=== PATIENT | female | born 1950 | race Caucasian/White ===

== ENCOUNTER 2016-04-01 06:45 | Inpatient (IN) | payer OTHER, MEDICARE ==
[2016-03-30 12:25] VITALS: BMI 34.0
--- NOTE | 2016-03-30 13:02 | PAT Medication Instructions ---
Service Date Mar 30, 2016. Current Home Medication List Acetaminophen (Tylenol), 1,000 MG PO PRN Amoxicillin & Pot Clavulanate (Augmentin 875-125 mg), 1 TAB PO BID Aspirin (Aspirin Ec), 81 MG PO QAM Atorvastatin (Lipitor), 40 MG PO HS Cholecalciferol (Vitamin D), 5,000 INTER.UNIT PO QAM Glipizide (Glucotrol *), 20 MG PO BID Lisinopril (Zestril), 10 MG PO QAM Metformin Hcl (Glucophage), 1,000 MG PO BID Multivitamin (Multivitamin), 1 TAB PO QAM [place]-3 Fatty Acids (Fish Oil), 1,000 MG PO QAM Omeprazole (Prilosec), 40 MG PO BID Pioglitazone (Actos *), 45 MG PO QAM Valacyclovir (Valtrex Unkown Dose), 1 GM PO PRN PRN for COLD SORES Varenicline (Chantix), 1 TAB PO BID Warfarin Sod (Jantoven), 4 MG PO SUN,,W,,FR,SAT Warfarin Sod (Jantoven), 2 MG PO MONDAY Medication Instructions For Your Scheduled Surgery -Check with surgeon/coumadin clinic for instructions: Warfarin Sod (Jantoven), 4 MG PO SUN,M,,TH,FR,SAT Warfarin Sod (Jantoven), 2 MG PO MONDAY - Hold the following medications starting 03/31/2015: [place]-3 Fatty Acids (Fish Oil), 1,000 MG PO QAM - Hold the following medications starting 03/30/15: Metformin Hcl (Glucophage), 1,000 MG PO BID - Hold the following medications the morning of surgery: Varenicline (Chantix), 1 TAB PO BID Pioglitazone (Actos *), 45 MG PO QAM\ Multivitamin (Multivitamin), 1 TAB PO QAM Lisinopril (Zestril), 10 MG PO QAM Glipizide (Glucotrol *), 20 MG PO BID Cholecalciferol (Vitamin D), 5,000 INTER.UNIT PO QAM\ - Take the following medications the morning of surgery with a sip of water: Omeprazole (Prilosec), 40 MG PO BID Amoxicillin & Pot Clavulanate (Augmentin 875-125 mg), 1 TAB PO BID Valacyclovir (Valtrex Unkown Dose), 1 GM PO PRN PRN for COLD SORES Acetaminophen (Tylenol), 1,000 MG PO PRN Aspirin (Aspirin Ec), 81 MG PO QAM (unless otherwise per surgeon) - Take the following medications as scheduled the night before surgery: Varenicline (Chantix), 1 TAB PO BID Omeprazole (Prilosec), 40 MG PO BID Atorvastatin (Lipitor), 40 MG PO HS Amoxicillin & Pot Clavulanate (Augmentin 875-125 mg), 1 TAB PO BID Valacyclovir (Valtrex Unkown Dose), 1 GM PO PRN PRN for COLD SORES Acetaminophen (Tylenol), 1,000 MG PO PRN If you have any questions please call us at [phone] (Sarah Cutler PA-C ) or [phone] or [phone]
--- NOTE | 2016-03-30 13:55 | DIAGNOSTIC IMAGING REPORT ---
TWO VIEW CHEST CLINICAL HISTORY: Preoperative examination. FINDINGS: PA and lateral chest radiographs are compared to study dated 05/26/2010 and correlated with chest CT dated 05/25/2010. The cardiomediastinal silhouette is unremarkable. There is atherosclerotic calcification of the thoracic aorta. Emphysema and chronic interstitial thickening is similar to previous. There is no airspace consolidation or pleural effusion. There is no pneumothorax. The skeletal structures are osteopenic. Degenerative change and mild scoliosis is noted in the thoracic spine. Surgical clips project over the right apex. IMPRESSION: Emphysema with no acute cardiopulmonary abnormality. Electronically signed by: Arthur Ojeda M.D. 03/30/2016 1:53 PM Dictated Date/Time: 03/30/2016 1:51 PM
[2016-03-30 14:06] LABS: BASO ABS # 0.09 K/uL (0-0.2); COMPLETE YES; HEMATOCRIT 32.9 % (37-47); IG% 0.2 %; LYMPH % 19.3 %; LYMPH ABS # 1.72 K/uL (1.2-3.4); MEAN CELL VOLUME 79.5 fL (80-100); MEAN CORPUSCULAR HEMOGLOBIN 25.8 pg (25-34); MEAN CORPUSCULAR HGB CONC 32.5 g/dl (32-36); MEAN PLATELET VOLUME 8.9 fL (7.4-10.4); MONO % 5.2 %; NEUT % 73.3 %; PLATELET COUNT 320 K/uL (130-400); RED BLOOD COUNT 4.14 M/uL (4.2-5.4); WHITE BLOOD COUNT 8.92 K/uL (4.8-10.8)
[2016-03-30 14:28] LABS: BUN/CREATININE RATIO 14.7 (10-20); CALCIUM 9.1 mg/dl (8.5-10.1); CREATININE 0.65 mg/dl (0.60-1.20); POTASSIUM 3.9 mmol/L (3.5-5.1)
[2016-04-01] VITALS (27 sets, daily range): BP systolic 112–198; BP diastolic 51–81; PULSE 62–105; TEMP 36.6–37; O2SAT 91–100; BMI 34.0; BMI 34.3
[~2016-04-01] VITALS: Ht 152.4 cm; Wt 79.7 kg
--- NOTE | 2016-04-01 06:05 | History and Physical ---
History & Physical Chief Complaint Draining hematoma right groin History of Present Illness The patient is a 64 year old female had undergone a right ax bifem bypass for limb salvage a few months ago. She presents with a draining hematoma of the right groin. It just started last week. Denies redness or pus. Does cam some discomfort. Allergies Coded Allergies: No Known Allergies (Verified , 08/26/15) Home Medications Scheduled Acetaminophen (Tylenol), 1,000 MG PO PRN Amitriptyline Hcl (Elavil *), 20 MG PO HS Aspirin (Aspirin Ec), 81 MG PO DAILY Atorvastatin (Lipitor), 40 MG PO HS Cholecalciferol (Vitamin D), 5,000 INTER.UNIT PO DAILY Clopidogrel (Plavix), 75 MG PO DAILY Glipizide (Glucotrol *), 20 MG PO BID Lisinopril (Zestril), 10 MG PO DAILY Metformin Hcl (Glucophage), 1,000 MG PO BID Multivitamin (Multivitamin), 1 TAB PO DAILY [place]-3 Fatty Acids (Fish Oil), 1,000 MG PO DAILY Omeprazole (Prilosec), 40 MG PO BID Pioglitazone (Actos *), 45 MG PO DAILY Scheduled PRN Ibuprofen Tab (Advil), 400 MG PO PRN PRN for PRN Valacyclovir (Valtrex Unkown Dose), 1 GM PO PRN PRN for COLD SORES Surgical / Medical History Hx Cardiac Surgery: No Hx Abdominal Surgery: Yes (tubal) Hx Cancer Surgery: No Hx Thoracic Surgery: No Hx Orthopedic: No Hx Urinary Tract Surgery: No HX Other Surgery: Yes (iliac artery stent) Social History Smoking Status: Current Every Day Smoker Hx Tobacco Use In Past Year?: Yes Hx Alcohol Use - Type & Amnt: No Hx Substance Use -Type & Amnt: No Review of Systems Additional Comments: unobtainable Physical Exam Constitutional: General Apperance: overweight Level of Distress: moderate distress Psychiatric: Mental Status: active & alert, normal mood, normal affect Orientation: oriented except where noted, to time, to place, to person Memory: recent memory normal, remote memory normal Lungs: Auscultation: breath sounds normal Cardiovascular: Heart Auscultation: RRR Peripheral Pulses: Radial Pulse: normal on the left, normal on the right Femoral Pulse: normal on the right, normal on the left Posterior Tibialis Pulse: decreased on the left , decreased on the right Dorsalis Pedis Pulse: decreased on the right, absent on the left Abdomen: Inspection & Palpation: soft Extremities: Upper Right and left: no cyanosis, no edema, no varicosities, no palpable cord, no clubbing, no ulcers, no mottling Upper Left: no cyanosis, no edema, no palpable cord, no clubbing, no ulcers , no mottling Lower Left: no cyanosis, no edema, no palpable cord, no clubbing, no ulcers , no mottling Assessment and Plan Imp: Draining right groin wound Plan: Patient is admitted for exploration of the right groin wound. I have discussed the risks options and benefits of the procedure with the patient. The patient understands the risks options and benefits and agrees to the procedure.
[~2016-04-01 06:45] MED LIST: ACET-1256 PO; ACT15 PO; AMOX875T PO; ASPI81TA28 PO; ATOR-24 PO; CEFAZOLIN 1000MG/55 ML D5W IV SCH; CEFAZOLIN 2000 MG/60 ML D5W IV SCH; CHN/1 PO; CHOL100010 PO; GLC5 PO; LACTATED RINGER'S 1000ML 1,000 ML IV SCH; LISI-461 PO; METF-384 PO; MULT-506 PO; OMEGCAP2 PO; OMEP40CA PO; SODIUM CHLORIDE 0.9% 1000ML 1,000 ML IV SCH; WARF2TAB8 PO; WARF4TAB8 PO; [UNRECOGNIZED DRUG - OTHER] PO
[2016-04-01] MEDS ORDERED: FENTANYL CITRATE INJ 50 MCG/1 ML 2 ML VIAL ONE ×2 (07:00→10:29)
[2016-04-01] MEDS ORDERED: MIDAZOLAM HCL 1 MG/ML 2ML VIAL ONE (07:00)
--- NOTE | 2016-04-01 07:36 | History & Physical Bridge Note ---
H&P Re-Evaluation Bridge Note: I have examined the patient, reviewed the History & Physical and in the interval since the performance of the History & Physical I have noted the following changes of clinical significance: No changes noted
[2016-04-01 08:01] LABS: INR 1.7 (0.9-1.1); PARTIAL THROMBOPLASTIN RATIO 1.5
[2016-04-01] MEDS ORDERED: ATROPINE SULFATE 0.1 MG/ML 5ML SYR IV PRN (09:30)
[2016-04-01] MEDS ORDERED: HYDROmorphone INJ 2 MG/ML SYR/VIAL IV PRN (09:30)
[2016-04-01] MEDS ORDERED: PHENYLEPHRINE 100MCG/ML 5ML SYR IV PRN (09:30)
[2016-04-01] MEDS ORDERED: ONDANSETRON INJ 2 MG/ML 2 ML VIAL IV PRN ×2 (09:30→10:45)
[2016-04-01] MEDS ORDERED: EpHEDrine SULFATE INJ 50 MG/ML AMP IV PRN (09:30)
[2016-04-01] MEDS ORDERED: CEFAZOLIN IV 2,000 MG/60 ML D5W IV ONE (09:44)
[2016-04-01] MEDS ORDERED: NURSING VERBAL MED ORDER ONE (10:00)
[2016-04-01] MEDS ORDERED: PROPOFOL IV EMULSION 10 MG/ML 20 ML VIAL IV ONE (10:29)
[2016-04-01] MEDS ORDERED: DEXAMETHASONE SOD INJ 4 MG/ML VIAL ONE (10:29)
[2016-04-01] MEDS ORDERED: LIDOCAINE HCL 2% 2 ML VIAL (20MG/ML) ONE (10:29)
[2016-04-01] MEDS ORDERED: PHENYLEPHRINE 100MCG/ML 5ML SYR ONE (10:29)
[2016-04-01] MEDS ORDERED: ONDANSETRON INJ 2 MG/ML 2 ML VIAL ONE (10:29)
[2016-04-01] MEDS ORDERED: VANCOMYCIN INJ 0 MG in SODIUM CHLORIDE 0.9% 250ML 250 ML IV STA (10:37)
--- NOTE | 2016-04-01 10:37 | [facility] Post Operative Brief Note ---
Immediate Operative Summary Operative Date Apr 01, 2016. Pre-Operative Diagnosis Right groin abscess Post-Operative Diagnosis Right groin abscess Procedure(s) Performed Right Groin Exploration and Debridement Repair of arterial anastomosis Surgeon Dr. Chip Morgan Packer Operator Automatic Surgeon(s) Esther Higgins PA-C Estimated Blood Loss 80 ml Findings anastomosis incorporated except for very small area at heal, another area along the graft further up but may be due to the bleeding from the anastomosis Specimens Microbiology 1. Right Groin Graft Anesthesia Gen Complication(s) None Disposition Recovery Room / PACU
[2016-04-01] MEDS ORDERED: ORM MISCELLANEOUS MED XX ONE (10:42)
[2016-04-01] MEDS ORDERED: BACITRACIN 50,000 UNITS IR ONE (10:43)
[2016-04-01] MEDS ORDERED: MoRPHine SULFATE 4 MG/ML 1 ML CARP\\VIAL IV PRN (10:45)
--- NOTE | 2016-04-01 11:25 | Anesthesiology Progress Note ---
Anesthesia Post Op Note Date & Time Apr 01, 2016 at 11:24 Vital Signs Pain Intensity: 5 Vital Signs Past 12 Hours Date Time Temp Pulse Resp B/P Pulse Ox O2 Delivery O2 Flow Rate FiO2 04/01/16 11:20 36.8 78 16 113/61 100 Nasal Cannula 2 04/01/16 11:10 72 16 94/48 99 Nasal Cannula 2 04/01/16 11:00 59 16 104/70 100 Nasal Cannula 2 04/01/16 10:50 66 16 143/82 100 Mask 10 04/01/16 10:41 36.8 89 16 125/69 100 Mask 10 04/01/16 07:10 36.9 84 18 198/79 98 Room Air Notes Mental Status: alert / awake / arousable, participated in evaluation Pt Amnestic to Procedure: Yes Nausea / Vomiting: adequately controlled Pain: adequately controlled Airway Patency, RR, SpO2: stable & adequate BP & HR: stable & adequate Hydration State: stable & adequate Anesthetic Complications: no major complications apparent
--- NOTE | 2016-04-01 11:33 | OPERATIVE REPORT ---
DATE OF OPERATION: 04/01/2016 PREOPERATIVE DIAGNOSIS: Bleeding right groin. POSTOPERATIVE DIAGNOSIS: Same with small disruption of arterial anastomosis. PROCEDURE: 1. Exploration of right groin. 2. Repair of arterial anastomosis. SURGEON: Dr. Morgan. AGENT TICKETING GATE: Esther Higgins PA-C. ANESTHETIC: General. PROCEDURE INDICATIONS: The patient is a 65-year-old female who had an emergency axillo bifemoral bypass done last year. She was doing well. She noticed a sharp pain and a pull in her right groin last week. She says that she has a small punctate lesion at the top of her incision with bleeding. This was opened in the office, found to have a hematoma below and it was recommended that we explore in the operating room. The patient understood the risks, options and benefits and agreed to have this procedure. PROCEDURE: The patient was taken to the operating room and placed in supine position. After right groin was prepped and draped in a sterile manner the old incision was then opened. We went through the subcutaneous tissue and found the graft to be sitting there. The proximal above it was well incorporated. The area of the hematoma was not. There was some bleeding noted coming from the depth of the wound. The dissection was carried down along the graft until the arterial anastomosis was seen. The arterial anastomosis was well incorporated except for a small portion on the cephalad medial side. There was a small area of bleeding. This was actually repaired with 2 Prolene sutures. The graft was patent and flowing well. Adequate hemostasis was seen. I tugged on the graft slightly and the rest of the arterial anastomosis felt to be fairly secure. No further bleeding was noted. Wound was then irrigated with bacitracin solution and closed with a running 2-0 Vicryl suture for the subcutaneous layer and aisha for the skin. Sterile dressings were applied. The patient left the operating room in satisfactory condition and tolerated the procedure well. Esther Higgins assisted due to lack of resident availability. I attest to the content of the Intraoperative Record and any orders documented therein. Any exceptions are noted below. MTDD
[2016-04-01 11:34] LABS: BASO ABS # 0.07 K/uL (0-0.2); COMPLETE YES; EOS % 2.2 %; HEMATOCRIT 27.7 % (37-47); IG% 0.3 %; LYMPH % 23.5 %; LYMPH ABS # 1.58 K/uL (1.2-3.4); MEAN CELL VOLUME 80.1 fL (80-100); MEAN CORPUSCULAR HEMOGLOBIN 26.3 pg (25-34); MEAN CORPUSCULAR HGB CONC 32.9 g/dl (32-36); MEAN PLATELET VOLUME 8.6 fL (7.4-10.4); MONO % 4.3 %; NEUT % 68.7 %; PLATELET COUNT 251 K/uL (130-400); RED BLOOD COUNT 3.46 M/uL (4.2-5.4); WHITE BLOOD COUNT 6.72 K/uL (4.8-10.8)
--- NOTE | 2016-04-01 13:27 | Progress Note ---
Progress Note I assisted Dr Morgan with Gifty Plummer's Right Groin Exploration and Debridement, Repair of arterial anastomosis on 04/01/16, d/t lack of resident availability.
[2016-04-01] MEDS ORDERED: MoRPHine SULFATE 2 MG/ML CARP IV PRN (14:00)
[2016-04-01] MEDS ORDERED: VANCOMYCIN CONSULT ACTIVE PRN (14:30)
--- NOTE | 2016-04-01 14:44 | Pharmacy Progress Note ---
Pharmacy Antibiotic Consult Date of Service: Apr 01, 2016. Pharmacy Dosing Scope Pharmacy is consulted to initiate vancomycin IV dosing therapy, order appropriate labs and adjust drug dose/frequency. Subjective The patient is a 65 year old female admitted on Apr 01, 2016 at 10:47. Objective Height (Feet): 5 Height (Inches): 0 Weight (Kilograms): 79.300 Lab Results (24hrs): Laboratory Tests Test 04/01/16 11:20 White Blood Count 6.72 K/uL Red Blood Count 3.46 M/uL Hemoglobin 9.1 g/dL Hematocrit 27.7 % Mean Corpuscular Volume 80.1 fL Mean Corpuscular Hemoglobin 26.3 pg Mean Corpuscular Hemoglobin Concent 32.9 g/dl Platelet Count 251 K/uL Mean Platelet Volume 8.6 fL Neutrophils (%) (Auto) 68.7 % Lymphocytes (%) (Auto) 23.5 % Monocytes (%) (Auto) 4.3 % Eosinophils (%) (Auto) 2.2 % Basophils (%) (Auto) 1.0 % Neutrophils # (Auto) 4.61 K/uL Lymphocytes # (Auto) 1.58 K/uL Monocytes # (Auto) 0.29 K/uL Eosinophils # (Auto) 0.15 K/uL Basophils # (Auto) 0.07 K/uL Micro Results: Item Value Date Time Gram Stain - Final Resulted 04/01/16 1002 Drainage-Deep Groin MRSA DNA Surveillance Screen - Final Complete 04/01/16 1200 Nasal Specimen Negative for MRSA by DNA Probe Assessment & Plan ASSESSMENT: * Patient is a 65 year-old female admitted with an infected arterial graft. * Patient does have an elevated BMI of 34.1kg/m2. * Pharmacy was consulted to dose for 24hr post-op vancomycin dosing on the patient. * However, spoke with Esther Motta and patient will likely continue on longer duration of therapy of vancomycin. Thus will give a loading dose and start on maintenance dosing with vancomycin. Will follow-up on this on 04/02. * Calculated half-life to be ~10hrs. * Goal trough of 15-20mcg/ml. * Drainage culture was taken, and MRSA nasal swab was negative. PLAN: Vancomycin: * Gave 2g IV x 1 dose of vancomycin (25mg/kg) for a load. * Will make the maintenance dosing to be 1100mg IV q12h (~14mg/kg). * Will not order a trough yet until we see if the provider will extend the duration of therapy. Pharmacy will continue to follow and will adjust dose/frequency as necessary. Thank you
[2016-04-01] MEDS ORDERED: VANCOMYCIN INJ 2,000 MG in SODIUM CHLORIDE 0.9% 500ML 500 ML IV ONE (15:00)
[2016-04-01] MEDS: PANTOprazole INJ 40 MG in SYRINGE 0 ML IV SCH (15:05)
[2016-04-01] MEDS: D5W AND 1/2NSS 1,000 ML IV SCH (15:05)
--- NOTE | 2016-04-01 15:50 | Critical Care Consultation ---
Critical Care Consultation Date of Consultation: Apr 01, 2016. Attending Physician: Chip Morgan M.D. Reason for Consultation: s/p repair of anastomosis History of Present Illness This is a 65 yo f that is presenting to us s/p repair of anastomosis of a right axillary bifemoral bypass. The patient originally had the bypass completed in august of 2015 for PAD. She had been symptom free since the surgery except for approximately a week. She notes that about a week ago she noticed increased pain in the right groin. On monday she started to notice bleeding in the area and called Dr Morgan, who originally completed the bypass. She was assessed in the office with a USG which did not reveal a pseudoaneurysm and a I& D however they were not able to assess appropriately without anesthesia and there was concern for the anastomosis. Debridement and reanastomosis was completed today, 04/01/15. She is currently resting in bed and feeling well. She only complains of pain in the right groin and is currently a 6/10. Past Medical/Surgical History Amputation of right little toe s/p axillary bifemoral bypass with reanastomosis Tubal ligation DMII HTN Hyperlipidemia Emphysema Family History Hypertension FATHER Social History Smoking Status: Former Smoker (quit august 2015) Smokeless Tobacco Use: No Alcohol Use: none Drug Use: none Marital Status: Housing Status: lives with family Occupation Status: retired Allergies Coded Allergies: NO KNOWN DRUG ALLERGIES (Verified Allergy, Mild, ., 04/01/16) Nickel (Verified Allergy, Mild, RASH, 04/01/16) Home Medications Scheduled Acetaminophen (Tylenol), 1,000 MG PO PRN Amoxicillin & Pot Clavulanate (Augmentin 875-125 mg), 1 TAB PO BID Aspirin (Aspirin Ec), 81 MG PO QAM Atorvastatin (Lipitor), 40 MG PO HS Cholecalciferol (Vitamin D), 5,000 INTER.UNIT PO QAM Glipizide (Glucotrol *), 20 MG PO BID Lisinopril (Zestril), 10 MG PO QAM Metformin Hcl (Glucophage), 1,000 MG PO BID Multivitamin (Multivitamin), 1 TAB PO QAM [place]-3 Fatty Acids (Fish Oil), 1,000 MG PO QAM Omeprazole (Prilosec), 40 MG PO BID Pioglitazone (Actos *), 45 MG PO QAM Varenicline (Chantix), 1 TAB PO BID Warfarin Sod (Martoven), 4 MG PO SUN,M,W,TH,FR,SAT Warfarin Sod (Martoven), 2 MG PO MONDAY Scheduled PRN Valacyclovir (Valtrex Unkown Dose), 1 GM PO PRN PRN for COLD SORES Current Inpatient Medications Current Inpatient Medications Medications (Trade) Dose Ordered Sig/Shira Route Start Time Stop Time Status Last Admin Dose Admin Sodium Chloride 1,000 ml @ 100 mls/hr Q10H IV 04/01/16 06:00 04/01/16 15:59 Cefazolin Sodium (Ancef 2000mg/60 ml D5W) 60 ml @ 100 mls/hr PREOP IV 04/01/16 06:00 04/01/16 18:00 Oxycodone/ Acetaminophen (Percocet 5-325mg Tab) `1-2 TABS FOR MODER... Q4H PRN PO 04/01/16 10:45 04/15/16 10:44 Morphine Sulfate (MoRPHine SULFATE INJ) 4 mg Q2H PRN IV 04/01/16 10:45 04/15/16 10:44 Ondansetron HCl 4 mg 4 mg Q6H PRN IV 04/01/16 10:45 05/01/16 10:44 Pantoprazole Sodium/Syringe (Protonix Inj/ Syringe) 10 ml @ 5 mls/min DAILY@11 IV 04/01/16 16:00 05/01/16 15:59 04/01/16 15:05 5 MLS/MIN Enoxaparin Sodium 30 mg 30 mg Q12H SQ 04/01/16 20:00 05/01/16 19:59 Dextrose/Sodium Chloride (D5W And 1/2nss) 1,000 ml @ 125 mls/hr Q8H IV 04/01/16 13:30 05/01/16 13:29 04/01/16 15:05 125 MLS/HR Aspirin (Ecotrin Tab) 81 mg QAM PO 04/02/16 09:00 05/02/16 08:59 Atorvastatin Calcium (Lipitor Tab) 40 mg HS PO 04/01/16 21:00 05/01/16 20:59 Cholecalciferol (Vitamin D Tab) 5,000 inter.unit QAM PO 04/02/16 09:00 05/02/16 08:59 Glipizide (Glucotrol Tab) 20 mg BIDM PO 04/01/16 16:30 05/01/16 16:29 Lisinopril (Zestril Tab) 10 mg QAM PO 04/02/16 09:00 05/02/16 08:59 Metformin HCl (Glucophage Tab) 1,000 mg BIDM PO 04/02/16 07:15 05/02/16 07:14 Multivitamins (Multivitamin Tab) 1 tab QAM PO 04/02/16 09:00 05/02/16 08:59 Pioglitazone HCl (ACTos TAB) 45 mg QDB PO 04/02/16 07:15 05/02/16 07:14 Warfarin Sodium (Coumadin Tab) 2 mg Tu@1600 PO 04/05/16 16:00 05/05/16 15:59 Warfarin Sodium (Coumadin Tab) 4 mg SuMoWeThFrSa@1600 PO 04/01/16 16:00 05/01/16 15:59 Fish Oil ([place]-3 (Purified Fish Oil) Cap) 1 gm QAM PO 04/02/16 09:00 05/02/16 08:59 Valacyclovir HCl (Valtrex Tab) 1,000 mg UD PRN PO 04/01/16 13:15 05/01/16 13:14 Morphine Sulfate (MoRPHine SULFATE INJ) 2 mg Q2H PRN IV 04/01/16 14:00 04/15/16 13:59 Varenicline (Chantix) 1 mg BID PO 04/01/16 21:00 05/01/16 20:59 Vancomycin HCl 1 ea 1 ea UD PRN N/A 04/01/16 14:30 05/01/16 14:29 Vancomycin HCl 2000 mg/Sodium Chloride 540 ml @ 200 mls/hr TODAY@1500 ONCE IV 04/01/16 15:00 04/01/16 17:41 04/01/16 14:58 200 MLS/HR Vancomycin HCl/ Sodium Chloride (Vancomycin Inj/ Nss 250ml) 272 ml @ 125 mls/hr Q12H IV 04/02/16 00:00 04/02/16 14:59 Review of Systems Constitutional: No fever Eyes: No worsening of vision ENT: No hearing loss Respiratory: No cough, No dyspnea at rest, No dyspnea on exertion, No shortness of breath, No sputum, No wheezing Cardiovascular: No chest pain Abdomen: No constipation, No diarrhea, No nausea, No pain, No vomiting Musculoskeletal: No joint pain, No muscle pain Neurologic: No memory loss, No numbness/tingling, No weakness Psychiatric: No anxiety, No depression symptoms Endocrine: No fatigue Integumentary: No rash Physical Exam Date Time Temp Pulse Resp B/P Pulse Ox O2 Delivery O2 Flow Rate FiO2 04/01/16 13:30 91 94 04/01/16 13:29 91 129/72 94 04/01/16 13:15 85 92 04/01/16 13:14 84 140/61 94 04/01/16 13:05 36.8 89 20 129/63 94 Nasal Cannula 2.0 04/01/16 13:00 101 94 04/01/16 12:58 105 134/53 93 04/01/16 12:45 99 91 04/01/16 12:44 99 130/60 92 04/01/16 12:30 88 91 04/01/16 12:28 93 112/76 95 04/01/16 12:15 81 96 04/01/16 12:13 84 150/79 96 04/01/16 12:00 62 98 04/01/16 11:59 36.7 79 151/79 100 04/01/16 11:30 63 16 102/50 100 Nasal Cannula 2 04/01/16 11:20 36.8 78 16 113/61 100 Nasal Cannula 2 04/01/16 11:10 72 16 94/48 99 Nasal Cannula 2 04/01/16 11:00 59 16 104/70 100 Nasal Cannula 2 04/01/16 10:50 66 16 143/82 100 Mask 10 04/01/16 10:41 36.8 89 16 125/69 100 Mask 10 04/01/16 07:10 36.9 84 18 198/79 98 Room Air General Appearance: WD/WN, no apparent distress Head: normocephalic, atraumatic Eyes: normal inspection ENT: normal ENT inspection Neck: supple Respiratory/Chest: lungs clear, normal breath sounds, no respiratory distress, no accessory muscle use Cardiovascular: regular rate, rhythm, no murmur, + pertinent finding ( diminished by palpable bilat peripheral pulses, they are equal) Abdomen/GI: normal bowel sounds, non tender, soft Back: normal inspection Extremities/Musculoskelatal: normal inspection, no calf tenderness, + pertinent finding (tenderness only surrounding the incision site, no cellultis) Neurologic/Psych: alert, normal mood/affect, oriented x 3 Skin: normal color, warm/dry, no rash, + pertinent finding (no drainage through the dressing noted) Laboratory Results Last 24 Hours Test 04/01/16 07:22 04/01/16 07:40 04/01/16 10:46 04/01/16 11:20 Bedside Glucose 135 mg/dl 116 mg/dl Prothrombin Time 19.0 SECONDS Prothromb Time International Ratio 1.7 Activated Partial Thromboplast Time 39.3 SECONDS Partial Thromboplastin Ratio 1.5 White Blood Count 6.72 K/uL Red Blood Count 3.46 M/uL Hemoglobin 9.1 g/dL Hematocrit 27.7 % Mean Corpuscular Volume 80.1 fL Mean Corpuscular Hemoglobin 26.3 pg Mean Corpuscular Hemoglobin Concent 32.9 g/dl Platelet Count 251 K/uL Mean Platelet Volume 8.6 fL Neutrophils (%) (Auto) 68.7 % Lymphocytes (%) (Auto) 23.5 % Monocytes (%) (Auto) 4.3 % Eosinophils (%) (Auto) 2.2 % Basophils (%) (Auto) 1.0 % Neutrophils # (Auto) 4.61 K/uL Lymphocytes # (Auto) 1.58 K/uL Monocytes # (Auto) 0.29 K/uL Eosinophils # (Auto) 0.15 K/uL Basophils # (Auto) 0.07 K/uL RDW Standard Deviation 45.0 fL RDW Coefficient of Variation 15.4 % Immature Granulocyte % (Auto) 0.3 % Immature Granulocyte # (Auto) 0.02 K/uL Diagnostic Results TWO VIEW CHEST CLINICAL HISTORY: Preoperative examination. FINDINGS: PA and lateral chest radiographs are compared to study dated 05/26/2010 and correlated with chest CT dated 05/25/2010. The cardiomediastinal silhouette is unremarkable. There is atherosclerotic calcification of the thoracic aorta. Emphysema and chronic interstitial thickening is similar to previous. There is no airspace consolidation or pleural effusion. There is no pneumothorax. The skeletal structures are osteopenic. Degenerative change and mild scoliosis is noted in the thoracic spine. Surgical clips project over the right apex. IMPRESSION: Emphysema with no acute cardiopulmonary abnormality. Assessment & Plan 1. s/p axillary bifemoral bypass reanastomosis 2. s/p I&D of abscess in right groin 3. HTN 4. DM 5. COPD 6. Hypercholesterolemia NVS - alert and oriented x 3 - continue to monitor neuro status - pain control with Oxycodone and morphine CVS - continue to monitor - continue statin - peripheral Doppler for pulses q 4 - cont lisinopril RVS - incentive roberta and flutter valve- h/o smoking and emphysema increased risk for pna GI - advance diet as tolerated - zofran for nausea prn RENAL - recheck BMP in am - D5W 1/ NSS IVF ID - Vanco and consult - wound culture pending HEME - recheck CBC in am to monitor hgb - recheck INR tomorrow ENDO - cont metformin, glipizide and pioglitazone - monitor BSG DVT PROPHYLAXIS - Enoxaparin and SCD FULL CODE Resident Physician Supervision Note: Dr. Farr was resident physician during care of patient. I separately evaluated patient and did history and exam. I discussed the case with the resident and generally agree with the findings and plan. During my evaluation the patient was without complaint, tolerating food, and was anticipating discharge tomorrow. Documented By: Gray Allen DO
[2016-04-01] MEDS: WARFARIN SOD 4 MG TAB PO SCH (16:24)
[2016-04-01] MEDS: OXYCODONE/ACETAMINOPHEN 5-325 TAB PO PRN (17:38)
[2016-04-01] MEDS: ENOXAPARIN 30 MG/0.3 ML SYR SQ SCH (19:45)
[2016-04-01] MEDS: ATORVASTATIN 20 MG TAB PO SCH (20:40)
[2016-04-01] MEDS: VARENICLINE (CHANTIX) 1 MG TAB PO SCH (20:40)
[2016-04-01] MEDS ORDERED: VARENICLINE 0.5 MG TAB PO SCH (21:00)
[2016-04-01] MEDS ORDERED: PANTOprazole SOD 40 MG TAB PO SCH (21:00)
[2016-04-01] MEDS: VANCOMYCIN INJ 1,100 MG in SODIUM CHLORIDE 0.9% 250ML 250 ML IV SCH (23:42)
[2016-04-02] VITALS (13 sets, daily range): BP systolic 126–179; BP diastolic 51–81; PULSE 65–81; TEMP 36.6–36.9; O2SAT 94–98
[2016-04-02] MEDS: D5W AND 1/2NSS 1,000 ML IV SCH (04:11)
[2016-04-02] MEDS: OXYCODONE/ACETAMINOPHEN 5-325 TAB PO PRN ×4 (04:12→19:43)
[2016-04-02 05:55] LABS: BASO % 0.5 %; BASO ABS # 0.05 K/uL (0-0.2); COMPLETE YES; HEMATOCRIT 29.7 % (37-47); IG% 0.4 %; LYMPH % 24.2 %; LYMPH ABS # 2.63 K/uL (1.2-3.4); MEAN CELL VOLUME 80.1 fL (80-100); MEAN CORPUSCULAR HEMOGLOBIN 25.6 pg (25-34); MEAN PLATELET VOLUME 8.7 fL (7.4-10.4); MONO % 7.7 %; NEUT % 66.2 %; PLATELET COUNT 274 K/uL (130-400); RED BLOOD COUNT 3.71 M/uL (4.2-5.4); WHITE BLOOD COUNT 10.89 K/uL (4.8-10.8)
[2016-04-02 06:05] LABS: INR 1.9 (0.9-1.1); PROTHROMBIN TIME (PATIENT) 20.9 SECONDS (9.0-12.0)
[2016-04-02 06:23] LABS: BUN/CREATININE RATIO 17.6 (10-20); CALCIUM 8.1 mg/dl (8.5-10.1); CREATININE 0.71 mg/dl (0.60-1.20); POTASSIUM 3.2 mmol/L (3.5-5.1)
[2016-04-02] MEDS: LISINOPRIL 10 MG TAB PO SCH (08:23)
[2016-04-02] MEDS: PIOGLITAZONE TAB 15 MG TAB PO SCH (08:23)
[2016-04-02] MEDS: CHOLECALCIFEROL 1000 INTER.UNIT TAB PO SCH (08:24)
[2016-04-02] MEDS: METFORMIN HCL 500 MG TAB PO SCH ×2 (08:24→17:08)
[2016-04-02] MEDS: MULTIVITAMIN TAB PO SCH (08:24)
[2016-04-02] MEDS: OMEGA-3 (PURIFIED FISH OIL) 1 GM CAP PO SCH (08:24)
[2016-04-02] MEDS: ASPIRIN 81 MG ECTAB PO SCH (08:25)
[2016-04-02] MEDS: ENOXAPARIN 30 MG/0.3 ML SYR SQ SCH ×2 (08:25→19:43)
[2016-04-02] MEDS: VARENICLINE (CHANTIX) 1 MG TAB PO SCH ×2 (08:25→19:42)
--- NOTE | 2016-04-02 10:42 | Progress Note ---
Progress Note Date of Service: Apr 02, 2016. Subjective Complains of incisional right groin pain Objective Vital Signs Vital Signs Past 12 Hours Date Time Temp Pulse Resp B/P Pulse Ox O2 Delivery O2 Flow Rate FiO2 04/02/16 10:00 80 14 168/69 98 Room Air 04/02/16 08:00 36.7 79 18 168/66 97 Room Air 04/02/16 08:00 97 Room Air 04/02/16 06:00 75 12 154/71 97 Nasal Cannula 2.0 04/02/16 04:30 165/71 04/02/16 04:00 Nasal Cannula 2.0 04/02/16 04:00 36.9 80 14 179/81 97 Nasal Cannula 2.0 04/02/16 02:00 73 20 162/66 97 Nasal Cannula 2.0 04/02/16 00:01 36.9 72 14 144/60 97 Nasal Cannula 2.0 04/01/16 23:59 Nasal Cannula 2.0 Exam Awake and alert. Sitting in chair Good distal doppler flow No bleeding from groin. Intake & Output 8-Hour Column 04/01/16 04/02/16 04/02/16 16:00 00:00 08:00 Intake Total 1500 ml 2308 ml 1020 ml Output Total 80 ml 925 ml 1250 ml Balance 1420 ml 1383 ml -230 ml 24-Hour Column 04/02/16 08:00 Intake Total 4828 ml Output Total 2255 ml Balance 2573 ml Laboratory and Microbiology Results Past 24 Hours Test 04/01/16 10:46 04/01/16 11:20 04/01/16 16:05 04/01/16 22:03 Range/Units Bedside Glucose 116 201 212 70-90 mg/dl White Blood Count 6.72 4.8-10.8 K/uL Red Blood Count 3.46 4.2-5.4 M/uL Hemoglobin 9.1 12.0-16.0 g/dL Hematocrit 27.7 37-47 % Mean Corpuscular Volume 80.1 80-100 fL Mean Corpuscular Hemoglobin 26.3 25-34 pg Mean Corpuscular Hemoglobin Concent 32.9 32-36 g/dl Platelet Count 251 130-400 K/uL Mean Platelet Volume 8.6 7.4-10.4 fL Neutrophils (%) (Auto) 68.7 % Lymphocytes (%) (Auto) 23.5 % Monocytes (%) (Auto) 4.3 % Eosinophils (%) (Auto) 2.2 % Basophils (%) (Auto) 1.0 % Neutrophils # (Auto) 4.61 1.4-6.5 K/uL Lymphocytes # (Auto) 1.58 1.2-3.4 K/uL Monocytes # (Auto) 0.29 0.11-0.59 K/uL Eosinophils # (Auto) 0.15 0-0.5 K/uL Basophils # (Auto) 0.07 0-0.2 K/uL RDW Standard Deviation 45.0 36.4-46.3 fL RDW Coefficient of Variation 15.4 11.5-14.5 % Immature Granulocyte % (Auto) 0.3 % Immature Granulocyte # (Auto) 0.02 0.00-0.02 K/uL Hepatitis C Antibody Screen NEG NEG Test 04/02/16 05:25 Range/Units White Blood Count 10.89 4.8-10.8 K/uL Red Blood Count 3.71 4.2-5.4 M/uL Hemoglobin 9.5 12.0-16.0 g/dL Hematocrit 29.7 37-47 % Mean Corpuscular Volume 80.1 80-100 fL Mean Corpuscular Hemoglobin 25.6 25-34 pg Mean Corpuscular Hemoglobin Concent 32.0 32-36 g/dl Platelet Count 274 130-400 K/uL Mean Platelet Volume 8.7 7.4-10.4 fL Neutrophils (%) (Auto) 66.2 % Lymphocytes (%) (Auto) 24.2 % Monocytes (%) (Auto) 7.7 % Eosinophils (%) (Auto) 1.0 % Basophils (%) (Auto) 0.5 % Neutrophils # (Auto) 7.22 1.4-6.5 K/uL Lymphocytes # (Auto) 2.63 1.2-3.4 K/uL Monocytes # (Auto) 0.84 0.11-0.59 K/uL Eosinophils # (Auto) 0.11 0-0.5 K/uL Basophils # (Auto) 0.05 0-0.2 K/uL RDW Standard Deviation 45.7 36.4-46.3 fL RDW Coefficient of Variation 15.5 11.5-14.5 % Immature Granulocyte % (Auto) 0.4 % Immature Granulocyte # (Auto) 0.04 0.00-0.02 K/uL Prothrombin Time 20.9 9.0-12.0 SECONDS Prothromb Time International Ratio 1.9 0.9-1.1 Sodium Level 145 136-145 mmol/L Potassium Level 3.2 3.5-5.1 mmol/L Chloride Level 110 98-107 mmol/L Carbon Dioxide Level 25 21-32 mmol/L Anion Gap 10.0 3-11 mmol/L Blood Urea Nitrogen 13 7-18 mg/dl Creatinine 0.71 0.60-1.20 mg/dl Est Creatinine Clear Calc Drug Dose 75.7 ml/min Estimated GFR () 103.6 Estimated GFR (Non- 89.4 BUN/Creatinine Ratio 17.6 10-20 Random Glucose 167 70-99 mg/dl Calcium Level 8.1 8.5-10.1 mg/dl Microbiology Results 04/01/16 MRSA DNA Surveillance Screen - Final, Complete Specimen Negative for MRSA by DNA Probe Imp: Disruption of right femoral anastomosis. Plan: Gram stain was negative, Culture is pending. Will continue vanco at this time. Will need to keep close observation for groin bleeding over the next 24 to 48 hours. If cultures negative will give two weeks of oral antibiotics at discharge. If cultures are positive, then treatment will be determined by the organism. If we have to take out the right limb of the graft, she will have a significant risk of amputation of the limb. We may need to treat here with lifelong antibiotics for suppression depending on the organism and 4-6 weeks of IV antibiotics. Other option if the limb has to be removed, would be a graft from the main trunk of the ax bifem to the popliteal.
[2016-04-02] MEDS ORDERED: NURSING DECISION MEDICATION ORDER SCH ×2 (11:00→15:30)
[2016-04-02] MEDS ORDERED: ICU ELECTROLYTE REPLACEMENT PROTOCOL PRN (11:00)
[2016-04-02] MEDS: VANCOMYCIN INJ 1,100 MG in SODIUM CHLORIDE 0.9% 250ML 250 ML IV SCH (11:51)
[2016-04-02] MEDS: PANTOprazole INJ 40 MG in SYRINGE 0 ML IV SCH (11:51)
[2016-04-02] MEDS: POTASSIUM CHLORIDE 20 MEQ TABCR PO SCH ×3 (11:51→19:42)
[2016-04-02] MEDS: WARFARIN SOD 4 MG TAB PO SCH (17:09)
[2016-04-02] MEDS ORDERED: NURSING VERBAL MED ORDER ONE (19:30)
[2016-04-02] MEDS: ATORVASTATIN 20 MG TAB PO SCH (19:44)
[2016-04-02] MEDS: DOCUSATE SODIUM 100 MG CAP PO SCH (20:59)
--- NOTE | 2016-04-02 21:28 | Critical Care Progress Note ---
Critical Care Progress Note Date of Service Apr 02, 2016. ICU Day ICU Day Number: [address] Allen Subjective Mild pain at surgical site Objective General Appearance: WD/WN, no apparent distress Head: normocephalic, atraumatic Eyes: normal inspection ENT: normal ENT inspection Neck: supple Respiratory/Chest: lungs clear, normal breath sounds, no respiratory distress, no accessory muscle use Cardiovascular: regular rate, rhythm, no murmur, + pertinent finding ( diminished by palpable bilat peripheral pulses, they are equal) Abdomen/GI: normal bowel sounds, non tender, soft Back: normal inspection Extremities/Musculoskelatal: normal inspection, no calf tenderness, + pertinent finding (tenderness only surrounding the incision site, no cellultis) Neurologic/Psych: alert, normal mood/affect, oriented x 3 Skin: normal color, warm/dry, no rash, + pertinent finding (no drainage through the dressing noted) Assessment & Plan 1. s/p axillary bifemoral bypass reanastomosis 2. s/p I&D of abscess in right groin 3. HTN 4. DM 5. COPD 6. Hypercholesterolemia Neuro - pain control with Oxycodone and morphine CVS - HTN - Systolics slightly increased, may be secondary due to pain - Continue Home medication regimen - continue statin - peripheral Doppler for pulses q 4 Respiratory - incentive roberta GI - tolerating full diet - on PPI as outpatient, would convert to oral medication. - zofran for nausea prn - stool softener added RENAL - 3 L positive, but adequate urine output, No evidence of volume overload ID - Vanco and consult, Trough tomorrow - Wound culture no growth to date HEME - Anemia: Stable ENDO - cont metformin, glipizide and pioglitazone - blood sugar range 86-212; within goal DVT PROPHYLAXIS - Enoxaparin and SCD PT/OT - Patient out of bed to chair acute critical care needs resolved, nursing interventions q4, stable for downgrade from ICU status. Thank you for allowing us to participate in the care of Ms. Plummer. Data Medications: Current Inpatient Medications Medications (Trade) Dose Ordered Sig/Shira Route Start Time Stop Time Status Last Admin Dose Admin Oxycodone/ Acetaminophen (Percocet 5-325mg Tab) `1-2 TABS FOR MODER... Q4H PRN PO 04/01/16 10:45 04/15/16 10:44 04/02/16 12:35 1 TAB Morphine Sulfate (MoRPHine SULFATE INJ) 4 mg Q2H PRN IV 04/01/16 10:45 04/15/16 10:44 Ondansetron HCl 4 mg 4 mg Q6H PRN IV 04/01/16 10:45 05/01/16 10:44 Pantoprazole Sodium/Syringe (Protonix Inj/ Syringe) 10 ml @ 5 mls/min DAILY@11 IV 04/01/16 16:00 05/01/16 15:59 04/02/16 11:51 5 MLS/MIN Enoxaparin Sodium (Lovenox Inj) 30 mg Q12H SQ 04/01/16 20:00 05/01/16 19:59 04/02/16 08:25 30 MG Aspirin (Ecotrin Tab) 81 mg QAM PO 04/02/16 09:00 05/02/16 08:59 04/02/16 08:25 81 MG Atorvastatin Calcium (Lipitor Tab) 40 mg HS PO 04/01/16 21:00 05/01/16 20:59 04/01/16 20:40 40 MG Cholecalciferol (Vitamin D Tab) 5,000 inter.unit QAM PO 04/02/16 09:00 05/02/16 08:59 04/02/16 08:24 5,000 INTER.UNIT Glipizide (Glucotrol Tab) 20 mg BIDM PO 04/01/16 16:30 05/01/16 16:29 04/02/16 17:11 20 MG Lisinopril (Zestril Tab) 10 mg QAM PO 04/02/16 09:00 05/02/16 08:59 04/02/16 08:23 10 MG Metformin HCl (Glucophage Tab) 1,000 mg BIDM PO 04/02/16 07:15 05/02/16 07:14 04/02/16 17:08 1,000 MG Multivitamins (Multivitamin Tab) 1 tab QAM PO 04/02/16 09:00 05/02/16 08:59 04/02/16 08:24 1 TAB Pioglitazone HCl (ACTos TAB) 45 mg QDB PO 04/02/16 07:15 05/02/16 07:14 04/02/16 08:23 45 MG Warfarin Sodium (Coumadin Tab) 2 mg Tu@1600 PO 04/05/16 16:00 05/05/16 15:59 Warfarin Sodium (Coumadin Tab) 4 mg SuMoWeThFrSa@1600 PO 04/01/16 16:00 05/01/16 15:59 04/02/16 17:09 4 MG Fish Oil (Vera-3 (Purified Fish Oil) Cap) 1 gm QAM PO 04/02/16 09:00 05/02/16 08:59 04/02/16 08:24 1 GM Valacyclovir HCl (Valtrex Tab) 1,000 mg UD PRN PO 04/01/16 13:15 05/01/16 13:14 Morphine Sulfate (MoRPHine SULFATE INJ) 2 mg Q2H PRN IV 04/01/16 14:00 04/15/16 13:59 Varenicline (Chantix) 1 mg BID PO 04/01/16 21:00 05/01/16 20:59 04/02/16 08:25 1 MG Vancomycin HCl (Consult) 1 ea UD PRN N/A 04/01/16 14:30 05/01/16 14:29 Miscellaneous Information ( Icu Electrolyte Replacement Protocol) 1 ea per protocol PRN N/A 04/02/16 11:00 04/09/16 10:59 Potassium Chloride (Klor-Con Tab) 20 meq Q4H PO 04/02/16 12:00 04/02/16 20:01 04/02/16 17:10 20 MEQ I & O: 24-Hour Column 04/02/16 08:00 Intake Total 4828 ml Output Total 2255 ml Balance 2573 ml Vital Signs: Date Time Temp Pulse Resp B/P Pulse Ox O2 Delivery O2 Flow Rate FiO2 04/02/16 16:00 95 Room Air 04/02/16 16:00 36.7 68 16 160/51 95 Room Air 04/02/16 14:00 76 18 126/52 97 Room Air 04/02/16 12:00 36.6 81 18 166/77 97 Room Air 04/02/16 12:00 97 Room Air 04/02/16 10:00 80 14 168/69 98 Room Air 04/02/16 08:00 36.7 79 18 168/66 97 Room Air 04/02/16 08:00 97 Room Air 04/02/16 06:00 75 12 154/71 97 Nasal Cannula 2.0 04/02/16 04:30 165/71 04/02/16 04:00 Nasal Cannula 2.0 04/02/16 04:00 36.9 80 14 179/81 97 Nasal Cannula 2.0 04/02/16 02:00 73 20 162/66 97 Nasal Cannula 2.0 04/02/16 00:01 36.9 72 14 144/60 97 Nasal Cannula 2.0 04/01/16 23:59 Nasal Cannula 2.0 04/01/16 22:00 71 14 135/64 96 Nasal Cannula 2.0 04/01/16 20:00 37.0 79 12 141/69 94 Room Air 04/01/16 20:00 Room Air 04/01/16 18:31 89 18 119/63 96 Room Air 04/01/16 17:42 89 146/51 96 Room Air Laboratory Results: Last 24 Hours Test 04/01/16 22:03 04/02/16 05:25 04/02/16 11:19 04/02/16 16:15 Bedside Glucose 212 mg/dl 106 mg/dl 132 mg/dl White Blood Count 10.89 K/uL Red Blood Count 3.71 M/uL Hemoglobin 9.5 g/dL Hematocrit 29.7 % Mean Corpuscular Volume 80.1 fL Mean Corpuscular Hemoglobin 25.6 pg Mean Corpuscular Hemoglobin Concent 32.0 g/dl Platelet Count 274 K/uL Mean Platelet Volume 8.7 fL Neutrophils (%) (Auto) 66.2 % Lymphocytes (%) (Auto) 24.2 % Monocytes (%) (Auto) 7.7 % Eosinophils (%) (Auto) 1.0 % Basophils (%) (Auto) 0.5 % Neutrophils # (Auto) 7.22 K/uL Lymphocytes # (Auto) 2.63 K/uL Monocytes # (Auto) 0.84 K/uL Eosinophils # (Auto) 0.11 K/uL Basophils # (Auto) 0.05 K/uL RDW Standard Deviation 45.7 fL RDW Coefficient of Variation 15.5 % Immature Granulocyte % (Auto) 0.4 % Immature Granulocyte # (Auto) 0.04 K/uL Prothrombin Time 20.9 SECONDS Prothromb Time International Ratio 1.9 Sodium Level 145 mmol/L Potassium Level 3.2 mmol/L Chloride Level 110 mmol/L Carbon Dioxide Level 25 mmol/L Anion Gap 10.0 mmol/L Blood Urea Nitrogen 13 mg/dl Creatinine 0.71 mg/dl Est Creatinine Clear Calc Drug Dose 75.7 ml/min Estimated GFR () 103.6 Estimated GFR (Non- 89.4 BUN/Creatinine Ratio 17.6 Random Glucose 167 mg/dl Calcium Level 8.1 mg/dl
[2016-04-03] VITALS (8 sets, daily range): BP systolic 121–163; BP diastolic 49–99; PULSE 66–88; TEMP 37–37.2; O2SAT 94–99
[2016-04-03] MEDS: OXYCODONE/ACETAMINOPHEN 5-325 TAB PO PRN ×3 (02:10→14:37)
[2016-04-03 06:00] LABS: PROTHROMBIN TIME (PATIENT) 22.1 SECONDS (9.0-12.0)
[2016-04-03 06:35] LABS: BUN/CREATININE RATIO 18.3 (10-20); CALCIUM 8.5 mg/dl (8.5-10.1); CREATININE 0.71 mg/dl (0.60-1.20); MAGNESIUM 1.6 mg/dl (1.8-2.4); PHOSPHORUS 3.1 mg/dl (2.5-4.9); POTASSIUM 4.5 mmol/L (3.5-5.1)
[2016-04-03] MEDS ORDERED: NURSING DECISION MEDICATION ORDER SCH ×2 (08:00→11:15)
[2016-04-03] MEDS: DOCUSATE SODIUM 100 MG CAP PO SCH ×2 (08:18→20:33)
[2016-04-03] MEDS: VARENICLINE (CHANTIX) 1 MG TAB PO SCH ×2 (08:19→20:34)
[2016-04-03] MEDS: ASPIRIN 81 MG ECTAB PO SCH (08:19)
[2016-04-03] MEDS: LISINOPRIL 10 MG TAB PO SCH (08:19)
[2016-04-03] MEDS: MULTIVITAMIN TAB PO SCH (08:19)
[2016-04-03] MEDS: METFORMIN HCL 500 MG TAB PO SCH ×2 (08:19→16:55)
[2016-04-03] MEDS: OMEGA-3 (PURIFIED FISH OIL) 1 GM CAP PO SCH (08:20)
[2016-04-03] MEDS: CHOLECALCIFEROL 1000 INTER.UNIT TAB PO SCH (08:20)
[2016-04-03] MEDS: PIOGLITAZONE TAB 15 MG TAB PO SCH (08:20)
[2016-04-03] MEDS: ENOXAPARIN 30 MG/0.3 ML SYR SQ SCH (08:21)
[2016-04-03] MEDS: MAGNESIUM OXIDE 400 MG TAB PO SCH ×3 (09:04→16:55)
--- NOTE | 2016-04-03 09:53 | Progress Note ---
Progress Note Date of Service: Apr 03, 2016. Subjective No complaints. Objective Vital Signs Vital Signs Past 12 Hours Date Time Temp Pulse Resp B/P Pulse Ox O2 Delivery O2 Flow Rate FiO2 04/03/16 08:00 97 Room Air 04/03/16 08:00 37.2 86 14 163/70 97 Room Air 04/03/16 06:00 73 12 157/62 96 Room Air 04/03/16 04:00 Nasal Cannula 2.0 04/03/16 04:00 37.0 66 15 127/73 94 Nasal Cannula 2.0 04/03/16 02:00 69 20 155/49 95 Nasal Cannula 2.0 04/03/16 00:01 37.2 67 14 136/68 97 Nasal Cannula 2.0 04/02/16 23:59 Nasal Cannula 2.0 04/02/16 22:00 66 18 138/63 97 Nasal Cannula 2.0 Exam Awake and alert VSS Groin incision dry and clean No bleeding No hematoma Intake & Output 8-Hour Column 04/02/16 04/03/16 04/03/16 16:00 00:00 08:00 Intake Total 2209 ml 360 ml 240 ml Output Total 1650 ml 500 ml 850 ml Balance 559 ml -140 ml -610 ml 24-Hour Column 04/03/16 08:00 Intake Total 2809 ml Output Total 3000 ml Balance -191 ml Laboratory and Microbiology Results Past 24 Hours Test 04/02/16 11:19 04/02/16 16:15 04/02/16 20:34 04/03/16 05:25 Range/Units Bedside Glucose 106 132 86 70-90 mg/dl Prothrombin Time 22.1 9.0-12.0 SECONDS Prothromb Time International Ratio 2.0 0.9-1.1 Sodium Level 145 136-145 mmol/L Potassium Level 4.5 3.5-5.1 mmol/L Chloride Level 109 98-107 mmol/L Carbon Dioxide Level 28 21-32 mmol/L Anion Gap 8.0 3-11 mmol/L Blood Urea Nitrogen 13 7-18 mg/dl Creatinine 0.71 0.60-1.20 mg/dl Est Creatinine Clear Calc Drug Dose 75.7 ml/min Estimated GFR () 103.6 Estimated GFR (Non- 89.4 BUN/Creatinine Ratio 18.3 10-20 Random Glucose 87 70-99 mg/dl Calcium Level 8.5 8.5-10.1 mg/dl Phosphorus Level 3.1 2.5-4.9 mg/dl Magnesium Level 1.6 1.8-2.4 mg/dl Imp: Post repair of anastomotic disruption Plan: Preliminary culture neg so far. Will transfer to telemetry. Continue antibiotics at this time
[2016-04-03] MEDS: PANTOprazole INJ 40 MG in SYRINGE 0 ML IV SCH (11:00)
[2016-04-03] MEDS ORDERED: VANCOMYCIN TROUGH ONE (11:30)
[2016-04-03] MEDS: VANCOMYCIN INJ 1,100 MG in SODIUM CHLORIDE 0.9% 250ML 250 ML IV SCH (13:39)
[2016-04-03] MEDS: WARFARIN SOD 4 MG TAB PO SCH (16:55)
[2016-04-03] MEDS: ATORVASTATIN 20 MG TAB PO SCH (20:33)
[2016-04-04] VITALS (8 sets, daily range): BP systolic 107–176; BP diastolic 55–96; PULSE 56–84; TEMP 36.6–37.2; O2SAT 91–100
[2016-04-04] MEDS: VANCOMYCIN INJ 1,100 MG in SODIUM CHLORIDE 0.9% 250ML 250 ML IV SCH ×3 (00:26→23:31)
[2016-04-04 05:53] LABS: HEMATOCRIT 33.3 % (37-47); MEAN CELL VOLUME 79.7 fL (80-100); MEAN CORPUSCULAR HEMOGLOBIN 25.4 pg (25-34); MEAN CORPUSCULAR HGB CONC 31.8 g/dl (32-36); MEAN PLATELET VOLUME 8.6 fL (7.4-10.4); PLATELET COUNT 300 K/uL (130-400); RED BLOOD COUNT 4.18 M/uL (4.2-5.4); WHITE BLOOD COUNT 9.04 K/uL (4.8-10.8)
[2016-04-04 06:01] LABS: INR 2.2 (0.9-1.1); PROTHROMBIN TIME (PATIENT) 24.9 SECONDS (9.0-12.0)
[2016-04-04 06:21] LABS: BUN/CREATININE RATIO 14.8 (10-20); CALCIUM 9.5 mg/dl (8.5-10.1); CREATININE 0.77 mg/dl (0.60-1.20); MAGNESIUM 1.8 mg/dl (1.8-2.4); POTASSIUM 4.8 mmol/L (3.5-5.1)
--- NOTE | 2016-04-04 08:25 | Anesthesiology Progress Note ---
Anesthesia Post Op Note Date & Time Apr 04, 2016 at 08:24 Vital Signs Pain Intensity: 0.0 Vital Signs Past 12 Hours Date Time Temp Pulse Resp B/P Pulse Ox O2 Delivery O2 Flow Rate FiO2 04/04/16 04:00 Room Air 04/04/16 03:58 37.1 70 15 176/76 100 Room Air 04/04/16 00:10 37.2 76 16 107/71 91 Room Air 04/04/16 00:00 Room Air Notes Mental Status: alert / awake / arousable, participated in evaluation Pt Amnestic to Procedure: Yes Nausea / Vomiting: adequately controlled Pain: adequately controlled Airway Patency, RR, SpO2: stable & adequate BP & HR: stable & adequate Hydration State: stable & adequate Anesthetic Complications: no major complications apparent
[2016-04-04] MEDS: PANTOprazole SOD 40 MG TAB PO SCH (09:15)
[2016-04-04] MEDS: MULTIVITAMIN TAB PO SCH (09:15)
[2016-04-04] MEDS: ASPIRIN 81 MG ECTAB PO SCH (09:15)
[2016-04-04] MEDS: VARENICLINE (CHANTIX) 1 MG TAB PO SCH ×2 (09:15→21:05)
[2016-04-04] MEDS: OMEGA-3 (PURIFIED FISH OIL) 1 GM CAP PO SCH (09:15)
[2016-04-04] MEDS: METFORMIN HCL 500 MG TAB PO SCH ×3 (09:16→16:45)
[2016-04-04] MEDS: DOCUSATE SODIUM 100 MG CAP PO SCH ×2 (09:16→21:05)
[2016-04-04] MEDS: LISINOPRIL 10 MG TAB PO SCH (09:16)
[2016-04-04] MEDS: PIOGLITAZONE TAB 15 MG TAB PO SCH (09:17)
--- NOTE | 2016-04-04 09:59 | Progress Note ---
Progress Note Date of Service: Apr 04, 2016. Subjective 65yo f POD #3 after R groin repair of anastomosis, seen in f/u today. Pt states feeling generally well. Admits pain in R groin incision, but states getting around well. Denies any new complaints. wound cx neg. Objective Vital Signs Vital Signs Past 12 Hours Date Time Temp Pulse Resp B/P Pulse Ox O2 Delivery O2 Flow Rate FiO2 04/04/16 04:00 Room Air 04/04/16 03:58 37.1 70 15 176/76 100 Room Air 04/04/16 00:10 37.2 76 16 107/71 91 Room Air 04/04/16 00:00 Room Air Exam CONST: A&O x4, NAD, mildly chronically ill appearing female CHEST: RRR lungs decreased, but ctab ABD: soft, nontender, + bs x 4 quad EXT: + dopplerable distal pulses. R groin incision C/D/I with aisha. + local tenderness and edema. No erythema. Mild edema to R thigh. Mild chronic edema LLE. Intake & Output 8-Hour Column 04/03/16 04/04/16 04/04/16 16:00 00:00 08:00 Intake Total 1500 ml 240 ml 780 ml Output Total 1400 ml 300 ml Balance 100 ml 240 ml 480 ml 24-Hour Column 04/04/16 08:00 Intake Total 2520 ml Output Total 1700 ml Balance 820 ml Laboratory and Microbiology Results Past 24 Hours Test 04/03/16 11:00 04/04/16 05:35 Range/Units Vancomycin Level Trough 6.4 SEE COMMENT mcg/ml White Blood Count 9.04 4.8-10.8 K/uL Red Blood Count 4.18 4.2-5.4 M/uL Hemoglobin 10.6 12.0-16.0 g/dL Hematocrit 33.3 37-47 % Mean Corpuscular Volume 79.7 80-100 fL Mean Corpuscular Hemoglobin 25.4 25-34 pg Mean Corpuscular Hemoglobin Concent 31.8 32-36 g/dl RDW Standard Deviation 45.1 36.4-46.3 fL RDW Coefficient of Variation 15.5 11.5-14.5 % Platelet Count 300 130-400 K/uL Mean Platelet Volume 8.6 7.4-10.4 fL Prothrombin Time 24.9 9.0-12.0 SECONDS Prothromb Time International Ratio 2.2 0.9-1.1 Sodium Level 142 136-145 mmol/L Potassium Level 4.8 3.5-5.1 mmol/L Chloride Level 104 98-107 mmol/L Carbon Dioxide Level 27 21-32 mmol/L Anion Gap 11.0 3-11 mmol/L Blood Urea Nitrogen 11 7-18 mg/dl Creatinine 0.77 0.60-1.20 mg/dl Est Creatinine Clear Calc Drug Dose 69.8 ml/min Estimated GFR () 93.9 Estimated GFR (Non- 81.0 BUN/Creatinine Ratio 14.8 10-20 Random Glucose 133 70-99 mg/dl Calcium Level 9.5 8.5-10.1 mg/dl Phosphorus Level 3.0 2.5-4.9 mg/dl Magnesium Level 1.8 1.8-2.4 mg/dl ASSESSMENT and PLAN: s/p R groin repair of anastomosis R groin possible infection Pt doing well post op. No signs of worsening infection. cx neg. Consult ID for recs regarding abx.
--- NOTE | 2016-04-04 13:44 | Medical Consult ---
Consultation Date of Consultation: Apr 04, 2016. Attending Physician: Chip Morgan M.D. Reason for Consultation: abx recs, possible graft infection History of Present Illness Patient is a 64 yo female with history of right arterial bifem bypass for limb salvage in the summer of last year (approximately 7 months ago according to patient). She states that postoperatively, she did very well. She did not have continued pain and healed well. Approximately a few weeks ago, she began to experience increased pain in the right groin. She then noted a few days prior to admission that she experienced a sharp pain in her right groin. Her states that she very abruptly grabbed her right side and told him that she had a sudden pain. Soon after, she noted bleeding from the area and contacted Dr. Morgan for evaluation. She was admitted for exploration of her right graft. She did not have any erythema of the area or pus draining. 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 Since admission, the patient is now s/p exploration of the graft. Operative record was reviewed. I also spoke to Dr. Morgan regarding this patient this morning. There was a small portion of the patient's graft which appeared to dehisce. The rest of the graft was well incorporated and intact. There was no gross purulence. Cultures were taken during surgery and are showing no growth. 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 Nasal swab was negative for MRSA. Patient states that she has no previous history of infections. Chest X-ray on admission showed emphysema with no acute disease. Her WBC count increased to 10.89, but otherwise has been within normal. Her creatinine was 0.77 today. Past Medical/Surgical History Medical Problems: (1) PAD (peripheral artery disease) (2) Vascular graft infection Surgical Hx: Right femoral bypass Family History Hypertension FATHER Noncontributory Social History Smoking Status: Former Smoker (quit august 2015) Smokeless Tobacco Use: No Alcohol Use: none Drug Use: none Marital Status: Housing Status: lives with family Occupation Status: retired Allergies Coded Allergies: NO KNOWN DRUG ALLERGIES (Verified Allergy, Mild, ., 04/01/16) Nickel (Verified Allergy, Mild, RASH, 04/01/16) Home Medications Reported Home Medications Medications Dose Route/Sig Max Daily Dose Days Date Category Dose Instructions Augmentin 875-125 mg (Amoxicillin & Pot Clavulanate) 1 Tab Tab 1 Tab PO BID 03/30/16 Reported Jantoven (Warfarin Sodium) 2 Mg Tab 2 Mg PO Monday03/30/16 Reported Chantix (Varenicline) 1 Mg Tab 1 Tab PO BID 30 01/07/16 Reported Prilosec (Omeprazole) 40 Mg Capcr 40 Mg PO BID 10/28/15 Reported Jantoven (Warfarin Sodium) 4 Mg Tab 4 Mg PO SUN,M,W,TH,FR,SAT 09/28/15 Reported Aspirin Ec (Aspirin) 81 Mg Tab 81 Mg PO QAM 08/26/15 Reported Tylenol (Acetaminophen) 500 Mg Tab 1,000 Mg PO PRN 09/24/14 Reported Fish Oil ([place]-3 Fatty Acids) 1 Cap Cap 1,000 Mg PO QAM 11/05/12 Reported Glucophage (Metformin Hcl) 1,000 Mg Tab 1,000 Mg PO BID 11/05/12 Reported Vitamin D (Cholecalciferol) 1,000 Inter.unit Tab 5,000 Inter.unit PO QAM 12/12/08 Reported Vitamin D-3 Valtrex Unkown Dose (Valacyclovir HCl) Tab 1 Gm PO PRN PRN 12/12/08 Reported Multivitamin (Multivitamins) Tab 1 Tab PO QAM 12/12/08 Reported Centrum Silver Actos * (Pioglitazone HCl) 45 Mg Tab 45 Mg PO QAM 12/12/08 Reported Zestril (Lisinopril) 10 Mg Tab 10 Mg PO QAM 12/12/08 Reported Glucotrol * (Glipizide) 10 Mg Tab 20 Mg PO BID 12/12/08 Reported Lipitor (Atorvastatin Calcium) 40 Mg Tab 40 Mg PO HS 12/12/08 Reported Current Inpatient Medications Current Inpatient Medications Medications (Trade) Dose Ordered Sig/Shira Route Start Time Stop Time Status Last Admin Dose Admin Oxycodone/ Acetaminophen (Percocet 5-325mg Tab) `1-2 TABS FOR MODER... Q4H PRN PO 04/01/16 10:45 04/15/16 10:44 04/03/16 14:37 1 TAB Morphine Sulfate (MoRPHine SULFATE INJ) 4 mg Q2H PRN IV 04/01/16 10:45 04/15/16 10:44 Ondansetron HCl (Zofran Inj) 4 mg Q6H PRN IV 04/01/16 10:45 05/01/16 10:44 Aspirin (Ecotrin Tab) 81 mg QAM PO 04/02/16 09:00 05/02/16 08:59 04/04/16 09:15 81 MG Atorvastatin Calcium (Lipitor Tab) 40 mg HS PO 04/01/16 21:00 05/01/16 20:59 04/03/16 20:33 40 MG Cholecalciferol (Vitamin D Tab) 5,000 inter.unit QAM PO 04/02/16 09:00 05/02/16 08:59 04/03/16 08:20 5,000 INTER.UNIT Glipizide (Glucotrol Tab) 20 mg BIDM PO 04/01/16 16:30 05/01/16 16:29 04/04/16 09:17 20 MG Lisinopril (Zestril Tab) 10 mg QAM PO 04/02/16 09:00 05/02/16 08:59 04/04/16 09:16 10 MG Metformin HCl (Glucophage Tab) 1,000 mg BIDM PO 04/02/16 07:15 05/02/16 07:14 04/04/16 09:16 1,000 MG Multivitamins (Multivitamin Tab) 1 tab QAM PO 04/02/16 09:00 05/02/16 08:59 04/04/16 09:15 1 TAB Pioglitazone HCl (ACTos TAB) 45 mg QDB PO 04/02/16 07:15 05/02/16 07:14 04/04/16 09:17 45 MG Warfarin Sodium (Coumadin Tab) 2 mg Tu@1600 PO 04/05/16 16:00 05/05/16 15:59 Warfarin Sodium (Coumadin Tab) 4 mg SuMoWeThFrSa@1600 PO 04/01/16 16:00 05/01/16 15:59 04/03/16 16:55 4 MG Fish Oil ([place]-3 (Purified Fish Oil) Cap) 1 gm QAM PO 04/02/16 09:00 05/02/16 08:59 04/04/16 09:15 1 GM Valacyclovir HCl (Valtrex Tab) 1,000 mg UD PRN PO 04/01/16 13:15 05/01/16 13:14 Morphine Sulfate (MoRPHine SULFATE INJ) 2 mg Q2H PRN IV 04/01/16 14:00 04/15/16 13:59 Varenicline (Chantix) 1 mg BID PO 04/01/16 21:00 05/01/16 20:59 04/04/16 09:15 1 MG Vancomycin HCl (Consult) 1 ea UD PRN N/A 04/01/16 14:30 05/01/16 14:29 Miscellaneous Information ( Icu Electrolyte Replacement Protocol) 1 ea per protocol PRN N/A 04/02/16 11:00 04/09/16 10:59 Docusate Sodium (coLACE CAP) 100 mg BID PO 04/02/16 21:00 05/02/16 20:59 04/04/16 09:16 100 MG Pantoprazole Sodium (Protonix Tab) 40 mg QAM PO 04/04/16 09:00 05/04/16 08:59 04/04/16 09:15 40 MG Review of Systems Constitutional: No chills, No fever, No sweats, No weakness Eyes: No worsening of vision ENT: No hearing loss Respiratory: No cough, No shortness of breath Cardiovascular: No chest pain Abdomen: No diarrhea, No nausea, No pain, No vomiting Musculoskeletal: + problem reported (pain and swelling of the right groin), No joint pain Integumentary: + bleeding (right groin [employer]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), No itch, No new/changing skin lesions, No rash Physical Exam Date Time Temp Pulse Resp B/P Pulse Ox O2 Delivery O2 Flow Rate FiO2 04/04/16 12:00 96 Room Air 04/04/16 12:00 37.0 74 20 152/55 96 Room Air 04/04/16 08:00 37.0 84 16 166/96 99 Room Air 04/04/16 08:00 99 Room Air 04/04/16 04:00 Room Air 04/04/16 03:58 37.1 70 15 176/76 100 Room Air 04/04/16 00:10 37.2 76 16 107/71 91 Room Air 04/04/16 00:00 Room Air 04/03/16 20:02 37.1 80 16 121/69 99 Room Air 04/03/16 20:00 Room Air 04/03/16 16:00 98 Room Air 04/03/16 16:00 37.0 88 14 134/99 98 Room Air General Appearance: no apparent distress, + obese Head: normocephalic, atraumatic Eyes: normal inspection, sclerae normal ENT: hearing grossly normal Neck: supple, trachea midline Respiratory/Chest: chest non-tender, lungs clear, normal breath sounds, no respiratory distress, no accessory muscle use Cardiovascular: regular rate, rhythm Abdomen/GI: normal bowel sounds, non tender, soft Back: normal inspection Extremities/Musculoskelatal: normal range of motion, + pertinent finding ( right groin with aisha in place) Neurologic/Psych: alert, normal mood/affect Skin: warm/dry, no rash, + pertinent finding (No erythema surrounding aisha) Laboratory Results TWO VIEW CHEST CLINICAL HISTORY: Preoperative examination. FINDINGS: PA and lateral chest radiographs are compared to study dated 05/26/2010 and correlated with chest CT dated 05/25/2010. The cardiomediastinal silhouette is unremarkable. There is atherosclerotic calcification of the thoracic aorta. Emphysema and chronic interstitial thickening is similar to previous. There is no airspace consolidation or pleural effusion. There is no pneumothorax. The skeletal structures are osteopenic. Degenerative change and mild scoliosis is noted in the thoracic spine. Surgical clips project over the right apex. IMPRESSION: Emphysema with no acute cardiopulmonary abnormality. RUN DATE: 04/03/16 [facility] LAB PAGE 1 RUN TIME: 5832 Specimen Inquiry PATIENT: NIKI W[place] LOC: [facility] Church # : [id number] AGE/SX: 65/F ROOM: E104 REG : 04/01/[address]: Chip Morgan M.D. : 1950 BED: 1 DIS : STATUS: ADM IN TLOC: SPEC #: [id number] BRAYDEN: 04/01/16 STATUS: RES REQ #: [id number] RECD: 04/01/16-[address]: Chip Morgan M.D. SOURCE: DRAIN-DEEP ENTR: 04/01/16-[address]: Tam Rosario M.D. SPDESC: GROIN ORDERED: AER/SAMI CULTSMR COMMENTS: RIGHT GROIN GRAFT Procedure Result Verified Site GRAM STAIN Final 04/01/16-1254 RESULT FEW WBCs SEEN NO ORGANISMS SEEN OR AER/SAMI CULT Preliminary 04/03/16-6022 NO GROWTH TO DATE. Item Value Date Time MRSA DNA Surveillance Screen - Final Complete 04/01/16 1200 Nasal Specimen Negative for MRSA by DNA Probe Gram Stain - Final Resulted 04/01/16 1002 Drainage-Deep Groin Last 24 Hours Test 04/04/16 05:35 White Blood Count 9.04 K/uL Red Blood Count 4.18 M/uL Hemoglobin 10.6 g/dL Hematocrit 33.3 % Mean Corpuscular Volume 79.7 fL Mean Corpuscular Hemoglobin 25.4 pg Mean Corpuscular Hemoglobin Concent 31.8 g/dl RDW Standard Deviation 45.1 fL RDW Coefficient of Variation 15.5 % Platelet Count 300 K/uL Mean Platelet Volume 8.6 fL Prothrombin Time 24.9 SECONDS Prothromb Time International Ratio 2.2 Sodium Level 142 mmol/L Potassium Level 4.8 mmol/L Chloride Level 104 mmol/L Carbon Dioxide Level 27 mmol/L Anion Gap 11.0 mmol/L Blood Urea Nitrogen 11 mg/dl Creatinine 0.77 mg/dl Est Creatinine Clear Calc Drug Dose 69.8 ml/min Estimated GFR () 93.9 Estimated GFR (Non- 81.0 BUN/Creatinine Ratio 14.8 Random Glucose 133 mg/dl Calcium Level 9.5 mg/dl Phosphorus Level 3.0 mg/dl Magnesium Level 1.8 mg/dl Assessment & Plan Patient with right femoral bypass dehiscence and possible graft infection. Surgical culture is showing no growth currently, but the patient was on PO Augmentin prior to admission as well. She is currently on IV Vancomycin. Recommend continuation of IV abx while in house. Likely if culture continues to show no growth, could transition back to PO Augmentin. This patient may require indefinite abx suppression since her initial surgery was approximately 7 months ago and she has a prosthetic graft. We will continue to follow. Case reviewed and agree with above assessment. continue abx for now and follow culture results.
[2016-04-04] MEDS: CHOLECALCIFEROL 1000 INTER.UNIT TAB PO SCH (14:13)
[2016-04-04] MEDS: WARFARIN SOD 4 MG TAB PO SCH (16:27)
[2016-04-04] MEDS: ATORVASTATIN 20 MG TAB PO SCH (21:05)
[2016-04-04] MEDS: OXYCODONE/ACETAMINOPHEN 5-325 TAB PO PRN (21:12)
[2016-04-04] MEDS ORDERED: VANCOMYCIN TROUGH ONE (23:30)
[2016-04-05] VITALS (8 sets, daily range): BP systolic 98–158; BP diastolic 64–80; PULSE 67–85; TEMP 36.6–37; O2SAT 93–98
[2016-04-05] MEDS: LISINOPRIL 10 MG TAB PO SCH (08:00)
[2016-04-05] MEDS: PANTOprazole SOD 40 MG TAB PO SCH (08:00)
[2016-04-05] MEDS: METFORMIN HCL 500 MG TAB PO SCH ×2 (08:00→16:08)
[2016-04-05] MEDS: DOCUSATE SODIUM 100 MG CAP PO SCH ×2 (08:00→21:41)
[2016-04-05] MEDS: ASPIRIN 81 MG ECTAB PO SCH (08:00)
[2016-04-05] MEDS: PIOGLITAZONE TAB 15 MG TAB PO SCH (08:01)
[2016-04-05] MEDS: MULTIVITAMIN TAB PO SCH (08:01)
[2016-04-05] MEDS: CHOLECALCIFEROL 1000 INTER.UNIT TAB PO SCH (08:01)
[2016-04-05] MEDS: VARENICLINE (CHANTIX) 1 MG TAB PO SCH ×2 (08:01→21:40)
[2016-04-05] MEDS: OMEGA-3 (PURIFIED FISH OIL) 1 GM CAP PO SCH (08:02)
[2016-04-05 08:07] LABS: INR 2.6 (0.9-1.1); PROTHROMBIN TIME (PATIENT) 29.2 SECONDS (9.0-12.0)
[2016-04-05 08:27] LABS: BUN/CREATININE RATIO 19.7 (10-20); CALCIUM 8.9 mg/dl (8.5-10.1); CREATININE 0.68 mg/dl (0.60-1.20); MAGNESIUM 1.7 mg/dl (1.8-2.4); PHOSPHORUS 3.2 mg/dl (2.5-4.9); POTASSIUM 4.1 mmol/L (3.5-5.1)
--- NOTE | 2016-04-05 10:01 | Infectious Disease Progress Nt ---
Progress Note Date of Service Apr 05, 2016. Subjective Pt evaluation today including: conversation w/ patient, physical exam, chart review, lab review, review of studies, conversation w/ end user consultant (Dr. Morgan), review of inpatient medication list Patient is feeling well this morning. Hoping to go home soon. She continues to have tenderness of the right groin with movement. WBC count this morning was 9.04. Creatinine was 0.68. Cultures continue to show no growth. She is tolerating IV Vancomycin well. All Other Systems: Reviewed and Negative Medications Current Inpatient Medications Medications (Trade) Dose Ordered Sig/Shira Route Start Time Stop Time Status Last Admin Dose Admin Oxycodone/ Acetaminophen (Percocet 5-325mg Tab) `1-2 TABS FOR MODER... Q4H PRN PO 04/01/16 10:45 04/15/16 10:44 04/04/16 21:12 1 TAB Morphine Sulfate (MoRPHine SULFATE INJ) 4 mg Q2H PRN IV 04/01/16 10:45 04/15/16 10:44 Ondansetron HCl (Zofran Inj) 4 mg Q6H PRN IV 04/01/16 10:45 05/01/16 10:44 Aspirin (Ecotrin Tab) 81 mg QAM PO 04/02/16 09:00 05/02/16 08:59 04/05/16 08:00 81 MG Atorvastatin Calcium (Lipitor Tab) 40 mg HS PO 04/01/16 21:00 05/01/16 20:59 04/04/16 21:05 40 MG Cholecalciferol (Vitamin D Tab) 5,000 inter.unit QAM PO 04/02/16 09:00 05/02/16 08:59 04/05/16 08:01 5,000 INTER.UNIT Glipizide (Glucotrol Tab) 20 mg BIDM PO 04/01/16 16:30 05/01/16 16:29 04/05/16 08:02 20 MG Lisinopril (Zestril Tab) 10 mg QAM PO 04/02/16 09:00 05/02/16 08:59 04/05/16 08:00 10 MG Metformin HCl (Glucophage Tab) 1,000 mg BIDM PO 04/02/16 07:15 05/02/16 07:14 04/05/16 08:00 1,000 MG Multivitamins (Multivitamin Tab) 1 tab QAM PO 04/02/16 09:00 05/02/16 08:59 04/05/16 08:01 1 TAB Pioglitazone HCl (ACTos TAB) 45 mg QDB PO 04/02/16 07:15 05/02/16 07:14 04/05/16 08:01 45 MG Warfarin Sodium (Coumadin Tab) 2 mg Tu@1600 PO 04/05/16 16:00 05/05/16 15:59 Warfarin Sodium (Coumadin Tab) 4 mg SuMoWeThFrSa@1600 PO 04/01/16 16:00 05/01/16 15:59 04/04/16 16:27 4 MG Fish Oil ([place]-3 (Purified Fish Oil) Cap) 1 gm QAM PO 04/02/16 09:00 05/02/16 08:59 04/05/16 08:02 1 GM Valacyclovir HCl (Valtrex Tab) 1,000 mg UD PRN PO 04/01/16 13:15 05/01/16 13:14 Morphine Sulfate (MoRPHine SULFATE INJ) 2 mg Q2H PRN IV 04/01/16 14:00 04/15/16 13:59 Varenicline (Chantix) 1 mg BID PO 04/01/16 21:00 05/01/16 20:59 04/05/16 08:01 1 MG Vancomycin HCl (Consult) 1 ea UD PRN N/A 04/01/16 14:30 05/01/16 14:29 Miscellaneous Information ( Icu Electrolyte Replacement Protocol) 1 ea per protocol PRN N/A 04/02/16 11:00 04/09/16 10:59 Docusate Sodium (coLACE CAP) 100 mg BID PO 04/02/16 21:00 05/02/16 20:59 04/05/16 08:00 100 MG Pantoprazole Sodium 40 mg 40 mg QAM PO 04/04/16 09:00 05/04/16 08:59 04/05/16 08:00 40 MG Vancomycin HCl/ Sodium Chloride (Vancomycin Inj/ Nss 250ml) 274 ml @ 125 mls/hr Q12@1000,2200 IV 04/05/16 10:00 05/03/16 09:59 Objective Vital Signs Date Time Temp Pulse Resp B/P Pulse Ox O2 Delivery O2 Flow Rate FiO2 04/05/16 08:00 94 Room Air 2.0 04/05/16 07:44 36.9 67 20 127/80 94 Room Air 04/05/16 04:00 Room Air 04/05/16 04:00 36.8 81 17 125/75 93 Nasal Cannula 04/04/16 23:59 Room Air 04/04/16 23:27 36.6 56 19 134/77 95 Room Air 04/04/16 20:50 36.6 72 18 134/80 97 Room Air 04/04/16 20:00 Room Air 04/04/16 16:10 36.9 72 16 138/68 99 Room Air 04/04/16 16:00 99 Room Air 04/04/16 12:00 96 Room Air 04/04/16 12:00 37.0 74 20 152/55 96 Room Air Physical Exam General Appearance: WD/WN, no apparent distress Eyes: normal inspection, sclerae normal ENT: hearing grossly normal Neck: supple, trachea midline Respiratory/Chest: no respiratory distress, no accessory muscle use Cardiovascular: regular rate, rhythm Extremities: normal range of motion Neurologic/Psychiatric: alert, normal mood/affect Skin: normal color, warm/dry, no rash Laboratory Results Item Value Date Time MRSA DNA Surveillance Screen - Final Complete 04/01/16 1200 Nasal Specimen Negative for MRSA by DNA Probe Gram Stain - Final Resulted 04/01/16 1002 Drainage-Deep Groin Last 24 Hours Test 04/04/16 20:17 04/04/16 23:15 04/05/16 06:41 04/05/16 07:15 Bedside Glucose 125 mg/dl 107 mg/dl Vancomycin Level Trough 14.3 mcg/ml Prothrombin Time 29.2 SECONDS Prothromb Time International Ratio 2.6 Sodium Level 143 mmol/L Potassium Level 4.1 mmol/L Chloride Level 108 mmol/L Carbon Dioxide Level 27 mmol/L Anion Gap 8.0 mmol/L Blood Urea Nitrogen 13 mg/dl Creatinine 0.68 mg/dl Est Creatinine Clear Calc Drug Dose 77.6 ml/min Estimated GFR () 106.4 Estimated GFR (Non- 91.8 BUN/Creatinine Ratio 19.7 Random Glucose 107 mg/dl Calcium Level 8.9 mg/dl Phosphorus Level 3.2 mg/dl Magnesium Level 1.7 mg/dl Assessment and Plan Patient with right femoral bypass dehiscence and possible graft infection. Surgical culture is showing no growth currently, but the patient was on PO Augmentin prior to admission as well. She is currently on IV Vancomycin. I spoke to Dr. Morgan briefly this morning and discussed continuing antibiotic therapy to complete 1 week for this patient and then transition to PO Augmentin. May be able to transition to IV Daptomycin via peripheral line pending insurance coverage. I did also discuss possibly trying to get this patient IV Dalbavancin, which would cover her for 2 weeks with IV therapy in 1 dose at the [facility]. Will speak with Case Management about these options. If these do not work, the patient would prefer to stay inpatient to complete her IV therapy. I discussed this with Esther Higgins as well. Case reviewed and agree with above assessment, follow insurance coverage and additional abx recs idalmis
[2016-04-05] MEDS: VANCOMYCIN INJ 1,200 MG in SODIUM CHLORIDE 0.9% 250ML 250 ML IV SCH ×2 (10:54→21:41)
--- NOTE | 2016-04-05 11:11 | Progress Note ---
Progress Note Date of Service: Apr 05, 2016. Subjective 65 yo f with hx of severe vascular disease requiring R axillary-Bifemoral bypass , POD # 5 after R groin repair anastomosis and exploration, seen in f/u today. Pt states feeling generally well, mild R groin pain. Asking to take a shower if possible. Denies any other new complaints. Objective Vital Signs Vital Signs Past 12 Hours Date Time Temp Pulse Resp B/P Pulse Ox O2 Delivery O2 Flow Rate FiO2 04/05/16 08:00 94 Room Air 2.0 04/05/16 07:44 36.9 67 20 127/80 94 Room Air 04/05/16 04:00 Room Air 04/05/16 04:00 36.8 81 17 125/75 93 Nasal Cannula 04/04/16 23:59 Room Air 04/04/16 23:27 36.6 56 19 134/77 95 Room Air Exam CONST: A&O x4, NAD, obese, mildly chronically ill appearing female CHEST: RRR lungs decreased, but ctab ABD: soft, nontender, + bs x 4 quad EXT: R groin incision C/D/I with aisha. + local tenderness and edema. No active drainage. No erythema noted. Intake & Output 8-Hour Column 04/04/16 04/05/16 04/05/16 16:00 00:00 08:00 Intake Total 1010 ml 360 ml 473 ml Output Total 600 ml 200 ml 900 ml Balance 410 ml 160 ml -427 ml 24-Hour Column 04/05/16 08:00 Intake Total 1843 ml Output Total 1700 ml Balance 143 ml Laboratory and Microbiology Results Past 24 Hours Test 04/04/16 20:17 04/04/16 23:15 04/05/16 06:41 04/05/16 07:15 Range/Units Bedside Glucose 125 107 70-90 mg/dl Vancomycin Level Trough 14.3 SEE COMMENT mcg/ml Prothrombin Time 29.2 9.0-12.0 SECONDS Prothromb Time International Ratio 2.6 0.9-1.1 Sodium Level 143 136-145 mmol/L Potassium Level 4.1 3.5-5.1 mmol/L Chloride Level 108 98-107 mmol/L Carbon Dioxide Level 27 21-32 mmol/L Anion Gap 8.0 3-11 mmol/L Blood Urea Nitrogen 13 7-18 mg/dl Creatinine 0.68 0.60-1.20 mg/dl Est Creatinine Clear Calc Drug Dose 77.6 ml/min Estimated GFR () 106.4 Estimated GFR (Non- 91.8 BUN/Creatinine Ratio 19.7 10-20 Random Glucose 107 70-99 mg/dl Calcium Level 8.9 8.5-10.1 mg/dl Phosphorus Level 3.2 2.5-4.9 mg/dl Magnesium Level 1.7 1.8-2.4 mg/dl ASSESSMENT and PLAN: s/p R groin repair anastomosis and exploration Disrupted R groin anastomosis Possible graft infection Pt cx remain neg. OK for shower and to dry surgical wound area well. Appreciate recs from ID. Pt to remain in hospital til MONDAY for a full 7 days of vancomycin tx. Can possibly be discharged earlier if approval for single dose dalbavancin approved. Discussed with ID. Discussed with case management.
--- NOTE | 2016-04-05 11:34 | Pharmacy Progress Note ---
Pharmacy Antibiotic Prog Note Date of Service: Apr 05, 2016. Subjective: The patient is currently receiving Vancomycin 1100 mg IV every 12 hours. The patient is currently on day # 5 of Vancomycin IV therapy. Objective: Height (Feet): 5 Height (Inches): 0 Weight (Kilograms): 80.700 Levels: Item Value Date Time Vancomycin Level Trough 14.3 mcg/ml 04/04/16 2315 Lab Results (24hrs): Laboratory Tests Test 04/05/16 07:15 BUN/Creatinine Ratio 19.7 Blood Urea Nitrogen 13 mg/dl Creatinine 0.68 mg/dl Micro Results: Item Value Date Time MRSA DNA Surveillance Screen - Final Complete 04/01/16 1200 Nasal Specimen Negative for MRSA by DNA Probe Gram Stain - Final Resulted 04/01/16 1002 Drainage-Deep Groin NO GROWTH TO DATE Assessment & Plan: ASSESSMENT: * Patient is a 65yo female with R femoral bypass dehiscence and possible graft infection. * Surgical site culture is showing no growth thus far * Of note, patient was on PO Augmentin prior to admission * Per ID consult, continue IV abx during admission (ideally to complete 7 days of IV therapy) and then consider transition to PO Augmentin for discharge. PLAN: * VANCOMYCIN * Trough level obtained last night: 14.3 mcg/mL * This drug level is: near therapeutic, however, would like to see a slightly higher level for this indication * Change to Vancomycin 1200 mg IV every 12 hours. -- also expect there to be some vanc accumulation over time in a patient with BMI 34.7kg/m2 * Goal trough level estimate: between 15 - 20 mcg/mL for infected arterial graft * No additional levels have been ordered at this time, as patient is nearing end of therapy. If vanc continues more than a few more days, will re-assess the need for further monitoring. Pharmacy will continue to follow and will adjust dose/frequency as necessary. Thank you
[2016-04-05] MEDS: OXYCODONE/ACETAMINOPHEN 5-325 TAB PO PRN ×2 (13:27→20:08)
[2016-04-05] MEDS ORDERED: WARFARIN SOD 2 MG TAB PO SCH (16:00)
[2016-04-05] MEDS: ATORVASTATIN 20 MG TAB PO SCH (21:40)
[2016-04-05] MEDS ORDERED: NURSING VERBAL MED ORDER ONE (22:00)
[2016-04-05] MEDS ORDERED: ALUMINUM/MAGNESIUM SUSP 30 ML UDC PO PRN (22:15)
[2016-04-06] MEDS: OXYCODONE/ACETAMINOPHEN 5-325 TAB PO PRN ×4 (00:24→21:18)
[2016-04-06 03:35] VITALS: BP 108/71; PULSE 85; TEMP 37.2; O2SAT 94
[2016-04-06 05:33] LABS: INR 2.3 (0.9-1.1); PROTHROMBIN TIME (PATIENT) 25.4 SECONDS (9.0-12.0)
[2016-04-06 05:53] LABS: BUN/CREATININE RATIO 23.9 (10-20); CALCIUM 8.7 mg/dl (8.5-10.1); CREATININE 0.67 mg/dl (0.60-1.20); MAGNESIUM 1.8 mg/dl (1.8-2.4); PHOSPHORUS 3.2 mg/dl (2.5-4.9)
[2016-04-06 07:29] VITALS: BP 119/78; PULSE 62; TEMP 36.7; O2SAT 100
[2016-04-06 08:00] VITALS: O2SAT 94
[2016-04-06] MEDS: DOCUSATE SODIUM 100 MG CAP PO SCH ×2 (08:35→21:14)
[2016-04-06] MEDS: VARENICLINE (CHANTIX) 1 MG TAB PO SCH ×2 (08:35→21:14)
[2016-04-06] MEDS: METFORMIN HCL 500 MG TAB PO SCH ×2 (08:35→18:23)
[2016-04-06] MEDS: ASPIRIN 81 MG ECTAB PO SCH (08:35)
[2016-04-06] MEDS: MULTIVITAMIN TAB PO SCH (08:36)
[2016-04-06] MEDS: LISINOPRIL 10 MG TAB PO SCH (08:36)
[2016-04-06] MEDS: PIOGLITAZONE TAB 15 MG TAB PO SCH (08:36)
[2016-04-06] MEDS: OMEGA-3 (PURIFIED FISH OIL) 1 GM CAP PO SCH (08:37)
[2016-04-06] MEDS: CHOLECALCIFEROL 1000 INTER.UNIT TAB PO SCH (08:37)
[2016-04-06] MEDS: PANTOprazole SOD 40 MG TAB PO SCH (08:37)
[2016-04-06] MEDS: VANCOMYCIN INJ 1,200 MG in SODIUM CHLORIDE 0.9% 250ML 250 ML IV SCH ×2 (10:33→23:32)
[2016-04-06 11:44] VITALS: BP 127/77; PULSE 68; TEMP 36.8; O2SAT 98
[2016-04-06 12:00] VITALS: O2SAT 94
--- NOTE | 2016-04-06 13:33 | Progress Note ---
Progress Note Date of Service: Apr 06, 2016. Subjective 65 yo f POD # 6 after R groin repair of anastomosis and exploration d/t probable infection, seen in f/u today. Pt states she had some nausea last evening, but none today and is eating fine. Denies any other new complaints. States is exercising by ambulating in hallway. Having some R groin incisional discomfort, controlled with medications. no other new complaints. Objective Vital Signs Vital Signs Past 12 Hours Date Time Temp Pulse Resp B/P Pulse Ox O2 Delivery O2 Flow Rate FiO2 04/06/16 12:00 94 Room Air 2.0 04/06/16 11:44 36.8 68 18 127/77 98 04/06/16 08:00 94 Room Air 2.0 04/06/16 07:29 36.7 62 16 119/78 100 Room Air 04/06/16 04:00 Room Air 04/06/16 03:35 37.2 85 18 108/71 94 Room Air Exam CONST: A&O x4, NAD, obese, generally healthy appearing female CHEST: RRR lungs clear ABD: soft, nontender, + bs x 4 quad EXT: R groin incision C/D/I with aisha. Mild serous drainage on dressing. No erythema or warmth. Intake & Output 8-Hour Column 04/05/16 04/06/16 04/06/16 16:00 00:00 08:00 Intake Total 1372 ml 112 ml 200 ml Output Total 400 ml 800 ml 800 ml Balance 972 ml -688 ml -600 ml 24-Hour Column 04/06/16 08:00 Intake Total 1684 ml Output Total 2000 ml Balance -316 ml Laboratory and Microbiology Results Past 24 Hours Test 04/05/16 16:29 04/05/16 16:46 04/05/16 16:56 04/05/16 20:19 Range/Units Bedside Glucose 61 66 93 116 70-90 mg/dl Test 04/06/16 05:11 Range/Units Prothrombin Time 25.4 9.0-12.0 SECONDS Prothromb Time International Ratio 2.3 0.9-1.1 Sodium Level 142 136-145 mmol/L Potassium Level 4.0 3.5-5.1 mmol/L Chloride Level 106 98-107 mmol/L Carbon Dioxide Level 26 21-32 mmol/L Anion Gap 10.0 3-11 mmol/L Blood Urea Nitrogen 16 7-18 mg/dl Creatinine 0.67 0.60-1.20 mg/dl Est Creatinine Clear Calc Drug Dose 78.7 ml/min Estimated GFR () 106.9 Estimated GFR (Non- 92.2 BUN/Creatinine Ratio 23.9 10-20 Random Glucose 116 70-99 mg/dl Calcium Level 8.7 8.5-10.1 mg/dl Phosphorus Level 3.2 2.5-4.9 mg/dl Magnesium Level 1.8 1.8-2.4 mg/dl ASSESSMENT and PLAN: s/p R groin exploration and repair of anastomosis R groin wound infection Pt doing well post op. Continue IV abx. transfer to med/surg.
--- NOTE | 2016-04-06 13:55 | Infectious Disease Progress Nt ---
Progress Note Date of Service Apr 06, 2016. Subjective Pt evaluation today including: conversation w/ patient, conversation w/ family (), physical exam, chart review, lab review, review of studies, review of inpatient medication list Noted that the patient's glucose did drop some overnight into the 60s. Her creatinine this morning was stable at 0.67. She states that she did have some mild nausea over night, but otherwise she has been feeling well. I spoke to Esther this morning and Case management yesterday afternoon as well regarding this patient. She wishes to complete her IV abx in house. All Other Systems: Reviewed and Negative Medications Current Inpatient Medications Medications (Trade) Dose Ordered Sig/Shira Route Start Time Stop Time Status Last Admin Dose Admin Oxycodone/ Acetaminophen (Percocet 5-325mg Tab) `1-2 TABS FOR MODER... Q4H PRN PO 04/01/16 10:45 04/15/16 10:44 04/06/16 10:40 1 TAB Morphine Sulfate (MoRPHine SULFATE INJ) 4 mg Q2H PRN IV 04/01/16 10:45 04/15/16 10:44 Ondansetron HCl (Zofran Inj) 4 mg Q6H PRN IV 04/01/16 10:45 05/01/16 10:44 Aspirin (Ecotrin Tab) 81 mg QAM PO 04/02/16 09:00 05/02/16 08:59 04/06/16 08:35 81 MG Atorvastatin Calcium (Lipitor Tab) 40 mg HS PO 04/01/16 21:00 05/01/16 20:59 04/05/16 21:40 40 MG Cholecalciferol (Vitamin D Tab) 5,000 inter.unit QAM PO 04/02/16 09:00 05/02/16 08:59 04/06/16 08:37 5,000 INTER.UNIT Glipizide (Glucotrol Tab) 20 mg BIDM PO 04/01/16 16:30 05/01/16 16:29 04/06/16 08:36 20 MG Lisinopril (Zestril Tab) 10 mg QAM PO 04/02/16 09:00 05/02/16 08:59 04/06/16 08:36 10 MG Metformin HCl (Glucophage Tab) 1,000 mg BIDM PO 04/02/16 07:15 05/02/16 07:14 04/06/16 08:35 1,000 MG Multivitamins (Multivitamin Tab) 1 tab QAM PO 04/02/16 09:00 05/02/16 08:59 04/06/16 08:36 1 TAB Pioglitazone HCl (ACTos TAB) 45 mg QDB PO 04/02/16 07:15 05/02/16 07:14 04/06/16 08:36 45 MG Warfarin Sodium (Coumadin Tab) 2 mg Tu@1600 PO 04/05/16 16:00 05/05/16 15:59 04/05/16 16:07 2 MG Warfarin Sodium (Coumadin Tab) 4 mg SuMoWeThFrSa@1600 PO 04/01/16 16:00 05/01/16 15:59 04/04/16 16:27 4 MG Fish Oil (Langston-3 (Purified Fish Oil) Cap) 1 gm QAM PO 04/02/16 09:00 05/02/16 08:59 04/06/16 08:37 1 GM Valacyclovir HCl (Valtrex Tab) 1,000 mg UD PRN PO 04/01/16 13:15 05/01/16 13:14 Morphine Sulfate (MoRPHine SULFATE INJ) 2 mg Q2H PRN IV 04/01/16 14:00 04/15/16 13:59 Varenicline (Chantix) 1 mg BID PO 04/01/16 21:00 05/01/16 20:59 04/06/16 08:35 1 MG Vancomycin HCl (Consult) 1 ea UD PRN N/A 04/01/16 14:30 05/01/16 14:29 Docusate Sodium (coLACE CAP) 100 mg BID PO 04/02/16 21:00 05/02/16 20:59 04/06/16 08:35 100 MG Pantoprazole Sodium 40 mg 40 mg QAM PO 04/04/16 09:00 05/04/16 08:59 04/06/16 08:37 40 MG Vancomycin HCl/ Sodium Chloride (Vancomycin Inj/ Nss 250ml) 274 ml @ 125 mls/hr Q12@1000,2200 IV 04/05/16 10:00 05/03/16 09:59 04/06/16 10:33 125 MLS/HR Al Hydroxide/Mg Hydroxide (Maalox Susp) 30 ml Q4H PRN PO 04/05/16 22:15 05/05/16 22:14 04/05/16 22:09 30 ML Objective Vital Signs Date Time Temp Pulse Resp B/P Pulse Ox O2 Delivery O2 Flow Rate FiO2 04/06/16 12:00 94 Room Air 2.0 04/06/16 11:44 36.8 68 18 127/77 98 04/06/16 08:00 94 Room Air 2.0 04/06/16 07:29 36.7 62 16 119/78 100 Room Air 04/06/16 04:00 Room Air 04/06/16 03:35 37.2 85 18 108/71 94 Room Air 04/06/16 00:01 Room Air 04/05/16 23:40 37.0 79 18 98/64 94 Room Air 04/05/16 20:00 36.6 77 22 124/70 98 Room Air 04/05/16 20:00 Room Air 04/05/16 16:00 Room Air 2.0 04/05/16 15:47 36.9 75 22 117/74 98 Room Air Physical Exam General Appearance: no apparent distress, + obese Eyes: normal inspection, sclerae normal ENT: hearing grossly normal Neck: supple, trachea midline Respiratory/Chest: chest non-tender, lungs clear, no respiratory distress, no accessory muscle use Cardiovascular: regular rate, rhythm, + systolic murmur Abdomen: normal bowel sounds, non tender, soft Extremities: + pertinent finding (right groin tenderness to palpation. Mild surrounding edema. Suzi in place) Neurologic/Psychiatric: alert, normal mood/affect Skin: normal color, warm/dry, no rash Laboratory Results Last 24 Hours Test 04/05/16 16:29 04/05/16 16:46 04/05/16 16:56 04/05/16 20:19 Bedside Glucose 61 mg/dl 66 mg/dl 93 mg/dl 116 mg/dl Test 04/06/16 05:11 Prothrombin Time 25.4 SECONDS Prothromb Time International Ratio 2.3 Sodium Level 142 mmol/L Potassium Level 4.0 mmol/L Chloride Level 106 mmol/L Carbon Dioxide Level 26 mmol/L Anion Gap 10.0 mmol/L Blood Urea Nitrogen 16 mg/dl Creatinine 0.67 mg/dl Est Creatinine Clear Calc Drug Dose 78.7 ml/min Estimated GFR () 106.9 Estimated GFR (Non- 92.2 BUN/Creatinine Ratio 23.9 Random Glucose 116 mg/dl Calcium Level 8.7 mg/dl Phosphorus Level 3.2 mg/dl Magnesium Level 1.8 mg/dl Assessment and Plan Patient with right femoral bypass dehiscence and possible graft infection. Surgical culture is showing no growth, but the patient was on PO Augmentin prior to admission as well. She is currently on IV Vancomycin. Will likely continue IV Vancomycin to complete 1 week of therapy following surgery and then transition to PO Augmentin. She more than likely will be on full dose Augmentin for a couple months if she tolerates this well and then will cut down to suppressive therapy. We will follow . Case reviewed and agree with above assessment
[2016-04-06 15:52] VITALS: BP 127/77; PULSE 68; TEMP 36.8; O2SAT 94
[2016-04-06] MEDS: WARFARIN SOD 4 MG TAB PO SCH (16:19)
[2016-04-06] MEDS: ATORVASTATIN 20 MG TAB PO SCH (21:14)
[2016-04-07 00:10] VITALS: BP 106/58; PULSE 73; TEMP 36.7; O2SAT 93
[2016-04-07] MEDS: OXYCODONE/ACETAMINOPHEN 5-325 TAB PO PRN ×3 (04:42→19:26)
[2016-04-07 06:10] LABS: HEMATOCRIT 29.7 % (37-47); MEAN CELL VOLUME 79.6 fL (80-100); MEAN CORPUSCULAR HEMOGLOBIN 25.5 pg (25-34); PLATELET COUNT 338 K/uL (130-400); RED BLOOD COUNT 3.73 M/uL (4.2-5.4)
[2016-04-07 06:46] LABS: CALCIUM 8.6 mg/dl (8.5-10.1); CREATININE 0.64 mg/dl (0.60-1.20); MAGNESIUM 1.7 mg/dl (1.8-2.4); PHOSPHORUS 3.5 mg/dl (2.5-4.9)
[2016-04-07 07:52] VITALS: BP 111/68; PULSE 67; TEMP 36.3; O2SAT 98
[2016-04-07] MEDS: ASPIRIN 81 MG ECTAB PO SCH (08:06)
[2016-04-07] MEDS: VARENICLINE (CHANTIX) 1 MG TAB PO SCH ×2 (08:06→21:18)
[2016-04-07] MEDS: CHOLECALCIFEROL 1000 INTER.UNIT TAB PO SCH (08:06)
[2016-04-07] MEDS: PIOGLITAZONE TAB 15 MG TAB PO SCH (08:07)
[2016-04-07] MEDS: PANTOprazole SOD 40 MG TAB PO SCH (08:08)
[2016-04-07] MEDS: OMEGA-3 (PURIFIED FISH OIL) 1 GM CAP PO SCH (08:08)
[2016-04-07] MEDS: LISINOPRIL 10 MG TAB PO SCH (08:08)
[2016-04-07] MEDS: MULTIVITAMIN TAB PO SCH (08:08)
[2016-04-07] MEDS: METFORMIN HCL 500 MG TAB PO SCH ×2 (08:09→16:27)
[2016-04-07] MEDS: DOCUSATE SODIUM 100 MG CAP PO SCH ×2 (08:09→21:18)
[2016-04-07] MEDS: VANCOMYCIN INJ 1,200 MG in SODIUM CHLORIDE 0.9% 250ML 250 ML IV SCH ×2 (10:12→21:18)
--- NOTE | 2016-04-07 14:42 | Progress Note ---
Progress Note Date of Service: Apr 07, 2016. Subjective Had some discomfort right groin today Objective Vital Signs Vital Signs Past 12 Hours Date Time Temp Pulse Resp B/P Pulse Ox O2 Delivery O2 Flow Rate FiO2 04/07/16 08:00 Room Air 04/07/16 07:52 36.3 67 18 111/68 98 Room Air Exam VSS Afebrile Groin incision intact. Intake & Output 8-Hour Column 04/06/16 04/07/16 04/07/16 16:00 00:00 08:00 Intake Total 525 ml Output Total 450 ml 850 ml Balance 75 ml -850 ml 24-Hour Column 04/07/16 08:00 Intake Total 525 ml Output Total 1300 ml Balance -775 ml Laboratory and Microbiology Results Past 24 Hours Test 04/06/16 16:58 04/07/16 05:20 04/07/16 08:23 04/07/16 12:07 Range/Units Bedside Glucose 70 87 197 70-90 mg/dl White Blood Count 8.70 4.8-10.8 K/uL Red Blood Count 3.73 4.2-5.4 M/uL Hemoglobin 9.5 12.0-16.0 g/dL Hematocrit 29.7 37-47 % Mean Corpuscular Volume 79.6 80-100 fL Mean Corpuscular Hemoglobin 25.5 25-34 pg Mean Corpuscular Hemoglobin Concent 32.0 32-36 g/dl RDW Standard Deviation 45.3 36.4-46.3 fL RDW Coefficient of Variation 15.4 11.5-14.5 % Platelet Count 338 130-400 K/uL Mean Platelet Volume 9.0 7.4-10.4 fL Sodium Level 141 136-145 mmol/L Potassium Level 4.0 3.5-5.1 mmol/L Chloride Level 107 98-107 mmol/L Carbon Dioxide Level 25 21-32 mmol/L Anion Gap 9.0 3-11 mmol/L Blood Urea Nitrogen 16 7-18 mg/dl Creatinine 0.64 0.60-1.20 mg/dl Est Creatinine Clear Calc Drug Dose 81.9 ml/min Estimated GFR () 108.5 Estimated GFR (Non- 93.6 BUN/Creatinine Ratio 25.0 10-20 Random Glucose 80 70-99 mg/dl Calcium Level 8.6 8.5-10.1 mg/dl Phosphorus Level 3.5 2.5-4.9 mg/dl Magnesium Level 1.7 1.8-2.4 mg/dl Imp: Post repair right femoral anastomotic dehiscence Plan: Home tomorrow on oral antibiotics
[2016-04-07 15:17] VITALS: BP 108/71; PULSE 73; TEMP 36.7; O2SAT 96
[2016-04-07 15:26] VITALS: Ht 152.4 cm; Wt 79.7 kg
[2016-04-07] MEDS: WARFARIN SOD 4 MG TAB PO SCH (16:25)
[2016-04-07] MEDS: ATORVASTATIN 20 MG TAB PO SCH (21:18)
[2016-04-07 23:06] VITALS: BP 96/66; PULSE 71; TEMP 36.9; O2SAT 92
[2016-04-08] MEDS: OXYCODONE/ACETAMINOPHEN 5-325 TAB PO PRN ×2 (00:25→06:14)
[2016-04-08 06:44] LABS: BUN/CREATININE RATIO 24.7 (10-20); CALCIUM 8.6 mg/dl (8.5-10.1); CREATININE 0.69 mg/dl (0.60-1.20); MAGNESIUM 1.7 mg/dl (1.8-2.4); PHOSPHORUS 3.6 mg/dl (2.5-4.9); POTASSIUM 3.8 mmol/L (3.5-5.1)
[2016-04-08 07:03] VITALS: BP 106/67; PULSE 70; TEMP 36.7; O2SAT 94
[2016-04-08] MEDS ORDERED: CLC100 PO (08:36)
[2016-04-08] MEDS ORDERED: AMOX875T PO (08:36)
[2016-04-08] MEDS ORDERED: OXYC-57 PO (08:36)
--- NOTE | 2016-04-08 08:49 | Discharge Instructions ---
Discharge Instructions Admission Reason for Admission: Right Groin Abscess/ vascular graft infection Discharge Discharge Diagnosis / Problem: s/p Right Groin exploration/ repair anastomosis , vascular graft infection Discharge Goals Goal(s): Therapeutic intervention Activity Recommendations Activity Limitations: per Instructions/Follow-up section Lifting Limitations: no more than 10 pounds, until after follow-up appointment Exercise/Sports Limitations: gradually increase as tolerated May Resume Sexual Activity: when tolerated Driving or Machine Use: no driving until follow up appt May shower and dry incision well. NO BATHING/SOAKING . Instructions / Follow-Up Instructions / Follow-Up with Dr Morgan or Esther Higgins PA-C on Apr 18. Call office for time. [phone] Current Hospital Diet Patient's current hospital diet: AHA Diet (Heart Healthy), Diabetes Type 2 Diet Discharge Diet Recommended Diet: AHA Diet (Heart Healthy), Diabetes Type 2 Diet Procedures Procedures Performed: Right Groin Exploration and Debridement Repair of arterial anastomosis Pending Studies Studies pending at discharge: no Medical Emergencies . Who to Call and When: Medical Emergencies: If at any time you feel your situation is an emergency, please call 911 immediately. . Non-Emergent Contact Non-Emergency issues call your: Primary Care Provider . "Provider Documentation" section prepared by Esther Higgins. VTE Core Measure Inpt VTE Proph given/why not?: Enoxaparin (Lovenox) [place] Drug Monitoring Program Search Results: patient reviewed within database, no issues identified
[2016-04-08] MEDS: OMEGA-3 (PURIFIED FISH OIL) 1 GM CAP PO SCH (08:57)
[2016-04-08] MEDS: VARENICLINE (CHANTIX) 1 MG TAB PO SCH (08:57)
[2016-04-08] MEDS: PIOGLITAZONE TAB 15 MG TAB PO SCH (08:58)
[2016-04-08] MEDS: CHOLECALCIFEROL 1000 INTER.UNIT TAB PO SCH (08:58)
[2016-04-08] MEDS: ASPIRIN 81 MG ECTAB PO SCH (08:59)
[2016-04-08] MEDS: LISINOPRIL 10 MG TAB PO SCH (08:59)
[2016-04-08] MEDS: PANTOprazole SOD 40 MG TAB PO SCH (08:59)
[2016-04-08] MEDS: MULTIVITAMIN TAB PO SCH (08:59)
[2016-04-08] MEDS: DOCUSATE SODIUM 100 MG CAP PO SCH (08:59)
[2016-04-08] MEDS: METFORMIN HCL 500 MG TAB PO SCH (09:00)
[2016-04-08] MEDS ORDERED: AMOXICILLIN/CLAVULANATE TAB 875 MG TAB PO ONE (09:00)
[2016-04-08 09:07] VITALS: BP 106/67; PULSE 70; TEMP 36.7; O2SAT 94
--- NOTE | 2016-04-08 14:28 | Progress Note ---
Progress Note Date of Service: Apr 08, 2016. Subjective 65 yo f POD #7 after R groin exploration and repair of anastomosis, seen in f/u today. Pt states feeling well. Denies any new complaints. Objective Vital Signs Vital Signs Past 12 Hours Date Time Temp Pulse Resp B/P Pulse Ox O2 Delivery O2 Flow Rate FiO2 04/08/16 09:07 36.7 70 16 94 Room Air 04/08/16 07:03 36.7 70 16 106/67 94 Room Air Exam CONST: A&O x4, NAD, obese, generally healthy appearing female CHEST: RRR lungs decreased, but ctab ABD: soft, nontender, + bs x 4 quad EXT; R groin incision intact with aisha. Mild serous drainage on dressing. No erythema or ecchymosis. + local tenderness. Intake & Output 8-Hour Column 04/07/16 04/08/16 04/08/16 16:00 00:00 08:00 Intake Total 929 ml 360 ml Output Total 1300 ml 900 ml 700 ml Balance -371 ml -900 ml -340 ml 24-Hour Column 04/08/16 08:00 Intake Total 1289 ml Output Total 2900 ml Balance -1611 ml Laboratory and Microbiology Results Past 24 Hours Test 04/07/16 16:35 04/07/16 21:07 04/08/16 05:30 04/08/16 08:21 Range/Units Bedside Glucose 112 128 136 70-90 mg/dl Sodium Level 141 136-145 mmol/L Potassium Level 3.8 3.5-5.1 mmol/L Chloride Level 105 98-107 mmol/L Carbon Dioxide Level 26 21-32 mmol/L Anion Gap 10.0 3-11 mmol/L Blood Urea Nitrogen 17 7-18 mg/dl Creatinine 0.69 0.60-1.20 mg/dl Est Creatinine Clear Calc Drug Dose 75.9 ml/min Estimated GFR () 105.9 Estimated GFR (Non- 91.4 BUN/Creatinine Ratio 24.7 10-20 Random Glucose 81 70-99 mg/dl Calcium Level 8.6 8.5-10.1 mg/dl Phosphorus Level 3.6 2.5-4.9 mg/dl Magnesium Level 1.7 1.8-2.4 mg/dl ASSESSMENT and PLAN: s/p R groin exploration and repair anastomosis R groin infection/vascular graft infection Pt doing well post op. D/C home today with oral abx.
--- NOTE | 2016-04-11 11:50 | DISCHARGE SUMMARY ---
ADMISSION DIAGNOSIS: Draining the right groin wound. DISCHARGE DIAGNOSES: 1. Status post right groin exploration and debridement and repair of arterial anastomosis. 2. Right groin and vascular graft infection. CONSULTATIONS IN THE HOSPITAL: Included infectious disease and critical care. PROCEDURES IN THE HOSPITAL: Included right groin exploration and debridement and repair of arterial anastomosis which was performed on 04/01/2016 with an EBL of 80 mL and no other complications. DISCHARGE CONDITION: Stable. HISTORY OF PRESENT ILLNESS: Mrs. Plummer is a 65-year-old female who had undergone a right axillary bifemoral bypass for limb salvage back in August 2015. The patient presented to the office complaining of drainage from her right groin wound and pain to the area. Stated the pain had developed approximately 1-2 weeks prior and the drainage began only a few days prior. She was concerned and came to the office for evaluation due to the drainage from the wound, that was felt to be possibly a small suture abscess which I attempted to drain in the office. However, upon attempting to drain in the office, there was a significant amount of old blood present and due to concern for a deeper infection and or bleeding site it was felt to be safer to further evaluate it in the OR with exploration of the area. The procedure, risks, benefits and alternatives were discussed with the patient, she expressed understanding and agreement to proceed. In the meantime, she had been started on oral Augmentin. HOSPITAL COURSE: The patient was admitted 04/01/2016 after undergoing her right groin exploration, debridement and repair of the arterial anastomosis. She did well postoperatively. There was concern for possible infection due to most of the graft having been well incorporated except for the proximal end of the anastomosis. Blood cultures remained essentially negative. There was considerable concern for a covert infection which could possibly spread if left untreated. The patient was on vancomycin during her hospital stay and changed to Augmentin at discharge for suppressive therapy. The patient was felt to be stable enough for discharge after a weeks worth of vancomycin and was discharged on oral Augmentin for suppressive therapy indefinitely. The patient will be reevaluated by infectious disease as well as Dr. Morgan a few weeks after discharge. She was advised to call with any questions. PHYSICAL EXAMINATION: VITAL SIGNS: On day of discharge, her vital signs were as follows: Temperature of 36.7, pulse of 70, respiratory rate of 16, blood pressure 106/67, pulse oximetry of 94% on room air. GENERAL: The patient is an obese, mildly chronically ill-appearing, middle-aged female in no acute distress. She ambulates slowly but without assistance and is active, alert and oriented x4. HEAD: Normocephalic and atraumatic. EYES: EOMI. ENT: Demonstrates no hearing loss, rhinorrhea or pharyngeal erythema. NECK: Supple, nontender with midline trachea without masses or crepitus. LUNGS: Demonstrates no dyspnea. They are decreased throughout but clear bilaterally. CARDIOVASCULAR: Demonstrates nondisplaced apical impulse with a regular rate and rhythm without murmurs, lifts, heaves, thrills or gallops. Peripheral pulses were full and equal in all extremities unless otherwise noted specifically they were normal in her carotid, brachial, radial. Her left femoral is +3; however, it is difficult to palpate due to the swelling and discomfort but is present. Her lower extremity distal pulses are present with Doppler. She has brisk capillary refill and no sign of distal ischemia. NEUROLOGIC: The patient has grossly intact cranial nerves and grossly intact sensation. DIET UPON DISCHARGE: Should be a low-cholesterol AHA diet. MEDICATIONS UPON DISCHARGE: Reconciled on the chart and are as per her discharge instructions. FOLLOWUP: Should be with Dr. Morgan or Esther Higgins in the office for reevaluation and removal of aisha in approximately 2 weeks after surgery. Additionally, she is to follow up with Frances Phelps PA-C with infectious disease within a few weeks as well. The patient was advised to call with any other questions.
[2016-04-26] MEDS ORDERED: SULF800T23 PO (14:20)
[2016-05-03] MEDS ORDERED: CEFD1CAP14 PO (13:53)
[2016-05-20] MEDS ORDERED: AMOX500T PO (10:39)
[2016-07-21] MEDS ORDERED: WARF4TAB8 PO (09:32)
[2016-07-21] MEDS ORDERED: AMOX500T PO (09:32)
[2016-11-11] MEDS ORDERED: METO1TAB31 PO (15:36)
== END 2016-04-08 10:31 | disposition home or self-care (01) | DRG 253 ==
LOC: ENRESERVTM → CANRESERV → ENRESERVDT → C.ACU 06:45 → C.MSICU 10:47 → C.2T 04-04 16:39 → C.MSN 04-06 16:13
PROVIDERS: ADMIT Surgery Vascular Surgery; ATTEND Surgery Vascular Surgery
PROC: 04QK0ZZ Repair Right Femoral Artery, Open Approach (ICD-10-PCS; principal; 2016-04-01 08:30)
DX: T82.898A Other specified complication of vascular prosthetic devices, implants and grafts, initial encounter (principal); L02.214 Cutaneous abscess of groin; T82.7XXA Infection and inflammatory reaction due to other cardiac and vascular devices, implants and grafts, initial encounter; I10 Essential (primary) hypertension; E78.5 Hyperlipidemia, unspecified; E11.9 Type 2 diabetes mellitus without complications; J44.9 Chronic obstructive pulmonary disease, unspecified; E78.00 Pure hypercholesterolemia, unspecified; E66.9 Obesity, unspecified; R01.1 Cardiac murmur, unspecified; Z79.01 Long term (current) use of anticoagulants; Z79.02 Long term (current) use of antithrombotics/antiplatelets; Z79.82 Long term (current) use of aspirin; Z79.84 Long term (current) use of oral hypoglycemic drugs; Z79.899 Other long term (current) drug therapy; F17.200 Nicotine dependence, unspecified, uncomplicated; Z82.49 Family history of ischemic heart disease and other diseases of the circulatory system

== ENCOUNTER → 2016-04-12 | Outpatient (CLI) | payer OTHER, MEDICARE ==
[~2016-04-12] MED LIST changes: +ACT/45 PO; +ACT30 PO; +AMOX500T PO; -CEFAZOLIN 1000MG/55 ML D5W IV SCH; -CEFAZOLIN 2000 MG/60 ML D5W IV SCH; +CEFD1CAP14 PO; +CHOL1TAB2 PO; +CHOL1TAB42 PO; +CLC100 PO; +GLIP10TA3 PO; -LACTATED RINGER'S 1000ML 1,000 ML IV SCH; +LEVO1TAB34 PO; +METO1TAB31 PO; +OMEP40CA41 PO; +OPTIRAY 320 IV PRN; +OXYC-57 PO; +PRLSR20 PO; -SODIUM CHLORIDE 0.9% 1000ML 1,000 ML IV SCH; +SULF800T23 PO; +TPRSR/25 PO; +VALA500T60 PO
--- NOTE | 2016-04-12 15:32 | DIAGNOSTIC IMAGING REPORT ---
CT CHEST COMBO ANGIOGRAPHY CT DOSE: 1820.11 mGy.cm CLINICAL HISTORY: Leg pain. History of axillary bifemoral bypass graft. Atherosclerosis. TECHNIQUE: Unenhanced images are obtained to the thorax. Patient was then scanned in a dynamic helical fashion during intravenous administration of 94 cc Optiray 320 COMPARISON STUDY: 05/25/2010 FINDINGS: The thyroid is unremarkable in appearance. There is no evidence of thoracic aortic aneurysm or dissection. No pulmonary artery filling defects are visualized. There are no pathologically enlarged thoracic mediastinal or axillary lymph nodes. No pleural effusions are visualized. There is respiratory motion artifact. There is emphysema. There are right middle lobe atelectatic changes. The patient's right axillary bypass graft is patent. There is cholelithiasis. IMPRESSION: 1. The patient's right axillary bypass graft is patent to at least the upper abdominal level 2. Cholelithiasis 3. No evidence of thoracic aortic aneurysm or dissection 4. No evidence of pathologic adenopathy Electronically signed by: Duarte Fontana M.D. 04/12/2016 3:30 PM Dictated Date/Time: 04/12/2016 3:15 PM
--- NOTE | 2016-04-12 15:47 | DIAGNOSTIC IMAGING REPORT ---
CT abdomen and pelvis angiography ANGIO ABD/PELVIS COMBO CLINICAL HISTORY: Postprocedural claudication. Graft patency TECHNIQUE: Transaxial acquisition pre and post intravenous contrast enhancement. COMPARISON STUDY: None prior FINDINGS: There appears to placement of an aortobifemoral graft. There is normal opacification of the graft at its right anterior abdominal location. Graft appears to be patent bilaterally to its insertion at the femoral arterial structures. There is a least moderate intraluminal thrombus change at the origin of the superficial femoral arteries at its juncture with the graft on the right and to a somewhat lesser extent left. They remain patent. The superficial and profunda arteries remain patent but relatively small in overall diameter. Abdominal aorta demonstrates near complete occlusion at and are slightly proximal to the bifurcation. There is occlusion of the proximal left iliac artery. There is partial collateral reconstitution at its distal aspect. The right iliac artery demonstrates a partially opacified stent at its proximal aspect. It Demonstrates occlusion at its distal aspect of the level of the mid iliac artery. IMPRESSION: 1. 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 2. Occlusion proximal left iliac artery with partial collateral reconstitution at its mid aspect. 3. Right iliac arterial stent appearing occluded in its distal aspect. 4. Aorta bifemoral graft demonstrating intraluminal thrombus focally at its juncture of the right as well as left with the femoral arteries. 5. This graft is patent throughout the bulk of its length and shows focal narrowing only at the juncture with the femoral arteries. 6. Small caliber of the superficial and profunda femoral arteries bilaterally presumably secondary to a low flow state. Electronically signed by: Leonle Arnold M.D. 04/12/2016 3:46 PM Dictated Date/Time: 04/12/2016 3:30 PM
== END | disposition home or self-care (01) ==
LOC: C.CTS 14:04
PROVIDERS: ATTEND Surgery Vascular Surgery
DX: I70.223 Atherosclerosis of native arteries of extremities with rest pain, bilateral legs (principal); K80.20 Calculus of gallbladder without cholecystitis without obstruction; I74.09 Other arterial embolism and thrombosis of abdominal aorta; I74.5 Embolism and thrombosis of iliac artery; Z95.828 Presence of other vascular implants and grafts

== ENCOUNTER → 2016-04-12 | Outpatient (CLI) | payer OTHER, MEDICARE ==
[~2016-04-12] MED LIST changes: -OPTIRAY 320 IV PRN
[2016-04-12 17:11] LABS: HEMATOCRIT 34.1 % (37-47); MEAN CELL VOLUME 79.5 fL (80-100); MEAN CORPUSCULAR HEMOGLOBIN 26.1 pg (25-34); MEAN CORPUSCULAR HGB CONC 32.8 g/dl (32-36); MEAN PLATELET VOLUME 8.6 fL (7.4-10.4); PLATELET COUNT 385 K/uL (130-400); RED BLOOD COUNT 4.29 M/uL (4.2-5.4); WHITE BLOOD COUNT 7.63 K/uL (4.8-10.8)
== END | disposition home or self-care (01) ==
LOC: C.LAB 16:36
PROVIDERS: ATTEND Surgery Vascular Surgery
DX: I70.223 Atherosclerosis of native arteries of extremities with rest pain, bilateral legs (principal)

== ENCOUNTER 2016-04-13 06:37 | Inpatient (IN) | payer OTHER, MEDICARE ==
[~2016-04-13] VITALS: Ht 152.4 cm; Wt 78.6 kg
[~2016-04-13 06:37] MED LIST changes: -ACT/45 PO; -ACT30 PO; -AMOX500T PO; -CEFD1CAP14 PO; -CHOL1TAB2 PO; -CHOL1TAB42 PO; -GLIP10TA3 PO; -LEVO1TAB34 PO; -METO1TAB31 PO; -OMEP40CA41 PO; -PRLSR20 PO; -SULF800T23 PO; -TPRSR/25 PO; -VALA500T60 PO
[2016-04-13] MEDS ORDERED: ACT30 PO (06:56)
[2016-04-13] MEDS ORDERED: PRLSR20 PO (06:56)
[2016-04-13] MEDS ORDERED: VALA500T60 PO (06:56)
[2016-04-13] MEDS ORDERED: GLIP10TA3 PO (06:56)
[2016-04-13] MEDS ORDERED: CHOL1TAB2 PO (06:56)
[2016-04-13] MEDS ORDERED: SODIUM CHLORIDE 0.9% 1000ML 1,000 ML IV STA (07:14)
--- NOTE | 2016-04-13 07:18 | EMERGENCY ROOM VISIT NOTE ---
History Report prepared by Kindra: Red Pickering Under the Supervision of: Dr. Luna Erazo M.D. First contact with patient: 07:05 Chief Complaint: WOUND DEHISCENCE Stated Complaint: BLEEDING FROM CERVICAL SITE ON CUMADIN Nursing Triage Summary: pt had bypass by Dr. Morgan 04/01. pt has aisha to R lower abdomen. pt was making coffee in kitchen and felt blood running down her leg. pt initially reports she was bleeding vaginally. noted blood on patients socks in triage. pt taken directly to room B03. upon assessment blood on underwear at surgical site in R abdomen. aisha intact. no active bleeding noted. pt tender to touch R abdomen. pt on coumadin. yesterday INR was 2.4. pt took Coumadin last evening. History of Present Illness The patient is a 65 year old female who presents to the Emergency Room with complaints of bleeding from her right leg today. The patient had a bypass repair surgery [address] Morgan. She notes that the area has aisha and has been bleeding slightly since the procedure. She presented to Dr. Morgan yesterday who wanted her to get a CT scan and blood work yesterday. The patient is supposed to present to Dr. Morgan tomorrow but she presented to the ED today because she was concerned about increased bleeding. The patient notes that this morning she was making coffee when she felt a sensation run down her leg and then noticed a lot of bleeding from the area. Source of History: patient Onset: today Position: leg (right) Note: Other associated symptoms: bleeding from incision Review of Systems See HPI for pertinent positives & negatives. A total of 10 systems reviewed and were otherwise negative. Past Medical & Surgical Medical Problems: (1) Infected prosthetic vascular graft (2) PAD (peripheral artery disease) (3) surgical site bleeding (4) Vascular graft infection Family History Hypertension FATHER Social History Smoking Status: Never Smoker Drug Use: none Marital Status: Housing Status: lives with family Occupation Status: retired Current/Historical Medications Scheduled Acetaminophen (Tylenol), 1,000 MG PO PRN Amoxicillin & Pot Clavulanate (Augmentin 875-125 mg), 1 TAB PO BID Aspirin (Aspirin Ec), 81 MG PO QAM Atorvastatin (Lipitor), 40 MG PO HS Cholecalciferol (Vitamin D-3), 5,000 UNITS PO DAILY Docusate Sodium (Docusate Sodium), 100 MG PO BID Glipizide (Glucotrol), 20 MG PO BID Lisinopril (Zestril), 10 MG PO QAM Metformin Hcl (Glucophage), 1,000 MG PO BID Multivitamin (Multivitamin), 1 TAB PO QAM [place]-3 Fatty Acids (Fish Oil), 1,000 MG PO QAM Omeprazole (Prilosec), 40 MG PO BID Pioglitazone (Actos), 4 MG PO QAM Varenicline (Chantix), 1 TAB PO BID Warfarin Sod (Jantoven), 4 MG PO MON,,,,,MON Warfarin Sod (Jantoven), 2 MG PO MONDAY Scheduled PRN Oxycodone/Acetaminophen 5MG/325MG (Percocet 5MG/325MG), 1-2 TAB PO Q4H PRN for Moderate Pain Valacyclovir (Valtrex), 1,000 MG PO PRN PRN for COLD SORES Allergies Coded Allergies: NO KNOWN DRUG ALLERGIES (Verified Allergy, Mild, ., 04/01/16) Nickel (Verified Allergy, Mild, RASH, 04/01/16) Physical Exam Vital Signs Date Time Temp Pulse Resp B/P Pulse Ox O2 Delivery O2 Flow Rate FiO2 04/13/16 08:29 98 Room Air 04/13/16 06:53 101 04/13/16 06:44 36.8 105 24 159/82 98 Room Air Physical Exam Vital signs reviewed. General: Well-appearing, obese, in no significant distress. HEENT: No scleral icterus, PERRLA, neck supple. Atraumatic. Cardiovascular: Regular rate and rhythm, no extra sounds. Pulmonary: Clear to auscultation bilaterally, normal work of breathing. Abdomen: Soft, nondistended, positive bowel sounds. 4 cm incision on right inguinal region with aisha, intact no active bleeding. Fairly tender to area surrounding surgical site. Musculoskeletal: Atraumatic, no peripheral edema. Neurologic: Patient awake alert and oriented x 3, full strength in all 4 extremities. Cranial nerves 2 through 12 grossly intact. Skin: Warm, dry, no rash Medical Decision & Procedures Laboratory Results 04/13/16 06:49 Test 04/13/16 06:49 RDW Standard Deviation 43.4 fL (36.4-46.3) RDW Coefficient of Variation 15.1 % (11.5-14.5) White Blood Count 9.86 K/uL (4.8-10.8) Red Blood Count 4.47 M/uL (4.2-5.4) Hemoglobin 11.3 g/dL (12.0-16.0) Hematocrit 35.1 % (37-47) Mean Corpuscular Volume 78.5 fL (80-100) Mean Corpuscular Hemoglobin 25.3 pg (25-34) Mean Corpuscular Hemoglobin Concent 32.2 g/dl (32-36) Platelet Count 425 K/uL (130-400) Mean Platelet Volume 8.6 fL (7.4-10.4) Neutrophils (%) (Auto) 64.8 % Lymphocytes (%) (Auto) 22.9 % Monocytes (%) (Auto) 7.8 % Eosinophils (%) (Auto) 3.2 % Basophils (%) (Auto) 1.0 % Neutrophils # (Auto) 6.38 K/uL (1.4-6.5) Lymphocytes # (Auto) 2.26 K/uL (1.2-3.4) Monocytes # (Auto) 0.77 K/uL (0.11-0.59) Eosinophils # (Auto) 0.32 K/uL (0-0.5) Basophils # (Auto) 0.10 K/uL (0-0.2) Immature Granulocyte % (Auto) 0.3 % Immature Granulocyte # (Auto) 0.03 K/uL (0.00-0.02) Activated Partial Thromboplast Time 45.0 SECONDS (21.0-31.0) Partial Thromboplastin Ratio 1.7 Anion Gap 10.0 mmol/L (3-11) BUN/Creatinine Ratio 15.5 (10-20) Calcium Level 9.3 mg/dl (8.5-10.1) Total Bilirubin 0.3 mg/dl (0.2-1) Direct Bilirubin < 0.1 mg/dl (0-0.2) Aspartate Amino Transf (AST/SGOT) 17 U/L (15-37) Alanine Aminotransferase (ALT/SGPT) 28 U/L (12-78) Alkaline Phosphatase 85 U/L (45-117) Total Protein 7.9 gm/dl (6.4-8.2) Albumin 3.6 gm/dl (3.4-5.0) Laboratory results per my review. Medications Administered Medications (Trade) Dose Ordered Sig/Shira Route Start Time Stop Time Status Last Admin Dose Admin Sodium Chloride (Nss 1000ml) 1,000 ml @ 125 mls/hr Q8H STAT IV 04/13/16 07:14 04/13/16 10:38 DC 04/13/16 07:22 125 MLS/HR Acetaminophen (Tylenol Tab) 650 mg Q4H PRN PO 04/13/16 08:15 05/13/16 08:14 04/14/16 05:06 650 MG ED Course 0714: Ordered NSS 1000 ml @ 125 mls/hr IV. 0722: Past medical records reviewed. The patient was evaluated in room B3. A complete history and physical examination was performed. 0751: At this time, I discussed the patient's case with Esther Higgins PA-C - Endovascular Surgery [facility] and she agreed to accept the patient for further evaluation with Dr. Morgan - Vascular Surgery [facility]. Medical Decision Differential diagnoses include occluded graft, leaking anastomosis, wound infection, hematoma, seroma, supratherapeutic INR. This pt was evaluated and appeared to be in no distress. The right groin shows no sign of active bleeding while the pt is lying down, however her dressing and underwear are covered in bright red blood. IV access was obtained and lab work was drawn. CT scan was reviewed that was performed yesterday. H/H is stable. Pt is anticoagulated with INR of 2.1. Case was d/w Esther Higgins PA-C and Dr Morgan of vascular surgery. They evaluated the pt in the ED and plan for admission and further management. Pt is aware of the plan and agrees. Consults Time Called: [id number] Consulting Physician: Esther Higgins PA-C - Endovascular Surgery [facility] Returned Call: [phone] At this time, I discussed the patient's case with Esther Higgins PA-C and she agreed to accept the patient for further evaluation with Dr. Morgan - Vascular Surgery [facility]. Impression Primary Impression: Post-op bleeding Scribe Attestation The scribe's documentation has been prepared under my direction and personally reviewed by me in its entirety. I confirm that the note above accurately reflects all work, treatment, procedures, and medical decision making performed by me. Departure Information Dispostion Being Evaluated By Surgeon (Esther Higgins PA-C and Dr. Morgan - Endovascular Surgery) Referrals Tam Rosario M.D. (PCP) Problem Qualifiers Primary Impression: Post-op bleeding Surgical complication system/body Area: circulatory system Procedure type: other circulatory Qualified Codes: I97.618 - Postprocedural hemorrhage of a circulatory system organ or structure following other circulatory system procedure
[2016-04-13 07:24] LABS: COMPLETE YES; EOS % 3.2 %; HEMATOCRIT 35.1 % (37-47); IG% 0.3 %; LYMPH % 22.9 %; LYMPH ABS # 2.26 K/uL (1.2-3.4); MEAN CELL VOLUME 78.5 fL (80-100); MEAN CORPUSCULAR HEMOGLOBIN 25.3 pg (25-34); MEAN CORPUSCULAR HGB CONC 32.2 g/dl (32-36); MEAN PLATELET VOLUME 8.6 fL (7.4-10.4); MONO % 7.8 %; NEUT % 64.8 %; PLATELET COUNT 425 K/uL (130-400); RED BLOOD COUNT 4.47 M/uL (4.2-5.4); WHITE BLOOD COUNT 9.86 K/uL (4.8-10.8)
[2016-04-13 07:29] LABS: INR 2.2 (0.9-1.1); PARTIAL THROMBOPLASTIN RATIO 1.7; PROTHROMBIN TIME (PATIENT) 24.2 SECONDS (9.0-12.0)
[2016-04-13 07:32] LABS: ALT/SGPT 28 U/L (12-78); AST/SGOT 17 U/L (15-37); BLOOD UREA NITROGEN 12 mg/dl (7-18); BUN/CREATININE RATIO 15.5 (10-20); CALCIUM 9.3 mg/dl (8.5-10.1); CARBON DIOXIDE 26 mmol/L (21-32); CHLORIDE 103 mmol/L (98-107); CREATININE 0.76 mg/dl (0.60-1.20); GLUCOSE 175 mg/dl (70-99); POTASSIUM 3.6 mmol/L (3.5-5.1); SODIUM 139 mmol/L (136-145)
[2016-04-13 07:35] LABS: ALKALINE PHOSPHATASE 85 U/L (45-117)
[2016-04-13] MEDS ORDERED: OXYCODONE/ACETAMINOPHEN 5-325 TAB PO PRN (08:15)
[2016-04-13] MEDS ORDERED: ACETAMINOPHEN 325 MG TAB PO PRN (08:15)
[2016-04-13] MEDS ORDERED: ALUMINUM/MAGNESIUM/SIMETH (MAALOX MAX) 30 ML UDC PO PRN (08:15)
[2016-04-13] MEDS ORDERED: ONDANSETRON INJ 2 MG/ML 2 ML VIAL IV PRN (08:15)
[2016-04-13 08:29] VITALS: O2SAT 98; Ht 152.4 cm; Wt 78.6 kg
--- NOTE | 2016-04-13 08:48 | History and Physical ---
History & Physical Chief Complaint Bleeding from R groin incision History of Present Illness The patient is a 65 year old female with multiple medical problems, including DMII, CAD, HTN, Severe PAD, s/p R ax-bifemoral bypass in 08/2015, seen today after ER arrival d/t bleeding from R groin incision. Pt underwent R groin exploration and repair of R limb anastomosis 2 weeks ago and was discharged on abx for presumed vascular graft infection. Pt states she has had mild bloody drainage since procedure, but this morning she had a large amount of BRB from R groin incision which soaked her dressing and down her leg, so came to ED. Admits mild pain in R groin, and tenderness over R side over the graft tunnel. No limb rest pain. Denies HONG, fever, chills, chest pain, SOB, abd pain, N/V, other complaints. CTA performed yesterday demonstrates patent graft without active bleeding; also with possible fluid around R limb of graft. Allergies Coded Allergies: No Known Allergies (Verified , 08/26/15) Home Medications Scheduled Acetaminophen (Tylenol), 1,000 MG PO PRN Amitriptyline Hcl (Elavil *), 20 MG PO HS Aspirin (Aspirin Ec), 81 MG PO DAILY Atorvastatin (Lipitor), 40 MG PO HS Cholecalciferol (Vitamin D), 5,000 INTER.UNIT PO DAILY Clopidogrel (Plavix), 75 MG PO DAILY Glipizide (Glucotrol *), 20 MG PO BID Lisinopril (Zestril), 10 MG PO DAILY Metformin Hcl (Glucophage), 1,000 MG PO BID Multivitamin (Multivitamin), 1 TAB PO DAILY [place]-3 Fatty Acids (Fish Oil), 1,000 MG PO DAILY Omeprazole (Prilosec), 40 MG PO BID Pioglitazone (Actos *), 45 MG PO DAILY Scheduled PRN Ibuprofen Tab (Advil), 400 MG PO PRN PRN for PRN Valacyclovir (Valtrex Unkown Dose), 1 GM PO PRN PRN for COLD SORES Surgical / Medical History Hx Cardiac Surgery: No Hx Abdominal Surgery: Yes (tubal) Hx Cancer Surgery: No Hx Thoracic Surgery: No Hx Orthopedic: No Hx Urinary Tract Surgery: No HX Other Surgery: Yes (iliac artery stent) Social History Smoking Status: former smoker Hx Tobacco Use In Past Year?: Yes Hx Alcohol Use - Type & Amnt: No Hx Substance Use -Type & Amnt: No Review of Systems + tenderness over graft and bleeding from R groin incision 11 other systems reviewed and negative Physical Exam Constitutional: General Apperance: overweight Level of Distress: mild distress d/t anxiety over situation Psychiatric: Mental Status: active & alert, normal mood, normal affect Orientation: oriented except where noted, to time, to place, to person Memory: recent memory normal, remote memory normal Lungs: Auscultation: breath sounds normal Cardiovascular: Heart Auscultation: RRR Peripheral Pulses: Radial Pulse: normal on the left, normal on the right Femoral Pulse: normal on the right, normal on the left Posterior Tibialis Pulse: decreased on the left , decreased on the right Dorsalis Pedis Pulse: decreased on the right, absent on the left Abdomen: Inspection & Palpation: soft. R groin incision with minimal bright red blood on skin surrounding incision, no active bleeding or expressable blood. + local tenderness, no erythema Extremities: Upper Right and left: no cyanosis, no edema, no varicosities, no palpable cord, no clubbing, no ulcers, no mottling Upper Left: no cyanosis, no edema, no palpable cord, no clubbing, no ulcers , no mottling Lower Left: no cyanosis, no edema, no palpable cord, no clubbing, no ulcers , no mottling Assessment and Plan Imp: Vascular graft infection Bleeding from R groin incision Plan: Patient is admitted for further evaluation and treatment. No active bleeding presently. Admit PCU, blood cx, initiation of vancomycin. consult ID and hospitalist. If unable to stabilize graft or further bleeding occurs, may require removal of graft. Possibility of surgical graft removal d/t infection was discussed with pt and .
[2016-04-13] MEDS ORDERED: VARENICLINE 0.5 MG TAB PO SCH (09:00)
[2016-04-13] MEDS: DOCUSATE SODIUM 100 MG CAP PO SCH ×2 (09:00→21:06)
[2016-04-13 09:55] VITALS: BP 120/45; PULSE 61; O2SAT 97
[2016-04-13 09:58] VITALS: BP 102/58; PULSE 64; TEMP 36.8; O2SAT 96
[2016-04-13] MEDS ORDERED: VANCOMYCIN CONSULT ACTIVE PRN (10:00)
[2016-04-13] MEDS ORDERED: VANCOMYCIN INJ 1,750 MG in SODIUM CHLORIDE 0.9% 500ML 500 ML IV SCH (10:30)
[2016-04-13] MEDS: MULTIVITAMIN TAB PO SCH (11:44)
[2016-04-13] MEDS: OMEGA-3 (PURIFIED FISH OIL) 1 GM CAP PO SCH (11:44)
[2016-04-13] MEDS: PANTOprazole SOD 40 MG TAB PO SCH ×2 (11:44→21:06)
[2016-04-13] MEDS: LISINOPRIL 10 MG TAB PO SCH (11:44)
[2016-04-13] MEDS: ASPIRIN 81 MG ECTAB PO SCH (11:44)
[2016-04-13] MEDS: PIOGLITAZONE TAB 15 MG TAB PO SCH (11:45)
[2016-04-13 12:00] VITALS: BP 94/50; PULSE 73; TEMP 36.8; O2SAT 95
--- NOTE | 2016-04-13 12:48 | Medical Consult ---
Consultation Date of Consultation: Apr 13, 2016. Attending Physician: Chip Morgan M.D. Reason for Consultation: Medical Management History of Present Illness The patient is a 65 year old female wPMHx of DMII, HTN, Severe PAD, s/p R ax- bifemoral bypass in 08/2015, who presented to ED with bleeding from right groin. Patient on 04/01/16 patient had a femoral graft repair due to Right Groin Abscess/ vascular graft infection by Dr. Morgan. Patient states she was discharged in stable condition then went to Dr. Morgan as an outpatient yesterday complaining of right groin pain and right upper quadrant abdominal pain. She was sent for an outpatient CT scan. She then awoke this am where she states "blood was pouring from her leg." She cam to the ED where she was admitted to the ICU. Hospitalist service is consulted for medical management. Past Medical/Surgical History Medical Problems: (1) Post-op bleeding Status: Acute Family History Hypertension FATHER Social History Smoking Status: Never Smoker Drug Use: none Marital Status: Housing Status: lives with family Occupation Status: retired Allergies Coded Allergies: NO KNOWN DRUG ALLERGIES (Verified Allergy, Mild, ., 04/01/16) Nickel (Verified Allergy, Mild, RASH, 04/01/16) Home Medications Reported Home Medications Medications Dose Route/Sig Max Daily Dose Days Date Category Dose Instructions Glucotrol (Glipizide) 10 Mg Tab 20 Mg PO BID 04/13/16 Reported Prilosec (Omeprazole) 20 Mg Capcr 40 Mg PO BID 04/13/16 Reported Valtrex (Valacyclovir HCl) 500 Mg Tab 1,000 Mg PO PRN PRN 04/13/16 Reported Actos (Pioglitazone) 30 Mg Tab 4 Mg PO QAM 90 04/13/16 Reported Vitamin D-3 (Cholecalciferol) 1,000 Unit Tab 5,000 Units PO DAILY 04/13/16 Reported Docusate Sodium 100 Mg Cap 100 Mg PO BID 04/08/16 Rx Percocet 5MG/325MG (Oxycodone/Acetaminophen) Tab 1-2 Tab PO Q4H PRN 04/08/16 Rx PAIN Augmentin 875-125 mg (Amoxicillin & Pot Clavulanate) 1 Tab Tab 1 Tab PO BID 30 04/08/16 Rx Jantoven (Warfarin Sodium) 2 Mg Tab 2 Mg PO MICHAEL 1/18/17 Reported Chantix (Varenicline) 1 Mg Tab 1 Tab PO BID 30 01/07/16 Reported Jantoven (Warfarin Sodium) 4 Mg Tab 4 Mg PO SUN,M,W,TH,FR,SAT 09/28/15 Reported Aspirin Ec (Aspirin) 81 Mg Tab 81 Mg PO QAM 08/26/15 Reported Tylenol (Acetaminophen) 500 Mg Tab 1,000 Mg PO PRN 09/24/14 Reported Fish Oil ([place]-3 Fatty Acids) 1 Cap Cap 1,000 Mg PO QAM 11/05/12 Reported Glucophage (Metformin Hcl) 1,000 Mg Tab 1,000 Mg PO BID 11/05/12 Reported Multivitamin (Multivitamins) Tab 1 Tab PO QAM 12/12/08 Reported Centrum Silver Zestril (Lisinopril) 10 Mg Tab 10 Mg PO QAM 12/12/08 Reported Lipitor (Atorvastatin Calcium) 40 Mg Tab 40 Mg PO HS 12/12/08 Reported Current Inpatient Medications Current Inpatient Medications Medications (Trade) Dose Ordered Sig/Shira Route Start Time Stop Time Status Last Admin Dose Admin Acetaminophen (Tylenol Tab) 650 mg Q4H PRN PO 04/13/16 08:15 05/13/16 08:14 Al Hydrox/Mg Hydrox/Simethicone (Maalox Max Susp) 15 ml Q4H PRN PO 04/13/16 08:15 05/13/16 08:14 Ondansetron HCl (Zofran Inj) 4 mg Q6H PRN IV 04/13/16 08:15 05/13/16 08:14 Aspirin (Ecotrin Tab) 81 mg QAM PO 04/13/16 09:00 05/13/16 08:59 Atorvastatin Calcium (Lipitor Tab) 40 mg HS PO 04/13/16 21:00 05/13/16 20:59 Docusate Sodium (coLACE CAP) 100 mg BID PO 04/13/16 09:00 05/13/16 08:59 Glipizide (Glucotrol Tab) 20 mg BID@0644,1630 PO 04/13/16 16:30 05/13/16 16:29 Lisinopril (Zestril Tab) 10 mg QAM PO 04/13/16 09:00 05/13/16 08:59 Metformin HCl (Glucophage Tab) 1,000 mg BIDM PO 04/13/16 16:30 05/13/16 16:29 Future Hold Multivitamins (Multivitamin Tab) 1 tab QAM PO 04/13/16 09:00 05/13/16 08:59 Oxycodone/ Acetaminophen (Percocet 5-325mg Tab) Q4 hr PRN moderate pain Q4H PRN PO 04/13/16 08:15 04/27/16 08:14 Valacyclovir HCl (Valtrex Tab) 1,000 mg PRN PRN PO 04/13/16 08:15 04/23/16 08:14 Varenicline (Chantix Tab) 1 mg BID PO 04/13/16 09:00 05/13/16 08:59 Warfarin Sodium (Coumadin Tab) 4 mg DAILY@1600 PO 04/13/16 16:00 05/13/16 15:59 Fish Oil ([place]-3 (Purified Fish Oil) Cap) 1 gm QAM PO 04/13/16 10:30 05/13/16 10:29 Pantoprazole Sodium (Protonix Tab) 40 mg BID PO 04/13/16 09:00 05/13/16 08:59 Pioglitazone HCl 45 mg 45 mg QAM PO 04/13/16 11:00 05/13/16 10:59 Vancomycin HCl/ Sodium Chloride (Vancomycin Inj/ Nss 250ml) 260 ml @ 125 mls/hr Q12 IV 04/13/16 09:00 04/23/16 08:59 UNV Vancomycin HCl 1 ea 1 ea UD PRN N/A 04/13/16 10:00 05/13/16 09:59 Vancomycin HCl/ Sodium Chloride (Vancomycin Inj/ Nss 500ml) 535 ml @ 200 mls/hr 1030 IV 04/13/16 10:30 04/13/16 13:11 04/13/16 11:45 200 MLS/HR Review of Systems Constitutional: No chills Eyes: No worsening of vision ENT: No hearing loss Respiratory: No cough, No shortness of breath, No sputum Abdomen: + pain, No constipation, No diarrhea Musculoskeletal: No joint pain Genitourinary - Female: No dysuria Neurologic: No memory loss, No paralysis Psychiatric: No depression symptoms Hematologic / Lymphatic: + abnormal bleeding/bruising, + clotting problems, No swollen lymph nodes Integumentary: No itch, No rash Physical Exam Date Time Temp Pulse Resp B/P Pulse Ox O2 Delivery O2 Flow Rate FiO2 04/13/16 09:58 36.8 64 15 102/58 96 Room Air 04/13/16 09:55 61 15 120/45 97 Room Air 04/13/16 09:34 67 18 110/72 96 Room Air 04/13/16 09:08 72 04/13/16 08:40 67 15 159/82 97 Room Air 04/13/16 08:29 98 Room Air 04/13/16 06:53 101 04/13/16 06:44 36.8 105 24 159/82 98 Room Air General Appearance: WD/WN, no apparent distress Head: normocephalic Eyes: normal inspection ENT: normal ENT inspection Neck: supple, no adenopathy Respiratory/Chest: chest non-tender, lungs clear Cardiovascular: regular rate, rhythm, no edema Abdomen/GI: normal bowel sounds, non tender, soft Genitourinary - Female: external genitalia normal Back: normal inspection Extremities/Musculoskelatal: normal inspection Neurologic/Psych: smearer II-XII nml as tested, no motor/sensory deficits, alert Skin: normal color, warm/dry Lymphatic: no adenopathy Laboratory Results Last 24 Hours Test 04/13/16 06:49 04/13/16 11:21 White Blood Count 9.86 K/uL Red Blood Count 4.47 M/uL Hemoglobin 11.3 g/dL Hematocrit 35.1 % Mean Corpuscular Volume 78.5 fL Mean Corpuscular Hemoglobin 25.3 pg Mean Corpuscular Hemoglobin Concent 32.2 g/dl Platelet Count 425 K/uL Mean Platelet Volume 8.6 fL Neutrophils (%) (Auto) 64.8 % Lymphocytes (%) (Auto) 22.9 % Monocytes (%) (Auto) 7.8 % Eosinophils (%) (Auto) 3.2 % Basophils (%) (Auto) 1.0 % Neutrophils # (Auto) 6.38 K/uL Lymphocytes # (Auto) 2.26 K/uL Monocytes # (Auto) 0.77 K/uL Eosinophils # (Auto) 0.32 K/uL Basophils # (Auto) 0.10 K/uL RDW Standard Deviation 43.4 fL RDW Coefficient of Variation 15.1 % Immature Granulocyte % (Auto) 0.3 % Immature Granulocyte # (Auto) 0.03 K/uL Prothrombin Time 24.2 SECONDS Prothromb Time International Ratio 2.2 Activated Partial Thromboplast Time 45.0 SECONDS Partial Thromboplastin Ratio 1.7 Sodium Level 139 mmol/L Potassium Level 3.6 mmol/L Chloride Level 103 mmol/L Carbon Dioxide Level 26 mmol/L Anion Gap 10.0 mmol/L Blood Urea Nitrogen 12 mg/dl Creatinine 0.76 mg/dl Est Creatinine Clear Calc Drug Dose 67.7 ml/min Estimated GFR () 95.4 Estimated GFR (Non- 82.3 BUN/Creatinine Ratio 15.5 Random Glucose 175 mg/dl Calcium Level 9.3 mg/dl Total Bilirubin 0.3 mg/dl Direct Bilirubin < 0.1 mg/dl Aspartate Amino Transf (AST/SGOT) 17 U/L Alanine Aminotransferase (ALT/SGPT) 28 U/L Alkaline Phosphatase 85 U/L Total Protein 7.9 gm/dl Albumin 3.6 gm/dl Bedside Glucose 124 mg/dl Assessment & Plan Patient is a 65 y.o. F who was recently discharged from [facility] with Right Groin Abscess/ vascular graft infection and returned to ED with bleeding from the right groin. Right Groin Bleeding - currently has stopped - HGB stable at baseline from 10-12 - trend HGB daily - surgical management per vascular surgery ?Femoral Graft infection - cont vancomycin - infectious disease following DMII - cont glipizide, metformin, actos - blood sugars stable - accuchecks HTN - stable - cont lisinopril PVD - cont ASA, Atorvastatin, cont coumadin PPx - coumadin Full Code
--- NOTE | 2016-04-13 13:37 | Pharmacy Progress Note ---
Pharmacy Antibiotic Consult Date of Service: Apr 13, 2016. Pharmacy Dosing Scope Pharmacy is consulted to initiate vancomycin IV dosing therapy, order appropriate labs and adjust drug dose/frequency. Subjective The patient is a 65 year old female admitted on Apr 13, 2016 at 08:34 due to bleeding from R groin incision. Objective Height (Feet): 5 Height (Inches): 0.00 Weight (Kilograms): 77.100 Lab Results (24hrs): Laboratory Tests Test 04/13/16 06:49 BUN/Creatinine Ratio 15.5 Blood Urea Nitrogen 12 mg/dl Creatinine 0.76 mg/dl White Blood Count 9.86 K/uL Red Blood Count 4.47 M/uL Hemoglobin 11.3 g/dL Hematocrit 35.1 % Mean Corpuscular Volume 78.5 fL Mean Corpuscular Hemoglobin 25.3 pg Mean Corpuscular Hemoglobin Concent 32.2 g/dl Platelet Count 425 K/uL Mean Platelet Volume 8.6 fL Neutrophils (%) (Auto) 64.8 % Lymphocytes (%) (Auto) 22.9 % Monocytes (%) (Auto) 7.8 % Eosinophils (%) (Auto) 3.2 % Basophils (%) (Auto) 1.0 % Neutrophils # (Auto) 6.38 K/uL Lymphocytes # (Auto) 2.26 K/uL Monocytes # (Auto) 0.77 K/uL Eosinophils # (Auto) 0.32 K/uL Basophils # (Auto) 0.10 K/uL Micro Results: Item Value Date Time MRSA DNA Surveillance Screen Gerardo Batch 04/13/16 1014 Nasal Pending Blood Culture Received 04/13/16 1102 Blood Pending Blood Culture Received 04/13/16 1114 Blood Pending Assessment & Plan Assessment: * 65 y/o female who was recently admitted (March 2016) for femoral graft repair due to Right Groin Abscess/ vascular graft infection by Dr. Morgan. * Received course of IV vancomycin and was transitioned to PO Augmentin at discharge (ID following during last admission) * Today, the patient is here with bleeding at graft site and has questionable skin/skin struction infection * Started on vancomycin, ID consulted Plan: Begin IV vancomycin * Loading dose: 1750 mg IV X 1 dose * Maintenance dose: 1250 mg IV q12h * dosing regimen based on recent admission/kinetics * Goal trough ~15-20mcg/mL (increase risk of healthcare associated infection 2/ 2 recent admission) * Trough level 04/15/16 prior to 09:00 dose Pharmacy will continue to follow and will adjust dose/frequency as necessary. Thank you
--- NOTE | 2016-04-13 14:28 | Medical Consult ---
Consultation Date of Consultation: Apr 13, 2016. Attending Physician: Chip Morgan M.D. 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 There was noted at the time to be a small portion of the graft which was dehisced and the rest of the graft was well incorporated. During previous surgery, no gross purulence was encountered, and surgical cultures were negative. 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 Her nasal swab was negative for MRSA on previous admission. She was discharged last 04/08/16 with PO Augmentin after receiving IV Vancomycin for 7 days in house. Following discharge from the hospital, the patient states that she began to have increased nausea which did start prior to discharge. She then vomited twice Monday night. She continues to have nausea but has had no further vomiting since discharge previously. She has had some bloating and mild abdominal discomfort but no diarrhea. She also did notice a mild pain in her right side under her ribs where there is a small lump as well. She noted some slight bleeding from her right groin area on Monday. She then began to have severe bright red bleeding from her wound, so her brought her to the ED for evaluation. She did have a CTA as an outpatient prior to admission, which showed mostly patent graft with some mild narrowing at one point but no mention of abscess or stranding around the graft. Blood cultures are pending. Patient was placed on empiric IV Vancomycin again. She denies fever, sweats, chills, SOB , cough, or urinary symptoms. She has noted tenderness surrounding the surgical aisha in her right groin. WBC count on admission was 9.86. Hgb was 11.3. Creatinine was 0.76. Past Medical/Surgical History Medical Problems: (1) Post-op bleeding Status: Acute Medical Problems: (1) Infected prosthetic vascular graft (2) PAD (peripheral artery disease) (3) surgical site bleeding (4) Vascular graft infection Surgical hx: 1. Vascular bypass Family History Hypertension FATHER Noncontributory Social History Smoking Status: Never Smoker Drug Use: none Marital Status: Housing Status: lives with family Occupation Status: retired Allergies Coded Allergies: NO KNOWN DRUG ALLERGIES (Verified Allergy, Mild, ., 04/01/16) Nickel (Verified Allergy, Mild, RASH, 04/01/16) Home Medications Reported Home Medications Medications Dose Route/Sig Max Daily Dose Days Date Category Dose Instructions Glucotrol (Glipizide) 10 Mg Tab 20 Mg PO BID 04/13/16 Reported Prilosec (Omeprazole) 20 Mg Capcr 40 Mg PO BID 04/13/16 Reported Valtrex (Valacyclovir HCl) 500 Mg Tab 1,000 Mg PO PRN PRN 04/13/16 Reported Actos (Pioglitazone) 30 Mg Tab 4 Mg PO QAM 90 04/13/16 Reported Vitamin D-3 (Cholecalciferol) 1,000 Unit Tab 5,000 Units PO DAILY 04/13/16 Reported Docusate Sodium 100 Mg Cap 100 Mg PO BID 04/08/16 Rx Percocet 5MG/325MG (Oxycodone/Acetaminophen) Tab 1-2 Tab PO Q4H PRN 04/08/16 Rx PAIN Augmentin 875-125 mg (Amoxicillin & Pot Clavulanate) 1 Tab Tab 1 Tab PO BID 30 04/08/16 Rx Jantoven (Warfarin Sodium) 2 Mg Tab 2 Mg PO Monday03/30/16 Reported Chantix (Varenicline) 1 Mg Tab 1 Tab PO BID 30 01/07/16 Reported Jantoven (Warfarin Sodium) 4 Mg Tab 4 Mg PO SUN,M,W,TH,FR,SAT 09/28/15 Reported Aspirin Ec (Aspirin) 81 Mg Tab 81 Mg PO QAM 08/26/15 Reported Tylenol (Acetaminophen) 500 Mg Tab 1,000 Mg PO PRN 09/24/14 Reported Fish Oil ([place]-3 Fatty Acids) 1 Cap Cap 1,000 Mg PO QAM 11/05/12 Reported Glucophage (Metformin Hcl) 1,000 Mg Tab 1,000 Mg PO BID 11/05/12 Reported Multivitamin (Multivitamins) Tab 1 Tab PO QAM 12/12/08 Reported Centrum Silver Zestril (Lisinopril) 10 Mg Tab 10 Mg PO QAM 12/12/08 Reported Lipitor (Atorvastatin Calcium) 40 Mg Tab 40 Mg PO HS 12/12/08 Reported Current Inpatient Medications Current Inpatient Medications Medications (Trade) Dose Ordered Sig/Shira Route Start Time Stop Time Status Last Admin Dose Admin Acetaminophen (Tylenol Tab) 650 mg Q4H PRN PO 04/13/16 08:15 05/13/16 08:14 Al Hydrox/Mg Hydrox/Simethicone (Maalox Max Susp) 15 ml Q4H PRN PO 04/13/16 08:15 05/13/16 08:14 Ondansetron HCl (Zofran Inj) 4 mg Q6H PRN IV 04/13/16 08:15 05/13/16 08:14 Aspirin (Ecotrin Tab) 81 mg QAM PO 04/13/16 09:00 05/13/16 08:59 Atorvastatin Calcium (Lipitor Tab) 40 mg HS PO 04/13/16 21:00 05/13/16 20:59 Docusate Sodium (coLACE CAP) 100 mg BID PO 04/13/16 09:00 05/13/16 08:59 Glipizide (Glucotrol Tab) 20 mg BID@0645,1630 PO 04/13/16 16:30 05/13/16 16:29 Lisinopril (Zestril Tab) 10 mg QAM PO 04/13/16 09:00 05/13/16 08:59 Metformin HCl (Glucophage Tab) 1,000 mg BIDM PO 04/13/16 16:30 05/13/16 16:29 Future Hold Multivitamins (Multivitamin Tab) 1 tab QAM PO 04/13/16 09:00 05/13/16 08:59 Oxycodone/ Acetaminophen (Percocet 5-325mg Tab) Q4 hr PRN moderate pain Q4H PRN PO 04/13/16 08:15 04/27/16 08:14 Valacyclovir HCl (Valtrex Tab) 1,000 mg PRN PRN PO 04/13/16 08:15 04/23/16 08:14 Warfarin Sodium (Coumadin Tab) 4 mg DAILY@1600 PO 04/13/16 16:00 05/13/16 15:59 Fish Oil ([place]-3 (Purified Fish Oil) Cap) 1 gm QAM PO 04/13/16 10:30 05/13/16 10:29 Pantoprazole Sodium (Protonix Tab) 40 mg BID PO 04/13/16 09:00 05/13/16 08:59 Pioglitazone HCl 45 mg 45 mg QAM PO 04/13/16 11:00 05/13/16 10:59 Vancomycin HCl/ Sodium Chloride (Vancomycin Inj/ Nss 250ml) 275 ml @ 125 mls/hr Q12H IV 04/13/16 21:00 04/23/16 08:59 Vancomycin HCl (Consult) 1 ea UD PRN N/A 04/13/16 10:00 05/13/16 09:59 Varenicline (Chantix) 1 mg BID PO 04/13/16 21:00 05/13/16 20:59 Review of Systems Constitutional: No chills, No fever, No sweats, No weakness Eyes: No worsening of vision ENT: No hearing loss Respiratory: No cough, No shortness of breath Cardiovascular: + problem reported (pain under the right breast where there is a small lump), No chest pain Abdomen: + nausea (continued), + pain (on and off mild), + vomiting (Monday following D/C, now resolved), No diarrhea Musculoskeletal: + problem reported (pain in the right groin, bleeding) Genitourinary - Female: No dysuria, No urinary frequency, No urinary urgency Integumentary: + bleeding (right groin, severe 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- now resolved), No itch, No rash Physical Exam Date Time Temp Pulse Resp B/P Pulse Ox O2 Delivery O2 Flow Rate FiO2 04/13/16 12:00 36.8 73 20 94/50 95 Room Air 04/13/16 12:00 Room Air 04/13/16 09:58 36.8 64 15 102/58 96 Room Air 04/13/16 09:55 61 15 120/45 97 Room Air 04/13/16 09:34 67 18 110/72 96 Room Air 04/13/16 09:08 72 04/13/16 08:40 67 15 159/82 97 Room Air 04/13/16 08:29 98 Room Air 04/13/16 06:53 101 04/13/16 06:44 36.8 105 24 159/82 98 Room Air General Appearance: no apparent distress, + obese Head: normocephalic, atraumatic Eyes: normal inspection, sclerae normal ENT: hearing grossly normal Neck: supple, trachea midline Respiratory/Chest: chest non-tender, lungs clear, normal breath sounds, no respiratory distress, no accessory muscle use Cardiovascular: regular rate, rhythm, + pertinent finding (mild tenderness of the right lower ribs where there is a small lump) Abdomen/GI: normal bowel sounds, non tender, soft, no organomegaly, + distended (slightly) Back: normal inspection, no CVA tenderness Extremities/Musculoskelatal: normal inspection, no pedal edema, + pertinent finding (right groin with aisha in place. Very tender to palpation of surrounding area) Neurologic/Psych: alert, normal mood/affect Skin: warm/dry, no rash, + pertinent finding ([place]odge in skin of right groin. No real surrounding erythema. 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 Graft patency TECHNIQUE: Transaxial acquisition pre and post intravenous contrast enhancement. COMPARISON STUDY: None prior FINDINGS: There appears to placement of an aortobifemoral graft. There is normal opacification of the graft at its right anterior abdominal location. Graft appears to be patent bilaterally to its insertion at the femoral arterial structures. There is a least moderate intraluminal thrombus change at the origin of the superficial femoral arteries at its juncture with the graft on the right and to a somewhat lesser extent left. They remain patent. The superficial and profunda arteries remain patent but relatively small in overall diameter. Abdominal aorta demonstrates near complete occlusion at and are slightly proximal to the bifurcation. There is occlusion of the proximal left iliac artery. There is partial collateral reconstitution at its distal aspect. The right iliac artery demonstrates a partially opacified stent at its proximal aspect. It Demonstrates occlusion at its distal aspect of the level of the mid iliac artery. IMPRESSION: 1. 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 2. Occlusion proximal left iliac artery with partial collateral reconstitution at its mid aspect. 3. Right iliac arterial stent appearing occluded in its distal aspect. 4. Aorta bifemoral graft demonstrating intraluminal thrombus focally at its juncture of the right as well as left with the femoral arteries. 5. This graft is patent throughout the bulk of its length and shows focal narrowing only at the juncture with the femoral arteries. 6. Small caliber of the superficial and profunda femoral arteries bilaterally presumably secondary to a low flow state. Item Value Date Time Blood Culture Received 04/13/16 1114 Blood Pending Blood Culture Received 04/13/16 1102 Blood Pending MRSA DNA Surveillance Screen Gerardo Batch 04/13/16 1014 Nasal Pending Last 24 Hours Test 04/13/16 06:49 04/13/16 11:21 White Blood Count 9.86 K/uL Red Blood Count 4.47 M/uL Hemoglobin 11.3 g/dL Hematocrit 35.1 % Mean Corpuscular Volume 78.5 fL Mean Corpuscular Hemoglobin 25.3 pg Mean Corpuscular Hemoglobin Concent 32.2 g/dl Platelet Count 425 K/uL Mean Platelet Volume 8.6 fL Neutrophils (%) (Auto) 64.8 % Lymphocytes (%) (Auto) 22.9 % Monocytes (%) (Auto) 7.8 % Eosinophils (%) (Auto) 3.2 % Basophils (%) (Auto) 1.0 % Neutrophils # (Auto) 6.38 K/uL Lymphocytes # (Auto) 2.26 K/uL Monocytes # (Auto) 0.77 K/uL Eosinophils # (Auto) 0.32 K/uL Basophils # (Auto) 0.10 K/uL RDW Standard Deviation 43.4 fL RDW Coefficient of Variation 15.1 % Immature Granulocyte % (Auto) 0.3 % Immature Granulocyte # (Auto) 0.03 K/uL Prothrombin Time 24.2 SECONDS Prothromb Time International Ratio 2.2 Activated Partial Thromboplast Time 45.0 SECONDS Partial Thromboplastin Ratio 1.7 Sodium Level 139 mmol/L Potassium Level 3.6 mmol/L Chloride Level 103 mmol/L Carbon Dioxide Level 26 mmol/L Anion Gap 10.0 mmol/L Blood Urea Nitrogen 12 mg/dl Creatinine 0.76 mg/dl Est Creatinine Clear Calc Drug Dose 67.7 ml/min Estimated GFR () 95.4 Estimated GFR (Non- 82.3 BUN/Creatinine Ratio 15.5 Random Glucose 175 mg/dl Calcium Level 9.3 mg/dl Total Bilirubin 0.3 mg/dl Direct Bilirubin < 0.1 mg/dl Aspartate Amino Transf (AST/SGOT) 17 U/L Alanine Aminotransferase (ALT/SGPT) 28 U/L Alkaline Phosphatase 85 U/L Total Protein 7.9 gm/dl Albumin 3.6 gm/dl Bedside Glucose 124 mg/dl Assessment & Plan Patient with history of right groin vascular bypass with recent admission for concerns of infected graft. Patient was discharged on PO Augmentin and began to have severe bleeding from the graft at home. CTA of the abdomen/pelvis showed slight narrowing of the bypass graft, but it is mostly patent. No abscess or stranding noted in the surrounding area. She is currently on IV Vancomycin. Blood cultures and MRSA nasal swab are pending. Will continue antibiotic therapy pending vascular intervention. Overall feel that this patient's course seems unlike typical infection, but pending further workup will continue antibiotic therapy. We will follow. PROVIDER ADDENDUM: Patient examined and reviewed with Ms. Phelps. Agree with above assessment.
[2016-04-13 15:59] VITALS: BP 121/66; PULSE 68; TEMP 36.8; O2SAT 96
[2016-04-13] MEDS ORDERED: WARFARIN SOD 4 MG TAB PO SCH (16:00)
[2016-04-13] MEDS ORDERED: METFORMIN HCL 500 MG TAB PO SCH (16:30)
[2016-04-13 20:00] VITALS: BP 113/71; PULSE 73; TEMP 36.8; O2SAT 96
[2016-04-13] MEDS: ATORVASTATIN 40 MG TAB PO SCH (21:05)
[2016-04-13] MEDS: VANCOMYCIN INJ 1,250 MG in SODIUM CHLORIDE 0.9% 250ML 250 ML IV SCH (21:05)
[2016-04-13] MEDS: VARENICLINE (CHANTIX) 1 MG TAB PO SCH (21:06)
[2016-04-14] VITALS (9 sets, daily range): BP systolic 99–145; BP diastolic 63–84; PULSE 60–85; TEMP 36.6–36.9; O2SAT 95–98
[2016-04-14 07:14] LABS: INR 2.1 (0.9-1.1); PROTHROMBIN TIME (PATIENT) 23.4 SECONDS (9.0-12.0)
[2016-04-14] MEDS: OMEGA-3 (PURIFIED FISH OIL) 1 GM CAP PO SCH (07:32)
[2016-04-14] MEDS: LISINOPRIL 10 MG TAB PO SCH (07:32)
[2016-04-14] MEDS: MULTIVITAMIN TAB PO SCH (07:32)
[2016-04-14] MEDS: ASPIRIN 81 MG ECTAB PO SCH (07:33)
[2016-04-14] MEDS: PIOGLITAZONE TAB 15 MG TAB PO SCH (07:33)
[2016-04-14] MEDS: DOCUSATE SODIUM 100 MG CAP PO SCH ×2 (07:33→21:49)
[2016-04-14] MEDS: VARENICLINE (CHANTIX) 1 MG TAB PO SCH ×2 (07:34→21:49)
[2016-04-14] MEDS: PANTOprazole SOD 40 MG TAB PO SCH ×2 (07:34→21:50)
[2016-04-14 07:44] LABS: CREATININE 0.66 mg/dl (0.60-1.20)
[2016-04-14] MEDS: VANCOMYCIN INJ 1,250 MG in SODIUM CHLORIDE 0.9% 250ML 250 ML IV SCH ×2 (08:58→21:55)
--- NOTE | 2016-04-14 12:58 | Hospitalist Progress Note ---
Hospitalist Progress Note Date of Service Apr 14, 2016. Subjective Pt evaluation today including: conversation w/ patient, physical exam, chart review, lab review, review of studies, review of inpatient medication list Patient had no acute issues overnight C/o of chronic nausea however able to tolerate food ok DEnies any fevers, chest pain Constitutional: No fever Eyes: No worsening of vision ENT: No hearing loss Respiratory: No cough, No shortness of breath Cardiovascular: No chest pain, No edema Abdomen: No nausea, No pain Musculoskeletal: No joint pain Neurologic: No memory loss Psychiatric: No depression symptoms Endo: No fatigue Skin: No rash Medications Current Inpatient Medications Medications (Trade) Dose Ordered Sig/Shira Route Start Time Stop Time Status Last Admin Dose Admin Acetaminophen (Tylenol Tab) 650 mg Q4H PRN PO 04/13/16 08:15 05/13/16 08:14 04/14/16 05:06 650 MG Al Hydrox/Mg Hydrox/Simethicone (Maalox Max Susp) 15 ml Q4H PRN PO 04/13/16 08:15 05/13/16 08:14 Ondansetron HCl (Zofran Inj) 4 mg Q6H PRN IV 04/13/16 08:15 05/13/16 08:14 Aspirin (Ecotrin Tab) 81 mg QAM PO 04/13/16 09:00 05/13/16 08:59 04/14/16 07:33 81 MG Atorvastatin Calcium (Lipitor Tab) 40 mg HS PO 04/13/16 21:00 05/13/16 20:59 04/13/16 21:05 40 MG Docusate Sodium (coLACE CAP) 100 mg BID PO 04/13/16 09:00 05/13/16 08:59 04/14/16 07:33 100 MG Glipizide (Glucotrol Tab) 20 mg BID@0645,1630 PO 04/13/16 16:30 05/13/16 16:29 04/14/16 07:01 20 MG Lisinopril (Zestril Tab) 10 mg QAM PO 04/13/16 09:00 05/13/16 08:59 04/14/16 07:32 10 MG Metformin HCl (Glucophage Tab) 1,000 mg BIDM PO 04/13/16 16:30 05/13/16 16:29 Future Hold Multivitamins (Multivitamin Tab) 1 tab QAM PO 04/13/16 09:00 05/13/16 08:59 04/14/16 07:32 1 TAB Oxycodone/ Acetaminophen (Percocet 5-325mg Tab) Q4 hr PRN moderate pain Q4H PRN PO 04/13/16 08:15 04/27/16 08:14 Valacyclovir HCl (Valtrex Tab) 1,000 mg PRN PRN PO 04/13/16 08:15 04/23/16 08:14 Warfarin Sodium (Coumadin Tab) 4 mg DAILY@1600 PO 04/13/16 16:00 05/13/16 15:59 Future Hold 04/13/16 16:28 4 MG Fish Oil ([place]-3 (Purified Fish Oil) Cap) 1 gm QAM PO 04/13/16 10:30 05/13/16 10:29 04/14/16 07:32 1 GM Pantoprazole Sodium (Protonix Tab) 40 mg BID PO 04/13/16 09:00 05/13/16 08:59 04/14/16 07:34 40 MG Pioglitazone HCl 45 mg 45 mg QAM PO 04/13/16 11:00 05/13/16 10:59 04/14/16 07:33 45 MG Vancomycin HCl/ Sodium Chloride (Vancomycin Inj/ Nss 250ml) 275 ml @ 125 mls/hr Q12H IV 04/13/16 21:00 04/23/16 08:59 04/14/16 08:58 125 MLS/HR Vancomycin HCl (Consult) 1 ea UD PRN N/A 04/13/16 10:00 05/13/16 09:59 Varenicline (Chantix) 1 mg BID PO 04/13/16 21:00 05/13/16 20:59 04/14/16 07:34 1 MG Objective Vital Signs Date Time Temp Pulse Resp B/P Pulse Ox O2 Delivery O2 Flow Rate FiO2 04/14/16 12:00 Room Air 04/14/16 11:22 36.7 81 18 145/84 97 Room Air 04/14/16 08:00 Room Air 04/14/16 07:42 36.6 85 18 140/80 98 Room Air 04/14/16 05:00 Room Air 04/14/16 03:51 36.8 67 20 99/63 95 Room Air 04/14/16 00:00 Room Air 04/13/16 20:00 36.8 73 20 113/71 96 Room Air 04/13/16 20:00 96 Room Air 04/13/16 16:00 Room Air 04/13/16 15:59 36.8 68 21 121/66 96 Room Air Physical Exam General Appearance: WD/WN, no apparent distress Eyes: normal inspection ENT: normal ENT inspection Neck: supple, no adenopathy Respiratory/Chest: chest non-tender, lungs clear Cardiovascular: regular rate, rhythm, no edema Abdomen: normal bowel sounds, non tender Extremities: normal range of motion, non-tender Neurologic/Psychiatric: cryptologic linguist II-XII nml as tested, no motor/sensory deficits, alert, oriented x 3 Skin: normal color, warm/dry, no rash Lymphatic: no adenopathy Laboratory Results Last 24 Hours Test 04/13/16 16:26 04/14/16 06:26 04/14/16 06:47 04/14/16 11:03 Bedside Glucose 100 mg/dl 119 mg/dl 172 mg/dl Prothrombin Time 23.4 SECONDS Prothromb Time International Ratio 2.1 Creatinine 0.66 mg/dl Est Creatinine Clear Calc Drug Dose 78.0 ml/min Estimated GFR () 107.4 Estimated GFR (Non- 92.7 Assessment and Plan Patient is a 65 y.o. F who was recently discharged from [facility] with Right Groin Abscess/ vascular graft infection and returned to ED with bleeding from the right groin. Right Groin Bleeding -no active signs overnight - trend HGB daily - surgical management per vascular surgery ?Femoral Graft infection - cont vancomycin - infectious disease following DMII - cont glipizide, metformin, actos - blood sugars stable - accuchecks HTN - stable - cont lisinopril PVD - cont ASA, Atorvastatin, cont coumadin PPx - coumadin Full Code
--- NOTE | 2016-04-14 15:39 | DIAGNOSTIC IMAGING REPORT ---
ULTRASOUND BILATERAL LOWER EXTREMITY ARTERIAL; ANKLE BRACHIAL INDICES CLINICAL HISTORY: Graft infection. COMPARISON STUDY: Lower extremity arterial ultrasound dated 09/10/2014. CT angiogram of the pelvis dated 04/12/2016. TECHNIQUE: Real-time, grayscale, and color Doppler sonography of the arteries of the right and left lower extremities was performed from the middle crease to the foot. Ankle brachial indices are calculated. FINDINGS: Ankle-brachial indices: Right brachial pressure measures 102. Pressures in the right posterior tibial artery measure 52 for an ORALIA of 0.51, and pressures in the right dorsalis pedis artery measure 49 for an ORALIA of 0.48. Pressures in the left posterior tibial artery measure 61 for an ORALIA of 0.60, and pressures in the left dorsalis pedis artery measures 60 for an ORALIA of 0.59. Right lower extremity: The right common femoral artery is not well visualized due to aisha from recent surgery. There is blunted arterial upstroke identified in the right common femoral artery with monophasic arterial waveforms. Velocities in the right common femoral artery measure up to 54 cm/s. The profunda femoris artery is patent with velocities measuring up to 72 cm/s. There is monophasic flow seen throughout the right superficial femoral artery with blunted arterial upstrokes. Velocities throughout the superficial femoral artery measure up to 34 cm/s. There are blunted arterial upstrokes present in the popliteal artery with velocities measuring up to 38 cm/s. There are blunted arterial waveforms in the right calf. The anterior tibial and posterior tibial arteries are patent. No flow is shown within the distal peroneal artery which may be occluded. The right dorsalis pedis artery is patent with velocities measuring up to 22 cm/s. There is no fluid collection identified in the right lower extremity. The femorofemoral bypass graft was not well-visualized, and was not seen at the right common femoral artery tie-in due to overlying bandaging. Left lower extremity: There are monophasic arterial waveforms in the left common femoral artery with slightly delayed arterial upstroke. Velocities in the common femoral artery measure up to 63 cm/s. The profunda femoris artery is patent with velocities measuring 55 cm/s. There are monophasic waveforms seen in the left superficial femoral artery with velocities measuring up to 74 cm/s. Significantly blunted waveforms are seen in the mid to distal superficial femoral artery. There are monophasic waveforms in the left popliteal artery with velocities measuring up to 41 cm/s. There is three-vessel runoff to the left foot noting monophasic waveforms with blunted arterial upstroke. The dorsalis pedis artery velocities measure up to 10 cm/s. IMPRESSION: 1. There are abnormal arterial waveforms with blunted arterial upstrokes seen throughout both lower extremities. 2. The right common femoral artery is not well assessed due to overlying bandaging material. The femorofemoral bypass was not interrogated. 3. No fluid collection is identified in the right groin around the common femoral artery. 4. Suspect occlusion of the distal right peroneal artery. 5. No focally elevated velocities are seen within either leg. Dictated: 04/14/2016 2:28 PM Transcribed: 04/14/2016 3:38 PM [email or web address] Electronically signed by: Arthur Ojeda M.D. 04/14/2016 3:44 PM Dictated Date/Time: 04/14/2016 2:28 PM
--- NOTE | 2016-04-14 16:09 | Infectious Disease Progress Nt ---
Progress Note Date of Service Apr 14, 2016. Subjective Pt evaluation today including: conversation w/ patient, conversation w/ family (), physical exam, chart review, lab review, review of studies, review of inpatient medication list Patient's creatinine this morning was stable at 0.66. She continues on IV vancomycin and is tolerating this well. She states she did not have any continued bleeding overnight that she noted. She has not had any sweats, chills , fever, or diarrhea. She continues to have mild nausea. She has not tried anything for the nausea yet. She is anticipated to have a repeat arterial ultrasound this afternoon. Blood cultures are still pending, and MRSA nasal swab was negative. All Other Systems: Reviewed and Negative Medications Current Inpatient Medications Medications (Trade) Dose Ordered Sig/Shira Route Start Time Stop Time Status Last Admin Dose Admin Acetaminophen (Tylenol Tab) 650 mg Q4H PRN PO 04/13/16 08:15 05/13/16 08:14 04/14/16 05:06 650 MG Al Hydrox/Mg Hydrox/Simethicone (Maalox Max Susp) 15 ml Q4H PRN PO 04/13/16 08:15 05/13/16 08:14 Ondansetron HCl (Zofran Inj) 4 mg Q6H PRN IV 04/13/16 08:15 05/13/16 08:14 Aspirin (Ecotrin Tab) 81 mg QAM PO 04/13/16 09:00 05/13/16 08:59 04/14/16 07:33 81 MG Atorvastatin Calcium (Lipitor Tab) 40 mg HS PO 04/13/16 21:00 05/13/16 20:59 04/13/16 21:05 40 MG Docusate Sodium (coLACE CAP) 100 mg BID PO 04/13/16 09:00 05/13/16 08:59 04/14/16 07:33 100 MG Glipizide (Glucotrol Tab) 20 mg BID@0645,1630 PO 04/13/16 16:30 05/13/16 16:29 04/14/16 07:01 20 MG Lisinopril (Zestril Tab) 10 mg QAM PO 04/13/16 09:00 05/13/16 08:59 04/14/16 07:32 10 MG Metformin HCl (Glucophage Tab) 1,000 mg BIDM PO 04/13/16 16:30 05/13/16 16:29 Future Hold Multivitamins (Multivitamin Tab) 1 tab QAM PO 04/13/16 09:00 05/13/16 08:59 04/14/16 07:32 1 TAB Oxycodone/ Acetaminophen (Percocet 5-325mg Tab) Q4 hr PRN moderate pain Q4H PRN PO 04/13/16 08:15 04/27/16 08:14 Valacyclovir HCl (Valtrex Tab) 1,000 mg PRN PRN PO 04/13/16 08:15 04/23/16 08:14 Warfarin Sodium (Coumadin Tab) 4 mg DAILY@1600 PO 04/13/16 16:00 05/13/16 15:59 Future Hold 04/13/16 16:28 4 MG Fish Oil ([place]-3 (Purified Fish Oil) Cap) 1 gm QAM PO 04/13/16 10:30 05/13/16 10:29 04/14/16 07:32 1 GM Pantoprazole Sodium (Protonix Tab) 40 mg BID PO 04/13/16 09:00 05/13/16 08:59 04/14/16 07:34 40 MG Pioglitazone HCl 45 mg 45 mg QAM PO 04/13/16 11:00 05/13/16 10:59 04/14/16 07:33 45 MG Vancomycin HCl/ Sodium Chloride (Vancomycin Inj/ Nss 250ml) 275 ml @ 125 mls/hr Q12H IV 04/13/16 21:00 04/23/16 08:59 04/14/16 08:58 125 MLS/HR Vancomycin HCl (Consult) 1 ea UD PRN N/A 04/13/16 10:00 05/13/16 09:59 Varenicline (Chantix) 1 mg BID PO 04/13/16 21:00 05/13/16 20:59 04/14/16 07:34 1 MG Objective Vital Signs Date Time Temp Pulse Resp B/P Pulse Ox O2 Delivery O2 Flow Rate FiO2 04/14/16 12:00 Room Air 04/14/16 11:22 36.7 81 18 145/84 97 Room Air 04/14/16 08:00 Room Air 04/14/16 07:42 36.6 85 18 140/80 98 Room Air 04/14/16 05:00 Room Air 04/14/16 03:51 36.8 67 20 99/63 95 Room Air 04/14/16 00:00 Room Air 04/13/16 20:00 36.8 73 20 113/71 96 Room Air 04/13/16 20:00 96 Room Air 04/13/16 16:00 Room Air 04/13/16 15:59 36.8 68 21 121/66 96 Room Air Physical Exam General Appearance: no apparent distress, + obese Eyes: normal inspection, sclerae normal ENT: hearing grossly normal Neck: supple, trachea midline Respiratory/Chest: no respiratory distress, no accessory muscle use Cardiovascular: regular rate, rhythm Abdomen: normal bowel sounds, non tender Extremities: + pertinent finding (Right groin with mild swelling and moderate tenderness of the surrounding area. [place] in place. Very mild, bloody drainage noted on the bandage.) Neurologic/Psychiatric: alert, normal mood/affect Skin: normal color, warm/dry, no rash Laboratory Results Item Value Date Time MRSA DNA Surveillance Screen - Final Complete 04/13/16 1436 Nasal Specimen Negative for MRSA by DNA Probe Blood Culture Received 04/13/16 1114 Blood Pending Blood Culture Received 04/13/16 1102 Blood Pending Last 24 Hours Test 04/13/16 16:26 04/14/16 06:26 04/14/16 06:47 04/14/16 11:03 Bedside Glucose 100 mg/dl 119 mg/dl 172 mg/dl Prothrombin Time 23.4 SECONDS Prothromb Time International Ratio 2.1 Creatinine 0.66 mg/dl Est Creatinine Clear Calc Drug Dose 78.0 ml/min Estimated GFR () 107.4 Estimated GFR (Non- 92.7 Assessment and Plan Patient with history of right groin vascular bypass with recent admission for concerns of infected graft. She is currently on IV Vancomycin. Blood cultures are pending. Will continue antibiotic therapy pending vascular intervention. Arterial ultrasound pending. We will continue to follow. PROVIDER ADDENDUM: Patient reviewed with Ms. Phelps. Agree with above assessment.
--- NOTE | 2016-04-14 16:28 | Progress Note ---
Progress Note Date of Service: Apr 14, 2016. Subjective No complaints. No bleeding at this time Problem List Medical Problems: (1) Post-op bleeding Status: Acute Objective Vital Signs Vital Signs Past 12 Hours Date Time Temp Pulse Resp B/P Pulse Ox O2 Delivery O2 Flow Rate FiO2 04/14/16 15:42 36.9 72 20 137/83 97 Room Air 04/14/16 12:00 Room Air 04/14/16 11:22 36.7 81 18 145/84 97 Room Air 04/14/16 08:00 Room Air 04/14/16 07:42 36.6 85 18 140/80 98 Room Air 04/14/16 05:00 Room Air Exam Right groin clean and dry Intake & Output 8-Hour Column 04/13/16 04/14/16 04/14/16 16:00 00:00 08:00 Intake Total 240 ml 316 ml 250 ml Balance 240 ml 316 ml 250 ml 24-Hour Column 04/14/16 08:00 Intake Total 806 ml Balance 806 ml Laboratory and Microbiology Results Past 24 Hours Test 04/14/16 06:26 04/14/16 06:47 04/14/16 11:03 04/14/16 16:17 Range/Units Bedside Glucose 119 172 78 70-90 mg/dl Prothrombin Time 23.4 9.0-12.0 SECONDS Prothromb Time International Ratio 2.1 0.9-1.1 Creatinine 0.66 0.60-1.20 mg/dl Est Creatinine Clear Calc Drug Dose 78.0 ml/min Estimated GFR () 107.4 Estimated GFR (Non- 92.7 Imp; Infected right limb of ax-bifem bypass Plan: I discussed the options with the patient. She can go on lifelong antibiotic therapy but she already has had two significant bleeds from the right groin. The most recent had dark blood followed by bright red blood. This graft was done in august of last year. Cultures from the last surgery were negative however she was on a few days of po antibiotics prior to this. I believe the best approach would be to take out the right limb of the graft and do an axillo popliteal bypass if needed and then lifelong antibiotic therapy. She is aware that she will have a significant risk of amputation by taking out the right limb of the graft. If we don't remove it and she bleeds again while she is home , it may be lethal. I have discussed the risks options and benefits of the procedure with the patient. The patient understands the risks options and benefits and agrees to the procedure. We will plan on doing it tomorrow.
[2016-04-14] MEDS: ATORVASTATIN 40 MG TAB PO SCH (21:49)
[2016-04-15] VITALS (22 sets, daily range): BP systolic 98–157; BP diastolic 40–71; PULSE 58–84; TEMP 36.5–37.3; O2SAT 93–100
[2016-04-15 08:21] LABS: HEMATOCRIT 31.8 % (37-47); MEAN CELL VOLUME 79.1 fL (80-100); MEAN CORPUSCULAR HEMOGLOBIN 25.4 pg (25-34); MEAN CORPUSCULAR HGB CONC 32.1 g/dl (32-36); MEAN PLATELET VOLUME 8.6 fL (7.4-10.4); PLATELET COUNT 353 K/uL (130-400); RED BLOOD COUNT 4.02 M/uL (4.2-5.4); WHITE BLOOD COUNT 8.03 K/uL (4.8-10.8)
[2016-04-15] MEDS: PANTOprazole SOD 40 MG TAB PO SCH (08:28)
[2016-04-15] MEDS: ASPIRIN 81 MG ECTAB PO SCH (08:28)
[2016-04-15] MEDS: PIOGLITAZONE TAB 15 MG TAB PO SCH (08:28)
[2016-04-15] MEDS: MULTIVITAMIN TAB PO SCH (08:29)
[2016-04-15] MEDS: OMEGA-3 (PURIFIED FISH OIL) 1 GM CAP PO SCH (08:29)
[2016-04-15] MEDS: LISINOPRIL 10 MG TAB PO SCH (08:29)
[2016-04-15] MEDS ORDERED: VANCOMYCIN TROUGH SCH (08:30)
[2016-04-15] MEDS: DOCUSATE SODIUM 100 MG CAP PO SCH ×2 (08:30→19:54)
[2016-04-15] MEDS: VARENICLINE (CHANTIX) 1 MG TAB PO SCH ×2 (08:30→19:54)
[2016-04-15 08:35] LABS: INR 1.9 (0.9-1.1)
[2016-04-15 08:47] LABS: CREATININE 0.65 mg/dl (0.60-1.20)
[2016-04-15] MEDS: VANCOMYCIN INJ 1,250 MG in SODIUM CHLORIDE 0.9% 250ML 250 ML IV SCH ×2 (09:02→20:22)
--- NOTE | 2016-04-15 10:27 | Pharmacy Progress Note ---
Pharmacy Antibiotic Prog Note Date of Service: Apr 15, 2016. Subjective: The patient is currently receiving Vancomycin 1250 mg IV every 12 hours. The patient is currently on day # 3 of IV therapy. Objective: Height (Feet): 5 Height (Inches): 0.00 Weight (Kilograms): 77.000 Levels: Item Value Date Time Vancomycin Level Trough 15.2 mcg/ml 04/15/16 0821 Lab Results (24hrs): Laboratory Tests Test 04/15/16 08:00 Creatinine 0.65 mg/dl White Blood Count 8.03 K/uL Micro Results: Item Value Date Time Blood Culture - Preliminary Resulted 04/13/16 1114 Blood NO GROWTH TO DATE. Blood Culture - Preliminary Resulted 04/13/16 1102 Blood NO GROWTH TO DATE. Recent Pertinent Medications: Item Value Date Time Vancomycin HCl 275 ml @ 125 mls/hr 04/13/16 2100 1250 mg/Sodium Q12H/IV 04/15/16 0902 Chloride Assessment & Plan: Assessment: * 65 y/o female who was recently admitted (March 2016) for femoral graft repair due to Right Groin Abscess/ vascular graft infection by Dr. Morgan. * Received course of IV vancomycin and was transitioned to PO Augmentin at discharge (ID following during last admission) * On 04/13, the patient presented with bleeding at graft site and questionable skin/skin struction infection * Continued on vancomycin, ID consulted Plan: * This drug level is: Therapeutic. * Continue 1250 mg IV every 12 hours. * Patient's body weight is borderline what we consider for drug accumulation, but with a trough of 15 mcg/mL- even if she was to accumulate slightly over the next few days, she would still be within a safe range. * Goal trough level estimate: between 15 - 20 mcg/mL. * A follow up trough level has been ordered for: 04/19/16 @0830 prior to the 0900 dose. * If change in patient's renal function- will check follow-up level sooner. Pharmacy will continue to follow and will adjust dose/frequency as necessary. Thank you
--- NOTE | 2016-04-15 13:14 | Progress Note ---
Progress Note Patient for removal of infected limb of her ax bifem graft with possible ax pop bypass if needed for limb salvage. I have discussed the risks options and benefits of the procedure with the patient. The patient understands the risks options and benefits and agrees to the procedure. I have examined the patient, reviewed the History & Physical and in the interval since the performance of the History & Physical I have noted the following changes of clinical significance: No changes noted
[2016-04-15] MEDS ORDERED: ATROPINE SULFATE 0.1 MG/ML 5ML SYR IV PRN ×2 (13:30→15:15)
[2016-04-15] MEDS ORDERED: ONDANSETRON INJ 2 MG/ML 2 ML VIAL IV PRN ×3 (13:30→16:15)
[2016-04-15] MEDS ORDERED: LABETALOL HCL IV 5 MG/ML 20ML IV PRN ×2 (13:30→15:15)
[2016-04-15] MEDS ORDERED: HYDROmorphone INJ 2 MG/ML SYR/VIAL IV PRN ×3 (13:30→17:00)
[2016-04-15] MEDS ORDERED: DEXAMETHASONE SOD INJ 4 MG/ML VIAL ONE (14:06)
[2016-04-15] MEDS ORDERED: NEOSTIGMINE METHYLSULFATE 5 MG/5 ML SYR ONE (14:06)
[2016-04-15] MEDS ORDERED: ROCURONIUM BROMIDE 10 MG/ML 5 ML VIAL ONE (14:06)
[2016-04-15] MEDS ORDERED: LIDOCAINE HCL 2% 2 ML VIAL (20MG/ML) ONE (14:06)
[2016-04-15] MEDS ORDERED: GLYCOPYRROLATE INJ 0.2 MG/ML VIAL ONE (14:06)
[2016-04-15] MEDS ORDERED: FENTANYL CITRATE INJ 50 MCG/1 ML 2 ML VIAL ONE ×3 (14:06→16:12)
[2016-04-15] MEDS ORDERED: PROPOFOL IV EMULSION 10 MG/ML 20 ML VIAL IV ONE (14:06)
[2016-04-15] MEDS ORDERED: ONDANSETRON INJ 2 MG/ML 2 ML VIAL ONE (14:06)
[2016-04-15] MEDS ORDERED: MIDAZOLAM HCL 1 MG/ML 2ML VIAL ONE (14:07)
--- NOTE | 2016-04-15 15:24 | Hospitalist Progress Note ---
Hospitalist Progress Note Date of Service Apr 15, 2016. Subjective Pt evaluation today including: conversation w/ patient, physical exam, chart review, lab review, review of studies, review of inpatient medication list Patient had no acute issue overnight Denies any chest pain, SOB, nausea or vomiting Constitutional: No fever Eyes: No worsening of vision ENT: No hearing loss Respiratory: No cough, No shortness of breath Cardiovascular: No chest pain, No edema Abdomen: No constipation, No pain, No vomiting Musculoskeletal: No joint pain Female : No dysuria Neurologic: No memory loss Psychiatric: No depression symptoms Heme: No abnormal bleeding/bruising Endo: No fatigue Skin: No rash Medications Current Inpatient Medications Medications (Trade) Dose Ordered Sig/Shira Route Start Time Stop Time Status Last Admin Dose Admin Acetaminophen (Tylenol Tab) 650 mg Q4H PRN PO 04/13/16 08:15 05/13/16 08:14 04/14/16 05:06 650 MG Al Hydrox/Mg Hydrox/Simethicone (Maalox Max Susp) 15 ml Q4H PRN PO 04/13/16 08:15 05/13/16 08:14 Ondansetron HCl (Zofran Inj) 4 mg Q6H PRN IV 04/13/16 08:15 05/13/16 08:14 Aspirin (Ecotrin Tab) 81 mg QAM PO 04/13/16 09:00 05/13/16 08:59 04/14/16 07:33 81 MG Atorvastatin Calcium (Lipitor Tab) 40 mg HS PO 04/13/16 21:00 05/13/16 20:59 04/14/16 21:49 40 MG Docusate Sodium (coLACE CAP) 100 mg BID PO 04/13/16 09:00 05/13/16 08:59 04/14/16 21:49 100 MG Glipizide (Glucotrol Tab) 20 mg BID@0645,1630 PO 04/13/16 16:30 05/13/16 16:29 Future hold 04/14/16 17:51 20 MG Lisinopril (Zestril Tab) 10 mg QAM PO 04/13/16 09:00 05/13/16 08:59 04/15/16 08:29 10 MG Metformin HCl (Glucophage Tab) 1,000 mg BIDM PO 04/13/16 16:30 05/13/16 16:29 Future Hold Multivitamins (Multivitamin Tab) 1 tab QAM PO 04/13/16 09:00 05/13/16 08:59 04/15/16 08:29 1 TAB Oxycodone/ Acetaminophen (Percocet 5-325mg Tab) Q4 hr PRN moderate pain Q4H PRN PO 04/13/16 08:15 04/27/16 08:14 Valacyclovir HCl (Valtrex Tab) 1,000 mg PRN PRN PO 04/13/16 08:15 04/23/16 08:14 Warfarin Sodium (Coumadin Tab) 4 mg DAILY@1600 PO 04/13/16 16:00 05/13/16 15:59 Future Hold 04/13/16 16:28 4 MG Fish Oil ([place]-3 (Purified Fish Oil) Cap) 1 gm QAM PO 04/13/16 10:30 05/13/16 10:29 04/15/16 08:29 1 GM Pantoprazole Sodium (Protonix Tab) 40 mg BID PO 04/13/16 09:00 05/13/16 08:59 04/15/16 08:28 40 MG Pioglitazone HCl 45 mg 45 mg QAM PO 04/13/16 11:00 05/13/16 10:59 04/15/16 08:28 45 MG Vancomycin HCl/ Sodium Chloride (Vancomycin Inj/ Nss 250ml) 275 ml @ 125 mls/hr Q12H IV 04/13/16 21:00 04/23/16 08:59 04/15/16 09:02 125 MLS/HR Vancomycin HCl (Consult) 1 ea UD PRN N/A 04/13/16 10:00 05/13/16 09:59 Varenicline (Chantix) 1 mg BID PO 04/13/16 21:00 05/13/16 20:59 04/15/16 08:30 1 MG Ondansetron HCl (Zofran Inj) 4 mg ONE PRN IV 04/15/16 13:30 04/15/16 18:30 Atropine Sulfate (Atropine Sulfate 0.1MG/Ml Inj) 0.5 mg Q1M PRN IV 04/15/16 13:30 04/15/16 18:30 Hydromorphone HCl (Dilaudid Inj) 0.25 mg Q5M PRN IV 04/15/16 13:30 04/15/16 18:30 Labetalol HCl (Normodyne IV) 5 mg Q5M PRN IV 04/15/16 13:30 04/15/16 18:30 Ondansetron HCl (Zofran Inj) 4 mg ONE PRN IV 04/15/16 15:15 04/15/16 20:15 Atropine Sulfate (Atropine Sulfate 0.1MG/Ml Inj) 0.5 mg Q1M PRN IV 04/15/16 15:15 04/15/16 20:15 Hydromorphone HCl (Dilaudid Inj) 0.25 mg Q5M PRN IV 04/15/16 15:15 04/15/16 20:15 Labetalol HCl (Normodyne IV) 5 mg Q5M PRN IV 04/15/16 15:15 04/15/16 20:15 Objective Vital Signs Date Time Temp Pulse Resp B/P Pulse Ox O2 Delivery O2 Flow Rate FiO2 04/15/16 12:00 Room Air 04/15/16 11:42 36.8 84 18 129/70 99 Room Air 04/15/16 08:00 Room Air 04/15/16 07:21 36.5 67 19 114/71 98 Room Air 04/15/16 04:00 97 Room Air 04/15/16 03:41 36.8 65 19 100/66 93 Room Air 04/14/16 23:59 97 Room Air 04/14/16 23:19 36.6 60 20 120/76 97 Room Air 04/14/16 20:00 97 Room Air 04/14/16 19:46 36.9 81 18 134/72 97 Room Air 04/14/16 16:00 97 Room Air 04/14/16 15:42 36.9 72 20 137/83 97 Room Air Physical Exam General Appearance: WD/WN, no apparent distress Eyes: normal inspection ENT: normal ENT inspection Neck: supple Respiratory/Chest: chest non-tender, lungs clear Cardiovascular: regular rate, rhythm, no edema Abdomen: normal bowel sounds, non tender, soft Extremities: normal range of motion, non-tender Neurologic/Psychiatric: 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 and anneal operator II-XII nml as tested, no motor/sensory deficits, alert, oriented x 3 Skin: normal color, warm/dry Lymphatic: no adenopathy Laboratory Results Last 24 Hours Test 04/14/16 16:17 04/14/16 20:00 04/15/16 06:35 04/15/16 08:00 Bedside Glucose 78 mg/dl 127 mg/dl 121 mg/dl White Blood Count 8.03 K/uL Red Blood Count 4.02 M/uL Hemoglobin 10.2 g/dL Hematocrit 31.8 % Mean Corpuscular Volume 79.1 fL Mean Corpuscular Hemoglobin 25.4 pg Mean Corpuscular Hemoglobin Concent 32.1 g/dl RDW Standard Deviation 43.9 fL RDW Coefficient of Variation 15.1 % Platelet Count 353 K/uL Mean Platelet Volume 8.6 fL Prothrombin Time 21.0 SECONDS Prothromb Time International Ratio 1.9 Creatinine 0.65 mg/dl Est Creatinine Clear Calc Drug Dose 79.1 ml/min Estimated GFR () 108.0 Estimated GFR (Non- 93.2 Test 04/15/16 08:21 Vancomycin Level Trough 15.2 mcg/ml Assessment and Plan Patient is a 65 y.o. F who was recently discharged from [facility] with Right Groin Abscess/ vascular graft infection and returned to ED with bleeding from the right groin. Right Groin Bleeding - going to OR today for possible axillo popliteal bypass -no active signs overnight - trend HGB daily ?Femoral Graft infection - cont vancomycin - infectious disease following DMII - cont glipizide, metformin, actos - blood sugars stable - accuchecks HTN - stable - cont lisinopril PVD - cont ASA, Atorvastatin, cont coumadin PPx - coumadin Full Code
[2016-04-15] MEDS ORDERED: NITROGLYCERIN 5 MG/ML 10 ML VIAL ONE (15:56)
[2016-04-15] MEDS ORDERED: BACITRACIN 50,000 UNITS IR ONE (16:06)
--- NOTE | 2016-04-15 16:10 | [facility] Post Operative Brief Note ---
Immediate Operative Summary Operative Date Apr 15, 2016. Pre-Operative Diagnosis Vascular Graft Infection; Bleeding from Right Groin Incision Post-Operative Diagnosis Infected Right Limb of Axillary-Bifemoral Bypass Procedure(s) Performed Removal of Right Limb of Axillary-Bifemoral Bypass Surgeon Dr. Morgan Cross[place] Tender Surgeon(s) Esther Higgins Estimated Blood Loss 250 mL Findings PT and DP to doppler Specimens Culture - Proximal Graft Culture for routine C&S, anaerobic, and gram stain. Culture - Groin Graft Culture for routine C&S, anaerobic, and gram stain. Anesthesia Gen Complication(s) None Disposition Recovery Room / PACU
[2016-04-15] MEDS ORDERED: D5W AND 1/2NSS 1,000 ML IV SCH (16:12)
[2016-04-15] MEDS ORDERED: ACETAMINOPHEN 325 MG TAB PO PRN (16:15)
[2016-04-15] MEDS ORDERED: MoRPHine SULFATE 2 MG/ML CARP IV PRN (16:15)
[2016-04-15] MEDS ORDERED: EpHEDrine SULFATE 50MG/5ML SYR ONE (16:36)
[2016-04-15] MEDS ORDERED: MoRPHine SULFATE 4 MG/ML 1 ML CARP\\VIAL IV PRN ×2 (16:45)
[2016-04-15] MEDS ORDERED: HYDROmorphone INJ 1 MG/ML SYR ONE (16:58)
[2016-04-15 17:25] LABS: BASO % 0.6 %; BASO ABS # 0.05 K/uL (0-0.2); EOS % 3.6 %; HEMATOCRIT 24.2 % (37-47); IG% 0.3 %; LYMPH ABS # 2.08 K/uL (1.2-3.4); MEAN CELL VOLUME 78.3 fL (80-100); MEAN CORPUSCULAR HEMOGLOBIN 25.2 pg (25-34); MEAN CORPUSCULAR HGB CONC 32.2 g/dl (32-36); MEAN PLATELET VOLUME 8.4 fL (7.4-10.4); MONO % 6.4 %; NEUT % 63.1 %; PLATELET COUNT 279 K/uL (130-400); RED BLOOD COUNT 3.09 M/uL (4.2-5.4); WHITE BLOOD COUNT 7.99 K/uL (4.8-10.8)
--- NOTE | 2016-04-15 17:41 | Anesthesiology Progress Note ---
Anesthesia Post Op Note Date & Time Apr 15, 2016 at 17:40 Vital Signs Pain Intensity: 5 Vital Signs Past 12 Hours Date Time Temp Pulse Resp B/P Pulse Ox O2 Delivery O2 Flow Rate FiO2 04/15/16 17:30 36.9 60 16 122/58 100 Nasal Cannula 2 04/15/16 17:20 36.9 57 16 126/62 100 Nasal Cannula 2 04/15/16 17:10 36.9 53 16 115/56 100 Nasal Cannula 2 04/15/16 17:00 36.9 59 16 122/55 98 Nasal Cannula 2 04/15/16 16:50 36.9 52 16 120/52 98 Room Air 04/15/16 16:40 52 16 109/60 100 Mask 10 04/15/16 16:30 49 16 104/53 100 Mask 10 04/15/16 16:22 36.4 49 16 72/41 100 Mask 10 04/15/16 12:00 Room Air 04/15/16 11:42 36.8 84 18 129/70 99 Room Air 04/15/16 08:00 Room Air 04/15/16 07:21 36.5 67 19 114/71 98 Room Air Notes Mental Status: alert / awake / arousable, participated in evaluation Pt Amnestic to Procedure: Yes Nausea / Vomiting: adequately controlled Pain: adequately controlled Airway Patency, RR, SpO2: stable & adequate BP & HR: stable & adequate Hydration State: stable & adequate Anesthetic Complications: no major complications apparent
[2016-04-15 17:59] LABS: COMPLETE YES
[2016-04-15 18:01] LABS: BUN/CREATININE RATIO 23.7 (10-20); CALCIUM 7.7 mg/dl (8.5-10.1); CREATININE 0.51 mg/dl (0.60-1.20); POTASSIUM 3.3 mmol/L (3.5-5.1)
[2016-04-15] MEDS: MoRPHine SULFATE 2 MG/ML CARP IV PRN ×2 (19:46→22:58)
[2016-04-15] MEDS: ATORVASTATIN 40 MG TAB PO SCH (19:55)
[2016-04-16] VITALS (12 sets, daily range): BP systolic 100–169; BP diastolic 45–78; PULSE 61–94; TEMP 36.7–37.3; O2SAT 93–100
--- NOTE | 2016-04-16 00:42 | OPERATIVE REPORT ---
DATE OF OPERATION: 04/15/2016 PREOPERATIVE DIAGNOSIS: Infected right limb of axillobifemoral bypass. SURGEON: Dr. Morgan. ANESTHETIC: General. PROCEDURE: Removal of right limb of axillobifemoral bypass. STORES LABORER: Esther Higgins PA-C. PROCEDURE INDICATIONS: The patient is a 65-year-old female who had an emergency ax-bi-fem done 6 months prior to this. She came in 2 weeks prior to this with bleeding from the right groin. This was explored. She was found to have a small disruption of her anastomosis that was repaired. Cultures grew were negative but she was on antibiotics prior to cultures. She had no further bleeding at that time. She did have another round of bleeding at this admission. At that point, we decided that this graft most likely was infected and will need to be removed. We are hoping to just remove the right limb. She understood the risks, options and benefits and agreed to have this procedure. The patient was taken to the operating room and placed in supine position. After general anesthesia was accomplished, the right lower abdomen and groin were prepped and draped in a sterile manner. [place] was placed on the abdomen. A transverse incision was made over the bifurcation of the ax-bi-fem graft. Right limb was identified. It was extremely well incorporated with no fluid around it and very adherent fibrous tissue. This was freed up. It was then clamped. It was transected and a piece of the graft was sent for culture. The proximal end was oversewn with a CV4 [place] suture. Clamps were then removed and there was still excellent flow to the left leg. The distal end was oversewn with again a CV4, it was freed up at that level. The wound was then closed with a 2-0 Vicryl to isolate the distal portion of the limb. The wound was then completely closed with 3-0 Vicryl for the subcutaneous layer and aisha for the skin. At that point, a sterile dressing was applied over this wound. The aisha were removed from the groin and the groin wound was reopened. There was active bleeding seen from the anastomotic site with disruption at the site was repaired and slightly further down. [place] graft was freed up. It was pulled down from the abdominal wall. The graft was then dissected free from the anterior surface of the femoral artery. All the [place] graft was removed and the femoral artery was oversewn with a 3-0 Prolene suture. At that point, adequate hemostasis was noted. The wound was inspected. Adequate hemostasis was seen at the wound. There was no bleeding seen from the artery. The wound was then packed with Betadine-soaked vag roll and sterile dressings were applied to the wound. There was a good dorsalis and posterior tibial to Doppler. Due to that, there was no need to do any further bypass on the leg. The patient was transported to the recovery room in good condition and tolerated the procedure well. Esther Higgins PA-C, assisted due to lack of resident availability. I attest to the content of the Intraoperative Record and any orders documented therein. Any exceptions are noted below. ZHEN
[2016-04-16] MEDS: MoRPHine SULFATE 2 MG/ML CARP IV PRN (00:58)
[2016-04-16 02:21] LABS: HEMATOCRIT 30.4 % (37-47)
[2016-04-16] MEDS: OXYCODONE/ACETAMINOPHEN 5-325 TAB PO PRN ×6 (02:22→23:36)
[2016-04-16 05:44] LABS: BASO % 0.5 %; BASO ABS # 0.04 K/uL (0-0.2); COMPLETE YES; EOS % 2.3 %; HEMATOCRIT 31.4 % (37-47); IG% 0.2 %; LYMPH % 16.6 %; LYMPH ABS # 1.45 K/uL (1.2-3.4); MEAN CELL VOLUME 81.1 fL (80-100); MEAN CORPUSCULAR HEMOGLOBIN 26.4 pg (25-34); MEAN CORPUSCULAR HGB CONC 32.5 g/dl (32-36); MEAN PLATELET VOLUME 8.8 fL (7.4-10.4); MONO % 7.7 %; NEUT % 72.7 %; PLATELET COUNT 266 K/uL (130-400); RED BLOOD COUNT 3.87 M/uL (4.2-5.4); WHITE BLOOD COUNT 8.71 K/uL (4.8-10.8)
[2016-04-16 05:47] LABS: INR 1.7 (0.9-1.1)
[2016-04-16 06:00] LABS: BUN/CREATININE RATIO 15.6 (10-20); CALCIUM 7.9 mg/dl (8.5-10.1); CREATININE 0.58 mg/dl (0.60-1.20); POTASSIUM 3.6 mmol/L (3.5-5.1)
[2016-04-16] MEDS: ENOXAPARIN 30 MG/0.3 ML SYR SQ SCH ×2 (08:30→19:41)
[2016-04-16] MEDS: PIOGLITAZONE TAB 15 MG TAB PO SCH (08:31)
[2016-04-16] MEDS: MULTIVITAMIN TAB PO SCH (08:31)
[2016-04-16] MEDS: ASPIRIN 81 MG ECTAB PO SCH (08:31)
[2016-04-16] MEDS: VARENICLINE (CHANTIX) 1 MG TAB PO SCH ×2 (08:31→21:24)
[2016-04-16] MEDS: DOCUSATE SODIUM 100 MG CAP PO SCH ×2 (08:31→21:24)
[2016-04-16] MEDS: LISINOPRIL 10 MG TAB PO SCH (08:32)
[2016-04-16] MEDS: OMEGA-3 (PURIFIED FISH OIL) 1 GM CAP PO SCH (08:32)
[2016-04-16] MEDS: VANCOMYCIN INJ 1,250 MG in SODIUM CHLORIDE 0.9% 250ML 250 ML IV SCH ×2 (08:33→21:24)
--- NOTE | 2016-04-16 09:38 | Progress Note ---
Progress Note Date of Service: Apr 16, 2016. Subjective Complains of right groin pain. No right foot pain. No sensory loss of foot. Problem List Medical Problems: (1) Post-op bleeding Status: Acute Objective Vital Signs Vital Signs Past 12 Hours Date Time Temp Pulse Resp B/P Pulse Ox O2 Delivery O2 Flow Rate FiO2 04/16/16 06:00 67 14 106/49 95 Nasal Cannula 2.0 04/16/16 04:00 Nasal Cannula 2.0 04/16/16 04:00 37.0 63 14 100/50 96 Nasal Cannula 2.0 04/16/16 02:00 63 14 122/66 97 Nasal Cannula 2.0 04/16/16 00:45 37.0 64 17 148/45 98 04/16/16 00:01 37.3 62 15 127/63 98 Nasal Cannula 2.0 04/16/16 00:01 37.3 61 15 127/63 98 2.0 04/15/16 23:59 Nasal Cannula 2.0 04/15/16 23:30 63 14 152/50 97 04/15/16 23:15 60 16 151/50 97 04/15/16 23:00 64 15 116/63 98 2.0 04/15/16 22:45 37.3 65 19 141/45 99 04/15/16 22:30 37.3 60 15 133/48 98 2.0 04/15/16 22:00 60 16 105/59 97 04/15/16 21:58 60 15 105/59 97 157/51 Exam VSS Afebrile. BP slightly up at this time. Dressing intact. Reinforced during the night Right foot warm. Able to wiggle toes. Good sensation. Capillary refill present but slightly decreased. Doppler PT and DP, weak however but present. Intake & Output 8-Hour Column 04/15/16 04/15/16 04/16/16 15:59 23:59 07:59 Intake Total 3173 ml 1063 ml Output Total 750 ml 1000 ml Balance 2423 ml 63 ml 24-Hour Column 04/16/16 07:59 Intake Total 4236 ml Output Total 1750 ml Balance 2486 ml Laboratory and Microbiology Results Past 24 Hours Test 04/15/16 17:04 04/16/16 02:14 04/16/16 05:22 Range/Units White Blood Count 7.99 8.71 4.8-10.8 K/uL Red Blood Count 3.09 3.87 4.2-5.4 M/uL Hemoglobin 7.8 10.1 10.2 12.0-16.0 g/dL Hematocrit 24.2 30.4 31.4 37-47 % Mean Corpuscular Volume 78.3 81.1 80-100 fL Mean Corpuscular Hemoglobin 25.2 26.4 25-34 pg Mean Corpuscular Hemoglobin Concent 32.2 32.5 32-36 g/dl Platelet Count 279 266 130-400 K/uL Mean Platelet Volume 8.4 8.8 7.4-10.4 fL Neutrophils (%) (Auto) 63.1 72.7 % Lymphocytes (%) (Auto) 26.0 16.6 % Monocytes (%) (Auto) 6.4 7.7 % Eosinophils (%) (Auto) 3.6 2.3 % Basophils (%) (Auto) 0.6 0.5 % Neutrophils # (Auto) 5.04 6.33 1.4-6.5 K/uL Lymphocytes # (Auto) 2.08 1.45 1.2-3.4 K/uL Monocytes # (Auto) 0.51 0.67 0.11-0.59 K/uL Eosinophils # (Auto) 0.29 0.20 0-0.5 K/uL Basophils # (Auto) 0.05 0.04 0-0.2 K/uL RDW Standard Deviation 43.9 45.9 36.4-46.3 fL RDW Coefficient of Variation 15.3 15.6 11.5-14.5 % Immature Granulocyte % (Auto) 0.3 0.2 % Immature Granulocyte # (Auto) 0.02 0.02 0.00-0.02 K/uL Red Blood Cell Morphology Unremarkable Sodium Level 144 145 136-145 mmol/L Potassium Level 3.3 3.6 3.5-5.1 mmol/L Chloride Level 111 111 98-107 mmol/L Carbon Dioxide Level 21 24 21-32 mmol/L Anion Gap 12.0 10.0 3-11 mmol/L Blood Urea Nitrogen 12 9 7-18 mg/dl Creatinine 0.51 0.58 0.60-1.20 mg/dl Est Creatinine Clear Calc Drug Dose 100.9 88.7 ml/min Estimated GFR () 117.0 112.1 Estimated GFR (Non- 100.9 96.7 BUN/Creatinine Ratio 23.7 15.6 10-20 Random Glucose 140 161 70-99 mg/dl Calcium Level 7.7 7.9 8.5-10.1 mg/dl Prothrombin Time 19.0 9.0-12.0 SECONDS Prothromb Time International Ratio 1.7 0.9-1.1 Microbiology Results 04/15/16 Gram Stain - Final, Resulted 04/15/16 Bacterial Culture, Resulted Pending 04/15/16 Gram Stain - Final, Resulted 04/15/16 Bacterial Culture, Resulted Pending Imp: Post removal of right limb of Ax bifem for infection Plan: Her foot is viable and no further bypass is needed at this time. Will continue close monitoring of her right foot. Will change dressing tomorrow and most likely wound vac on Monday. Will have her get in chair today. Will need to watch groin closure for disruption of suture line. Can move to telemetry if ICU bed needed Will leave nava in for now due to decrease mobility and don't want too much motion of the groin at this point. Hgb good after transfusion Cultures showed many WBC's in the groin and none in the proximal incision so far. Will continue present antibiotics for now. Course length and type of antibiotic will be determined by the culture results but she will need something po lifelong.
[2016-04-16] MEDS: PANTOprazole INJ 40 MG in SYRINGE 0 ML IV SCH (10:45)
--- NOTE | 2016-04-16 13:22 | Hospitalist Progress Note ---
Hospitalist Progress Note Date of Service Apr 16, 2016. Subjective Pt evaluation today including: conversation w/ patient, physical exam, chart review, lab review, review of studies, review of inpatient medication list Patient had no acute issues Patient tolerated surgery yesterday without any complications Constitutional: No fever Eyes: No worsening of vision ENT: No hearing loss, No sore throat Respiratory: No cough, No shortness of breath Cardiovascular: No chest pain, No edema Abdomen: No constipation, No pain, No vomiting Musculoskeletal: No joint pain Female : No abnormal vaginal bleeding, No dysuria, No hematuria Neurologic: No memory loss Psychiatric: No depression symptoms Objective Vital Signs Date Time Temp Pulse Resp B/P Pulse Ox O2 Delivery O2 Flow Rate FiO2 04/16/16 12:00 36.8 84 18 123/78 98 Room Air 169/62 04/16/16 12:00 Room Air 04/16/16 10:00 70 20 104/52 95 Room Air 140/48 04/16/16 08:00 36.8 76 24 120/56 100 Room Air 141/53 04/16/16 08:00 Room Air 04/16/16 06:00 67 14 106/49 95 Nasal Cannula 2.0 04/16/16 04:00 Nasal Cannula 2.0 04/16/16 04:00 37.0 63 14 100/50 96 Nasal Cannula 2.0 04/16/16 02:00 63 14 122/66 97 Nasal Cannula 2.0 04/16/16 00:45 37.0 64 17 148/45 98 04/16/16 00:01 37.3 62 15 127/63 98 Nasal Cannula 2.0 04/16/16 00:01 37.3 61 15 127/63 98 2.0 04/15/16 23:59 Nasal Cannula 2.0 04/15/16 23:30 63 14 152/50 97 04/15/16 23:15 60 16 151/50 97 04/15/16 23:00 64 15 116/63 98 2.0 04/15/16 22:45 37.3 65 19 141/45 99 04/15/16 22:30 37.3 60 15 133/48 98 2.0 04/15/16 22:00 60 16 105/59 97 04/15/16 21:58 60 15 105/59 97 157/51 04/15/16 21:30 62 16 150/48 96 2.0 04/15/16 21:28 58 12 113/55 100 148/47 04/15/16 21:15 58 15 145/43 99 2.0 04/15/16 21:00 64 12 121/52 98 146/48 04/15/16 21:00 61 12 121/52 98 2.0 04/15/16 20:45 37.2 63 20 132/43 97 2.0 04/15/16 20:30 60 19 127/41 97 04/15/16 20:28 61 13 106/54 98 128/42 04/15/16 20:00 Nasal Cannula 2.0 04/15/16 19:58 37.2 63 14 116/63 98 143/47 04/15/16 19:28 65 21 116/63 99 139/40 04/15/16 18:30 63 18 98/61 100 Nasal Cannula 2.0 138/45 04/15/16 18:30 63 18 98/61 100 Nasal Cannula 2.0 138/45 04/15/16 18:00 36.6 63 18 125/57 100 Nasal Cannula 2.0 126/68 04/15/16 18:00 100 Nasal Cannula 2.0 04/15/16 18:00 36.6 63 18 125/57 100 Nasal Cannula 2.0 126/68 04/15/16 17:30 36.9 60 16 122/58 100 Nasal Cannula 2 04/15/16 17:20 36.9 57 16 126/62 100 Nasal Cannula 2 04/15/16 17:10 36.9 53 16 115/56 100 Nasal Cannula 2 04/15/16 17:00 36.9 59 16 122/55 98 Nasal Cannula 2 04/15/16 16:50 36.9 52 16 120/52 98 Room Air 04/15/16 16:40 52 16 109/60 100 Mask 10 04/15/16 16:30 49 16 104/53 100 Mask 10 04/15/16 16:22 36.4 49 16 72/41 100 Mask 10 Physical Exam General Appearance: WD/WN, no apparent distress Eyes: normal inspection ENT: normal ENT inspection Neck: supple Respiratory/Chest: chest non-tender, lungs clear Cardiovascular: regular rate, rhythm, no edema Abdomen: normal bowel sounds, non tender, soft Extremities: normal range of motion, non-tender Neurologic/Psychiatric: chemical processor II-XII nml as tested, no motor/sensory deficits, alert, oriented x 3 Skin: normal color Lymphatic: no adenopathy Laboratory Results Last 24 Hours Test 04/15/16 17:04 04/16/16 02:14 04/16/16 05:22 White Blood Count 7.99 K/uL 8.71 K/uL Red Blood Count 3.09 M/uL 3.87 M/uL Hemoglobin 7.8 g/dL 10.1 g/dL 10.2 g/dL Hematocrit 24.2 % 30.4 % 31.4 % Mean Corpuscular Volume 78.3 fL 81.1 fL Mean Corpuscular Hemoglobin 25.2 pg 26.4 pg Mean Corpuscular Hemoglobin Concent 32.2 g/dl 32.5 g/dl Platelet Count 279 K/uL 266 K/uL Mean Platelet Volume 8.4 fL 8.8 fL Neutrophils (%) (Auto) 63.1 % 72.7 % Lymphocytes (%) (Auto) 26.0 % 16.6 % Monocytes (%) (Auto) 6.4 % 7.7 % Eosinophils (%) (Auto) 3.6 % 2.3 % Basophils (%) (Auto) 0.6 % 0.5 % Neutrophils # (Auto) 5.04 K/uL 6.33 K/uL Lymphocytes # (Auto) 2.08 K/uL 1.45 K/uL Monocytes # (Auto) 0.51 K/uL 0.67 K/uL Eosinophils # (Auto) 0.29 K/uL 0.20 K/uL Basophils # (Auto) 0.05 K/uL 0.04 K/uL RDW Standard Deviation 43.9 fL 45.9 fL RDW Coefficient of Variation 15.3 % 15.6 % Immature Granulocyte % (Auto) 0.3 % 0.2 % Immature Granulocyte # (Auto) 0.02 K/uL 0.02 K/uL Red Blood Cell Morphology Unremarkable Sodium Level 144 mmol/L 145 mmol/L Potassium Level 3.3 mmol/L 3.6 mmol/L Chloride Level 111 mmol/L 111 mmol/L Carbon Dioxide Level 21 mmol/L 24 mmol/L Anion Gap 12.0 mmol/L 10.0 mmol/L Blood Urea Nitrogen 12 mg/dl 9 mg/dl Creatinine 0.51 mg/dl 0.58 mg/dl Est Creatinine Clear Calc Drug Dose 100.9 ml/min 88.7 ml/min Estimated GFR () 117.0 112.1 Estimated GFR (Non- 100.9 96.7 BUN/Creatinine Ratio 23.7 15.6 Random Glucose 140 mg/dl 161 mg/dl Calcium Level 7.7 mg/dl 7.9 mg/dl Prothrombin Time 19.0 SECONDS Prothromb Time International Ratio 1.7 Assessment and Plan Patient is a 65 y.o. F who was recently discharged from [facility] with Right Groin Abscess/ vascular graft infection and returned to ED with bleeding from the right groin. POD#1 s/p Removal of Right Limb of Axillary-Bifemoral Bypass -no active signs of bleeding overnight - pain control with percocet - coumadin on hold per vascular surgery ?Femoral Graft infection - cont vancomycin - infectious disease following - await culture data from [place] DMII - cont glipizide, metformin, actos - blood sugars stable - accuchecks HTN - stable - cont lisinopril PVD - cont ASA, Atorvastatin, cont coumadin PPx - coumadin Full Code
[2016-04-16] MEDS: ATORVASTATIN 40 MG TAB PO SCH (21:24)
[2016-04-17 03:31] VITALS: BP 122/57; PULSE 76; TEMP 36.6; O2SAT 92
[2016-04-17 06:18] LABS: HEMATOCRIT 32.5 % (37-47); MEAN CELL VOLUME 80.8 fL (80-100); MEAN CORPUSCULAR HEMOGLOBIN 26.9 pg (25-34); MEAN CORPUSCULAR HGB CONC 33.2 g/dl (32-36); PLATELET COUNT 272 K/uL (130-400); RED BLOOD COUNT 4.02 M/uL (4.2-5.4); WHITE BLOOD COUNT 8.82 K/uL (4.8-10.8)
[2016-04-17 06:26] LABS: INR 1.5 (0.9-1.1); PROTHROMBIN TIME (PATIENT) 16.4 SECONDS (9.0-12.0)
[2016-04-17 06:49] LABS: BUN/CREATININE RATIO 13.1 (10-20); CALCIUM 8.3 mg/dl (8.5-10.1); CREATININE 0.62 mg/dl (0.60-1.20); POTASSIUM 3.3 mmol/L (3.5-5.1)
[2016-04-17 07:52] VITALS: BP 145/52; PULSE 67; TEMP 36.5; O2SAT 96
[2016-04-17] MEDS: OXYCODONE/ACETAMINOPHEN 5-325 TAB PO PRN ×2 (08:24→21:26)
[2016-04-17] MEDS: ASPIRIN 81 MG ECTAB PO SCH (08:26)
[2016-04-17] MEDS: ENOXAPARIN 30 MG/0.3 ML SYR SQ SCH ×2 (08:26→20:06)
[2016-04-17] MEDS: DOCUSATE SODIUM 100 MG CAP PO SCH ×2 (08:26→20:06)
[2016-04-17] MEDS: VARENICLINE (CHANTIX) 1 MG TAB PO SCH ×2 (08:27→20:06)
[2016-04-17] MEDS: PIOGLITAZONE TAB 15 MG TAB PO SCH (08:27)
[2016-04-17] MEDS: MULTIVITAMIN TAB PO SCH (08:27)
[2016-04-17] MEDS: LISINOPRIL 10 MG TAB PO SCH (08:27)
[2016-04-17] MEDS: VANCOMYCIN INJ 1,250 MG in SODIUM CHLORIDE 0.9% 250ML 250 ML IV SCH ×2 (08:29→20:10)
[2016-04-17] MEDS: OMEGA-3 (PURIFIED FISH OIL) 1 GM CAP PO SCH (09:22)
--- NOTE | 2016-04-17 10:12 | Progress Note ---
Progress Note Date of Service: Apr 17, 2016. Subjective No complaints today. No right foot pain. Problem List Medical Problems: (1) Post-op bleeding Status: Acute Objective Vital Signs Vital Signs Past 12 Hours Date Time Temp Pulse Resp B/P Pulse Ox O2 Delivery O2 Flow Rate FiO2 04/17/16 07:52 36.5 67 18 145/52 96 Room Air 04/17/16 07:30 Room Air 04/17/16 04:00 Room Air 04/17/16 03:31 36.6 76 18 122/57 92 Room Air 04/17/16 00:00 Room Air 04/16/16 23:14 36.7 71 20 118/55 94 Room Air 04/16/16 22:12 Room Air Exam VSS Afebrile. Dressing intact. Reinforced during the night Right foot warm. Able to wiggle toes. Good sensation. Capillary refill present but slightly decreased. Doppler PT and DP, weak however but present. Intake & Output 8-Hour Column 04/16/16 04/16/16 04/17/16 15:59 23:59 07:59 Intake Total 1520 ml 353 ml Output Total 2150 ml 1750 ml Balance -630 ml -1397 ml 24-Hour Column 04/17/16 07:59 Intake Total 1873 ml Output Total 3900 ml Balance -2027 ml Laboratory and Microbiology Results Past 24 Hours Test 04/17/16 06:00 Range/Units White Blood Count 8.82 4.8-10.8 K/uL Red Blood Count 4.02 4.2-5.4 M/uL Hemoglobin 10.8 12.0-16.0 g/dL Hematocrit 32.5 37-47 % Mean Corpuscular Volume 80.8 80-100 fL Mean Corpuscular Hemoglobin 26.9 25-34 pg Mean Corpuscular Hemoglobin Concent 33.2 32-36 g/dl RDW Standard Deviation 46.7 36.4-46.3 fL RDW Coefficient of Variation 15.9 11.5-14.5 % Platelet Count 272 130-400 K/uL Mean Platelet Volume 9.0 7.4-10.4 fL Prothrombin Time 16.4 9.0-12.0 SECONDS Prothromb Time International Ratio 1.5 0.9-1.1 Sodium Level 144 136-145 mmol/L Potassium Level 3.3 3.5-5.1 mmol/L Chloride Level 109 98-107 mmol/L Carbon Dioxide Level 24 21-32 mmol/L Anion Gap 11.0 3-11 mmol/L Blood Urea Nitrogen 8 7-18 mg/dl Creatinine 0.62 0.60-1.20 mg/dl Est Creatinine Clear Calc Drug Dose 84.1 ml/min Estimated GFR () 109.7 Estimated GFR (Non- 94.6 BUN/Creatinine Ratio 13.1 10-20 Random Glucose 163 70-99 mg/dl Calcium Level 8.3 8.5-10.1 mg/dl Imp: Post removal of right limb of Ax bifem for infection Plan: Her foot is viable. Will continue close monitoring of her right foot. Will change dressing Monday and most likely wound vac on Monday. Will need to watch groin closure for disruption of suture line. Will leave nava in for now due to decrease mobility and don't want too much motion of the groin at this point. Cultures neg on preliminary from both sites
[2016-04-17] MEDS: PANTOprazole INJ 40 MG in SYRINGE 0 ML IV SCH (11:28)
[2016-04-17 11:38] VITALS: BP 109/45; PULSE 67; TEMP 36.5; O2SAT 97
--- NOTE | 2016-04-17 14:57 | Hospitalist Progress Note ---
Hospitalist Progress Note Date of Service Apr 17, 2016. Subjective Pt evaluation today including: conversation w/ patient, physical exam, chart review, lab review, review of studies, review of inpatient medication list Patient had no acute issues overnight Constitutional: No fever Eyes: No worsening of vision ENT: No hearing loss, No sore throat Respiratory: No cough, No shortness of breath Cardiovascular: No chest pain, No edema Abdomen: No constipation, No nausea, No pain, No vomiting Musculoskeletal: No joint pain Female : No dysuria, No hematuria Neurologic: No memory loss Psychiatric: No depression symptoms Medications Current Inpatient Medications Medications (Trade) Dose Ordered Sig/Shira Route Start Time Stop Time Status Last Admin Dose Admin Al Hydrox/Mg Hydrox/Simethicone (Maalox Max Susp) 15 ml Q4H PRN PO 04/13/16 08:15 05/13/16 08:14 Aspirin (Ecotrin Tab) 81 mg QAM PO 04/13/16 09:00 05/13/16 08:59 04/17/16 08:26 81 MG Atorvastatin Calcium (Lipitor Tab) 40 mg HS PO 04/13/16 21:00 05/13/16 20:59 04/16/16 21:24 40 MG Docusate Sodium (coLACE CAP) 100 mg BID PO 04/13/16 09:00 05/13/16 08:59 04/17/16 08:26 100 MG Glipizide (Glucotrol Tab) 20 mg BID@0645,1630 PO 04/13/16 16:30 05/13/16 16:29 Future hold 04/17/16 06:31 20 MG Lisinopril (Zestril Tab) 10 mg QAM PO 04/13/16 09:00 05/13/16 08:59 04/17/16 08:27 10 MG Metformin HCl (Glucophage Tab) 1,000 mg BIDM PO 04/13/16 16:30 05/13/16 16:29 Future Hold Multivitamins (Multivitamin Tab) 1 tab QAM PO 04/13/16 09:00 05/13/16 08:59 04/17/16 08:27 1 TAB Valacyclovir HCl (Valtrex Tab) 1,000 mg PRN PRN PO 04/13/16 08:15 04/23/16 08:14 Fish Oil (Roberts-3 (Purified Fish Oil) Cap) 1 gm QAM PO 04/13/16 10:30 05/13/16 10:29 04/17/16 09:22 1 GM Pantoprazole Sodium (Protonix Tab) 40 mg BID PO 04/13/16 09:00 05/13/16 08:59 Future Hold 04/15/16 08:28 40 MG Pioglitazone HCl 45 mg 45 mg QAM PO 04/13/16 11:00 05/13/16 10:59 04/17/16 08:27 45 MG Vancomycin HCl/ Sodium Chloride (Vancomycin Inj/ Nss 250ml) 275 ml @ 125 mls/hr Q12H IV 04/13/16 21:00 04/23/16 08:59 04/17/16 08:29 125 MLS/HR Vancomycin HCl (Consult) 1 ea UD PRN N/A 04/13/16 10:00 05/13/16 09:59 Varenicline (Chantix) 1 mg BID PO 04/13/16 21:00 05/13/16 20:59 04/17/16 08:27 1 MG Acetaminophen (Tylenol Tab) 650 mg Q4H PRN PO 04/15/16 16:15 05/15/16 16:14 Oxycodone/ Acetaminophen (Percocet 5-325mg Tab) `1-2 TABS FOR MODER... Q4H PRN PO 04/15/16 16:15 04/29/16 16:14 04/17/16 08:24 2 TAB Morphine Sulfate (MoRPHine SULFATE INJ) 1 mg Q2H PRN IV 04/15/16 16:15 04/29/16 16:14 Ondansetron HCl 4 mg 4 mg Q6H PRN IV 04/15/16 16:15 05/15/16 16:14 Pantoprazole Sodium/Syringe (Protonix Inj/ Syringe) 10 ml @ 5 mls/min DAILY@11 IV 04/16/16 11:00 05/16/16 10:59 04/17/16 11:28 5 MLS/MIN Enoxaparin Sodium (Lovenox Inj) 30 mg Q12H SQ 04/16/16 08:00 05/16/16 07:59 04/17/16 08:26 30 MG Morphine Sulfate (MoRPHine SULFATE INJ) 2 mg Q2H PRN IV 04/15/16 16:45 04/29/16 16:44 04/16/16 00:58 2 MG Morphine Sulfate (MoRPHine SULFATE INJ) 3 mg Q2H PRN IV 04/15/16 16:45 04/29/16 16:44 Morphine Sulfate (MoRPHine SULFATE INJ) 4 mg Q2H PRN IV 04/15/16 16:45 04/29/16 16:44 Objective Vital Signs Date Time Temp Pulse Resp B/P Pulse Ox O2 Delivery O2 Flow Rate FiO2 04/17/16 11:38 36.5 67 18 109/45 97 Room Air 04/17/16 11:30 Room Air 04/17/16 07:52 36.5 67 18 145/52 96 Room Air 04/17/16 07:30 Room Air 04/17/16 04:00 Room Air 04/17/16 03:31 36.6 76 18 122/57 92 Room Air 04/17/16 00:00 Room Air 04/16/16 23:14 36.7 71 20 118/55 94 Room Air 04/16/16 22:12 Room Air 04/16/16 19:18 36.8 84 20 134/59 97 Room Air 04/16/16 16:00 36.8 94 20 120/63 96 Room Air 04/16/16 16:00 Room Air Physical Exam General Appearance: WD/WN, no apparent distress Eyes: normal inspection ENT: normal ENT inspection Neck: supple Respiratory/Chest: chest non-tender Cardiovascular: regular rate, rhythm Abdomen: normal bowel sounds, non tender, soft Extremities: normal range of motion, non-tender Neurologic/Psychiatric: environmental associate II-XII nml as tested, no motor/sensory deficits, alert, oriented x 3 Laboratory Results Last 24 Hours Test 04/17/16 06:00 White Blood Count 8.82 K/uL Red Blood Count 4.02 M/uL Hemoglobin 10.8 g/dL Hematocrit 32.5 % Mean Corpuscular Volume 80.8 fL Mean Corpuscular Hemoglobin 26.9 pg Mean Corpuscular Hemoglobin Concent 33.2 g/dl RDW Standard Deviation 46.7 fL RDW Coefficient of Variation 15.9 % Platelet Count 272 K/uL Mean Platelet Volume 9.0 fL Prothrombin Time 16.4 SECONDS Prothromb Time International Ratio 1.5 Sodium Level 144 mmol/L Potassium Level 3.3 mmol/L Chloride Level 109 mmol/L Carbon Dioxide Level 24 mmol/L Anion Gap 11.0 mmol/L Blood Urea Nitrogen 8 mg/dl Creatinine 0.62 mg/dl Est Creatinine Clear Calc Drug Dose 84.1 ml/min Estimated GFR () 109.7 Estimated GFR (Non- 94.6 BUN/Creatinine Ratio 13.1 Random Glucose 163 mg/dl Calcium Level 8.3 mg/dl Assessment and Plan Patient is a 65 y.o. F who was recently discharged from [facility] with Right Groin Abscess/ vascular graft infection and returned to ED with bleeding from the right groin. POD#2 s/p Removal of Right Limb of Axillary-Bifemoral Bypass -no active signs of bleeding overnight - pain control with percocet - coumadin on hold per vascular surgery ?Femoral Graft infection - OR culture data growing GN bacilli - infectious disease following -cont vancomycin - add vancomycin - await culture data from OR DMII - cont glipizide, metformin, actos - blood sugars stable - accuchecks HTN - stable - cont lisinopril PVD - cont ASA, Atorvastatin, cont coumadin PPx - coumadin Full Code
[2016-04-17 15:10] VITALS: BP 131/66; PULSE 68; TEMP 36.6; O2SAT 100
[2016-04-17] MEDS ORDERED: PIPERACILL/TAZOBAC CONSULT ACTIVE PRN (15:45)
[2016-04-17] MEDS ORDERED: PIPERACILL/TAZOBAC IV 3.375 GM in DEXTROSE 5% 100ML 100 ML IV SCH (16:00)
--- NOTE | 2016-04-17 16:50 | Critical Care Consultation ---
Critical Care Consultation Date of Consultation: Apr 15, 2016. Delayed entry Attending Physician: Chip Morgan M.D. Reason for Consultation: Postoperative management History of Present Illness Patient is a 65-year-old female with a significant past medical history for vascular disease status post axillary bifemoral bypass. Patient has had recurrent bleeding from distal anastomosis, concern for possible infection. She is status post removal of the right limb of the axillary bifemoral. Patient has mild pain at the incision site, no pain of the right lower extremity. Family History Hypertension FATHER Social History Smoking Status: Never Smoker Drug Use: none Marital Status: Housing Status: lives with family Occupation Status: retired Allergies Coded Allergies: NO KNOWN DRUG ALLERGIES (Verified Allergy, Mild, ., 04/01/16) Nickel (Verified Allergy, Mild, RASH, 04/01/16) Home Medications Scheduled Acetaminophen (Tylenol), 1,000 MG PO PRN Amoxicillin & Pot Clavulanate (Augmentin 875-125 mg), 1 TAB PO BID Aspirin (Aspirin Ec), 81 MG PO QAM Atorvastatin (Lipitor), 40 MG PO HS Cholecalciferol (Vitamin D-3), 5,000 UNITS PO DAILY Docusate Sodium (Docusate Sodium), 100 MG PO BID Glipizide (Glucotrol), 20 MG PO BID Lisinopril (Zestril), 10 MG PO QAM Metformin Hcl (Glucophage), 1,000 MG PO BID Multivitamin (Multivitamin), 1 TAB PO QAM [place]-3 Fatty Acids (Fish Oil), 1,000 MG PO QAM Omeprazole (Prilosec), 40 MG PO BID Pioglitazone (Actos), 4 MG PO QAM Varenicline (Chantix), 1 TAB PO BID Warfarin Sod (Jantoven), 4 MG PO MON,,,,,MON Warfarin Sod (Jantoven), 2 MG PO MONDAY Scheduled PRN Oxycodone/Acetaminophen 5MG/325MG (Percocet 5MG/325MG), 1-2 TAB PO Q4H PRN for Moderate Pain Valacyclovir (Valtrex), 1,000 MG PO PRN PRN for COLD SORES Current Inpatient Medications Current Inpatient Medications Medications (Trade) Dose Ordered Sig/Shira Route Start Time Stop Time Status Last Admin Dose Admin Al Hydrox/Mg Hydrox/Simethicone (Maalox Max Susp) 15 ml Q4H PRN PO 04/13/16 08:15 05/13/16 08:14 Aspirin (Ecotrin Tab) 81 mg QAM PO 04/13/16 09:00 05/13/16 08:59 04/17/16 08:26 81 MG Atorvastatin Calcium (Lipitor Tab) 40 mg HS PO 04/13/16 21:00 05/13/16 20:59 04/16/16 21:24 40 MG Docusate Sodium (coLACE CAP) 100 mg BID PO 04/13/16 09:00 05/13/16 08:59 04/17/16 08:26 100 MG Glipizide (Glucotrol Tab) 20 mg BID@0645,1630 PO 04/13/16 16:30 05/13/16 16:29 Future hold 04/17/16 06:31 20 MG Lisinopril (Zestril Tab) 10 mg QAM PO 04/13/16 09:00 05/13/16 08:59 04/17/16 08:27 10 MG Metformin HCl (Glucophage Tab) 1,000 mg BIDM PO 04/13/16 16:30 05/13/16 16:29 Future Hold Multivitamins (Multivitamin Tab) 1 tab QAM PO 04/13/16 09:00 05/13/16 08:59 04/17/16 08:27 1 TAB Valacyclovir HCl (Valtrex Tab) 1,000 mg PRN PRN PO 04/13/16 08:15 04/23/16 08:14 Fish Oil ([place]-3 (Purified Fish Oil) Cap) 1 gm QAM PO 04/13/16 10:30 05/13/16 10:29 04/17/16 09:22 1 GM Pantoprazole Sodium (Protonix Tab) 40 mg BID PO 04/13/16 09:00 05/13/16 08:59 Future Hold 04/15/16 08:28 40 MG Pioglitazone HCl 45 mg 45 mg QAM PO 04/13/16 11:00 05/13/16 10:59 04/17/16 08:27 45 MG Vancomycin HCl/ Sodium Chloride (Vancomycin Inj/ Nss 250ml) 275 ml @ 125 mls/hr Q12H IV 04/13/16 21:00 04/23/16 08:59 04/17/16 08:29 125 MLS/HR Vancomycin HCl (Consult) 1 ea UD PRN N/A 04/13/16 10:00 05/13/16 09:59 Varenicline (Chantix) 1 mg BID PO 04/13/16 21:00 05/13/16 20:59 04/17/16 08:27 1 MG Acetaminophen (Tylenol Tab) 650 mg Q4H PRN PO 04/15/16 16:15 05/15/16 16:14 Oxycodone/ Acetaminophen (Percocet 5-325mg Tab) `1-2 TABS FOR MODER... Q4H PRN PO 04/15/16 16:15 04/29/16 16:14 04/17/16 08:24 2 TAB Morphine Sulfate (MoRPHine SULFATE INJ) 1 mg Q2H PRN IV 04/15/16 16:15 04/29/16 16:14 Ondansetron HCl 4 mg 4 mg Q6H PRN IV 04/15/16 16:15 05/15/16 16:14 Pantoprazole Sodium/Syringe (Protonix Inj/ Syringe) 10 ml @ 5 mls/min DAILY@11 IV 04/16/16 11:00 05/16/16 10:59 04/17/16 11:28 5 MLS/MIN Enoxaparin Sodium (Lovenox Inj) 30 mg Q12H SQ 04/16/16 08:00 05/16/16 07:59 04/17/16 08:26 30 MG Morphine Sulfate (MoRPHine SULFATE INJ) 2 mg Q2H PRN IV 04/15/16 16:45 04/29/16 16:44 04/16/16 00:58 2 MG Morphine Sulfate (MoRPHine SULFATE INJ) 3 mg Q2H PRN IV 04/15/16 16:45 04/29/16 16:44 Morphine Sulfate 4 mg 4 mg Q2H PRN IV 04/15/16 16:45 04/29/16 16:44 Piperacillin Sod/ Tazobactam Sod/ Dextrose (Zosyn Iv/D5 100ml) 115 ml @ 28.75 mls/ hr Q8H IV 04/18/16 00:00 04/28/16 00:00 Piperacillin Sod/ Tazobactam Sod 1 ea 1 ea UD PRN N/A 04/17/16 15:45 05/17/16 15:44 Piperacillin Sod/ Tazobactam Sod/ Dextrose (Zosyn Iv/D5 100ml) 115 ml @ 230 mls/hr TODAY@1600 IV 04/17/16 16:00 04/17/16 18:00 Review of Systems A 10 point review of systems has been reviewed and is otherwise negative Constitutional: No chills, No fever Respiratory: No cough, No sputum, No wheezing Cardiovascular: No chest pain, No orthopnea Abdomen: + problem reported (pain at incision site) Physical Exam Date Time Temp Pulse Resp B/P Pulse Ox O2 Delivery O2 Flow Rate FiO2 04/17/16 16:00 Room Air 04/17/16 15:10 36.6 68 100 131/66 100 Room Air 04/17/16 11:38 36.5 67 18 109/45 97 Room Air 04/17/16 11:30 Room Air 04/17/16 07:52 36.5 67 18 145/52 96 Room Air 04/17/16 07:30 Room Air 04/17/16 04:00 Room Air 04/17/16 03:31 36.6 76 18 122/57 92 Room Air 04/17/16 00:00 Room Air 04/16/16 23:14 36.7 71 20 118/55 94 Room Air 04/16/16 22:12 Room Air 04/16/16 19:18 36.8 84 20 134/59 97 Room Air General Appearance: WD/WN, no apparent distress Head: normocephalic, atraumatic Eyes: PERRLA Neck: normal range of motion, no tenderness, trachea midline Respiratory: breath sounds normal, clear to auscultation, clear to percussion, no respiratory distress Cardiovasular: regular rate/rhythm, normal S1S2, no M/G/R, no murmur, no gallop , no rub, no JVD Abdomen: normal bowel sounds, no rebound, no masses, no guarding, no organomegaly, other (mild pain at incision site, area soft, minimal shadowing on bandage) Back: normal inspection, no midline tenderness Lower Extremities: other (palpable dorsalis pedis and tibialis posterior pulse) Edema: Bilateral LE (1+) Pulses: dorsalis pedis (R) (1+), dorsalis pedis (L) (2+), posterior tibial (R) (+1), posterior tibial (L) (2+) Neuro: alert, oriented x 3 Psychiatric: normal affect Laboratory Results Last 24 Hours Test 04/17/16 06:00 White Blood Count 8.82 K/uL Red Blood Count 4.02 M/uL Hemoglobin 10.8 g/dL Hematocrit 32.5 % Mean Corpuscular Volume 80.8 fL Mean Corpuscular Hemoglobin 26.9 pg Mean Corpuscular Hemoglobin Concent 33.2 g/dl RDW Standard Deviation 46.7 fL RDW Coefficient of Variation 15.9 % Platelet Count 272 K/uL Mean Platelet Volume 9.0 fL Prothrombin Time 16.4 SECONDS Prothromb Time International Ratio 1.5 Sodium Level 144 mmol/L Potassium Level 3.3 mmol/L Chloride Level 109 mmol/L Carbon Dioxide Level 24 mmol/L Anion Gap 11.0 mmol/L Blood Urea Nitrogen 8 mg/dl Creatinine 0.62 mg/dl Est Creatinine Clear Calc Drug Dose 84.1 ml/min Estimated GFR () 109.7 Estimated GFR (Non- 94.6 BUN/Creatinine Ratio 13.1 Random Glucose 163 mg/dl Calcium Level 8.3 mg/dl Assessment & Plan Neuro: Postoperative pain, well-controlled Cardiovascular Hypertension On home regimen Respiratory: Incentive spirometry GI: Tolerating diet On PPI as outpatient Zofran nausea when necessary Renal: No evidence of volume overload Infectious disease: Infectious disease following Endocrine: Blood sugars within range Hematology: Lovenox prophylaxis CODE STATUS: Full code
--- NOTE | 2016-04-17 16:57 | Critical Care Progress Note ---
Critical Care Progress Note Date of Service Apr 16, 2016. Delayed entry ICU Day ICU Day Number: [address] Allen Subjective Feeling better than yesterday, mild abdominal pain at incision site however improving Objective General Appearance: WD/WN, no apparent distress Head: normocephalic, atraumatic Eyes: PERRLA Neck: normal range of motion, no tenderness, trachea midline Respiratory: breath sounds normal, clear to auscultation, clear to percussion, no respiratory distress Cardiovasular: regular rate/rhythm, normal S1S2, no M/G/R, no murmur, no gallop , no rub, no JVD Abdomen: normal bowel sounds, no rebound, no masses, no guarding, no organomegaly, other (mild pain at incision site, area soft, minimal shadowing on bandage) Back: normal inspection, no midline tenderness Lower Extremities: other (palpable dorsalis pedis and tibialis posterior pulse) Edema: Bilateral LE (1+) Pulses: dorsalis pedis (R) (1+), dorsalis pedis (L) (2+), posterior tibial (R) (+1), posterior tibial (L) (2+) Neuro: alert, oriented x 3 Psychiatric: normal affect Assessment & Plan Neuro: Postoperative pain, well-controlled Cardiovascular Hypertension On home regimen Respiratory: Incentive spirometry GI: Tolerating diet On PPI as outpatient Zofran nausea when necessary Renal: No evidence of volume overload Infectious disease: Infectious disease following Endocrine: Blood sugars within range Hematology: Lovenox prophylaxis CODE STATUS: Full code Likely will be candidate for downgraded to telemetry status later today. Continue to monitor her right groin for blowout precautions. Out of bed to chair only, today. Minimize movement of right lower extremity. Data Medications: Current Inpatient Medications Medications (Trade) Dose Ordered Sig/Shira Route Start Time Stop Time Status Last Admin Dose Admin Al Hydrox/Mg Hydrox/Simethicone (Maalox Max Susp) 15 ml Q4H PRN PO 04/13/16 08:15 05/13/16 08:14 Aspirin (Ecotrin Tab) 81 mg QAM PO 04/13/16 09:00 05/13/16 08:59 04/17/16 08:26 81 MG Atorvastatin Calcium (Lipitor Tab) 40 mg HS PO 04/13/16 21:00 05/13/16 20:59 04/16/16 21:24 40 MG Docusate Sodium (coLACE CAP) 100 mg BID PO 04/13/16 09:00 05/13/16 08:59 04/17/16 08:26 100 MG Glipizide (Glucotrol Tab) 20 mg BID@0645,1630 PO 04/13/16 16:30 05/13/16 16:29 Future hold 04/17/16 16:44 20 MG Lisinopril (Zestril Tab) 10 mg QAM PO 04/13/16 09:00 05/13/16 08:59 04/17/16 08:27 10 MG Metformin HCl (Glucophage Tab) 1,000 mg BIDM PO 04/13/16 16:30 05/13/16 16:29 Future Hold Multivitamins (Multivitamin Tab) 1 tab QAM PO 04/13/16 09:00 05/13/16 08:59 04/17/16 08:27 1 TAB Valacyclovir HCl (Valtrex Tab) 1,000 mg PRN PRN PO 04/13/16 08:15 04/23/16 08:14 Fish Oil ([place]-3 (Purified Fish Oil) Cap) 1 gm QAM PO 04/13/16 10:30 05/13/16 10:29 04/17/16 09:22 1 GM Pantoprazole Sodium (Protonix Tab) 40 mg BID PO 04/13/16 09:00 05/13/16 08:59 Future Hold 04/15/16 08:28 40 MG Pioglitazone HCl 45 mg 45 mg QAM PO 04/13/16 11:00 05/13/16 10:59 04/17/16 08:27 45 MG Vancomycin HCl/ Sodium Chloride (Vancomycin Inj/ Nss 250ml) 275 ml @ 125 mls/hr Q12H IV 04/13/16 21:00 04/23/16 08:59 04/17/16 08:29 125 MLS/HR Vancomycin HCl (Consult) 1 ea UD PRN N/A 04/13/16 10:00 05/13/16 09:59 Varenicline (Chantix) 1 mg BID PO 04/13/16 21:00 05/13/16 20:59 04/17/16 08:27 1 MG Acetaminophen (Tylenol Tab) 650 mg Q4H PRN PO 04/15/16 16:15 05/15/16 16:14 Oxycodone/ Acetaminophen (Percocet 5-325mg Tab) `1-2 TABS FOR MODER... Q4H PRN PO 04/15/16 16:15 04/29/16 16:14 04/17/16 08:24 2 TAB Morphine Sulfate (MoRPHine SULFATE INJ) 1 mg Q2H PRN IV 04/15/16 16:15 04/29/16 16:14 Ondansetron HCl 4 mg 4 mg Q6H PRN IV 04/15/16 16:15 05/15/16 16:14 Pantoprazole Sodium/Syringe (Protonix Inj/ Syringe) 10 ml @ 5 mls/min DAILY@11 IV 04/16/16 11:00 05/16/16 10:59 04/17/16 11:28 5 MLS/MIN Enoxaparin Sodium (Lovenox Inj) 30 mg Q12H SQ 04/16/16 08:00 05/16/16 07:59 04/17/16 08:26 30 MG Morphine Sulfate (MoRPHine SULFATE INJ) 2 mg Q2H PRN IV 04/15/16 16:45 04/29/16 16:44 04/16/16 00:58 2 MG Morphine Sulfate (MoRPHine SULFATE INJ) 3 mg Q2H PRN IV 04/15/16 16:45 04/29/16 16:44 Morphine Sulfate 4 mg 4 mg Q2H PRN IV 04/15/16 16:45 04/29/16 16:44 Piperacillin Sod/ Tazobactam Sod/ Dextrose (Zosyn Iv/D5 100ml) 115 ml @ 28.75 mls/ hr Q8H IV 04/18/16 00:00 04/28/16 00:00 Piperacillin Sod/ Tazobactam Sod 1 ea 1 ea UD PRN N/A 04/17/16 15:45 05/17/16 15:44 Piperacillin Sod/ Tazobactam Sod/ Dextrose (Zosyn Iv/D5 100ml) 115 ml @ 230 mls/hr TODAY@1600 IV 04/17/16 16:00 04/17/16 18:00 04/17/16 16:44 230 MLS/HR I & O: 24-Hour Column 04/17/16 08:00 Intake Total 1873 ml Output Total 3900 ml Balance -2027 ml Vital Signs: Date Time Temp Pulse Resp B/P Pulse Ox O2 Delivery O2 Flow Rate FiO2 04/17/16 16:00 Room Air 04/17/16 15:10 36.6 68 100 131/66 100 Room Air 04/17/16 11:38 36.5 67 18 109/45 97 Room Air 04/17/16 11:30 Room Air 04/17/16 07:52 36.5 67 18 145/52 96 Room Air 04/17/16 07:30 Room Air 04/17/16 04:00 Room Air 04/17/16 03:31 36.6 76 18 122/57 92 Room Air 04/17/16 00:00 Room Air 04/16/16 23:14 36.7 71 20 118/55 94 Room Air 04/16/16 22:12 Room Air 04/16/16 19:18 36.8 84 20 134/59 97 Room Air Laboratory Results: Last 24 Hours Test 04/17/16 06:00 White Blood Count 8.82 K/uL Red Blood Count 4.02 M/uL Hemoglobin 10.8 g/dL Hematocrit 32.5 % Mean Corpuscular Volume 80.8 fL Mean Corpuscular Hemoglobin 26.9 pg Mean Corpuscular Hemoglobin Concent 33.2 g/dl RDW Standard Deviation 46.7 fL RDW Coefficient of Variation 15.9 % Platelet Count 272 K/uL Mean Platelet Volume 9.0 fL Prothrombin Time 16.4 SECONDS Prothromb Time International Ratio 1.5 Sodium Level 144 mmol/L Potassium Level 3.3 mmol/L Chloride Level 109 mmol/L Carbon Dioxide Level 24 mmol/L Anion Gap 11.0 mmol/L Blood Urea Nitrogen 8 mg/dl Creatinine 0.62 mg/dl Est Creatinine Clear Calc Drug Dose 84.1 ml/min Estimated GFR () 109.7 Estimated GFR (Non- 94.6 BUN/Creatinine Ratio 13.1 Random Glucose 163 mg/dl Calcium Level 8.3 mg/dl
[2016-04-17] MEDS: ATORVASTATIN 40 MG TAB PO SCH (20:06)
[2016-04-17 20:11] VITALS: BP 136/65; PULSE 85; TEMP 36.8; O2SAT 95
[2016-04-17] MEDS: PIPERACILL/TAZOBAC IV 3.375 GM in DEXTROSE 5% 100ML 100 ML IV SCH (23:40)
[2016-04-18] VITALS: BP 96/43; PULSE 74; TEMP 37; O2SAT 96
[2016-04-18 04:00] VITALS: BP 123/64; PULSE 75; TEMP 36.6; O2SAT 94
[2016-04-18 05:55] LABS: HEMATOCRIT 31.6 % (37-47); MEAN CELL VOLUME 81.2 fL (80-100); MEAN CORPUSCULAR HEMOGLOBIN 26.5 pg (25-34); MEAN CORPUSCULAR HGB CONC 32.6 g/dl (32-36); PLATELET COUNT 266 K/uL (130-400); RED BLOOD COUNT 3.89 M/uL (4.2-5.4); WHITE BLOOD COUNT 7.29 K/uL (4.8-10.8)
--- NOTE | 2016-04-18 07:34 | Anesthesiology Progress Note ---
Anesthesia Post Op Note Date & Time Apr 18, 2016 at 07:35 Vital Signs Pain Intensity: 2.0 Vital Signs Past 12 Hours Date Time Temp Pulse Resp B/P Pulse Ox O2 Delivery O2 Flow Rate FiO2 04/18/16 04:00 Room Air 04/18/16 04:00 36.6 75 18 123/64 94 Room Air 04/18/16 00:00 37.0 74 18 96/43 96 Room Air 04/18/16 00:00 Room Air 04/17/16 20:11 36.8 85 20 136/65 95 Room Air 04/17/16 20:00 Room Air Notes Mental Status: alert / awake / arousable, participated in evaluation Pt Amnestic to Procedure: Yes Nausea / Vomiting: adequately controlled Pain: adequately controlled Airway Patency, RR, SpO2: stable & adequate BP & HR: stable & adequate Hydration State: stable & adequate Anesthetic Complications: no major complications apparent
[2016-04-18 08:00] VITALS: BP 146/60; PULSE 74; TEMP 36.8; O2SAT 94
[2016-04-18] MEDS: PANTOprazole INJ 40 MG in SYRINGE 0 ML IV SCH (08:04)
[2016-04-18] MEDS: PIPERACILL/TAZOBAC IV 3.375 GM in DEXTROSE 5% 100ML 100 ML IV SCH ×2 (08:04→16:13)
[2016-04-18] MEDS: VANCOMYCIN INJ 1,250 MG in SODIUM CHLORIDE 0.9% 250ML 250 ML IV SCH (08:04)
[2016-04-18] MEDS: OXYCODONE/ACETAMINOPHEN 5-325 TAB PO PRN ×4 (09:35→22:18)
--- NOTE | 2016-04-18 09:45 | Progress Note ---
Progress Note I assisted Dr Morgan with Gifty Plummer's Removal of Right Limb of Axillary- Bifemoral Bypass on 04/15/16, d/t lack of resident availability.
[2016-04-18] MEDS: DOCUSATE SODIUM 100 MG CAP PO SCH ×2 (09:53→21:11)
--- NOTE | 2016-04-18 09:53 | Progress Note ---
Subjective Date of Service: Apr 18, 2016. Subjective Pt evaluation today including: conversation w/ patient, physical exam, lab review, conversation w/ life skills consultant, review of inpatient medication list Pain: right groin pain, controlled with Percocet PO Intake: adequate Voiding: nava catheter in place right groin pain, wound vac just changed today medical issues largely stable eating well, no BM yet but feels like one is coming OOB to chair, tolerated well no chest pain or dyspnea Problem List Medical Problems: (1) Post-op bleeding Status: Acute Review of Systems Constitutional: + fatigue, + weakness Abdomen: + constipation Musculoskeletal: + joint pain (right groin) All Other Systems: Reviewed and Negative Medications Current Inpatient Medications Medications (Trade) Dose Ordered Sig/Shira Route Start Time Stop Time Status Last Admin Dose Admin Al Hydrox/Mg Hydrox/Simethicone (Maalox Max Susp) 15 ml Q4H PRN PO 04/13/16 08:15 05/13/16 08:14 Aspirin (Ecotrin Tab) 81 mg QAM PO 04/13/16 09:00 05/13/16 08:59 04/17/16 08:26 81 MG Atorvastatin Calcium (Lipitor Tab) 40 mg HS PO 04/13/16 21:00 05/13/16 20:59 04/17/16 20:06 40 MG Docusate Sodium (coLACE CAP) 100 mg BID PO 04/13/16 09:00 05/13/16 08:59 04/17/16 20:06 100 MG Glipizide (Glucotrol Tab) 20 mg BID@0645,1630 PO 04/13/16 16:30 05/13/16 16:29 Future hold 04/18/16 06:40 20 MG Lisinopril (Zestril Tab) 10 mg QAM PO 04/13/16 09:00 05/13/16 08:59 04/17/16 08:27 10 MG Metformin HCl (Glucophage Tab) 1,000 mg BIDM PO 04/13/16 16:30 05/13/16 16:29 Future Hold Multivitamins (Multivitamin Tab) 1 tab QAM PO 04/13/16 09:00 05/13/16 08:59 04/17/16 08:27 1 TAB Valacyclovir HCl (Valtrex Tab) 1,000 mg PRN PRN PO 04/13/16 08:15 04/23/16 08:14 Fish Oil ([place]-3 (Purified Fish Oil) Cap) 1 gm QAM PO 04/13/16 10:30 05/13/16 10:29 04/17/16 09:22 1 GM Pantoprazole Sodium (Protonix Tab) 40 mg BID PO 04/13/16 09:00 05/13/16 08:59 Future Hold 04/15/16 08:28 40 MG Pioglitazone HCl 45 mg 45 mg QAM PO 04/13/16 11:00 05/13/16 10:59 04/17/16 08:27 45 MG Vancomycin HCl/ Sodium Chloride (Vancomycin Inj/ Nss 250ml) 275 ml @ 125 mls/hr Q12H IV 04/13/16 21:00 04/23/16 08:59 04/18/16 08:04 125 MLS/HR Vancomycin HCl (Consult) 1 ea UD PRN N/A 04/13/16 10:00 05/13/16 09:59 Varenicline (Chantix) 1 mg BID PO 04/13/16 21:00 05/13/16 20:59 04/17/16 20:06 1 MG Acetaminophen (Tylenol Tab) 650 mg Q4H PRN PO 04/15/16 16:15 05/15/16 16:14 Oxycodone/ Acetaminophen (Percocet 5-325mg Tab) `1-2 TABS FOR MODER... Q4H PRN PO 04/15/16 16:15 04/29/16 16:14 04/18/16 09:35 2 TAB Morphine Sulfate (MoRPHine SULFATE INJ) 1 mg Q2H PRN IV 04/15/16 16:15 04/29/16 16:14 Ondansetron HCl 4 mg 4 mg Q6H PRN IV 04/15/16 16:15 05/15/16 16:14 04/18/16 09:02 4 MG Pantoprazole Sodium/Syringe (Protonix Inj/ Syringe) 10 ml @ 5 mls/min DAILY@11 IV 04/16/16 11:00 05/16/16 10:59 04/18/16 08:04 5 MLS/MIN Enoxaparin Sodium (Lovenox Inj) 30 mg Q12H SQ 04/16/16 08:00 05/16/16 07:59 04/17/16 20:06 30 MG Morphine Sulfate (MoRPHine SULFATE INJ) 2 mg Q2H PRN IV 04/15/16 16:45 04/29/16 16:44 04/16/16 00:58 2 MG Morphine Sulfate (MoRPHine SULFATE INJ) 3 mg Q2H PRN IV 04/15/16 16:45 04/29/16 16:44 Morphine Sulfate 4 mg 4 mg Q2H PRN IV 04/15/16 16:45 04/29/16 16:44 04/18/16 09:02 4 MG Piperacillin Sod/ Tazobactam Sod/ Dextrose (Zosyn Iv/D5 100ml) 115 ml @ 28.75 mls/ hr Q8H IV 04/18/16 00:00 04/28/16 00:00 04/18/16 08:04 28.75 MLS/HR Piperacillin Sod/ Tazobactam Sod (Consult) 1 ea UD PRN N/A 04/17/16 15:45 05/17/16 15:44 Objective Vital Signs Date Time Temp Pulse Resp B/P Pulse Ox O2 Delivery O2 Flow Rate FiO2 04/18/16 08:00 Room Air 04/18/16 04:00 Room Air 04/18/16 04:00 36.6 75 18 123/64 94 Room Air 04/18/16 00:00 37.0 74 18 96/43 96 Room Air 04/18/16 00:00 Room Air 04/17/16 20:11 36.8 85 20 136/65 95 Room Air 04/17/16 20:00 Room Air 04/17/16 16:00 Room Air 04/17/16 15:10 36.6 68 100 131/66 100 Room Air 04/17/16 11:38 36.5 67 18 109/45 97 Room Air 04/17/16 11:30 Room Air Physical Exam General Appearance: WD/WN, no apparent distress Neck: supple, no adenopathy, no JVD, trachea midline Respiratory/Chest: chest non-tender, lungs clear, normal breath sounds, no respiratory distress, no accessory muscle use Cardiovascular: regular rate, rhythm, no edema, no gallop, no JVD, no murmur Abdomen: normal bowel sounds, non tender, soft, no organomegaly Extremities: normal range of motion, non-tender, normal inspection, no pedal edema, no calf tenderness Neurologic/Psychiatric: earth observations chief scientist II-XII nml as tested, no motor/sensory deficits, alert, normal mood/affect, oriented x 3 Skin: normal color, warm/dry, no rash, + pertinent finding (right groin pain with wound vac) Lymphatic: no adenopathy Laboratory Results Last 24 Hours Test 04/18/16 04:44 04/18/16 05:25 White Blood Count 7.29 K/uL Red Blood Count 3.89 M/uL Hemoglobin 10.3 g/dL Hematocrit 31.6 % Mean Corpuscular Volume 81.2 fL Mean Corpuscular Hemoglobin 26.5 pg Mean Corpuscular Hemoglobin Concent 32.6 g/dl RDW Standard Deviation 47.4 fL RDW Coefficient of Variation 16.2 % Platelet Count 266 K/uL Mean Platelet Volume 9.0 fL Assessment and Plan Patient is a 65 y.o. F who was recently discharged from [facility] with Right Groin Abscess/ vascular graft infection and returned to ED with bleeding from the right groin. POD#3 s/p Removal of Right Limb of Axillary-Bifemoral Bypass - continues with no signs of bleeding, BP and H/H stable - pain control with percocet - coumadin on hold per vascular surgery, on Lovenox - plan to resume Coumadin prior to d/c, d/w vascular surgery today ?Femoral Graft infection - OR culture data growing E. coli - infectious disease following, will make final antibiotic recommendation - cont vancomycin and zosyn - await culture data from OR DMII - cont glipizide, metformin, actos - blood sugars stable - accuchecks HTN - stable - cont lisinopril PVD - cont ASA, Atorvastatin, will need to resume Coumadin prior to d/c to keep vasculature open PPx - Lovenox Full Code
[2016-04-18] MEDS: VARENICLINE (CHANTIX) 1 MG TAB PO SCH ×2 (09:54→21:11)
[2016-04-18] MEDS: ASPIRIN 81 MG ECTAB PO SCH (09:54)
[2016-04-18] MEDS: PIOGLITAZONE TAB 15 MG TAB PO SCH (09:54)
[2016-04-18] MEDS: LISINOPRIL 10 MG TAB PO SCH (09:54)
--- NOTE | 2016-04-18 09:54 | Progress Note ---
Progress Note Date of Service: Apr 18, 2016. Subjective 65 yo f POD #3 after removal of R limb of ax bifem bpg, seen in f/u today. Pt admits pain in R groin wounds, states well controlled by percocet, however, has only been OOB for short periods of time. Denies foot pain or new complaints. cx growing [place] sensitive e coli. Problem List Medical Problems: (1) Post-op bleeding Status: Acute Objective Vital Signs Vital Signs Past 12 Hours Date Time Temp Pulse Resp B/P Pulse Ox O2 Delivery O2 Flow Rate FiO2 04/18/16 08:00 Room Air 04/18/16 04:00 Room Air 04/18/16 04:00 36.6 75 18 123/64 94 Room Air 04/18/16 00:00 37.0 74 18 96/43 96 Room Air 04/18/16 00:00 Room Air Exam CONST: A&O x4, NAD, obese, chronically ill appearing female CHEST: RRR lungs decreased, but ctab ABD: soft, + bs x 4 quad, tenderness over surgical area R side. EXT: R groin wound with good early granulation, mild bleeding. Old dressings shadowed, but no significant active bleeding noted on removal. Wound vac placed today.+ doppler distal pulses BLE. Intake & Output 8-Hour Column 04/17/16 04/18/16 04/18/16 16:00 00:00 08:00 Intake Total 870 ml 344 ml Output Total 1050 ml 725 ml 600 ml Balance -1050 ml 145 ml -256 ml 24-Hour Column 04/18/16 08:00 Intake Total 1214 ml Output Total 2375 ml Balance -1161 ml Laboratory and Microbiology Results Past 24 Hours Test 04/18/16 04:44 04/18/16 05:25 Range/Units White Blood Count 7.29 4.8-10.8 K/uL Red Blood Count 3.89 4.2-5.4 M/uL Hemoglobin 10.3 12.0-16.0 g/dL Hematocrit 31.6 37-47 % Mean Corpuscular Volume 81.2 80-100 fL Mean Corpuscular Hemoglobin 26.5 25-34 pg Mean Corpuscular Hemoglobin Concent 32.6 32-36 g/dl RDW Standard Deviation 47.4 36.4-46.3 fL RDW Coefficient of Variation 16.2 11.5-14.5 % Platelet Count 266 130-400 K/uL Mean Platelet Volume 9.0 7.4-10.4 fL ASSESSMENT and PLAN: Infected vascular graft, R limb of ax bifem BPG only Pt doing well post op. Remains on vancomycin, further abx recs from ID. Silver impregnated wound vac to R groin, change M/W/F. Will reevaluate wound on MON.
[2016-04-18] MEDS: ENOXAPARIN 30 MG/0.3 ML SYR SQ SCH ×2 (09:55→19:26)
[2016-04-18] MEDS: MULTIVITAMIN TAB PO SCH (09:56)
[2016-04-18] MEDS: OMEGA-3 (PURIFIED FISH OIL) 1 GM CAP PO SCH (09:56)
[2016-04-18 10:23] LABS: INR 1.1 (0.9-1.1); PROTHROMBIN TIME (PATIENT) 11.8 SECONDS (9.0-12.0)
--- NOTE | 2016-04-18 10:27 | Infectious Disease Progress Nt ---
Progress Note Date of Service Apr 18, 2016. Subjective Pt evaluation today including: conversation w/ patient, physical exam, chart review, lab review, review of studies, conversation w/ dairy consultant, review of inpatient medication list Expected postoperative pain. Operative cultures now growing sensitive E coli. No other new complaints. Currently on vancomycin and Zosyn. No fever. All Other Systems: Reviewed and Negative Medications Current Inpatient Medications Medications (Trade) Dose Ordered Sig/Shira Route Start Time Stop Time Status Last Admin Dose Admin Al Hydrox/Mg Hydrox/Simethicone (Maalox Max Susp) 15 ml Q4H PRN PO 04/13/16 08:15 05/13/16 08:14 Aspirin (Ecotrin Tab) 81 mg QAM PO 04/13/16 09:00 05/13/16 08:59 04/18/16 09:54 81 MG Atorvastatin Calcium (Lipitor Tab) 40 mg HS PO 04/13/16 21:00 05/13/16 20:59 04/17/16 20:06 40 MG Docusate Sodium (coLACE CAP) 100 mg BID PO 04/13/16 09:00 05/13/16 08:59 04/18/16 09:53 100 MG Glipizide (Glucotrol Tab) 20 mg BID@0645,1630 PO 04/13/16 16:30 05/13/16 16:29 Future hold 04/18/16 06:40 20 MG Lisinopril (Zestril Tab) 10 mg QAM PO 04/13/16 09:00 05/13/16 08:59 04/18/16 09:54 10 MG Metformin HCl (Glucophage Tab) 1,000 mg BIDM PO 04/13/16 16:30 05/13/16 16:29 Future Hold Multivitamins (Multivitamin Tab) 1 tab QAM PO 04/13/16 09:00 05/13/16 08:59 04/18/16 09:56 1 TAB Valacyclovir HCl (Valtrex Tab) 1,000 mg PRN PRN PO 04/13/16 08:15 04/23/16 08:14 Fish Oil ([place]-3 (Purified Fish Oil) Cap) 1 gm QAM PO 04/13/16 10:30 05/13/16 10:29 04/18/16 09:56 1 GM Pantoprazole Sodium (Protonix Tab) 40 mg BID PO 04/13/16 09:00 05/13/16 08:59 Future Hold 04/15/16 08:28 40 MG Pioglitazone HCl 45 mg 45 mg QAM PO 04/13/16 11:00 05/13/16 10:59 04/18/16 09:54 45 MG Vancomycin HCl/ Sodium Chloride (Vancomycin Inj/ Nss 250ml) 275 ml @ 125 mls/hr Q12H IV 04/13/16 21:00 04/23/16 08:59 04/18/16 08:04 125 MLS/HR Vancomycin HCl (Consult) 1 ea UD PRN N/A 04/13/16 10:00 05/13/16 09:59 Varenicline (Chantix) 1 mg BID PO 04/13/16 21:00 05/13/16 20:59 04/18/16 09:54 1 MG Acetaminophen (Tylenol Tab) 650 mg Q4H PRN PO 04/15/16 16:15 05/15/16 16:14 Oxycodone/ Acetaminophen (Percocet 5-325mg Tab) `1-2 TABS FOR MODER... Q4H PRN PO 04/15/16 16:15 04/29/16 16:14 04/18/16 09:35 2 TAB Morphine Sulfate (MoRPHine SULFATE INJ) 1 mg Q2H PRN IV 04/15/16 16:15 04/29/16 16:14 Ondansetron HCl 4 mg 4 mg Q6H PRN IV 04/15/16 16:15 05/15/16 16:14 04/18/16 09:02 4 MG Pantoprazole Sodium/Syringe (Protonix Inj/ Syringe) 10 ml @ 5 mls/min DAILY@11 IV 04/16/16 11:00 05/16/16 10:59 04/18/16 08:04 5 MLS/MIN Enoxaparin Sodium (Lovenox Inj) 30 mg Q12H SQ 04/16/16 08:00 05/16/16 07:59 04/18/16 09:55 30 MG Morphine Sulfate (MoRPHine SULFATE INJ) 2 mg Q2H PRN IV 04/15/16 16:45 04/29/16 16:44 04/16/16 00:58 2 MG Morphine Sulfate (MoRPHine SULFATE INJ) 3 mg Q2H PRN IV 04/15/16 16:45 04/29/16 16:44 Morphine Sulfate 4 mg 4 mg Q2H PRN IV 04/15/16 16:45 04/29/16 16:44 04/18/16 09:02 4 MG Piperacillin Sod/ Tazobactam Sod/ Dextrose (Zosyn Iv/D5 100ml) 115 ml @ 28.75 mls/ hr Q8H IV 04/18/16 00:00 04/28/16 00:00 04/18/16 08:04 28.75 MLS/HR Piperacillin Sod/ Tazobactam Sod (Consult) 1 ea UD PRN N/A 04/17/16 15:45 05/17/16 15:44 Objective Vital Signs Date Time Temp Pulse Resp B/P Pulse Ox O2 Delivery O2 Flow Rate FiO2 04/18/16 08:00 Room Air 04/18/16 04:00 Room Air 04/18/16 04:00 36.6 75 18 123/64 94 Room Air 04/18/16 00:00 37.0 74 18 96/43 96 Room Air 04/18/16 00:00 Room Air 04/17/16 20:11 36.8 85 20 136/65 95 Room Air 04/17/16 20:00 Room Air 04/17/16 16:00 Room Air 04/17/16 15:10 36.6 68 100 131/66 100 Room Air 04/17/16 11:38 36.5 67 18 109/45 97 Room Air 04/17/16 11:30 Room Air Physical Exam General Appearance: WD/WN, no apparent distress Eyes: normal inspection, sclerae normal ENT: normal ENT inspection, pharynx normal Neck: supple, trachea midline Respiratory/Chest: lungs clear, normal breath sounds, no respiratory distress Cardiovascular: regular rate, rhythm, no gallop, no murmur Abdomen: normal bowel sounds, non tender, soft, no organomegaly Extremities: non-tender, no calf tenderness Neurologic/Psychiatric: alert, oriented x 3 Skin: normal color, no rash, + pertinent finding (Wound VAC in place right groin) Lymphatic: no adenopathy Laboratory Results RUN DATE: 04/18/16 [facility] LAB PAGE 1 RUN TIME: 905 Specimen Inquiry PATIENT: NIKI W[place] LOC: [facility] U # : [id number] AGE/SX: 65/F ROOM: E206 REG : 04/13/[address]: Chip Morgan M.D. : 1950 BED: 1 DIS : STATUS: ADM IN TLOC: SPEC #: [id number] [place]: 04/15/16 STATUS: RES REQ #: [id number] RECD: 04/15/[address]: Chip Morgan M.D. SOURCE: FORGN BODY ENTR: 04/15/[address] [facility] [address]: Alex Jarrett MD [facility]: Alejandro Gill M.D. Shannon, Dennis, M.D. ORDERED: AER/SAMI CULTSMR Procedure Result Verified Site GRAM STAIN Final 04/16/16 RESULT MANY POLYS NO ORGANISMS SEEN OR AER/SAMI CULT Preliminary 04/18/16 Organism 1 ESCHERICHIA COLI QUANITY RARE SENS SENSITIVITY TO FOLLOW 1. ESCHERICHIA COLI Target Route Dose RX AB Cost M.I.C. IQ ------ ----- ------ -- ------ -------- - ------ TRIMET/SULFA S <=2/38 AMPICILLIN S <=8 AMPICILLIN/SUL S <=8/4 CEFAZOLIN S <=8 CEFOTAXIME S <=2 CEFTRIAXONE S <=1 CEFEPIME S <=4 CEFUROXIME S <=4 IMIPENEM S <=1 GENTAMICIN S <=4 TOBRAMYCIN S <=4 AMIKACIN S <=16 CIPROFLOXACIN S <=1 LEVOFLOXACIN S <=2 ERTAPENEM S <=1 PIP/TAZO S <=16 S = SENSITIVE I = INTERMEDIATE R = RESISTANT END OF REPORT Last 24 Hours Test 04/18/16 05:25 04/18/16 10:00 White Blood Count 7.29 K/uL Red Blood Count 3.89 M/uL Hemoglobin 10.3 g/dL Hematocrit 31.6 % Mean Corpuscular Volume 81.2 fL Mean Corpuscular Hemoglobin 26.5 pg Mean Corpuscular Hemoglobin Concent 32.6 g/dl RDW Standard Deviation 47.4 fL RDW Coefficient of Variation 16.2 % Platelet Count 266 K/uL Mean Platelet Volume 9.0 fL Prothrombin Time 11.8 SECONDS Prothromb Time International Ratio 1.1 Assessment and Plan infected vascular graft with cultures growing E coli, fully sensitive isolate. I have discontinued vancomycin, and likely patient can be transitioned to oral levofloxacin in the near future. Given the graft has been removed, will likely need in the range of 10-14 days of therapy.
[2016-04-18 15:54] VITALS: BP 111/57; PULSE 66; TEMP 36.4; O2SAT 95
[2016-04-18 19:59] VITALS: BP 102/63; PULSE 62; TEMP 36.7; O2SAT 96
[2016-04-18] MEDS: ATORVASTATIN 40 MG TAB PO SCH (21:11)
[2016-04-19] VITALS (8 sets, daily range): BP systolic 99–136; BP diastolic 46–65; PULSE 53–80; TEMP 36.6–37.1; O2SAT 94–96
[2016-04-19] MEDS: PIPERACILL/TAZOBAC IV 3.375 GM in DEXTROSE 5% 100ML 100 ML IV SCH ×4 (00:28→23:21)
[2016-04-19] MEDS: OXYCODONE/ACETAMINOPHEN 5-325 TAB PO PRN ×5 (03:41→23:39)
[2016-04-19 06:44] LABS: CREATININE 0.71 mg/dl (0.60-1.20)
[2016-04-19] MEDS: DOCUSATE SODIUM 100 MG CAP PO SCH ×2 (08:10→21:03)
[2016-04-19] MEDS: VARENICLINE (CHANTIX) 1 MG TAB PO SCH ×2 (08:10→21:03)
[2016-04-19] MEDS: ASPIRIN 81 MG ECTAB PO SCH (08:10)
[2016-04-19] MEDS: LISINOPRIL 10 MG TAB PO SCH (08:10)
[2016-04-19] MEDS: OMEGA-3 (PURIFIED FISH OIL) 1 GM CAP PO SCH (08:11)
[2016-04-19] MEDS: PIOGLITAZONE TAB 15 MG TAB PO SCH (08:11)
[2016-04-19] MEDS: ENOXAPARIN 30 MG/0.3 ML SYR SQ SCH ×2 (08:11→21:02)
[2016-04-19] MEDS: MULTIVITAMIN TAB PO SCH (08:11)
[2016-04-19] MEDS ORDERED: VANCOMYCIN TROUGH SCH (08:30)
--- NOTE | 2016-04-19 09:01 | Progress Note ---
Subjective Date of Service: Apr 19, 2016. Subjective Pt evaluation today including: conversation w/ patient, physical exam, lab review, review of inpatient medication list Pain: controlled with Percocet PO Intake: adequate Voiding: nava catheter in place no issues over night eating well, no chest pain, no dyspnea reviewed ID note, plan for oral Levaquin 10-14 days Problem List Medical Problems: (1) Post-op bleeding Status: Acute Review of Systems Constitutional: + fatigue, + weakness Musculoskeletal: + joint pain (right groin after surgery) All Other Systems: Reviewed and Negative Medications Current Inpatient Medications Medications (Trade) Dose Ordered Sig/Shira Route Start Time Stop Time Status Last Admin Dose Admin Al Hydrox/Mg Hydrox/Simethicone (Maalox Max Susp) 15 ml Q4H PRN PO 04/13/16 08:15 05/13/16 08:14 Aspirin (Ecotrin Tab) 81 mg QAM PO 04/13/16 09:00 05/13/16 08:59 04/19/16 08:10 81 MG Atorvastatin Calcium (Lipitor Tab) 40 mg HS PO 04/13/16 21:00 05/13/16 20:59 04/18/16 21:11 40 MG Docusate Sodium (coLACE CAP) 100 mg BID PO 04/13/16 09:00 05/13/16 08:59 04/19/16 08:10 100 MG Glipizide (Glucotrol Tab) 20 mg BID@0645,1630 PO 04/13/16 16:30 05/13/16 16:29 Future hold 04/19/16 06:29 20 MG Lisinopril (Zestril Tab) 10 mg QAM PO 04/13/16 09:00 05/13/16 08:59 04/19/16 08:10 10 MG Metformin HCl (Glucophage Tab) 1,000 mg BIDM PO 04/13/16 16:30 05/13/16 16:29 Future Hold Multivitamins (Multivitamin Tab) 1 tab QAM PO 04/13/16 09:00 05/13/16 08:59 04/19/16 08:11 1 TAB Valacyclovir HCl (Valtrex Tab) 1,000 mg PRN PRN PO 04/13/16 08:15 04/23/16 08:14 Fish Oil ([place]-3 (Purified Fish Oil) Cap) 1 gm QAM PO 04/13/16 10:30 05/13/16 10:29 04/19/16 08:11 1 GM Pantoprazole Sodium (Protonix Tab) 40 mg BID PO 04/13/16 09:00 05/13/16 08:59 Future Hold 04/15/16 08:28 40 MG Pioglitazone HCl (ACTos TAB) 45 mg QAM PO 04/13/16 11:00 05/13/16 10:59 04/19/16 08:11 45 MG Varenicline (Chantix) 1 mg BID PO 04/13/16 21:00 05/13/16 20:59 04/19/16 08:10 1 MG Acetaminophen (Tylenol Tab) 650 mg Q4H PRN PO 04/15/16 16:15 05/15/16 16:14 Oxycodone/ Acetaminophen (Percocet 5-325mg Tab) `1-2 TABS FOR MODER... Q4H PRN PO 04/15/16 16:15 04/29/16 16:14 04/19/16 08:09 2 TAB Morphine Sulfate (MoRPHine SULFATE INJ) 1 mg Q2H PRN IV 04/15/16 16:15 04/29/16 16:14 Ondansetron HCl 4 mg 4 mg Q6H PRN IV 04/15/16 16:15 05/15/16 16:14 04/18/16 09:02 4 MG Pantoprazole Sodium/Syringe (Protonix Inj/ Syringe) 10 ml @ 5 mls/min DAILY@11 IV 04/16/16 11:00 05/16/16 10:59 04/18/16 08:04 5 MLS/MIN Enoxaparin Sodium (Lovenox Inj) 30 mg Q12H SQ 04/16/16 08:00 05/16/16 07:59 04/19/16 08:11 30 MG Morphine Sulfate (MoRPHine SULFATE INJ) 2 mg Q2H PRN IV 04/15/16 16:45 04/29/16 16:44 04/16/16 00:58 2 MG Morphine Sulfate (MoRPHine SULFATE INJ) 3 mg Q2H PRN IV 04/15/16 16:45 04/29/16 16:44 Morphine Sulfate 4 mg 4 mg Q2H PRN IV 04/15/16 16:45 04/29/16 16:44 04/18/16 09:02 4 MG Piperacillin Sod/ Tazobactam Sod/ Dextrose (Zosyn Iv/D5 100ml) 115 ml @ 28.75 mls/ hr Q8H IV 04/18/16 00:00 04/28/16 00:00 04/19/16 08:15 28.75 MLS/HR Piperacillin Sod/ Tazobactam Sod (Consult) 1 ea UD PRN N/A 04/17/16 15:45 05/17/16 15:44 Objective Vital Signs Date Time Temp Pulse Resp B/P Pulse Ox O2 Delivery O2 Flow Rate FiO2 04/19/16 07:33 36.6 60 18 117/60 95 Room Air 04/19/16 04:16 36.7 71 17 134/65 94 Room Air 04/19/16 04:00 Room Air 04/19/16 00:22 36.7 53 18 99/49 96 Room Air 04/19/16 00:00 Room Air 04/18/16 20:00 Room Air 04/18/16 19:59 36.7 62 18 102/63 96 04/18/16 16:00 Room Air 04/18/16 15:54 36.4 66 18 111/57 95 Room Air 04/18/16 12:00 Room Air Physical Exam General Appearance: WD/WN, no apparent distress Eyes: normal inspection, EOMI, sclerae normal ENT: normal ENT inspection, hearing grossly normal, pharynx normal Neck: supple, no adenopathy, no JVD, trachea midline Respiratory/Chest: chest non-tender, lungs clear, normal breath sounds, no respiratory distress, no accessory muscle use Cardiovascular: regular rate, rhythm, no edema, no gallop, no JVD, no murmur Abdomen: normal bowel sounds, non tender, soft, no organomegaly Extremities: normal range of motion, non-tender, normal inspection, no pedal edema, no calf tenderness 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 F who was recently discharged from [facility] with Right Groin Abscess/ vascular graft infection and returned to ED with bleeding from the right groin. 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 coli - infectious disease following, recommend treating with 10-14 days of Levaquin - continue Zosyn currently, Vancomycin stopped DMII - cont glipizide, metformin, actos - blood sugars stable - accuchecks HTN - stable - cont lisinopril PVD - cont ASA, Atorvastatin, will need to resume Coumadin prior to d/c to keep vasculature open PPx - Lovenox Full Code Recommendations: continue current regimen for diabetes and blood pressure control, no acute medical issues would recommend transfer to medical floor today defer nava removal to vascular surgery will sign off at this time, medical issues all stable, do not hesitate to contact if any new issues arise
--- NOTE | 2016-04-19 10:18 | Progress Note ---
Progress Note Date of Service: Apr 19, 2016. Subjective 65 yo f with multiple medical problems, POD # 4 after removal of infected R limb of ax-bifem BPG, seen in f/u today. Pt states pain well controlled with percocet. Denies any new complaints. Problem List Medical Problems: (1) Post-op bleeding Status: Acute Objective Vital Signs Vital Signs Past 12 Hours Date Time Temp Pulse Resp B/P Pulse Ox O2 Delivery O2 Flow Rate FiO2 04/19/16 09:55 Room Air 04/19/16 08:00 Room Air 04/19/16 07:33 36.6 60 18 117/60 95 Room Air 04/19/16 04:16 36.7 71 17 134/65 94 Room Air 04/19/16 04:00 Room Air 04/19/16 00:22 36.7 53 18 99/49 96 Room Air 04/19/16 00:00 Room Air Exam CONST: A&O x4, NAD, obese, chronically ill appearing female CHEST: RRR lungs decreased, but ctab ABD: soft, + bs x 4 quad, tenderness over surgical area R side. EXT: R groin wound vac in place and working appropriately. + doppler distal pulses BLE. Intake & Output 8-Hour Column 04/18/16 04/19/16 04/19/16 16:00 00:00 08:00 Intake Total 631 ml 1241 ml 484 ml Output Total 1150 ml 725 ml 300 ml Balance -519 ml 516 ml 184 ml 24-Hour Column 04/19/16 08:00 Intake Total 2356 ml Output Total 2175 ml Balance 181 ml Laboratory and Microbiology Results Past 24 Hours Test 04/18/16 11:37 04/18/16 16:24 04/19/16 05:38 Range/Units Bedside Glucose 140 156 70-90 mg/dl Creatinine 0.71 0.60-1.20 mg/dl Est Creatinine Clear Calc Drug Dose 74.1 ml/min Estimated GFR () 103.6 Estimated GFR (Non- 89.4 ASSESSMENT and PLAN: s/p removal infected R limb of ax-bifem bypass Pt doing well post op. Continue activity as tolerated. Plan to change wound vac tomorrow and reevaluate wound. Plan to d/c on levaquin x 2 weeks per ID. Possible d/c in next 1-2 days.
--- NOTE | 2016-04-19 10:46 | Infectious Disease Progress Nt ---
Progress Note Date of Service Apr 19, 2016. Subjective Pt evaluation today including: conversation w/ patient, physical exam, chart review, lab review, review of studies, conversation w/ php consultant, review of inpatient medication list No new complaints. Remains afebrile. Tolerating Abx. All Other Systems: Reviewed and Negative Medications Current Inpatient Medications Medications (Trade) Dose Ordered Sig/Shira Route Start Time Stop Time Status Last Admin Dose Admin Al Hydrox/Mg Hydrox/Simethicone (Maalox Max Susp) 15 ml Q4H PRN PO 04/13/16 08:15 05/13/16 08:14 Aspirin (Ecotrin Tab) 81 mg QAM PO 04/13/16 09:00 05/13/16 08:59 04/19/16 08:10 81 MG Atorvastatin Calcium (Lipitor Tab) 40 mg HS PO 04/13/16 21:00 05/13/16 20:59 04/18/16 21:11 40 MG Docusate Sodium (coLACE CAP) 100 mg BID PO 04/13/16 09:00 05/13/16 08:59 04/19/16 08:10 100 MG Glipizide (Glucotrol Tab) 20 mg BID@0645,1630 PO 04/13/16 16:30 05/13/16 16:29 Future hold 04/19/16 06:29 20 MG Lisinopril (Zestril Tab) 10 mg QAM PO 04/13/16 09:00 05/13/16 08:59 04/19/16 08:10 10 MG Metformin HCl (Glucophage Tab) 1,000 mg BIDM PO 04/13/16 16:30 05/13/16 16:29 Future Hold Multivitamins (Multivitamin Tab) 1 tab QAM PO 04/13/16 09:00 05/13/16 08:59 04/19/16 08:11 1 TAB Valacyclovir HCl (Valtrex Tab) 1,000 mg PRN PRN PO 04/13/16 08:15 04/23/16 08:14 Fish Oil ([place]-3 (Purified Fish Oil) Cap) 1 gm QAM PO 04/13/16 10:30 05/13/16 10:29 04/19/16 08:11 1 GM Pantoprazole Sodium (Protonix Tab) 40 mg BID PO 04/13/16 09:00 05/13/16 08:59 Future Hold 04/15/16 08:28 40 MG Pioglitazone HCl (ACTos TAB) 45 mg QAM PO 04/13/16 11:00 05/13/16 10:59 04/19/16 08:11 45 MG Varenicline (Chantix) 1 mg BID PO 04/13/16 21:00 05/13/16 20:59 04/19/16 08:10 1 MG Acetaminophen (Tylenol Tab) 650 mg Q4H PRN PO 04/15/16 16:15 05/15/16 16:14 Oxycodone/ Acetaminophen (Percocet 5-325mg Tab) `1-2 TABS FOR MODER... Q4H PRN PO 04/15/16 16:15 04/29/16 16:14 04/19/16 08:09 2 TAB Morphine Sulfate (MoRPHine SULFATE INJ) 1 mg Q2H PRN IV 04/15/16 16:15 04/29/16 16:14 Ondansetron HCl 4 mg 4 mg Q6H PRN IV 04/15/16 16:15 05/15/16 16:14 04/18/16 09:02 4 MG Pantoprazole Sodium/Syringe (Protonix Inj/ Syringe) 10 ml @ 5 mls/min DAILY@11 IV 04/16/16 11:00 05/16/16 10:59 04/18/16 08:04 5 MLS/MIN Enoxaparin Sodium (Lovenox Inj) 30 mg Q12H SQ 04/16/16 08:00 05/16/16 07:59 04/19/16 08:11 30 MG Morphine Sulfate (MoRPHine SULFATE INJ) 2 mg Q2H PRN IV 04/15/16 16:45 04/29/16 16:44 04/16/16 00:58 2 MG Morphine Sulfate (MoRPHine SULFATE INJ) 3 mg Q2H PRN IV 04/15/16 16:45 04/29/16 16:44 Morphine Sulfate 4 mg 4 mg Q2H PRN IV 04/15/16 16:45 04/29/16 16:44 04/18/16 09:02 4 MG Piperacillin Sod/ Tazobactam Sod/ Dextrose (Zosyn Iv/D5 100ml) 115 ml @ 28.75 mls/ hr Q8H IV 04/18/16 00:00 04/28/16 00:00 04/19/16 08:15 28.75 MLS/HR Piperacillin Sod/ Tazobactam Sod (Consult) 1 ea UD PRN N/A 04/17/16 15:45 05/17/16 15:44 Objective Vital Signs Date Time Temp Pulse Resp B/P Pulse Ox O2 Delivery O2 Flow Rate FiO2 04/19/16 09:55 Room Air 04/19/16 08:00 Room Air 04/19/16 07:33 36.6 60 18 117/60 95 Room Air 04/19/16 04:16 36.7 71 17 134/65 94 Room Air 04/19/16 04:00 Room Air 04/19/16 00:22 36.7 53 18 99/49 96 Room Air 04/19/16 00:00 Room Air 04/18/16 20:00 Room Air 04/18/16 19:59 36.7 62 18 102/63 96 04/18/16 16:00 Room Air 04/18/16 15:54 36.4 66 18 111/57 95 Room Air 04/18/16 12:00 Room Air Physical Exam General Appearance: WD/WN, no apparent distress Eyes: normal inspection, EOMI, sclerae normal ENT: normal ENT inspection, pharynx normal Neck: supple, trachea midline Respiratory/Chest: lungs clear, normal breath sounds, no respiratory distress Cardiovascular: regular rate, rhythm, no gallop, no murmur Abdomen: normal bowel sounds, non tender, soft, no organomegaly Extremities: non-tender, no calf tenderness Neurologic/Psychiatric: alert, oriented x 3 Skin: normal color, no rash, + pertinent finding (Wound VAC right groin) Lymphatic: no adenopathy Laboratory Results Last 24 Hours Test 04/18/16 11:37 04/18/16 16:24 04/19/16 05:38 Bedside Glucose 140 mg/dl 156 mg/dl Creatinine 0.71 mg/dl Est Creatinine Clear Calc Drug Dose 74.1 ml/min Estimated GFR () 103.6 Estimated GFR (Non- 89.4 Assessment and Plan infected vascular graft with cultures growing E coli, fully sensitive isolate. I have discontinued vancomycin, and likely patient can be transitioned to oral levofloxacin. Given the graft has been removed, will likely need in the range of 10-14 days of therapy.
[2016-04-19] MEDS: PANTOprazole INJ 40 MG in SYRINGE 0 ML IV SCH (11:28)
[2016-04-19] MEDS: ATORVASTATIN 40 MG TAB PO SCH (21:03)
[2016-04-20] VITALS (9 sets, daily range): BP systolic 125–165; BP diastolic 51–70; PULSE 58–72; TEMP 36.6–36.8; O2SAT 92–98
[2016-04-20 06:02] LABS: PROTHROMBIN TIME (PATIENT) 10.8 SECONDS (9.0-12.0)
[2016-04-20] MEDS: OXYCODONE/ACETAMINOPHEN 5-325 TAB PO PRN ×4 (07:43→21:00)
[2016-04-20] MEDS: ENOXAPARIN 30 MG/0.3 ML SYR SQ SCH ×2 (08:10→19:41)
[2016-04-20] MEDS: DOCUSATE SODIUM 100 MG CAP PO SCH ×2 (08:11→19:41)
[2016-04-20] MEDS: ASPIRIN 81 MG ECTAB PO SCH (08:11)
[2016-04-20] MEDS: LISINOPRIL 10 MG TAB PO SCH (08:11)
[2016-04-20] MEDS: OMEGA-3 (PURIFIED FISH OIL) 1 GM CAP PO SCH (08:12)
[2016-04-20] MEDS: VARENICLINE (CHANTIX) 1 MG TAB PO SCH ×2 (08:12→19:41)
[2016-04-20] MEDS: MULTIVITAMIN TAB PO SCH (08:12)
[2016-04-20] MEDS: PIOGLITAZONE TAB 15 MG TAB PO SCH (08:13)
[2016-04-20] MEDS: PIPERACILL/TAZOBAC IV 3.375 GM in DEXTROSE 5% 100ML 100 ML IV SCH ×3 (08:14→23:48)
[2016-04-20] MEDS: PANTOprazole INJ 40 MG in SYRINGE 0 ML IV SCH (11:01)
[2016-04-20] MEDS: MoRPHine SULFATE 2 MG/ML CARP IV PRN (14:12)
--- NOTE | 2016-04-20 15:21 | Progress Note ---
Progress Note Date of Service: Apr 20, 2016. Subjective 65 yo f s/p removal R limb of infected ax bifemoral bpg, seen in f/u today. Pt states pain well controlled with percocet. Denies any new complaints. Problem List Medical Problems: (1) Post-op bleeding Status: Acute Objective Vital Signs Vital Signs Past 12 Hours Date Time Temp Pulse Resp B/P Pulse Ox O2 Delivery O2 Flow Rate FiO2 04/20/16 12:00 Room Air 04/20/16 11:21 36.8 70 14 165/68 97 Room Air 04/20/16 09:11 98 Room Air 04/20/16 08:00 Room Air 04/20/16 07:48 36.7 68 12 155/67 97 Room Air 04/20/16 04:17 36.8 60 16 136/70 93 Room Air 04/20/16 04:00 96 Room Air Exam CONST: A&O x4, NAD, obese, chronically ill appearing female CHEST: RRR lungs decreased, but ctab ABD: soft, + bs x 4 quad, tenderness over surgical area R side. EXT: R groin wound with good granulation, minimal bleeding. no significant active bleeding noted on removal of vac. Wound vac changed today.+ doppler distal pulses BLE. Intake & Output 8-Hour Column 04/19/16 04/20/16 04/20/16 16:00 00:00 08:00 Intake Total 930 ml 662 ml 405 ml Output Total 1100 ml 1000 ml 550 ml Balance -170 ml -338 ml -145 ml 24-Hour Column 04/20/16 08:00 Intake Total 1997 ml Output Total 2650 ml Balance -653 ml Laboratory and Microbiology Results Past 24 Hours Test 04/20/16 05:17 Range/Units Prothrombin Time 10.8 9.0-12.0 SECONDS Prothromb Time International Ratio 1.0 0.9-1.1 ASSESSMENT and PLAN: s/p removal infected R limb of ax-bifemoral BPG Pt doing well post op. continue pain control and wound vac changes M/W/ F. d/c home tomorrow if arrangements made for vac change on monday.
--- NOTE | 2016-04-20 19:33 | Infectious Disease Progress Nt ---
Progress Note Date of Service Apr 20, 2016. Subjective Pt evaluation today including: conversation w/ patient, physical exam, chart review, lab review, review of studies, conversation w/ sales support consultant, review of inpatient medication list Patient offering no new complaints today. Pain control. Continues to tolerate antibiotics without apparent difficulty. Remains afebrile. All Other Systems: Reviewed and Negative Medications Current Inpatient Medications Medications (Trade) Dose Ordered Sig/Shira Route Start Time Stop Time Status Last Admin Dose Admin Al Hydrox/Mg Hydrox/Simethicone (Maalox Max Susp) 15 ml Q4H PRN PO 04/13/16 08:15 05/13/16 08:14 Aspirin (Ecotrin Tab) 81 mg QAM PO 04/13/16 09:00 05/13/16 08:59 04/20/16 08:11 81 MG Atorvastatin Calcium (Lipitor Tab) 40 mg HS PO 04/13/16 21:00 05/13/16 20:59 04/19/16 21:03 40 MG Docusate Sodium (coLACE CAP) 100 mg BID PO 04/13/16 09:00 05/13/16 08:59 04/20/16 08:11 100 MG Glipizide (Glucotrol Tab) 20 mg BID@0645,1630 PO 04/13/16 16:30 05/13/16 16:29 Future hold 04/20/16 16:54 20 MG Lisinopril (Zestril Tab) 10 mg QAM PO 04/13/16 09:00 05/13/16 08:59 04/20/16 08:11 10 MG Metformin HCl (Glucophage Tab) 1,000 mg BIDM PO 04/13/16 16:30 05/13/16 16:29 Future Hold Multivitamins (Multivitamin Tab) 1 tab QAM PO 04/13/16 09:00 05/13/16 08:59 04/20/16 08:12 1 TAB Valacyclovir HCl (Valtrex Tab) 1,000 mg PRN PRN PO 04/13/16 08:15 04/23/16 08:14 Fish Oil ([place]-3 (Purified Fish Oil) Cap) 1 gm QAM PO 04/13/16 10:30 05/13/16 10:29 04/20/16 08:12 1 GM Pantoprazole Sodium (Protonix Tab) 40 mg BID PO 04/13/16 09:00 05/13/16 08:59 Future Hold 04/15/16 08:28 40 MG Pioglitazone HCl (ACTos TAB) 45 mg QAM PO 04/13/16 11:00 05/13/16 10:59 04/20/16 08:13 45 MG Varenicline (Chantix) 1 mg BID PO 04/13/16 21:00 05/13/16 20:59 04/20/16 08:12 1 MG Acetaminophen (Tylenol Tab) 650 mg Q4H PRN PO 04/15/16 16:15 05/15/16 16:14 Oxycodone/ Acetaminophen (Percocet 5-325mg Tab) `1-2 TABS FOR MODER... Q4H PRN PO 04/15/16 16:15 04/29/16 16:14 04/20/16 16:57 2 TAB Morphine Sulfate (MoRPHine SULFATE INJ) 1 mg Q2H PRN IV 04/15/16 16:15 04/29/16 16:14 Ondansetron HCl 4 mg 4 mg Q6H PRN IV 04/15/16 16:15 05/15/16 16:14 04/18/16 09:02 4 MG Pantoprazole Sodium/Syringe (Protonix Inj/ Syringe) 10 ml @ 5 mls/min DAILY@11 IV 04/16/16 11:00 05/16/16 10:59 04/20/16 11:01 5 MLS/MIN Enoxaparin Sodium (Lovenox Inj) 30 mg Q12H SQ 04/16/16 08:00 05/16/16 07:59 04/20/16 08:10 30 MG Morphine Sulfate (MoRPHine SULFATE INJ) 2 mg Q2H PRN IV 04/15/16 16:45 04/29/16 16:44 04/20/16 14:12 2 MG Morphine Sulfate (MoRPHine SULFATE INJ) 3 mg Q2H PRN IV 04/15/16 16:45 04/29/16 16:44 04/20/16 12:32 3 MG Morphine Sulfate 4 mg 4 mg Q2H PRN IV 04/15/16 16:45 04/29/16 16:44 04/18/16 09:02 4 MG Piperacillin Sod/ Tazobactam Sod/ Dextrose (Zosyn Iv/D5 100ml) 115 ml @ 28.75 mls/ hr Q8H IV 04/18/16 00:00 04/28/16 00:00 04/20/16 16:53 28.75 MLS/HR Piperacillin Sod/ Tazobactam Sod (Consult) 1 ea UD PRN N/A 04/17/16 15:45 05/17/16 15:44 Objective Vital Signs Date Time Temp Pulse Resp B/P Pulse Ox O2 Delivery O2 Flow Rate FiO2 04/20/16 16:17 36.8 61 18 125/59 97 Room Air 04/20/16 16:00 Room Air 04/20/16 12:00 Room Air 04/20/16 11:21 36.8 70 14 165/68 97 Room Air 04/20/16 09:11 98 Room Air 04/20/16 08:00 Room Air 04/20/16 07:48 36.7 68 12 155/67 97 Room Air 04/20/16 04:17 36.8 60 16 136/70 93 Room Air 04/20/16 04:00 96 Room Air 04/20/16 00:00 36.7 58 20 128/51 92 Room Air 04/19/16 23:59 96 Room Air 04/19/16 20:18 36.8 58 18 136/46 96 Room Air 04/19/16 20:00 96 Room Air Physical Exam General Appearance: WD/WN, no apparent distress Eyes: normal inspection, sclerae normal ENT: normal ENT inspection, pharynx normal Neck: supple, trachea midline Respiratory/Chest: lungs clear, normal breath sounds, no respiratory distress Cardiovascular: regular rate, rhythm, no gallop, no murmur Abdomen: normal bowel sounds, non tender, soft, no organomegaly Extremities: non-tender, no calf tenderness Neurologic/Psychiatric: alert, oriented x 3 Skin: normal color, no rash, + pertinent finding (Wound VAC in place right groin) Lymphatic: no adenopathy Laboratory Results Last 24 Hours Test 04/20/16 05:17 Prothrombin Time 10.8 SECONDS Prothromb Time International Ratio 1.0 Assessment and Plan infected vascular graft with cultures growing E coli, fully sensitive isolate. Recommend transition to levofloxacin, likely 1-2 weeks depending on clinical response.
[2016-04-20] MEDS: ATORVASTATIN 40 MG TAB PO SCH (19:42)
[2016-04-21] MEDS: OXYCODONE/ACETAMINOPHEN 5-325 TAB PO PRN ×3 (01:18→12:54)
[2016-04-21 04:06] VITALS: BP 129/54; PULSE 71; TEMP 36.7; O2SAT 95
[2016-04-21 05:55] LABS: HEMATOCRIT 33.5 % (37-47); MEAN CELL VOLUME 81.5 fL (80-100); MEAN CORPUSCULAR HGB CONC 31.9 g/dl (32-36); MEAN PLATELET VOLUME 8.8 fL (7.4-10.4); PLATELET COUNT 305 K/uL (130-400); RED BLOOD COUNT 4.11 M/uL (4.2-5.4); WHITE BLOOD COUNT 7.91 K/uL (4.8-10.8)
[2016-04-21 06:12] LABS: CREATININE 0.71 mg/dl (0.60-1.20)
[2016-04-21 07:43] VITALS: BP 116/64; PULSE 66; TEMP 36.8; O2SAT 93
[2016-04-21] MEDS: ENOXAPARIN 30 MG/0.3 ML SYR SQ SCH (08:00)
[2016-04-21] MEDS: LISINOPRIL 10 MG TAB PO SCH (08:25)
[2016-04-21] MEDS: PIOGLITAZONE TAB 15 MG TAB PO SCH (08:25)
[2016-04-21] MEDS: MULTIVITAMIN TAB PO SCH (08:25)
[2016-04-21] MEDS: DOCUSATE SODIUM 100 MG CAP PO SCH (08:25)
[2016-04-21] MEDS: VARENICLINE (CHANTIX) 1 MG TAB PO SCH (08:25)
[2016-04-21] MEDS: OMEGA-3 (PURIFIED FISH OIL) 1 GM CAP PO SCH (08:26)
[2016-04-21] MEDS: ASPIRIN 81 MG ECTAB PO SCH (08:26)
[2016-04-21] MEDS: PIPERACILL/TAZOBAC IV 3.375 GM in DEXTROSE 5% 100ML 100 ML IV SCH (08:28)
[2016-04-21] MEDS: PANTOprazole INJ 40 MG in SYRINGE 0 ML IV SCH (11:34)
[2016-04-21 11:45] VITALS: BP 119/46; PULSE 69; TEMP 36.8; O2SAT 97
[2016-04-21] MEDS ORDERED: LEVO1TAB34 PO ×2 (12:09→12:11)
[2016-04-21] MEDS ORDERED: OXYC-57 PO ×2 (12:09→14:54)
--- NOTE | 2016-04-21 12:13 | Discharge Instructions ---
Discharge Instructions Admission Reason for Admission: Infected Prosthetic Vascular Graft Discharge Discharge Diagnosis / Problem: Infected right limb of axillo bifemoral bypass Discharge Goals Goal(s): Therapeutic intervention Activity Recommendations Activity Limitations: per Instructions/Follow-up section . Instructions / Follow-Up Instructions / Follow-Up Wound vac to be changed Mon Mon and Fri Call [phone] to schedule a follow up appointment if one not already scheduled. ACTIVITY RECOMMENDATIONS: See Above SPECIAL CARE INSTRUCTIONS: Call your doctor if: * Temperature above 101 degrees * Pain not relieved by pain medicine ordered * There is increased drainage or redness from any incision * You have any unanswered questions or concerns. Current Hospital Diet Patient's current hospital diet: Diabetes Type 2 Diet, AHA Diet (Heart Healthy) Discharge Diet Recommended Diet: AHA Diet (Heart Healthy), Diabetes Type 2 Diet Procedures Procedures Performed: Removal of Right Limb of Axillary-Bifemoral Bypass Pending Studies Studies pending at discharge: no Medical Emergencies . Who to Call and When: Medical Emergencies: If at any time you feel your situation is an emergency, please call 911 immediately. . Non-Emergent Contact Non-Emergency issues call your: Surgeon . "Provider Documentation" section prepared by Chip Morgan. VTE Core Measure Inpt VTE Proph given/why not?: Warfarin (Coumadin)
--- NOTE | 2016-04-21 14:59 | Progress Note ---
Progress Note Date of Service: Apr 21, 2016. Subjective 65 yo f with multiple medical problems, s/p removal of infected R limb of ax bifemoral BPG, seen in f/u today. Pt states feeling generally well. Admits pain in R groin area. Denies any new complaints. Problem List Medical Problems: (1) Post-op bleeding Status: Acute Objective Vital Signs Vital Signs Past 12 Hours Date Time Temp Pulse Resp B/P Pulse Ox O2 Delivery O2 Flow Rate FiO2 04/21/16 12:00 Room Air 04/21/16 11:45 36.8 69 18 119/46 97 04/21/16 08:00 Room Air 04/21/16 07:43 36.8 66 18 116/64 93 Room Air 04/21/16 04:06 36.7 71 18 129/54 95 Room Air 04/21/16 04:00 Room Air Exam CONST: A&O x4, NAD, obese, chronically ill appearing female CHEST: RRR lungs decreased, but ctab ABD: soft, + bs x 4 quad, tenderness over surgical area R side. EXT: R groin wound with vac in place, working appropriately. + doppler distal pulses BLE. Intake & Output 8-Hour Column 04/20/16 04/20/16 04/21/16 15:59 23:59 07:59 Intake Total 300 ml 605 ml 134 ml Output Total 1850 ml 650 ml 1150 ml Balance -1550 ml -45 ml -1016 ml 24-Hour Column 04/21/16 07:59 Intake Total 1039 ml Output Total 3650 ml Balance -2611 ml Laboratory and Microbiology Results Past 24 Hours Test 04/21/16 05:22 Range/Units White Blood Count 7.91 4.8-10.8 K/uL Red Blood Count 4.11 4.2-5.4 M/uL Hemoglobin 10.7 12.0-16.0 g/dL Hematocrit 33.5 37-47 % Mean Corpuscular Volume 81.5 80-100 fL Mean Corpuscular Hemoglobin 26.0 25-34 pg Mean Corpuscular Hemoglobin Concent 31.9 32-36 g/dl RDW Standard Deviation 48.0 36.4-46.3 fL RDW Coefficient of Variation 16.0 11.5-14.5 % Platelet Count 305 130-400 K/uL Mean Platelet Volume 8.8 7.4-10.4 fL Creatinine 0.71 0.60-1.20 mg/dl Est Creatinine Clear Calc Drug Dose 74.0 ml/min Estimated GFR () 103.6 Estimated GFR (Non- 89.4 ASSESSMENT and PLAN: s/p removal infected R limb of ax bifem BPG Pt doing well post op. D/C home today with home nursing for vac changes. Will see in office within 1-2 weeks. Pt will also be referred to [facility] for [facility] care.
[2016-04-21 15:10] VITALS: BP 119/46; PULSE 69; TEMP 36.8; O2SAT 97
--- NOTE | 2016-04-21 16:31 | Infectious Disease Progress Nt ---
Progress Note Date of Service Apr 21, 2016. Subjective Pt evaluation today including: conversation w/ patient, physical exam, chart review, lab review, review of studies, conversation w/ regulatory affairs consultant, review of inpatient medication list patient offers no new complaints today. Remains afebrile. Pain and groin rated 1 to 2/10 at present. Continues tolerating antibiotics. All Other Systems: Reviewed and Negative Medications Current Inpatient Medications Medications (Trade) Dose Ordered Sig/Shira Route Start Time Stop Time Status Last Admin Dose Admin Al Hydrox/Mg Hydrox/Simethicone (Maalox Max Susp) 15 ml Q4H PRN PO 04/13/16 08:15 05/13/16 08:14 Aspirin (Ecotrin Tab) 81 mg QAM PO 04/13/16 09:00 05/13/16 08:59 04/21/16 08:26 81 MG Atorvastatin Calcium (Lipitor Tab) 40 mg HS PO 04/13/16 21:00 05/13/16 20:59 04/20/16 19:42 40 MG Docusate Sodium (coLACE CAP) 100 mg BID PO 04/13/16 09:00 05/13/16 08:59 04/21/16 08:25 100 MG Glipizide (Glucotrol Tab) 20 mg BID@0645,1630 PO 04/13/16 16:30 05/13/16 16:29 Future hold 04/21/16 06:35 20 MG Lisinopril (Zestril Tab) 10 mg QAM PO 04/13/16 09:00 05/13/16 08:59 04/21/16 08:25 10 MG Metformin HCl (Glucophage Tab) 1,000 mg BIDM PO 04/13/16 16:30 05/13/16 16:29 Future Hold Multivitamins (Multivitamin Tab) 1 tab QAM PO 04/13/16 09:00 05/13/16 08:59 04/21/16 08:25 1 TAB Valacyclovir HCl (Valtrex Tab) 1,000 mg PRN PRN PO 04/13/16 08:15 04/23/16 08:14 Fish Oil ([place]-3 (Purified Fish Oil) Cap) 1 gm QAM PO 04/13/16 10:30 05/13/16 10:29 04/21/16 08:26 1 GM Pantoprazole Sodium (Protonix Tab) 40 mg BID PO 04/13/16 09:00 05/13/16 08:59 Future Hold 04/15/16 08:28 40 MG Pioglitazone HCl (ACTos TAB) 45 mg QAM PO 04/13/16 11:00 05/13/16 10:59 04/21/16 08:25 45 MG Varenicline (Chantix) 1 mg BID PO 04/13/16 21:00 05/13/16 20:59 04/21/16 08:25 1 MG Acetaminophen (Tylenol Tab) 650 mg Q4H PRN PO 04/15/16 16:15 05/15/16 16:14 Oxycodone/ Acetaminophen (Percocet 5-325mg Tab) `1-2 TABS FOR MODER... Q4H PRN PO 04/15/16 16:15 04/29/16 16:14 04/21/16 12:54 2 TAB Morphine Sulfate (MoRPHine SULFATE INJ) 1 mg Q2H PRN IV 04/15/16 16:15 04/29/16 16:14 Ondansetron HCl 4 mg 4 mg Q6H PRN IV 04/15/16 16:15 05/15/16 16:14 04/18/16 09:02 4 MG Pantoprazole Sodium/Syringe (Protonix Inj/ Syringe) 10 ml @ 5 mls/min DAILY@11 IV 04/16/16 11:00 05/16/16 10:59 04/21/16 11:34 5 MLS/MIN Enoxaparin Sodium (Lovenox Inj) 30 mg Q12H SQ 04/16/16 08:00 05/16/16 07:59 04/20/16 19:41 30 MG Morphine Sulfate (MoRPHine SULFATE INJ) 2 mg Q2H PRN IV 04/15/16 16:45 04/29/16 16:44 04/20/16 14:12 2 MG Morphine Sulfate (MoRPHine SULFATE INJ) 3 mg Q2H PRN IV 04/15/16 16:45 04/29/16 16:44 04/20/16 12:32 3 MG Morphine Sulfate 4 mg 4 mg Q2H PRN IV 04/15/16 16:45 04/29/16 16:44 04/18/16 09:02 4 MG Piperacillin Sod/ Tazobactam Sod/ Dextrose (Zosyn Iv/D5 100ml) 115 ml @ 28.75 mls/ hr Q8H IV 04/18/16 00:00 04/28/16 00:00 04/21/16 08:28 28.75 MLS/HR Piperacillin Sod/ Tazobactam Sod (Consult) 1 ea UD PRN N/A 04/17/16 15:45 05/17/16 15:44 Objective Vital Signs Date Time Temp Pulse Resp B/P Pulse Ox O2 Delivery O2 Flow Rate FiO2 04/21/16 15:10 36.8 69 18 97 Room Air Nasal Cannula 04/21/16 12:00 Room Air 04/21/16 11:45 36.8 69 18 119/46 97 04/21/16 08:00 Room Air 04/21/16 07:43 36.8 66 18 116/64 93 Room Air 04/21/16 04:06 36.7 71 18 129/54 95 Room Air 04/21/16 04:00 Room Air 04/20/16 23:59 Room Air 04/20/16 23:50 36.6 68 18 142/67 95 Room Air 04/20/16 20:00 Room Air 04/20/16 19:53 36.7 72 18 137/51 95 Room Air Physical Exam General Appearance: WD/WN, no apparent distress Eyes: normal inspection, sclerae normal ENT: normal ENT inspection, pharynx normal Neck: supple, no adenopathy, trachea midline Respiratory/Chest: lungs clear, normal breath sounds, no respiratory distress Cardiovascular: regular rate, rhythm, no gallop, no murmur Abdomen: normal bowel sounds, non tender, soft, no organomegaly Extremities: non-tender, no calf tenderness Neurologic/Psychiatric: alert, oriented x 3 Skin: normal color, no rash, + pertinent finding (wound VAC right groin) Lymphatic: no adenopathy Laboratory Results Last 24 Hours Test 04/21/16 05:22 White Blood Count 7.91 K/uL Red Blood Count 4.11 M/uL Hemoglobin 10.7 g/dL Hematocrit 33.5 % Mean Corpuscular Volume 81.5 fL Mean Corpuscular Hemoglobin 26.0 pg Mean Corpuscular Hemoglobin Concent 31.9 g/dl RDW Standard Deviation 48.0 fL RDW Coefficient of Variation 16.0 % Platelet Count 305 K/uL Mean Platelet Volume 8.8 fL Creatinine 0.71 mg/dl Est Creatinine Clear Calc Drug Dose 74.0 ml/min Estimated GFR () 103.6 Estimated GFR (Non- 89.4 Assessment and Plan infected vascular graft with cultures growing E coli, fully sensitive isolate. Transition to levofloxacin, likely 1-2 weeks depending on clinical response.
--- NOTE | 2016-04-22 12:20 | DISCHARGE SUMMARY ---
ADMISSION DIAGNOSES: 1. Vascular graft infection. 2. Bleeding from right groin incision. DISCHARGE DIAGNOSES: 1. Status post removal of the right limb of her axillobifemoral bypass graft. 2. Infected right limb of her axillobifemoral bypass graft. DISCHARGE CONDITION: Stable. CONSULTATIONS IN THE HOSPITAL: Included critical care and hospitalist and infectious disease. PROCEDURES IN THE HOSPITAL: Included removal of right limb of axillobifemoral bypass graft on 04/15/2016 with an EBL of 250 mL and no significant complication. HISTORY OF PRESENT ILLNESS: Mrs. Plummer is a 65-year-old female with a longstanding history of severe peripheral arterial disease as well as type 2 diabetes mellitus, coronary artery disease, hypertension, who developed bleeding from her right groin incision from her axillobifemoral bypass graft which had been performed back in August 2015. Upon coming to the office, she was felt to have possibly disrupted part of her graft and went to [facility] for surgical exploration and was found to have disrupted the right limb anastomosis. Due to concern for infection even with negative cultures, she was discharged on antibiotics for a probable vascular graft infection after a repair of that anastomosis. She came to the Emergency Department on 04/13/2016 due to continued bloody drainage from her right groin incision. She was reevaluated by our service and felt to have likely disrupted the right limb of her graft a second time. At this point, due to the inability of the graft to remain attached to the anastomosis, once again likely due to infection, it was felt to be prudent to remove the right limb of the graft in hopes that the rest of the graft would be able to remain in place without becoming actively infected. CT scan did demonstrate some fluid around the right limb of the graft as well. At that point, the patient was recommended to be admitted to the hospital and recommended to undergo surgical removal of at least the right limb of the graft. The procedure, risks, benefits and alternatives were discussed at length with the patient as well as her . She expressed understanding and agreement to proceed. HOSPITAL COURSE: The patient underwent removal of the right limb of her bypass graft on 04/15/2016 without any significant complications. She had 250 mL of EBL and samples from the right groin graft were taken for culture as well as a small piece of the proximal end of the remaining graft to assess for infection as well. Postoperatively, she was found to have PT and DP dopplerable signals as well as a warm pink foot which was promising for no need of further revascularization of the right leg. She continued to have no rest pain. She did have significant right groin surgical discomfort postoperatively which was controlled with medication. After a few days of packing the open wound, she was felt to be safe enough to have a wound VAC placed to increase the healing ability of her right groin. The patient remained stable otherwise postoperatively. She did require transfusion of 2 units at one point due to a postop low hemoglobin of 7.8; however, her hemoglobin remained stable after the transfusion. Evaluations by infectious disease recommended change person from Zosyn to oral Levaquin at discharge due to positive cultures on the distal part of her bypass graft which demonstrated pansensitive E. coli graft. The proximal portion of her graft did not demonstrate any active bacterial growth. After demonstrating excellent granulation of her right groin surgical wound, she was felt to be stable enough for discharge. PHYSICAL EXAMINATION: VITAL SIGNS: On day of discharge, her vital signs were as follows: Temperature of 36.8, pulse of 69, respiratory rate of 18, blood pressure of 119/46, pulse oximetry of 97% on room air. CONSTITUTIONAL: The patient is a mildly chronically ill-appearing middle-aged female in no acute distress. She is obese. She is active, alert and oriented x4, with normal recent and remote memory. HEAD: Normocephalic and atraumatic. EYES: EOMI. ENMT: Demonstrate no hearing loss, rhinorrhea or pharyngeal erythema. NECK: Supple, nontender, with a midline trachea, without masses or crepitus. LUNGS: Demonstrate no dyspnea. They are clear to auscultation bilaterally. CARDIOVASCULAR: Demonstrates nondisplaced apical impulse with a regular rate and rhythm without murmurs, lifts, heaves, thrills or gallops. Peripheral pulses are full and equal in all extremities unless otherwise noted, specifically they are normal in her carotid, brachial and radial pulses. Her left femoral is +3. Her right femoral is nonpalpable. Her lower extremity distal pulses are nonpalpable but demonstrate good Doppler signal. She has brisk capillary refill to her left foot. Her right foot demonstrates slightly delayed refill at 4 seconds. ABDOMEN: Soft. There is tenderness over her right lower quadrant and groin area from her surgical incision. There is tenderness and mild local edema, to be expected. There is no erythema or active drainage noted. EXTREMITIES: Bilateral upper extremities demonstrate no cyanosis, edema, clubbing, varicosities or ulcers. Bilateral lower extremities demonstrate no cyanosis, varicosities or ulcerations. NEUROLOGIC: The patient has grossly intact cranial nerves and grossly intact sensation. DIET: Should be a low-cholesterol AHA diet. MEDICATIONS: Were reconciled in the chart and are as per her discharge instructions. FOLLOWUP: Should be with Dr. Morgan within 2 weeks for reevaluation and removal of aisha. She will also follow up with the [facility] for wound care in between office visits to Dr. Morgan and should also follow up with infectious disease. She is advised to call the office with any other questions. Thank you for allowing us to participate in the care of your patient.
[2016-04-26] MEDS ORDERED: SULF800T23 PO (14:20)
[2016-05-03] MEDS ORDERED: CEFD1CAP14 PO (13:53)
[2016-05-20] MEDS ORDERED: AMOX500T PO (10:39)
[2016-07-21] MEDS ORDERED: WARF4TAB8 PO (09:32)
[2016-07-21] MEDS ORDERED: AMOX500T PO (09:32)
[2016-11-11] MEDS ORDERED: METO1TAB31 PO (15:36)
== END 2016-04-21 15:59 | disposition home health service (06) | DRG 253 ==
LOC: ENRESERVDT → ENRESERVTM → C.EDB 06:39 → C.MSICU 08:34 → C.2T 04-14 00:19 → C.MSICU 04-15 14:38 → C.2E 04-16 18:30
PROVIDERS: ADMIT Surgery Vascular Surgery; ATTEND Surgery Vascular Surgery
PROC: 04PY0DZ Removal of Intraluminal Device from Lower Artery, Open Approach (ICD-10-PCS; principal; 2016-04-15 14:00)
DX: T82.7XXA Infection and inflammatory reaction due to other cardiac and vascular devices, implants and grafts, initial encounter (principal); I97.618 Postprocedural hemorrhage of a circulatory system organ or structure following other circulatory system procedure; Y83.8 Other surgical procedures as the cause of abnormal reaction of the patient, or of later complication, without mention of misadventure at the time of the procedure; E11.51 Type 2 diabetes mellitus with diabetic peripheral angiopathy without gangrene; B96.20 Unspecified Escherichia coli [E. coli] as the cause of diseases classified elsewhere; I10 Essential (primary) hypertension; E66.9 Obesity, unspecified; Z79.01 Long term (current) use of anticoagulants; Z79.82 Long term (current) use of aspirin; Z79.899 Other long term (current) drug therapy; Z82.49 Family history of ischemic heart disease and other diseases of the circulatory system; I70.223 Atherosclerosis of native arteries of extremities with rest pain, bilateral legs; K80.20 Calculus of gallbladder without cholecystitis without obstruction; I74.09 Other arterial embolism and thrombosis of abdominal aorta; I74.5 Embolism and thrombosis of iliac artery

== ENCOUNTER 2016-05-01 13:57 | Emergency (ER) | payer OTHER, MEDICARE ==
[~2016-05-01] VITALS: Ht 152.4 cm; Wt 78.1 kg
[~2016-05-01 13:57] MED LIST changes: -ACT15 PO; +ACT30 PO; -AMOX875T PO; -CHOL100010 PO; +CHOL1TAB2 PO; -GLC5 PO; +GLIP10TA3 PO; -OMEP40CA PO; +PRLSR20 PO; +SULF800T23 PO; +VALA500T60 PO; -[UNRECOGNIZED DRUG - OTHER] PO
[2016-05-01 14:07] VITALS: TEMP 37; Ht 152.4 cm; Wt 78.1 kg
[2016-05-01] MEDS ORDERED: DiphenhydrAMINE HCL 50 MG/ML VIAL ONE (14:45)
[2016-05-01] MEDS ORDERED: METHYLPREDNISOLONE 125 MG VIAL IV STA (14:57)
[2016-05-01] MEDS ORDERED: DiphenhydrAMINE HCL 50 MG/ML VIAL IV STA (14:57)
--- NOTE | 2016-05-01 14:58 | EMERGENCY ROOM VISIT NOTE ---
History Report prepared by Kindra: Bianca Gore Under the Supervision of: Dr. Gray Aguirre M.D. First contact with patient: 14:46 Chief Complaint: ALLERGIC REACTION Stated Complaint: ALLERGIC REACTION Nursing Triage Summary: Red raised rash. History of Present Illness The patient is a 65 year old female who presents to the Emergency Room with complaints of a persistent allergic reaction that began . She currently rates her discomfort as a 4/10 in severity. The patient states that in August she had a coronary artery bypass graft done. She states that in March she began having bleeding. The patient states that she had surgery done that revealed a broken graft. She states that it was repaired on April 01, but at the beginning of April she was found to have an infected graft. The patient states that she had surgery to remove the infected graft and was placed on Levaquin. She states that the antibiotic was making her sick, so on Monday her antibiotic was switched to Bactrim. The patient states that she has been feeling nauseated since starting the Bactrim. She states that she noticed a diffuse rash that is itchy. The patient denies any trouble breathing or vomiting. She states that yesterday she had a fever of 102 degrees Fahrenheit. The patient states that she was previously on Augmentin that worked well. She denies taking any medications prior to arrival. Source of History: patient, spouse/significant other Onset: Position: other (global) Symptom Intensity: 4/10 Quality: other (allergic reaction) Timing: other (persistent) Associated Symptoms: + nausea, + rash, No SOB, No vomiting Review of Systems See HPI for pertinent positives & negatives. A total of 10 systems reviewed and were otherwise negative. Past Medical & Surgical Medical Problems: (1) Infected prosthetic vascular graft (2) PAD (peripheral artery disease) (3) surgical site bleeding (4) Vascular graft infection Old medical records were reviewed. Nurse's notes were reviewed and I agree with. Family History Hypertension FATHER Social History Smoking Status: Former Smoker Drug Use: none Marital Status: Housing Status: lives with family Occupation Status: retired Current/Historical Medications Scheduled Acetaminophen (Tylenol), 1,000 MG PO PRN Amoxicillin & Pot Clavulanate (Augmentin 875-125 mg), 875 MG PO BID Aspirin (Aspirin Ec), 81 MG PO QAM Atorvastatin (Lipitor), 40 MG PO HS Cholecalciferol (Vitamin D-3), 5,000 UNITS PO DAILY Docusate Sodium (Docusate Sodium), 100 MG PO BID Glipizide (Glucotrol), 20 MG PO BID Lisinopril (Zestril), 10 MG PO QAM Metformin Hcl (Glucophage), 1,000 MG PO BID Multivitamin (Multivitamin), 1 TAB PO QAM [place]-3 Fatty Acids (Fish Oil), 1,000 MG PO QAM Omeprazole (Prilosec), 40 MG PO BID Pioglitazone (Actos), 45 MG PO QAM Varenicline (Chantix), 1 TAB PO BID Warfarin Sod (Jantoven), 4 MG PO 2XWK Warfarin Sod (Jantoven), 2 MG PO 5XWK Scheduled PRN Oxycodone/Acetaminophen 5MG/325MG (Percocet 5MG/325MG), 1-2 TAB PO Q4H PRN for Moderate Pain Oxycodone/Acetaminophen 5MG/325MG (Percocet 5MG/325MG), 1-2 TABLETS PO Q4H PRN for Pain Valacyclovir (Valtrex), 1,000 MG PO PRN PRN for COLD SORES Allergies Coded Allergies: NO KNOWN DRUG ALLERGIES (Verified Allergy, Mild, ., 04/01/16) Nickel (Verified Allergy, Mild, RASH, 04/01/16) Levofloxacin (Unverified Allergy, Unknown, VOMITING, 05/01/16) Sulfamethoxazole w/Trimethoprim (Unverified Allergy, Unknown, HIVES,GI SYMPTOMS, 05/01/16) Physical Exam Vital Signs Date Time Temp Pulse Resp B/P Pulse Ox O2 Delivery O2 Flow Rate FiO2 05/01/16 16:18 85 18 102/61 95 05/01/16 14:11 98 Room Air 05/01/16 14:07 37.0 104 20 99/63 99 Room Air Physical Exam General: Well developed well nourished, non-ill appearing older female in no acute distress, breathing comfortably on room air. Normal speech. No respiratory distress. HEENT: Normal cephalic atraumatic. Pupils are equal round and reactive to light. Extraocular movements are intact. Oropharynx is pink with moist mucous membranes. No swelling of the mouth lips or tongue. Neck: Supple with a midline trachea. No meningeal signs or stiffness, no JVD or bruits. No Stridor. Chest: Clear to auscultation bilaterally. No wheezes or rhonchi. No increased work of breathing. Heart: regular rate and rhythm. Abdomen: Right groin area intact aisha without red or warmth. Wound vac that is intact without redness. Soft nontender, nondistended without rebound guarding or rigidity. Extremities: Distally 1+ lower extremity edema bilaterally. No cyanosis clubbing. No calf tenderness or assymetry Spine/Back. Non tender to palpation. No CVA tenderness Skin: Diffuse red, circular rash mostly on torso and extremities. Does not include mucous membranes, palms, or soles. Good turgor. Neurologic exam: Normal motor and sensation functions. Cranial nerves two through 12 are intact. Motor and sensation are intact and symmetrical throughout. Medical Decision & Procedures Laboratory Results 05/01/16 14:35 Red Blood Count 4.17, Mean Corpuscular Volume 78.4, Mean Corpuscular Hemoglobin 26.4, Mean Corpuscular Hemoglobin Concent 33.6, Mean Platelet Volume 8.8, Neutrophils (%) (Auto) 64.4, Lymphocytes (%) (Auto) 23.2, Monocytes (%) (Auto) 4.5, Eosinophils (%) (Auto) 6.9, Basophils (%) (Auto) 0.5, Neutrophils # (Auto) 3.84, Lymphocytes # (Auto) 1.38, Monocytes # (Auto) 0.27, Eosinophils # (Auto) 0.41, Basophils # (Auto) 0.03 05/01/16 14:35 Test 05/01/16 14:35 White Blood Count 5.96 K/uL (4.8-10.8) Red Blood Count 4.17 M/uL (4.2-5.4) Hemoglobin 11.0 g/dL (12.0-16.0) Hematocrit 32.7 % (37-47) Mean Corpuscular Volume 78.4 fL (80-100) Mean Corpuscular Hemoglobin 26.4 pg (25-34) Mean Corpuscular Hemoglobin Concent 33.6 g/dl (32-36) Platelet Count 215 K/uL (130-400) Mean Platelet Volume 8.8 fL (7.4-10.4) Neutrophils (%) (Auto) 64.4 % Lymphocytes (%) (Auto) 23.2 % Monocytes (%) (Auto) 4.5 % Eosinophils (%) (Auto) 6.9 % Basophils (%) (Auto) 0.5 % Neutrophils # (Auto) 3.84 K/uL (1.4-6.5) Lymphocytes # (Auto) 1.38 K/uL (1.2-3.4) Monocytes # (Auto) 0.27 K/uL (0.11-0.59) Eosinophils # (Auto) 0.41 K/uL (0-0.5) Basophils # (Auto) 0.03 K/uL (0-0.2) RDW Standard Deviation 47.3 fL (36.4-46.3) RDW Coefficient of Variation 16.3 % (11.5-14.5) Immature Granulocyte % (Auto) 0.5 % Immature Granulocyte # (Auto) 0.03 K/uL (0.00-0.02) Echinocytes 1+ Anion Gap 15.0 mmol/L (3-11) Est Creatinine Clear Calc Drug Dose 51.8 ml/min Estimated GFR () 68.5 Estimated GFR (Non- 59.1 BUN/Creatinine Ratio 13.7 (10-20) Calcium Level 8.3 mg/dl (8.5-10.1) Laboratory studies as stated above per my review. Medications Administered Medications (Trade) Dose Ordered Sig/Shira Route Start Time Stop Time Status Last Admin Dose Admin Methylprednisolone Sodium Succinate (Solu-Medrol IV) 125 mg NOW STAT IV 05/01/16 14:57 05/01/16 15:00 DC 05/01/16 15:12 125 MG Diphenhydramine HCl (Benadryl Inj) 25 mg ONE STAT IV 05/01/16 14:57 05/01/16 15:00 DC 05/01/16 15:13 25 MG Amoxicillin/ Clavulanate Potassium (Augmentin 875MG Home Pack) 1 homepack UD ONCE PO 05/01/16 16:15 05/01/16 16:16 DC 05/01/16 16:16 1 HOMEPACK ED Course 1447: Past medical records reviewed. The patient was evaluated in room B11A, and a complete history and physical examination were performed. 1457: Ordered Benadryl Inj 25 mg IV, Solu-Medrol IV 12 mg IV. 1615: Ordered Augmentin 875 mg Homepack 1 homepack PO. 1528: I reevaluated the patient and she is doing well. 1546: I reevaluated the patient and pulses are Doppler bilateral, feet are pink and symmetrical. 1549: I discussed the patients case with Dr. Morgan, Vascular Surgery. He agrees with the treatment plan. 1605: I reevaluated the patient and she is resting comfortably. I discussed all the exam findings with her and I discussed the treatment plan. She verbalized complete understanding and agreement. She is ready to go home. Medical Decision Differentials include, but are not limited to; allergic reaction, infection, vascular disease, electrolyte or metabolic abnormalities. Patient comes in with an itchy rash mostly on her torso. Most likely this is from her Bactrim. She has no evidence of airway compromise or anaphylaxis in this is been going on for a couple days. IV access established and she was given Benadryl 25 mg IV and Solumdroll 125 mg IV and was feeling better and asking to go home . she has no significant elevation of her white count or any significant electrolyte or metabolic abnormalities. Her graft site does appear to be healing adequately. I reviewed her records and the culture was [place] sensitive. I will switch her back to Augmentin 875 mg as she's done well with this in the past and she has appointment Dr. Morgan tomorrow and she can follow- up with him for further recommendations. I did discuss the case on the phone Dr. Morgan who agrees with the plan. The patient was told that she is likely allergic to Bactrim and sulfa and do not take this medication unless she gets rechecked and cleared by an information services tech. She can use Benadryl if as directed for itching but was warned there could make her drowsy do not take before drinking, driving, working. She should return if worsening symptoms, problems with the wound, shortness of breath, any new problems or concerns Consults Time Called: 154 Consulting Physician: Dr. Morgan, Vascular Surgery Returned Call: [phone] I discussed the patients case with Dr. Morgan, Vascular Surgery. He agrees with the treatment plan. Impression Primary Impression: Allergic reaction Additional Impression: Post op infection Scribe Attestation The scribe's documentation has been prepared under my direction and personally reviewed by me in its entirety. I confirm that the note above accurately reflects all work, treatment, procedures, and medical decision making performed by me. Departure Information Dispostion Home / Self-Care Prescriptions Amoxicillin & Pot Clavulanate (Augmentin 875-125 mg) 1 Tab Tab 875 MG PO BID for 7 Days, #14 TAB Prov: Gray Aguirre M.D. 05/01/16 Referrals Tam Rosario M.D. (PCP) Forms HOME CARE DOCUMENTATION FORM, IMPORTANT VISIT INFORMATION Patient Instructions My [facility] Additional Instructions Rest Drink plenty of fluids STOP THE BACTRIM- YOU ARE ALLERGIC TO SULFA/BACTRIM Start Augmentin 875 mg twice a day for [address] Morgan tomorrow, keep your appointment. Return if: Problems with the wound, redness, pus, fever, drainage, any new problems or concerns Use Benadryl 25 mg every 8 hours if needed for rash or itching. Benadryl may make you drowsy and do not take for drinking, driving, working. Be very careful getting up and down after taking. Problem Qualifiers
[2016-05-01 15:05] LABS: HEMATOCRIT 32.7 % (37-47); MEAN CELL VOLUME 78.4 fL (80-100); MEAN CORPUSCULAR HEMOGLOBIN 26.4 pg (25-34); MEAN CORPUSCULAR HGB CONC 33.6 g/dl (32-36); MEAN PLATELET VOLUME 8.8 fL (7.4-10.4); PLATELET COUNT 215 K/uL (130-400); RED BLOOD COUNT 4.17 M/uL (4.2-5.4); WHITE BLOOD COUNT 5.96 K/uL (4.8-10.8)
[2016-05-01 15:18] LABS: BUN/CREATININE RATIO 13.7 (10-20); CALCIUM 8.3 mg/dl (8.5-10.1); POTASSIUM 3.2 mmol/L (3.5-5.1)
[2016-05-01 15:30] LABS: BASO % 0.5 %; BASO ABS # 0.03 K/uL (0-0.2); COMPLETE YES; ECHINOCYTES 1+; EOS % 6.9 %; IG% 0.5 %; LYMPH % 23.2 %; LYMPH ABS # 1.38 K/uL (1.2-3.4); MONO % 4.5 %; NEUT % 64.4 %
[2016-05-01] MEDS ORDERED: AMOX875T PO (16:03)
[2016-05-01] MEDS ORDERED: AMOXICIL/CLAVU 875MG HOME PACK PO ONE (16:15)
[2016-05-01 16:18] VITALS: BP 102/61; PULSE 85; O2SAT 95
[2016-05-03] MEDS ORDERED: CEFD1CAP14 PO (13:53)
[2016-05-20] MEDS ORDERED: AMOX500T PO (10:39)
[2016-07-21] MEDS ORDERED: WARF4TAB8 PO (09:32)
[2016-07-21] MEDS ORDERED: AMOX500T PO (09:32)
[2016-11-11] MEDS ORDERED: METO1TAB31 PO (15:36)
== END 2016-05-01 16:20 | disposition home or self-care (01) ==
LOC: C.EDB 13:58
DX: T78.40XA Allergy, unspecified, initial encounter (principal); T37.0X5A Adverse effect of sulfonamides, initial encounter; T81.4XXA Infection following a procedure, initial encounter; Y83.2 Surgical operation with anastomosis, bypass or graft as the cause of abnormal reaction of the patient, or of later complication, without mention of misadventure at the time of the procedure; I73.9 Peripheral vascular disease, unspecified; Z95.1 Presence of aortocoronary bypass graft; Z87.891 Personal history of nicotine dependence; Z88.1 Allergy status to other antibiotic agents; Z88.2 Allergy status to sulfonamides; Z79.01 Long term (current) use of anticoagulants; Z79.82 Long term (current) use of aspirin; Z79.84 Long term (current) use of oral hypoglycemic drugs; Z79.899 Other long term (current) drug therapy; Z82.49 Family history of ischemic heart disease and other diseases of the circulatory system

== ENCOUNTER → 2016-08-05 | Outpatient (CLI) | payer OTHER, MEDICARE ==
[~2016-08-05] MED LIST changes: +ACT/45 PO; +AMOX500T PO; -CHN/1 PO; +CHOL1TAB42 PO; +METO-478 PO; +OMEP40CA41 PO; -SULF800T23 PO; +TPRSR/25 PO; -WARF2TAB8 PO
[2016-08-05 11:57] LABS: BASO % 0.8 %; BASO ABS # 0.05 K/uL (0-0.2); COMPLETE YES; EOS % 1.9 %; HEMATOCRIT 37.9 % (37-47); IG% 0.2 %; LYMPH % 31.9 %; LYMPH ABS # 1.97 K/uL (1.2-3.4); MEAN CELL VOLUME 82.6 fL (80-100); MEAN CORPUSCULAR HEMOGLOBIN 26.4 pg (25-34); MEAN CORPUSCULAR HGB CONC 31.9 g/dl (32-36); MEAN PLATELET VOLUME 9.4 fL (7.4-10.4); MONO % 5.7 %; NEUT % 59.5 %; PLATELET COUNT 308 K/uL (130-400); RED BLOOD COUNT 4.59 M/uL (4.2-5.4); WHITE BLOOD COUNT 6.17 K/uL (4.8-10.8)
[2016-08-05 11:58] LABS: ESTIMATED AVERAGE GLUCOSE 146 mg/dl; HA1C FLAG Normal (Normal)
[2016-08-05 12:15] LABS: ALT/SGPT 44 U/L (12-78); AST/SGOT 31 U/L (15-37); BLOOD UREA NITROGEN 14 mg/dl (7-18); BUN/CREATININE RATIO 19.7 (10-20); CARBON DIOXIDE 25 mmol/L (21-32); CHLORIDE 107 mmol/L (98-107); CHOLESTEROL 178 mg/dl (0-200); GLUCOSE 131 mg/dl (70-99); POTASSIUM 4.1 mmol/L (3.5-5.1); SODIUM 142 mmol/L (136-145); TRIGLYCERIDES 121 mg/dl (0-150); VERY LOW DENSITY LIPOPROT CALC 24 mg/dl
[2016-08-05 12:21] LABS: CALCIUM 9.3 mg/dl (8.5-10.1)
[2016-08-05 12:25] LABS: ALB/GLOB RATIO 0.9 (0.9-2); ALKALINE PHOSPHATASE 78 U/L (45-117); CHOLESTEROL/HDL RATIO 2.6; HDL CHOLESTEROL 69 mg/dl; LDL CHOLESTEROL CALCULATED 85 mg/dl
== END | disposition home or self-care (01) ==
LOC: C.LABBFT 10:50
PROVIDERS: ATTEND Internal Medicine
DX: E11.9 Type 2 diabetes mellitus without complications (principal); D72.829 Elevated white blood cell count, unspecified

== ENCOUNTER → 2016-09-06 | Outpatient (CLI) | payer OTHER, MEDICARE ==
[~2016-09-06] MED LIST changes: -ACT/45 PO; -CHOL1TAB42 PO; -METO-478 PO; -OMEP40CA41 PO; -TPRSR/25 PO
[2016-09-06 12:50] LABS: THYROID STIMULATING HORMONE 4.08 uIu/ml (0.300-4.500)
== END | disposition home or self-care (01) ==
LOC: C.LABBFT 10:39
PROVIDERS: ATTEND Physician Assistant Medical
DX: R94.6 Abnormal results of thyroid function studies (principal)

== ENCOUNTER → 2016-10-20 | Outpatient (CLI) | payer OTHER, MEDICARE ==
[~2016-10-20] MED LIST changes: +ACT/45 PO; +CHOL1TAB42 PO; +METO1TAB31 PO; +OMEP40CA41 PO; +TPRSR/25 PO
--- NOTE | 2016-10-20 10:56 | DIAGNOSTIC IMAGING REPORT ---
(CHEST) THORAX WITHOUT CT DOSE: HISTORY: infected bypass graft TECHNIQUE: Multiaxial CT images of the chest were performed without contrast. A dose lowering technique was utilized adhering to the principles of ALARA. COMPARISON: Chest CTA 04/12/2016. FINDINGS: Study was performed without intravenous contrast due to the fact that intravenous access was unable to be obtained. Small amount of mucoid material within the trachea. No pleural effusions. No pneumothorax. Mild emphysema. Linear density at the base of the right middle lobe and lingula favor subsegmental atelectasis. A few tiny nodular densities within the right upper lobe anteriorly measuring up to 2 mm. These are of doubtful clinical significance. No new focal lung consolidations. No fractures within the visualized osseous structures. Surgical clips in the right axilla from the right axillary bypass graft. There is no surrounding inflammatory change within the visualized graft at the right lateral chest. No loculated fluid collections identified. There are few small gallstones. No mediastinal or hilar lymphadenopathy. The heart is normal in size. Moderate calcified plaque within the aortic arch. Normal caliber thoracic aorta. IMPRESSION: 1. Redemonstration of the patient's right axillary bypass graft. Evaluation for patency is nondiagnostic due to the lack of intravenous contrast. There is no surrounding inflammatory change. 2. Cholelithiasis. 3. Emphysema. 4. A few tiny nodular densities within the right upper lobe which are of doubtful clinical significance. Electronically signed by: Keith Sanchez M.D. 10/20/2016 10:55 AM Dictated Date/Time: 10/20/2016 10:49 AM
--- NOTE | 2016-10-20 11:30 | DIAGNOSTIC IMAGING REPORT ---
ABD/PELVIS NO IV OR ORAL CONT HISTORY: 66 years-old Female infected graft patient presents with an bifemoral bypass graft with right groin pain COMPARISON: CTA 04/12/2016 TECHNIQUE: Multiple axial CT images of the abdomen and pelvis were obtained without the use of IV contrast. A dose lowering technique was used consistent with the principals of CATY. FINDINGS: The lung bases are generally clear. There is a small left Bochdalek hernia. There is no pneumoperitoneum. Imaged inferior cardiac chambers are within normal limits with a small pericardial effusion. Coronary arterial calcifications are present. Layering gallstones are seen within the gallbladder lumen. The liver, pancreas and right adrenal gland are unremarkable. There is mild nodular thickening of the left adrenal gland measuring up to 8 x 7 mm suggesting adenoma. Ill-defined linear area of low attenuation within the mid spleen, 0.7 cm is nonspecific and likely benign. Kidneys, ureters and urinary bladder are unremarkable. Calcified fibroid of the left uterus measures up to 8 mm. There is extensive atherosclerosis of the abdominal aorta and iliac vasculature. Aorto right femoral stent graft is again noted. Additionally, right axillary bifemoral bypass graft is again noted with moderate amount of stranding noted along its course within the right inguinal region. The graft extending to the right femoral artery appears to have been removed. No drainable fluid collection is identified. The right upper thigh musculature is within normal limits. Violation of the bony structures demonstrates no acute bony abnormality. Proximal right femur appears intact. There is mild convex left curvature of the lumbar spine with degenerative changes seen throughout the spine. IMPRESSION: 1. Right axillary left femoral bypass graft is again noted with moderate stranding adjacent to the graft in the region of the right upper groin region. This appears unchanged from comparison study without drainable collection or abscess identified. 2. No acute bony abnormality is identified. 3. Cholelithiasis. 4. Additional incidental findings as above. The above report was generated using voice recognition software. It may contain grammatical, syntax or spelling errors. Electronically signed by: Jeremias Altamirano M.D. 10/20/2016 11:29 AM Dictated Date/Time: 10/20/2016 11:19 AM
== END | disposition home or self-care (01) ==
LOC: C.CTS 08:14
PROVIDERS: ATTEND Surgery Vascular Surgery
DX: T82.7XXA Infection and inflammatory reaction due to other cardiac and vascular devices, implants and grafts, initial encounter (principal); Y83.1 Surgical operation with implant of artificial internal device as the cause of abnormal reaction of the patient, or of later complication, without mention of misadventure at the time of the procedure; K80.20 Calculus of gallbladder without cholecystitis without obstruction; J43.9 Emphysema, unspecified

== ENCOUNTER 2016-11-09 17:07 | Observation (INO) | payer OTHER, MEDICARE ==
[~2016-11-09] VITALS: Ht 152.4 cm; Wt 81.5 kg
[~2016-11-09 17:07] MED LIST changes: -ACT/45 PO; -CHOL1TAB42 PO; -METO1TAB31 PO; -OMEP40CA41 PO; -TPRSR/25 PO
[2016-11-09] MEDS ORDERED: SODIUM CHLORIDE 0.9% 1000ML 500 ML IV STA (17:21)
[2016-11-09] MEDS ORDERED: METOPROLOL TARTRATE 1 MG/ML VIAL IV STA (17:21)
--- NOTE | 2016-11-09 17:31 | EMERGENCY ROOM VISIT NOTE ---
History Report prepared by Kindra: Mckinley Jones Under the Supervision of: Dr. Arthur Oliva M.D. First contact with patient: 17:13 Chief Complaint: CHEST PAIN Stated Complaint: FLUTTERING IN CHEST AND PAIN History of Present Illness The patient is a 66 year old female with diabetes who presents to the Emergency Room with complaints of persistent fluttering in her chest that started 4 days ago. She was referred here by Dr. Morgan. She says that she has been getting intermittent chest pain as well, that goes up to a 6 out of 10 in severity. The patient states that the pain is worsened with "doing things" and is lessened by rest. She notes that sometimes the pain takes her breath away, and she has been short of breath. She denies any fevers, cough, nausea, or sweating. The patient adds that she is on Warfarin, as she has peripheral artery disease. She went to the anticoagulant clinic today, and her INR was up to 3.4. She was told to hold the Warfarin today, and to start taking it normally again tomorrow. The patient says that she had a piece of her bypass graft in her groin removed in April, and in August, the area started draining, and she was put on Augmentin for several months. She states that over a week ago, a culture was done which showed that there was an infection, so she was put on Cipro. She has been on the Cipro for 9 days and the area is still seeping. The patient notes that she has no history of clots in her leg or lung, and she has no history of heart attacks. The patient adds that her left leg has been chronically swollen since the surgery in April. She last had a stress test "quite some time ago". The patient takes 81 mg Aspirin daily. Source of History: patient Onset: 4 days ago Position: chest Quality: other (fluttering) Timing: other (persistent) Associated Symptoms: + chest pain (worsened with "doing things", relieved by rest), + SOB, No fevers, No diaphoresis, No cough, No nausea Review of Systems See HPI for pertinent positives & negatives. A total of 10 systems reviewed and were otherwise negative. Past Medical & Surgical Medical Problems: (1) Infected prosthetic vascular graft (2) PAD (peripheral artery disease) (3) surgical site bleeding (4) Vascular graft infection Family History Hypertension FATHER Social History Smoking Status: Former Smoker Drug Use: none Marital Status: Housing Status: lives with family Occupation Status: retired Current/Historical Medications Scheduled Acetaminophen (Tylenol), 1,000 MG PO PRN Amoxicillin & Pot Clavulanate (Augmentin 500MG), 250 MG PO BID Aspirin (Aspirin Ec), 81 MG PO QAM Atorvastatin (Lipitor), 40 MG PO HS Cholecalciferol (Vitamin D-3), 5,000 UNITS PO DAILY Docusate Sodium (Docusate Sodium), 100 MG PO BID Glipizide (Glucotrol), 20 MG PO BID Lisinopril (Zestril), 10 MG PO QAM Metformin Hcl (Glucophage), 1,000 MG PO BID Multivitamin (Multivitamin), 1 TAB PO QAM Rector-3 Fatty Acids (Fish Oil), 1,000 MG PO QAM Omeprazole (Prilosec), 40 MG PO BID Pioglitazone (Actos), 45 MG PO QAM Warfarin Sod (Jantoven), 4 MG PO 6XWK Warfarin Sod (Jantoven), 2 MG PO WK Scheduled PRN Oxycodone/Acetaminophen 5MG/325MG (Percocet 5MG/325MG), 1-2 TAB PO Q4H PRN for Moderate Pain Valacyclovir (Valtrex), 1,000 MG PO PRN PRN for COLD SORES Allergies Coded Allergies: Nickel (Verified Allergy, Mild, RASH, 11/09/16) Levofloxacin (Verified Allergy, Unknown, VOMITING, 11/09/16) Sulfamethoxazole w/Trimethoprim (Verified Allergy, Unknown, HIVES,GI SYMPTOMS, 11/09/16) Physical Exam Vital Signs Date Time Temp Pulse Resp B/P (MAP) Pulse Ox O2 Delivery O2 Flow Rate FiO2 11/09/16 17:52 88 18 145/73 95 Room Air 11/09/16 17:43 96 Room Air 11/09/16 17:42 104 120/78 11/09/16 17:39 100 16 120/78 98 Room Air 11/09/16 17:34 98 Room Air 11/09/16 17:26 112 11/09/16 17:11 37.2 132 20 155/84 97 Room Air Physical Exam GENERAL: Patient is in no acute distress. HEENT: No acute trauma, normocephalic atraumatic, mucous membranes moist, no nasal congestion, no scleral icterus. NECK: No stridor, no adenopathy, no meningismus, trachea is midline. LUNGS: Clear to auscultation bilaterally, no wheeze, no rhonchi, breath sounds equal. HEART: Tachycardic with a regular rhythm and a 2/6 systolic murmur. ABDOMEN: Soft, nontender, bowel sounds positive, no hernias, no peritonitis. EXTREMITIES: Left more-so than right pedal edema. No active cellulitis, no contusions. There is a dressing in place in the right groin. NEUROLOGIC: Oriented x 3, no acute motor or sensory deficits, no focal weakness. SKIN: No rash, no jaundice, no diaphoresis. Medical Decision & Procedures ER Provider Diagnostic Interpretation: X-ray results as stated below per interpretation by me and the radiologist: CHEST ONE VIEW PORTABLE CLINICAL HISTORY: Atypical chest pain COMPARISON STUDY: 03/30/2016 FINDINGS: The cardiac and mediastinal contours are normal. There is no evidence of focal pulmonary consolidation. There is no evidence of failure. No pleural effusions are visualized.[ IMPRESSION: No active disease in the chest. Electronically signed by: Duarte Fontana M.D. 11/09/2016 5:45 PM Dictated Date/Time: 11/09/2016 5:44 PM Laboratory Results 11/09/16 17:40 11/09/16 17:40 Test 11/09/16 17:40 Red Blood Count 4.16 M/uL (4.2-5.4) Mean Corpuscular Volume 82.7 fL (80-100) Mean Corpuscular Hemoglobin 26.0 pg (25-34) Mean Corpuscular Hemoglobin Concent 31.4 g/dl (32-36) RDW Standard Deviation 45.4 fL (36.4-46.3) RDW Coefficient of Variation 15.1 % (11.5-14.5) Mean Platelet Volume 8.5 fL (7.4-10.4) Prothrombin Time 33.5 SECONDS (9.0-12.0) Prothromb Time International Ratio 3.0 (0.9-1.1) Activated Partial Thromboplast Time 41.1 SECONDS (21.0-31.0) Partial Thromboplastin Ratio 1.6 Anion Gap 6.0 mmol/L (3-11) Est Creatinine Clear Calc Drug Dose 73.7 ml/min Estimated GFR () 96.3 Estimated GFR (Non- 83.1 BUN/Creatinine Ratio 15.5 (10-20) Calcium Level 8.9 mg/dl (8.5-10.1) Magnesium Level 1.2 mg/dl (1.8-2.4) Total Bilirubin 0.2 mg/dl (0.2-1) Aspartate Amino Transf (AST/SGOT) 23 U/L (15-37) Alanine Aminotransferase (ALT/SGPT) 20 U/L (12-78) Alkaline Phosphatase 82 U/L (45-117) Total Creatine Kinase 59 U/L (26-192) Creatine Kinase MB 1.8 ng/ml (0.5-3.6) Creatine Kinase MB Ratio 3.1 (0-3.0) Troponin I < 0.015 ng/ml (0-0.045) Total Protein 7.2 gm/dl (6.4-8.2) Albumin 3.1 gm/dl (3.4-5.0) Globulin 4.1 gm/dl (2.5-4.0) Albumin/Globulin Ratio 0.8 (0.9-2) Thyroid Stimulating Hormone (TSH) 4.130 uIu/ml (0.300-4.500) Laboratory results reviewed by me. Medications Administered Medications (Trade) Dose Ordered Sig/Shira Route Start Time Stop Time Status Last Admin Dose Admin Sodium Chloride 500 ml @ 999 mls/hr Q31M STAT IV 11/09/16 17:21 11/09/16 17:51 DC 11/09/16 17:43 999 MLS/HR Metoprolol Tartrate (Lopressor Iv) 10 mg NOW STAT IV 11/09/16 17:21 11/09/16 17:24 DC 11/09/16 17:42 10 MG ECG Indication: chest pain Rate (beats per minute): 112 Rhythm: sinus tachycardia Findings: no acute ischemic change, no ectopy ED Course 1714: The patient was evaluated in room C12B. A complete history and physical exam was performed. 172: Ordered Lopressor IV 10 mg IV, NSS 500 ml @ 999 mls/hr IV. 1830: Ordered Magnesium Sulfate 2 gm IV. 1833: Upon reexamination the patient is resting. I discussed results and treatment plan with the patient. She verbalizes agreement and understanding. The patient will be evaluated for further management. 1839: I discussed the patient with Dr. Kimberly BRAXTON hospitalist - he will evaluate the patient for further treatment. Medical Decision Differential diagnosis includes but is not limited to DC, angina, dysrhythmia, atrial fibrillation or atrial flutter, electrolyte imbalance, anemia, medication reaction, CHF, PE, pneumonia. There is no leukocytosis. A mild anemia is present. Chemistry testing shows a magnesium low at 1.2. No kidney failure. No hepatitis. INR is elevated consistent with her Coumadin use. The patient appears to be in a euthyroid state. Chest film does not show CHF, pneumonia or mediastinal widening. EKG shows sinus tachycardia, no acute ischemia. Cardiac enzyme testing times one is not consistent with acute cardiac injury. The patient received IV saline, she was given IV Lopressor, 10 mg in total. Her heart rate is now in the 80s. She received a dose of oral Lopressor. Because of the low magnesium value, IV magnesium was ordered, 2 g. The patient presents with exertional chest pain and dyspnea. She has cardiac risk factors. She is hypomagnesemic. She presents tachycardic. I do think a hospital stay is required. I spoke to the patient and case management. The on- call hospitalist was consulted. Medication Reconcilliation Current Medication List: was personally reviewed by me Blood Pressure Screening Patient's blood pressure: Elevated blood pressure Blood pressure disposition: Elevated BP felt to be situational Consults Time Called: 1837 Consulting Physician: Dr. Kimberly BRAXTON [facility] Returned Call: 1839 I discussed the patient with Dr. Kimberly BRAXTON hospitalist - he will evaluate the patient for further treatment. Impression Primary Impression: Precordial chest pain Additional Impressions: Tachycardia Hypomagnesemia Scribe Attestation The scribe's documentation has been prepared under my direction and personally reviewed by me in its entirety. I confirm that the note above accurately reflects all work, treatment, procedures, and medical decision making performed by me. Departure Information Dispostion Being Evaluated By Hospitalist Referrals No Doctor, Assigned (PCP) Patient Instructions [facility] Problem Qualifiers
--- NOTE | 2016-11-09 17:46 | DIAGNOSTIC IMAGING REPORT ---
CHEST ONE VIEW PORTABLE CLINICAL HISTORY: Atypical chest pain COMPARISON STUDY: 03/30/2016 FINDINGS: The cardiac and mediastinal contours are normal. There is no evidence of focal pulmonary consolidation. There is no evidence of failure. No pleural effusions are visualized.[ IMPRESSION: No active disease in the chest. Electronically signed by: Duarte Fontana M.D. 11/09/2016 5:45 PM Dictated Date/Time: 11/09/2016 5:44 PM
[2016-11-09 17:54] LABS: HEMATOCRIT 34.4 % (37-47); MEAN CELL VOLUME 82.7 fL (80-100); MEAN CORPUSCULAR HGB CONC 31.4 g/dl (32-36); MEAN PLATELET VOLUME 8.5 fL (7.4-10.4); PLATELET COUNT 359 K/uL (130-400); RED BLOOD COUNT 4.16 M/uL (4.2-5.4); WHITE BLOOD COUNT 8.43 K/uL (4.8-10.8)
[2016-11-09 18:05] LABS: PARTIAL THROMBOPLASTIN RATIO 1.6; PROTHROMBIN TIME (PATIENT) 33.5 SECONDS (9.0-12.0)
[2016-11-09 18:13] LABS: ALT/SGPT 20 U/L (12-78); BLOOD UREA NITROGEN 12 mg/dl (7-18); BUN/CREATININE RATIO 15.5 (10-20); CALCIUM 8.9 mg/dl (8.5-10.1); CARBON DIOXIDE 28 mmol/L (21-32); CHLORIDE 108 mmol/L (98-107); CREATININE 0.75 mg/dl (0.60-1.20); GLUCOSE 191 mg/dl (70-99); MAGNESIUM 1.2 mg/dl (1.8-2.4); POTASSIUM 4.1 mmol/L (3.5-5.1); SODIUM 142 mmol/L (136-145)
[2016-11-09 18:24] LABS: ALB/GLOB RATIO 0.8 (0.9-2); ALKALINE PHOSPHATASE 82 U/L (45-117); AST/SGOT 23 U/L (15-37); CKMB/CK RATIO 3.1 (0-3.0)
[2016-11-09] MEDS ORDERED: MAGNESIUM SULFATE 1GM / D5W 1 GM BAG IV STA (18:30)
[2016-11-09] MEDS ORDERED: METOPROLOL TARTRATE 50 MG TAB PO STA (18:40)
[2016-11-09] MEDS ORDERED: NITROGLYCERIN 0.4 MG SL PER TAB CHARGE SL PRN (19:00)
[2016-11-09] MEDS ORDERED: METOPROLOL TARTRATE 1 MG/ML VIAL IV PRN (19:00)
[2016-11-09] MEDS ORDERED: DEXTROSE 50% 50 ML SYR IV PRN (19:00)
[2016-11-09] MEDS ORDERED: GLUCAGON FOR INJ 1 MG VIAL SQ PRN (19:00)
[2016-11-09] MEDS ORDERED: ONDANSETRON INJ 2 MG/ML 2 ML VIAL IV PRN (19:00)
[2016-11-09] MEDS ORDERED: GLUCOSE 40% GEL 15 GM TUBE PO PRN (19:00)
[2016-11-09] MEDS ORDERED: MAGNESIUM SULFATE 1GM / D5W 1 GM IV STA (19:00)
[2016-11-09] MEDS ORDERED: OXYCODONE/ACETAMINOPHEN 5-325 TAB PO PRN (19:00)
[2016-11-09] MEDS ORDERED: ACETAMINOPHEN 325 MG TAB PO PRN (19:00)
[2016-11-09] MEDS ORDERED: GLUCOSE 10 TABS/TUBE PO PRN (19:00)
[2016-11-09] MEDS ORDERED: ZOLPIDEM TARTRATE 5 MG TAB PO PRN (19:00)
[2016-11-09] MEDS ORDERED: IV FLUIDS COMPLETED PRN (19:45)
--- NOTE | 2016-11-09 20:24 | History and Physical ---
History & Physical Date & Time of Service: Nov 09, 2016 at 20:08 Chief Complaint: Fluttering In Chest And Pain Primary Care Physician: Tam Rosario M.D. History of Present Illness Source: patient ( ) The patient is a 66-year-old female who has a known history of severe PAD and underwent a vascular procedure by Dr. Morgan in April, who is referred by him to the emergency department due to fluttering in her chest that started about 4 days prior to arrival. She's had intermittent chest pain over the past 3 months, that would typically occur with activity, and resolved with rest. However, the pain this time has occurred when the fluttering is been occurring. She is presently on warfarin, and follows at the anticoagulation clinic where her INR was 3.4 today, and was told her hold her warfarin dose today. She reports that part of her bypass grafts in her groin was removed in April, and in August the started draining, and recently was put on Cipro after having been on Augmentin for several months. She is on Cipro for 9 days at this point , and reports that the area still seeping. She reports that her left leg is been chronically swollen since surgery in April. She had a stress test done several years ago. She takes aspirin 81 mg daily. Family History Hypertension FATHER Social History Smoking Status: Former Smoker Smokeless Tobacco Use: No Alcohol Use: none Drug Use: none Marital Status: Housing status: lives with family Occupational Status: retired Immunizations History of Influenza Vaccine: Unknown History of Tetanus Vaccine?: Unknown History of Pneumococcal: Unknown History of Hepatitis B Vaccine: Unknown Multi-Drug Resistant Organisms History of MDRO: No Allergies Coded Allergies: Sulfamethoxazole w/Trimethoprim (Verified Allergy, Intermediate, HIVES,GI SYMPTOMS, 11/09/16) Nickel (Verified Allergy, Mild, RASH, 11/09/16) Levofloxacin (Verified Adverse Reaction, Mild, VOMITING, 11/09/16) Home Medications Scheduled Acetaminophen (Tylenol), 1,000 MG PO PRN Amoxicillin & Pot Clavulanate (Augmentin 500MG), 250 MG PO BID Aspirin (Aspirin Ec), 81 MG PO QAM Atorvastatin (Lipitor), 40 MG PO HS Cholecalciferol (Vitamin D-3), 5,000 UNITS PO DAILY Docusate Sodium (Docusate Sodium), 100 MG PO BID Glipizide (Glucotrol), 20 MG PO BID Lisinopril (Zestril), 10 MG PO QAM Metformin Hcl (Glucophage), 1,000 MG PO BID Multivitamin (Multivitamin), 1 TAB PO QAM Iona-3 Fatty Acids (Fish Oil), 1,000 MG PO QAM Omeprazole (Prilosec), 40 MG PO BID Pioglitazone (Actos), 45 MG PO QAM Warfarin Sod (Jantoven), 4 MG PO 6XWK Warfarin Sod (Jantoven), 2 MG PO WK Scheduled PRN Oxycodone/Acetaminophen 5MG/325MG (Percocet 5MG/325MG), 1-2 TAB PO Q4H PRN for Moderate Pain Valacyclovir (Valtrex), 1,000 MG PO PRN PRN for COLD SORES Review of Systems The patient denies cough, vision change, hearing change, sore throat, fevers, chills, sweats, weight change, fatigue, nausea, vomiting, diarrhea or constipation, abdominal pain, pelvic pain, blood in urine or stool, dysuria, urinary frequency or urgency, lightheadedness, dizziness, headache, memory loss , abnormal bruising or bleeding, generalized arthralgias or myalgias, back or neck pain, night sweats, or allergy symptoms. The review of systems is otherwise negative other than for that already noted above, and at least 10 systems have been reviewed. Physical Exam Vital Signs Date Time Temp Pulse Resp B/P (MAP) Pulse Ox O2 Delivery O2 Flow Rate FiO2 11/09/16 19:06 77 18 131/83 96 11/09/16 17:52 88 18 145/73 95 Room Air 11/09/16 17:43 96 Room Air 11/09/16 17:42 104 120/78 11/09/16 17:39 100 16 120/78 98 Room Air 11/09/16 17:34 98 Room Air 11/09/16 17:26 112 11/09/16 17:11 37.2 132 20 155/84 97 Room Air The patient is awake, alert and oriented 3, normocephalic and atraumatic, looks chronically ill, lying in bed and in no acute distress. HEENT--PERRL, EOMI, mucous membranes and oropharynx dry. Neck--supple, no JVD or bruits, thyroid normal, trachea midline, no adenopathy. Heart--normal S1 and S2, no extra beats, no murmurs, rubs or gallops. Lungs--clear bilaterally but decreased throughout, no respiratory distress, no accessory muscle use. Abdomen--normal bowel sounds and soft, nontender and nondistended, no hernias or masses, no organomegaly. Extremities--right lower extremity no cyanosis, clubbing or edema. Left lower extremity with 3+ pitting edema. Dermatologic--normal skin turgor, normal color, warm and dry, no abnormal lymph nodes, no rash. Neurologic--cranial nerves II through XII grossly intact, motor and sensory examination normal. Rheumatologic--nontender Psychiatric--normal affect. Diagnostics Laboratory Results Results Past 24 Hours Test 11/09/16 17:40 Range/Units White Blood Count 8.43 4.8-10.8 K/uL Red Blood Count 4.16 4.2-5.4 M/uL Hemoglobin 10.8 12.0-16.0 g/dL Hematocrit 34.4 37-47 % Mean Corpuscular Volume 82.7 80-100 fL Mean Corpuscular Hemoglobin 26.0 25-34 pg Mean Corpuscular Hemoglobin Concent 31.4 32-36 g/dl RDW Standard Deviation 45.4 36.4-46.3 fL RDW Coefficient of Variation 15.1 11.5-14.5 % Platelet Count 359 130-400 K/uL Mean Platelet Volume 8.5 7.4-10.4 fL Prothrombin Time 33.5 9.0-12.0 SECONDS Prothromb Time International Ratio 3.0 0.9-1.1 Activated Partial Thromboplast Time 41.1 21.0-31.0 SECONDS Partial Thromboplastin Ratio 1.6 Sodium Level 142 136-145 mmol/L Potassium Level 4.1 3.5-5.1 mmol/L Chloride Level 108 98-107 mmol/L Carbon Dioxide Level 28 21-32 mmol/L Anion Gap 6.0 3-11 mmol/L Blood Urea Nitrogen 12 7-18 mg/dl Creatinine 0.75 0.60-1.20 mg/dl Est Creatinine Clear Calc Drug Dose 73.7 ml/min Estimated GFR () 96.3 Estimated GFR (Non- 83.1 BUN/Creatinine Ratio 15.5 10-20 Random Glucose 191 70-99 mg/dl Calcium Level 8.9 8.5-10.1 mg/dl Magnesium Level 1.2 1.8-2.4 mg/dl Total Bilirubin 0.2 0.2-1 mg/dl Aspartate Amino Transf (AST/SGOT) 23 15-37 U/L Alanine Aminotransferase (ALT/SGPT) 20 12-78 U/L Alkaline Phosphatase 82 45-117 U/L Total Creatine Kinase 59 26-192 U/L Creatine Kinase MB 1.8 0.5-3.6 ng/ml Creatine Kinase MB Ratio 3.1 0-3.0 Troponin I < 0.015 0-0.045 ng/ml Total Protein 7.2 6.4-8.2 gm/dl Albumin 3.1 3.4-5.0 gm/dl Globulin 4.1 2.5-4.0 gm/dl Albumin/Globulin Ratio 0.8 0.9-2 Thyroid Stimulating Hormone (TSH) 4.130 0.300-4.500 uIu/ml Diagnostic Radiology Patient Name: NIKI WASHINGTON Unit Number: [id number] Dictated: 11/09/161743 Transcribed: 11/09/161743 ARG Printed Date/Time: [~ rep prt dt]/[~ rep prt tm] [~ rep ct labl] - [~ rep ct ivnm] [facility] [place] [address] Dictated: 11/09/161743 Transcribed: 11/09/161743 ARG Printed Date/Time: [~ rep prt dt]/[~ rep prt tm] [~ rep ct labl] - [~ rep ct ivnm] CHEST ONE VIEW PORTABLE CLINICAL HISTORY: Atypical chest pain COMPARISON STUDY: 03/30/2016 FINDINGS: The cardiac and mediastinal contours are normal. There is no evidence of focal pulmonary consolidation. There is no evidence of failure. No pleural effusions are visualized.[ IMPRESSION: No active disease in the chest. Electronically signed by: Duarte Fontana M.D. 11/09/2016 5:45 PM Dictated Date/Time: 11/09/2016 5:44 PM The status of this report is Signed. Draft = Not yet reviewed or approved by Radiologist. Signed = Reviewed and approved by Radiologist. <AttendingPhy></AttendingPhy> <FamilyPhy>No Doctor, Assigned</FamilyPhy> < PrimaryPhy>No Doctor, Assigned</PrimaryPhy> <UnitNumber>[id number]</UnitNumber> <VisitNumber>[id number]</VisitNumber> <PatientName>NIKI WASHINGTON</PatientName > <DateOfBirth>1950</DateOfBirth> <Location>[facility]</Location> <ServiceDate> 11/09/16</ServiceDate> <MNE>ESINDI</MNE> <OrderingPhy>Arthur Oliva M.D.</ OrderingPhy> <OrderingPhyMNE>f rep ord dr young</OrderingPhyMNE> <DictatingPhyMNE> f rep dict dr young</DictatingPhyMNE> <CCListMNE>f rep ct hannah</CCListMNE> < AdmittingPhyMNE>f pt admit dr young</AdmittingPhyMNE> <AttendingPhyMNE>f pt attend dr young</AttendingPhyMNE> <ConsultingPhyMNE>f pt consult dr young</ConsultingPhyMNE> <FamilyPhyMNE>f pt fam dr young</FamilyPhyMNE> <OtherPhyMNE>f pt other dr young</OtherPhyMNE> < PrimaryPhyMNE>f pt prim care dr young</PrimaryPhyMNE> <ReferringPhyMNE>f pt referring dr young</ReferringPhyMNE> EKG EKG shows sinus tachycardia at 112 bpm, nonspecific ST-T changes likely rate dependent. Impression Assessment and Plan Precordial chest pain secondary to sinus tachycardia/hypomagnesemia/hypertension -- The patient will be admitted to telemetry for serial cardiac enzymes, cardiac rhythm monitoring and a 2-D echocardiogram with Dopplers. Replace magnesium of 1.2 with 3 g of magnesium sulfate IV. She did receive Lopressor 5 mg IV 2 from the emergency department with improved rate control. Lopressor 5 mg IV every 4 hours when necessary heart rate greater than 105. Continue aspirin 81 mg by mouth every morning, lisinopril 10 mg by mouth every morning and warfarin. PAD/infected prosthetic vascular graft-- Placed on ceftriaxone 1 g IV daily. Consult Dr. Morgan. Diabetes mellitus-- Hold pioglitazone, metformin and reduce glipizide from 20 mg twice a day to 10 mg twice a day. Place on Accu-Cheks before meals and at bedtime with NovoLog coverage per scale. Hyperlipidemia--continue atorvastatin 40 mg by mouth at bedtime. GERD-- Change omeprazole 40 mg by mouth twice a day to pantoprazole 40 mg by mouth twice a day. Level of Care Telemetry Advanced Directives Existing Advance Directive: No Existing Living Will: No Existing Power of Registered Nurse Practitioner: No Resuscitation Status FULL RESUSCITATION VTE Prophylaxis VTE Risk Assessment Done? Y/N: Yes Risk Level: Moderate Given or contraindicated: Warfarin (Coumadin)
[2016-11-09] MEDS: INSULIN ASPART 100 UNITS/ML 3 ML PEN SC SCH (21:00)
[2016-11-09 21:15] VITALS: BP 163/78; PULSE 81; TEMP 37; O2SAT 97; Ht 152.4 cm; Wt 81.5 kg
[2016-11-09] MEDS: WARFARIN SOD 4 MG TAB PO SCH (22:00)
[2016-11-09] MEDS: ATORVASTATIN 40 MG TAB PO SCH (22:18)
[2016-11-09] MEDS: DOCUSATE SODIUM 100 MG CAP PO SCH (22:19)
[2016-11-09] MEDS: CEFTRIAXONE SOD INJ 1 GM in DEXTROSE 5% ADD-VANTAGE 50ML 50 ML IV SCH (22:19)
[2016-11-10] VITALS (7 sets, daily range): BP systolic 105–130; BP diastolic 68–80; PULSE 58–86; TEMP 36.3–36.9; O2SAT 94–99
[2016-11-10 04:01] LABS: CKMB/CK RATIO 3.6 (0-3.0)
[2016-11-10 06:26] LABS: BASO % 0.5 %; BASO ABS # 0.05 K/uL (0-0.2); COMPLETE YES; EOS % 1.5 %; HEMATOCRIT 33.4 % (37-47); IG% 0.2 %; LYMPH % 24.3 %; LYMPH ABS # 2.34 K/uL (1.2-3.4); MEAN CELL VOLUME 81.1 fL (80-100); MEAN CORPUSCULAR HEMOGLOBIN 25.5 pg (25-34); MEAN CORPUSCULAR HGB CONC 31.4 g/dl (32-36); MEAN PLATELET VOLUME 8.9 fL (7.4-10.4); MONO % 7.1 %; NEUT % 66.4 %; PLATELET COUNT 371 K/uL (130-400); RED BLOOD COUNT 4.12 M/uL (4.2-5.4); WHITE BLOOD COUNT 9.63 K/uL (4.8-10.8)
[2016-11-10 06:45] LABS: INR 2.3 (0.9-1.1); PARTIAL THROMBOPLASTIN RATIO 1.5; PROTHROMBIN TIME (PATIENT) 25.9 SECONDS (9.0-12.0)
[2016-11-10] MEDS: DOCUSATE SODIUM 100 MG CAP PO SCH ×2 (08:00→19:28)
[2016-11-10] MEDS: ASPIRIN 81 MG ECTAB PO SCH (08:00)
[2016-11-10] MEDS: CHOLECALCIFEROL 1000 INTER.UNIT TAB PO SCH (08:00)
[2016-11-10] MEDS: LISINOPRIL 10 MG TAB PO SCH (08:00)
[2016-11-10] MEDS: MULTIVITAMIN TAB PO SCH (08:00)
[2016-11-10] MEDS: INSULIN ASPART 100 UNITS/ML 3 ML PEN SC SCH ×4 (08:01→20:29)
--- NOTE | 2016-11-10 09:16 | ECHOCARDIOGRAM REPORT ---
*NOTICE TO RECEIVING REPUBLICAN AGENCY This information is strictly Confidential and protected under [place] law. [place] law prohibits you from making any further disclosure of this information unless further disclosure is expressly permitted by the written consent of the person to whom it pertains or is authorized by law. A general authorization for the release of medical or other information is not sufficient for this purpose. Hospital accepts no responsibility if the information is made available to any other person, INCLUDING THE PATIENT. Interpretation Summary * Name: NIKI WASHINGTON Study Date: 11/10/2016 06:39 AM BP: 110/72 mmHg * Patient Location: [facility] HR: 86 * : 1950 (M/d/yyyy) Gender: Female Height: 62 in * Age: 66 yrs Ethnicity: CA Weight: 183 lb * Ordering Physician: Abelardo Harris * Referring Physician: Chip Morgan * Performed By: Tomasa Melo * * Reason For Study: CHEST PAIN * BSA: 1.8 m2 * -- Conclusions -- * Left ventricular systolic function is normal. * Grade I diastolic dysfunction, (abnormal relaxation pattern). * Aortic valve sclerosis mild, without significant aortic valvular stenosis. * Right ventricular systolic pressure is elevated at 30-40mmHg. Procedure Details * A complete two-dimensional transthoracic echocardiogram was performed (2D, M-mode, Doppler and color flow Doppler). Left Ventricle * The left ventricle is normal in size. * There is normal left ventricular wall thickness. * Ejection Fraction = 55-60%. * Left ventricular systolic function is normal. * Grade I diastolic dysfunction, (abnormal relaxation pattern). Right Ventricle * The right ventricle is normal in size and function. * The right ventricular systolic function is normal as assessed by tricuspid annular plane systolic excursion (TAPSE) (normal >1.5 cm). Atria * The left atrial size is normal. * Right atrial size is normal. Mitral Valve * The mitral valve anatomy is normal. * Significant mitral regurgitation is absent. Tricuspid Valve * The tricuspid valve is not well visualized, but is grossly normal. * There is trace tricuspid regurgitation. * Right ventricular systolic pressure is elevated at 30-40mmHg. Aortic Valve * Aortic valve sclerosis mild, without significant aortic valvular stenosis. * No hemodynamically significant valvular aortic stenosis. * There is no significant aortic regurgitation. Pericardium/Pleural * There is no pericardial effusion. Great Vessels * Normal inferior vena cava diameter and respiratory variation suggests normal central venous pressure. MMode 2D Measurements and Calculations IVSd 0.98 cm IVSs 1.6 cm LVIDd 4.4 cm LVIDs 3.1 cm LVPWd 1.0 cm LVPWs 1.6 cm IVS/LVPW 0.96 FS 29.6 % EDV(Teich) 87.7 ml ESV(Teich) 37.9 ml EF(Teich) 56.8 % EDV(cubed) 85.2 ml ESV(cubed) 29.8 ml EF(cubed) 65.0 % % IVS thick 66.1 % % LVPW thick 53.9 % LV mass(C)d 148.2 grams LV mass(C)dI 80.5 grams/m\S\2 LV mass(C)s 184.2 grams LV mass(C)sI 100.1 grams/m\S\2 CO(Teich) 4.1 l/min CI(Teich) 2.2 l/min/m\S\2 SV(Teich) 49.8 ml SI(Teich) 27.0 ml/m\S\2 CO(cubed) 4.6 l/min CI(cubed) 2.5 l/min/m\S\2 SV(cubed) 55.4 ml SI(cubed) 30.1 ml/m\S\2 ACS 1.2 cm LA dimension 3.4 cm asc Aorta Diam 2.7 cm LVOT diam 1.8 cm LVOT area 2.7 cm\S\2 LVAd ap4 23.9 cm\S\2 LVLd ap4 7.5 cm EDV(MOD-sp4) 64.5 ml LVAs ap4 13.6 cm\S\2 LVLs ap4 5.9 cm ESV(MOD-sp4) 28.0 ml EF(MOD-sp4) 56.6 % LVAd ap2 23.1 cm\S\2 LVLd ap2 7.4 cm EDV(MOD-sp2) 63.2 ml LVAs ap2 14.2 cm\S\2 LVLs ap2 6.2 cm ESV(MOD-sp2) 28.5 ml EF(MOD-sp2) 54.9 % CO(MOD-sp4) 3.0 l/min CI(MOD-sp4) 1.6 l/min/m\S\2 SV(MOD-sp4) 36.5 ml SI(MOD-sp4) 19.8 ml/m\S\2 CO(MOD-sp2) 2.9 l/min CI(MOD-sp2) 1.6 l/min/m\S\2 SV(MOD-sp2) 34.7 ml SI(MOD-sp2) 18.9 ml/m\S\2 Doppler Measurements and Calculations MV E max piper 123.7 cm/sec MV A max piper 142.1 cm/sec MV E/A 0.87 MV dec time 0.20 sec Ao V2 max 150.3 cm/sec Ao max PG 9.0 mmHg Ao max PG (full) 6.1 mmHg JOSE(V,A) 1.5 cm\S\2 JOSE(V,D) 1.5 cm\S\2 LV V1 max PG 2.9 mmHg LV V1 max 85.4 cm/sec PA V2 max 61.1 cm/sec PA max PG 1.5 mmHg TR max piper 258.9 cm/sec
--- NOTE | 2016-11-10 12:07 | Cardiology Consultation ---
Cardiology Consultation Date of Consultation: Nov 10, 2016. Requesting Physician: Genna Reason for Consultation: Chest Pain Pt evaluation today including: conversation w/ patient, physical exam, chart review, lab review, review of studies, conversation w/ solar consultant, conversation w/ attending History of Present Illness The patient is a 66-year-old woman with an extensive history of peripheral vascular disease he has been experiencing symptoms of palpitations and chest discomfort. Patient states that approximately 4 days ago she began to notice a fluttering in her chest. This was intermittent and relatively fleeting in nature. He was associated with a sense of needing to take a deep breath and some mild dyspnea. There was some mild discomfort associated with these episodes. They do not require any particular intervention resolved spontaneously. He does not appear to be associated with any particular activity. They were more noticeable while at rest. Additionally, the patient has noted symptoms of exertional chest discomfort. This is described as a pain in the precordium which occurs with activities such as vacuuming, walking briskly or carrying something heavy. The symptoms resolved with discontinuation of the activity. They last several minutes. She states she has had this problem now for several months. It does not appear to be worse currently or change in character. With the exception of the aforementioned fluttering episodes she has not had symptoms of this nature at rest. There are not any extended episodes. In general she is a sedentary individual was limited primarily by right leg discomfort. With activity she gets right upper leg discomfort. She also has some chronic discomfort at the site of an infection in the right groin. I read she denies dyspnea. She is not describe orthopnea or paroxysmal nocturnal dyspnea. She has not describe episodes of dizziness or lightheadedness. She does have palpitations as noted above. Past Medical/Surgical History Peripheral vascular disease Remote history of right iliac stenting Peripheral angiogram complicated by hypotension requiring emergent right ax bifem bypass August 2015. Infection of the ax fem graft requiring operative debridement in the right groin Beauchamp's esophagus Right hip bursitis Diabetes mellitus Tobacco abuse Hyperlipidemia Spinal stenosis Past surgical history Right axillary bifem bypass Exploratory laparotomy Right foot surgery Tubal ligation Family History Hypertension FATHER Social History Smoking Status: Current Every Day Smoker History of Alcohol Use: No Hypertension ulcerative colitis Review of Systems Constitutional: + see HPI Respiratory: + see HPI Cardiac: + see HPI Abdomen: + see HPI Female : + see HPI Neurologic: + see HPI Heme: + see HPI Endo: + see HPI Skin: + see HPI Ambulation generally produces right thigh pain. She denies calf claudication. All Other Systems: Reviewed and Negative Allergies Coded Allergies: Sulfamethoxazole w/Trimethoprim (Verified Allergy, Intermediate, HIVES,GI SYMPTOMS, 11/09/16) Nickel (Verified Allergy, Mild, RASH, 11/09/16) Levofloxacin (Verified Adverse Reaction, Mild, VOMITING, 11/09/16) Medications Current Inpatient Medications Medications (Trade) Dose Ordered Sig/Shira Route Start Time Stop Time Status Last Admin Dose Admin Acetaminophen (Tylenol Tab) 650 mg Q4H PRN PO 11/09/16 19:00 12/09/16 18:59 Zolpidem Tartrate (Ambien Tab) 5 mg HSZ PRN PO 11/09/16 19:00 12/09/16 18:59 Nitroglycerin (Nitrostat Tab) 0.4 mg UD PRN SL 11/09/16 19:00 12/09/16 18:59 Aspirin (Ecotrin Tab) 81 mg QAM PO 11/10/16 09:00 12/10/16 08:59 11/10/16 08:00 81 MG Atorvastatin Calcium (Lipitor Tab) 40 mg HS PO 11/09/16 21:00 12/09/16 20:59 11/09/16 22:18 40 MG Cholecalciferol (Vitamin D Tab) 5,000 inter.unit DAILY PO 11/10/16 09:00 12/10/16 08:59 11/10/16 08:00 5,000 INTER.UNIT Docusate Sodium (coLACE CAP) 100 mg BID PO 11/09/16 21:00 12/09/16 20:59 11/10/16 08:00 100 MG Lisinopril (Zestril Tab) 10 mg QAM PO 11/10/16 09:00 12/10/16 08:59 11/10/16 08:00 10 MG Multivitamins (Multivitamin Tab) 1 tab QAM PO 11/10/16 09:00 12/10/16 08:59 11/10/16 08:00 1 TAB Oxycodone/ Acetaminophen (Percocet 5-325mg Tab) 1 tab Q4H PRN PO 11/09/16 19:00 11/23/16 18:59 Warfarin Sodium (Coumadin Tab) 2 mg Sa@1600 PO 11/12/16 16:00 12/12/16 15:59 Warfarin Sodium (Coumadin Tab) 4 mg SuMoTuWeThFr@1600 PO 11/09/16 22:00 12/09/16 21:59 Ondansetron HCl (Zofran Inj) 4 mg Q6H PRN IV 11/09/16 19:00 12/09/16 18:59 Insulin Aspart (novoLOG ASPART) SLIDING SCALE If C... ACHS SC 11/09/16 21:00 12/09/16 20:59 Glucose (Glucose 40% Gel) UD PRN PO 11/09/16 19:00 12/09/16 18:59 Glucose (Glucose Chew Tab) 1 tabs UD PRN PO 11/09/16 19:00 12/09/16 18:59 Dextrose (Dextrose 50% 50ML Syringe) 50 ml UD PRN IV 11/09/16 19:00 12/09/16 18:59 Glucagon (Glucagon Inj) 1 mg UD PRN SQ 11/09/16 19:00 12/09/16 18:59 Metoprolol Tartrate (Lopressor Iv) 5 mg Q4H PRN IV 11/09/16 19:00 12/09/16 18:59 Miscellaneous (Iv Fluids Completed) 1 ea PRN PRN N/A 11/09/16 19:45 11/09/17 19:44 Ceftriaxone Sodium 1 gm/ Dextrose 50 ml @ 100 mls/hr Q24H IV 11/09/16 22:00 11/19/16 21:59 11/09/16 22:19 100 MLS/HR Glipizide (Glucotrol Tab) 10 mg BIDM PO 11/10/16 07:30 12/10/16 07:59 11/10/16 08:00 10 MG Physical Exam Vital Signs Past 12 Hours Date Time Temp Pulse Resp B/P (MAP) Pulse Ox O2 Delivery O2 Flow Rate FiO2 11/10/16 11:27 36.9 72 17 115/74 (88) 95 Room Air 11/10/16 08:00 Room Air 11/10/16 07:02 36.6 58 17 121/80 (94) 98 Room Air 11/10/16 04:00 Room Air 11/10/16 03:57 36.7 86 20 110/72 (85) 99 Room Air 11/10/16 00:01 Room Air 11/10/16 00:00 36.6 80 20 105/68 (80) 97 Room Air She is alert and oriented x3. Mood affect appear normal. She answered all questions appropriately. HEENT: Sclerae are anicteric. Pupils are equal and reactive to light and accommodation. Extraocular movements were intact. Neuro: Cranial nerves intact Neck: Examination of the submandibular region did not reveal any significant lymphadenopathy. Carotids are palpable bilaterally and free of bruits on auscultation. There was no evidence of jugular venous distention. The thyroid was not enlarged. Lungs: Lungs are clear to auscultation bilaterally. There are no rales wheezes or rhonchi. She has normal respiratory effort without use of accessory muscles. There is normal pulmonary excursion. Chest: Healed surgical scar in the right upper chest. Bruit appreciated at the site of the axillary anastomosis Cardiac: The rhythm was regular. S1 and S2 were normal. There are no murmurs on examination. The PMI was not markedly displaced on palpation. Abdomen: The abdomen was soft and nontender. Extremities: Patient has bilateral radial pulses with the right being slightly weaker than the left. There is no evidence cyanosis or clubbing. There was no evidence of significant peripheral edema bilaterally. The extremities were warm. The right was slightly cooler than the left. Skin: There are no rashes noted on examination today. Data Laboratory Results: Last 24 Hours Test 11/09/16 17:40 11/09/16 22:16 11/10/16 02:34 11/10/16 05:18 White Blood Count 8.43 K/uL 9.63 K/uL Red Blood Count 4.16 M/uL 4.12 M/uL Hemoglobin 10.8 g/dL 10.5 g/dL Hematocrit 34.4 % 33.4 % Mean Corpuscular Volume 82.7 fL 81.1 fL Mean Corpuscular Hemoglobin 26.0 pg 25.5 pg Mean Corpuscular Hemoglobin Concent 31.4 g/dl 31.4 g/dl RDW Standard Deviation 45.4 fL 44.6 fL RDW Coefficient of Variation 15.1 % 15.0 % Platelet Count 359 K/uL 371 K/uL Mean Platelet Volume 8.5 fL 8.9 fL Prothrombin Time 33.5 SECONDS 25.9 SECONDS Prothromb Time International Ratio 3.0 2.3 Activated Partial Thromboplast Time 41.1 SECONDS 40.1 SECONDS Partial Thromboplastin Ratio 1.6 1.5 Sodium Level 142 mmol/L Potassium Level 4.1 mmol/L Chloride Level 108 mmol/L Carbon Dioxide Level 28 mmol/L Anion Gap 6.0 mmol/L Blood Urea Nitrogen 12 mg/dl Creatinine 0.75 mg/dl Est Creatinine Clear Calc Drug Dose 73.7 ml/min Estimated GFR () 96.3 Estimated GFR (Non- 83.1 BUN/Creatinine Ratio 15.5 Random Glucose 191 mg/dl Calcium Level 8.9 mg/dl Magnesium Level 1.2 mg/dl Total Bilirubin 0.2 mg/dl Aspartate Amino Transf (AST/SGOT) 23 U/L Alanine Aminotransferase (ALT/SGPT) 20 U/L Alkaline Phosphatase 82 U/L Total Creatine Kinase 59 U/L 53 U/L Creatine Kinase MB 1.8 ng/ml 1.9 ng/ml Creatine Kinase MB Ratio 3.1 3.6 Troponin I < 0.015 ng/ml < 0.015 ng/ml Total Protein 7.2 gm/dl Albumin 3.1 gm/dl Globulin 4.1 gm/dl Albumin/Globulin Ratio 0.8 Thyroid Stimulating Hormone (TSH) 4.130 uIu/ml Bedside Glucose 92 mg/dl Neutrophils (%) (Auto) 66.4 % Lymphocytes (%) (Auto) 24.3 % Monocytes (%) (Auto) 7.1 % Eosinophils (%) (Auto) 1.5 % Basophils (%) (Auto) 0.5 % Neutrophils # (Auto) 6.40 K/uL Lymphocytes # (Auto) 2.34 K/uL Monocytes # (Auto) 0.68 K/uL Eosinophils # (Auto) 0.14 K/uL Basophils # (Auto) 0.05 K/uL Immature Granulocyte % (Auto) 0.2 % Immature Granulocyte # (Auto) 0.02 K/uL Test 11/10/16 06:19 11/10/16 10:41 11/10/16 11:06 Bedside Glucose 124 mg/dl 151 mg/dl Total Creatine Kinase 53 U/L Creatine Kinase MB 1.6 ng/ml Creatine Kinase MB Ratio 3.0 Troponin I < 0.015 ng/ml Imaging: Chest x-ray did not demonstrate any evidence of acute cardiopulmonary disease EKG: Normal sinus rhythm. Normal EKG without ST or T-wave changes Telemetry reviewed: Initially sinus tachycardia now sinus rhythm Echocardiogram: Echocardiogram performed today revealed preserved LV systolic function without regional wall motion abnormalities. There is no significant valvular heart disease. Stage I diastolic dysfunction. Assessment & Plan 1. Exertional angina: The patient's symptoms meet criteria for exertional angina. Given her significant peripheral vascular disease it is quite clear that she has an element of coronary disease. She does have preserved LV systolic function is not have evidence of a myocardial infarction. She does not report symptoms of rest pain. The episodes themselves are fairly brief in duration but do seem to occur with a relatively low workload. One generally I would consider moving towards coronary angiography for patient with her risk factors and symptoms, there are some access issues for cardiac catheterization. Additionally, she did have a bad outcome with prior peripheral angiography. I think it is reasonable at this point to perform some noninvasive testing in order to help in risk stratification. If she has a low risk noninvasive evaluation a trial of medical therapy would seem reasonable. This could be accomplished beta-blockade, nitrates, calcium channel blockers or ranolazine. Whether she would have some exacerbation of her peripheral vascular disease with beta blockade is unclear. If she were to have high risk features of any noninvasive testing the and coronary angiography should be considered. Patient is currently on high-dose atorvastatin, aspirin and warfarin. We will wait for the results of her perfusion imaging and consider starting a beta estuardo tomorrow. 2. Palpitations: Patient did have sinus tachycardia the time of admission. She reports being quite nervous when she was arrived in the emergency room. Seems that she did receive some normal saline as well as shortly after admission. Recently she has had a normal heart rate. I have not been any arrhythmia is correlated with her symptoms. Perhaps she was noticing sinus tachycardia. Hemoglobin appears to be normal. Thyroid study was normal. Will continue to monitor her on telemetry during this admission.
--- NOTE | 2016-11-10 14:53 | Medical Consult ---
Consultation Note Date of Service Nov 10, 2016. Consultation Note Chief Complaint Infection R groin incision History of Present Illness The patient is a 65 year old female with multiple medical problems, including DMII, CAD, HTN, Severe PAD, s/p R ax-bifemoral bypass in 08/2015, who underwent R groin exploration and repair of R limb anastomosis followed by removing the right limb of her ax bifem bypass. She has been on suppressive antibiotics since. She is admitted now with occasional chest pain and fluttering. She claims she now have very minimal drainage from the groin. Allergies Coded Allergies: No Known Allergies (Verified , 08/26/15) Home Medications Scheduled Acetaminophen (Tylenol), 1,000 MG PO PRN Amitriptyline Hcl (Elavil *), 20 MG PO HS Aspirin (Aspirin Ec), 81 MG PO DAILY Atorvastatin (Lipitor), 40 MG PO HS Cholecalciferol (Vitamin D), 5,000 INTER.UNIT PO DAILY Clopidogrel (Plavix), 75 MG PO DAILY Glipizide (Glucotrol *), 20 MG PO BID Lisinopril (Zestril), 10 MG PO DAILY Metformin Hcl (Glucophage), 1,000 MG PO BID Multivitamin (Multivitamin), 1 TAB PO DAILY Toyah-3 Fatty Acids (Fish Oil), 1,000 MG PO DAILY Omeprazole (Prilosec), 40 MG PO BID Pioglitazone (Actos *), 45 MG PO DAILY Scheduled PRN Ibuprofen Tab (Advil), 400 MG PO PRN PRN for PRN Valacyclovir (Valtrex Unkown Dose), 1 GM PO PRN PRN for COLD SORES Surgical / Medical History Hx Cardiac Surgery: No Hx Abdominal Surgery: Yes (tubal) Hx Cancer Surgery: No Hx Thoracic Surgery: No Hx Orthopedic: No Hx Urinary Tract Surgery: No HX Other Surgery: Yes (iliac artery stent) Social History Smoking Status: former smoker Hx Tobacco Use In Past Year?: Yes Hx Alcohol Use - Type & Amnt: No Hx Substance Use -Type & Amnt: No Review of Systems + tenderness over graft and bleeding from R groin incision 11 other systems reviewed and negative Physical Exam Constitutional: General Apperance: overweight Level of Distress: mild distress d/t anxiety over situation Psychiatric: Mental Status: active & alert, normal mood, normal affect Orientation: oriented except where noted, to time, to place, to person Memory: recent memory normal, remote memory normal Lungs: Auscultation: breath sounds normal Cardiovascular: Heart Auscultation: RRR Peripheral Pulses: Radial Pulse: normal on the left, normal on the right Femoral Pulse: normal on the right, normal on the left Posterior Tibialis Pulse: decreased on the left , decreased on the right Dorsalis Pedis Pulse: decreased on the right, absent on the left Abdomen: Inspection & Palpation: soft. R groin incision with no drainage presently. No erythema present Extremities: Upper Right and left: no cyanosis, no edema, no varicosities, no palpable cord, no clubbing, no ulcers, no mottling Upper Left: no cyanosis, no edema, no palpable cord, no clubbing, no ulcers , no mottling Lower Left: no cyanosis, no edema, no palpable cord, no clubbing, no ulcers , no mottling Assessment and Plan Imp: Post removal Vascular graft due to infection Plan: No intervention is needed at this time. There is no longer any graft material in the right groin. Recent CT done of chest, abdomen and pelvis did not suggest any proximal graft infection. At this time I would place her back on suppressive therapy when she is discharged. Thank you very much for letting me participate in the care of this patient.
[2016-11-10] MEDS: ATORVASTATIN 40 MG TAB PO SCH (19:27)
[2016-11-10] MEDS: WARFARIN SOD 4 MG TAB PO SCH (19:27)
[2016-11-10] MEDS ORDERED: NURSING VERBAL MED ORDER ONE (20:00)
--- NOTE | 2016-11-10 20:02 | Progress Note ---
Subjective Date of Service: Nov 10, 2016. Subjective Pt evaluation today including: conversation w/ patient, physical exam, chart review, lab review, review of studies, conversation w/ new home sales consultant, review of inpatient medication list Problem List Medical Problems: (1) Allergic reaction Status: Acute (2) Hypomagnesemia Status: Acute (3) Post op infection Status: Acute (4) Post-op bleeding Status: Acute (5) Precordial chest pain Status: Acute (6) Tachycardia Status: Acute Review of Systems Constitutional: No see HPI, No fever, No chills, No sweats, No weight loss, No weakness, No fatigue, No problem reported Eyes: No see HPI, No worsening of vision, No eye pain, No redness, No discharge , No diplopia, No problem reported ENT: No see HPI, No hearing loss, No unusual epistaxis, No nasal symptoms, No sore throat, No tinnitus, No dental problems, No trouble swallowing, No problem reported Respiratory: No see HPI, No cough, No sputum, No wheezing, No shortness of breath, No dyspnea on exertion, No dyspnea at rest, No hemoptysis, No problem reported Cardiac: + chest pain, No see HPI, No orthopnea, No PND, No edema, No claudication, No palpitations, No problem reported Abdomen: + problem reported (right groin discharge), No see HPI, No pain, No nausea, No vomiting, No diarrhea, No constipation, No GI bleeding Musculoskeletal: No see HPI, No joint pain, No muscle pain, No swelling, No calf pain, No problem reported Female : No see HPI, No dysuria, No urinary frequency, No hematuria, No incontinence, No abnormal vaginal bleeding, No vaginal discharge, No problem reported Neurologic: No see HPI, No memory loss, No paralysis, No weakness, No numbness/ tingling, No vertigo, No balance problems, No problem reported Psychiatric: No see HPI, No depression symptoms, No anhedonism, No anxiety, No insomnia, No substance abuse, No problem reported Heme: No see HPI, No abnormal bleeding/bruising, No clotting problems, No swollen lymph nodes, No night sweats, No problem reported Endo: No see HPI, No fatigue, No excessive thirst, No excessive urination, No problem reported Skin: No see HPI, No rash, No itch, No new/changing skin lesions, No color change, No bleeding, No problem reported Objective Vital Signs Date Time Temp Pulse Resp B/P (MAP) Pulse Ox O2 Delivery O2 Flow Rate FiO2 11/10/16 16:00 Room Air 11/10/16 15:40 36.9 72 18 115/75 (88) 94 Room Air 11/10/16 12:00 Room Air 11/10/16 11:27 36.9 72 17 115/74 (88) 95 Room Air 11/10/16 08:00 Room Air 11/10/16 07:02 36.6 58 17 121/80 (94) 98 Room Air 11/10/16 04:00 Room Air 11/10/16 03:57 36.7 86 20 110/72 (85) 99 Room Air 11/10/16 00:01 Room Air 11/10/16 00:00 36.6 80 20 105/68 (80) 97 Room Air 11/09/16 21:15 37.0 81 18 163/78 97 Room Air 11/09/16 20:48 78 19 99 Room Air Physical Exam General Appearance: WD/WN, no apparent distress Eyes: normal inspection, EOMI ENT: normal ENT inspection, hearing grossly normal Neck: supple Respiratory/Chest: chest non-tender, lungs clear, normal breath sounds, no respiratory distress, no accessory muscle use Cardiovascular: regular rate, rhythm, no edema, no gallop, no JVD, no murmur Abdomen: normal bowel sounds, non tender, soft, + pertinent finding (right groin has gauze with small amount of discharge) Extremities: normal range of motion, non-tender, normal inspection, no pedal edema Neurologic/Psychiatric: log roller II-XII nml as tested, no motor/sensory deficits, alert, normal mood/affect, oriented x 3 Skin: normal color, warm/dry, no rash Laboratory Results Last 24 Hours Test 11/09/16 22:16 11/10/16 02:34 11/10/16 05:18 11/10/16 06:19 Bedside Glucose 92 mg/dl 124 mg/dl Total Creatine Kinase 53 U/L Creatine Kinase MB 1.9 ng/ml Creatine Kinase MB Ratio 3.6 Troponin I < 0.015 ng/ml White Blood Count 9.63 K/uL Red Blood Count 4.12 M/uL Hemoglobin 10.5 g/dL Hematocrit 33.4 % Mean Corpuscular Volume 81.1 fL Mean Corpuscular Hemoglobin 25.5 pg Mean Corpuscular Hemoglobin Concent 31.4 g/dl Platelet Count 371 K/uL Mean Platelet Volume 8.9 fL Neutrophils (%) (Auto) 66.4 % Lymphocytes (%) (Auto) 24.3 % Monocytes (%) (Auto) 7.1 % Eosinophils (%) (Auto) 1.5 % Basophils (%) (Auto) 0.5 % Neutrophils # (Auto) 6.40 K/uL Lymphocytes # (Auto) 2.34 K/uL Monocytes # (Auto) 0.68 K/uL Eosinophils # (Auto) 0.14 K/uL Basophils # (Auto) 0.05 K/uL RDW Standard Deviation 44.6 fL RDW Coefficient of Variation 15.0 % Immature Granulocyte % (Auto) 0.2 % Immature Granulocyte # (Auto) 0.02 K/uL Prothrombin Time 25.9 SECONDS Prothromb Time International Ratio 2.3 Activated Partial Thromboplast Time 40.1 SECONDS Partial Thromboplastin Ratio 1.5 Test 11/10/16 10:41 11/10/16 11:06 11/10/16 16:10 Total Creatine Kinase 53 U/L Creatine Kinase MB 1.6 ng/ml Creatine Kinase MB Ratio 3.0 Troponin I < 0.015 ng/ml Bedside Glucose 151 mg/dl 128 mg/dl Assessment and Plan Exertional angina in the setting of severe peripheral artery disease. Consulted tool liaison as her symptoms and background medical status suggestive to the coronary pain. Discussed with , will pursue perfusion study prior to any invasive intervention giving care to previous history of bad outcome to angiography, and lack of proper axis. Also the presence of chronic infection is unfavorable for placing a new stent PAD with infected prosthesis/ stable on chronic suppression Consult Dr. Aiken appreciated, needs to follow-up as an outpatient with Dr. Aiken and with infectious diseases Diabetes mellitus. Hold oral medication Start patient on sliding scale insulin Dyslipidemia/GERD Continue atorvastatin and PPI Heparin for DVT prophylaxis
[2016-11-10] MEDS ORDERED: FAMOTIDINE 20 MG TAB PO ONE (20:15)
[2016-11-10] MEDS: CEFTRIAXONE SOD INJ 1 GM in DEXTROSE 5% ADD-VANTAGE 50ML 50 ML IV SCH ×2 (22:02→23:06)
[2016-11-11 03:08] VITALS: BP 127/80; PULSE 67; TEMP 36.6; O2SAT 98
[2016-11-11 05:33] LABS: BASO % 0.9 %; BASO ABS # 0.07 K/uL (0-0.2); COMPLETE YES; EOS % 1.5 %; HEMATOCRIT 33.2 % (37-47); IG% 0.4 %; LYMPH % 27.1 %; LYMPH ABS # 2.14 K/uL (1.2-3.4); MEAN CELL VOLUME 82.4 fL (80-100); MEAN CORPUSCULAR HEMOGLOBIN 25.6 pg (25-34); MEAN PLATELET VOLUME 8.6 fL (7.4-10.4); MONO % 8.1 %; PLATELET COUNT 302 K/uL (130-400); RED BLOOD COUNT 4.03 M/uL (4.2-5.4); WHITE BLOOD COUNT 7.91 K/uL (4.8-10.8)
[2016-11-11 05:43] LABS: INR 1.7 (0.9-1.1); PARTIAL THROMBOPLASTIN RATIO 1.3; PROTHROMBIN TIME (PATIENT) 18.8 SECONDS (9.0-12.0)
[2016-11-11 06:03] LABS: BUN/CREATININE RATIO 20.6 (10-20); CALCIUM 8.1 mg/dl (8.5-10.1); CREATININE 0.59 mg/dl (0.60-1.20); MAGNESIUM 1.9 mg/dl (1.8-2.4)
[2016-11-11 06:06] LABS: ALB/GLOB RATIO 0.7 (0.9-2)
[2016-11-11 07:28] VITALS: BP 123/79; PULSE 64; TEMP 36.8; O2SAT 97
[2016-11-11] MEDS ORDERED: REGADENOSON 0.4 MG/5 ML SYR ONE (08:07)
[2016-11-11] MEDS: INSULIN ASPART 100 UNITS/ML 3 ML PEN SC SCH ×2 (08:26→12:30)
[2016-11-11 11:50] VITALS: BP 131/76; PULSE 68; TEMP 37; O2SAT 99
[2016-11-11] MEDS: ASPIRIN 81 MG ECTAB PO SCH (12:25)
[2016-11-11] MEDS: DOCUSATE SODIUM 100 MG CAP PO SCH (12:25)
[2016-11-11] MEDS: MULTIVITAMIN TAB PO SCH (12:25)
[2016-11-11] MEDS: CHOLECALCIFEROL 1000 INTER.UNIT TAB PO SCH (12:25)
[2016-11-11] MEDS: LISINOPRIL 10 MG TAB PO SCH (12:26)
[2016-11-11 15:18] VITALS: BP 138/91; PULSE 67; TEMP 36.9; O2SAT 98
[2016-11-11] MEDS ORDERED: METO1TAB31 PO (15:36)
--- NOTE | 2016-11-11 15:38 | Discharge Instructions ---
Discharge Instructions Date of Service Nov 11, 2016. Admission Reason for Admission: Hypomagnesemia;Precordial Chest Pain Discharge Discharge Diagnosis / Problem: chest pain, likely musculoskeletal Discharge Goals Goal(s): Improve function Activity Recommendations Activity Limitations: resume your previous activity Driving or Machine Use: no limitations . Current Hospital Diet Patient's current hospital diet: AHA Diet (Heart Healthy), Diabetes Type 2 Diet Discharge Diet Recommended Diet: AHA Diet (Heart Healthy), Diabetes Type 2 Diet Pending Studies Studies pending at discharge: no Medical Emergencies . Who to Call and When: Medical Emergencies: If at any time you feel your situation is an emergency, please call 911 immediately. . Non-Emergent Contact Non-Emergency issues call your: Primary Care Provider, Occupational Therapist Assistants Call Non-Emergent contact if: temperature is above 100.5, your pain is not controlled, wound has increased drainage, wound has increased redness . . "Provider Documentation" section prepared by Nathanael Dillard. . VTE Core Measure Inpt VTE Proph given/why not?: Warfarin (Coumadin)
--- NOTE | 2016-11-11 15:50 | Discharge Summary ---
Discharge Summary Date of Service Nov 11, 2016. Discharge Summary Admission Date: Nov 09, 2016 at 21:47 Discharge Date: Nov 11, 2016 Discharge Disposition: Home Principal Diagnosis: Chest pain, acute ACS was ruled out Problems/Secondary Diagnoses: Peripheral vascular disease Diabetes mellitus Obesity Retained infected graft Immunizations: Have You Had Influenza Vaccine: Unknown History of Tetanus Vaccine?: Unknown History of Pneumococcal: Unknown History of Hepatitis B Vaccine: Unknown Medication Reconciliation New Medications: Metoprolol Succinate (Toprol Xl) 25 Mg Tab 0.5 TAB PO DAILY for 30 Days, #15 TAB 5 Refills Continued Medications: Acetaminophen (Tylenol) 500 Mg Tab 1000 MG PO PRN, TAB Amoxicillin & Pot Clavulanate (Augmentin 500MG) 1 Tab Tab 250 MG PO BID, TAB Aspirin (Aspirin Ec) 81 Mg Tab 81 MG PO QAM Atorvastatin (Lipitor) 40 Mg Tab 40 MG PO HS Cholecalciferol (Vitamin D-3) 1,000 Unit Tab 5000 UNITS PO DAILY Docusate Sodium (Docusate Sodium) 100 Mg Cap 100 MG PO BID, #60 CAP 0 Refills Glipizide (Glucotrol) 10 Mg Tab 20 MG PO BID, TAB Lisinopril (Zestril) 10 Mg Tab 10 MG PO QAM Metformin Hcl (Glucophage) 1,000 Mg Tab 1000 MG PO BID, TAB Multivitamin (Multivitamin) Tab 1 TAB PO QAM Centrum Silver [place]-3 Fatty Acids (Fish Oil) 1 Cap Cap 1000 MG PO QAM Omeprazole (Prilosec) 20 Mg Capcr 40 MG PO BID, CAP Oxycodone/Acetaminophen 5MG/325MG (Percocet 5MG/325MG) Tab 1-2 TAB PO Q4H PRN for Moderate Pain, #60 TAB 0 Refills PAIN Pioglitazone (Actos) 30 Mg Tab 45 MG PO QAM for 90 Days, #135 TAB 3 Refills Valacyclovir (Valtrex) 500 Mg Tab 1000 MG PO PRN PRN for COLD SORES, TAB Warfarin Sod (Jantoven) 4 Mg Tab 4 MG PO 6XWK, TAB take 4mg daily on monday, monday, monday, monday, and monday Warfarin Sod (Jantoven) 4 Mg Tab 2 MG PO WK take 2mg on monday and on all other days take 4mg daily Discharge Exam Review of Systems: Constitutional: No fever, No chills, No sweats, No weight loss, No weakness , No fatigue, No problem reported Eyes: No worsening of vision, No eye pain, No redness, No discharge, No diplopia, No problem reported ENT: No hearing loss, No unusual epistaxis, No nasal symptoms, No sore throat, No tinnitus, No dental problems, No trouble swallowing, No problem reported Respiratory: No cough, No sputum, No wheezing, No shortness of breath, No dyspnea on exertion, No dyspnea at rest, No hemoptysis, No problem reported Cardiovascular: No chest pain, No orthopnea, No PND, No edema, No claudication, No palpitations, No problem reported Abdomen: No pain, No nausea, No vomiting, No diarrhea, No constipation, No GI bleeding, No problem reported Musculoskeletal: No joint pain, No muscle pain, No swelling, No calf pain, No problem reported Neurologic: No memory loss, No paralysis, No weakness, No numbness/tingling , No vertigo, No balance problems, No problem reported Psychiatric: No depression symptoms, No anhedonism, No anxiety, No insomnia , No substance abuse, No problem reported Endocrine: No fatigue, No excessive thirst, No excessive urination, No problem reported Hematologic / Lymphatic: No abnormal bleeding/bruising, No clotting problems , No swollen lymph nodes, No night sweats, No problem reported Integumentary: No rash, No itch, No new/changing skin lesions, No color change, No bleeding, No problem reported Physical Exam: General Appearance: WD/WN, no apparent distress Eyes: normal inspection, EOMI ENT: normal ENT inspection, hearing grossly normal Neck: supple Respiratory/Chest: chest non-tender, lungs clear, normal breath sounds, no respiratory distress, no accessory muscle use Cardiovascular: regular rate, rhythm, no edema, no gallop, no JVD, no murmur Abdomen / GI: normal bowel sounds, non tender, soft, no organomegaly, no pulsatile mass, normal rectal exam Extremities: normal inspection, no calf tenderness, normal capillary refill , no pedal edema, normal range of motion 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 Consulted chief embalmer as her symptoms and background medical status suggestive to the coronary pain. Discussed with , will pursue perfusion study prior to any invasive intervention giving care to previous history of bad outcome to angiography, and lack of proper axis. Also the presence of chronic infection is unfavorable for placing a new stent Her stress test perfusion study were benign, she was cleared by chief embalmer for discharge today. Toprol-XL low dose 12.5 mg by mouth daily was added to her regimen, she was instructed to watch out for any worsening and had peripheral vascular disease symptoms. For her PAD with infected prosthesis/ stable on chronic suppression, Consult Dr. Aiken appreciated, needs to follow-up as an outpatient with Dr. Aiken and with infectious diseases She was discharged home today. 2-D echo was done and results as below * Left ventricular systolic function is normal. * Grade I diastolic dysfunction, (abnormal relaxation pattern). * Aortic valve sclerosis mild, without significant aortic valvular stenosis. * Right ventricular systolic pressure is elevated at 30-40mmHg. Total Time Spent: Greater than 30 minutes This includes examination of the patient, discharge planning, medication reconciliation, and communication with other providers. Discharge Instructions Please refer to the electronic Patient Visit Report (Discharge Instructions) for additional information.
[2016-11-11 15:51] VITALS: BP 131/76; PULSE 68; TEMP 37; O2SAT 99
[2016-11-12] MEDS ORDERED: WARFARIN SOD 2 MG TAB PO SCH (16:00)
--- NOTE | 2016-11-12 16:08 | MYOCARDIAL PERFUSION SCAN ---
ONE-DAY NUCLEAR MEDICINE TECHNETIUM-99M CARDIOLITE MYOCARDIAL PERFUSION SCAN CLINICAL HISTORY: The patient has a history of significant peripheral vascular disease and has recently experienced a chest pain syndrome. COMPARISON: None. TECHNIQUE: For the stress portion of the study, 23.7 mCi of Technetium 99 m Cardiolite IV was injected at 9:41 a.m. on 11/11/2016. Thirty minutes following the injection, imaging of the heart was performed in multiple projection. For the rest portion of the study, 21.6 mCi of Technetium 99 m Cardiolite was injected IV at 6:10 p.m. One hour following the injection, imaging of the heart was performed in the same projections. For the stress portion of the study, 0.4 mg of Lexiscan was injected intravenously as per protocol. The patient did not experience chest discomfort or EKG changes. Following the study, the patient was hemodynamically stable and without complaints. FINDINGS: The short axis, vertical long axis, and horizontal long axis images were reviewed in detail. There is normal perfusion at both stress and rest, thus excluding a stress-induced myocardial ischemia and a prior myocardial infarction. Left ventricular systolic function is normal by visual inspection without evidence of wall motion abnormality. Ejection fraction is 55%. IMPRESSION: 1. No scintigraphic evidence of stress induced myocardial ischemia or myocardial infarction. 2. No Lexiscan induced chest pain. 3. No Lexiscan induced electrocardiogram changes. 4. Normal left ventricular systolic function with an ejection fraction of 55% and no wall motion abnormalities.
== END 2016-11-11 16:47 | disposition home or self-care (01) ==
LOC: C.EDB 17:08 → ENRESERV 20:00 → C.2T 21:47
PROVIDERS: ADMIT Hospitalist; ATTEND Internal Medicine
DX: R07.2 Precordial pain (principal); R00.0 Tachycardia, unspecified; E83.42 Hypomagnesemia; E11.9 Type 2 diabetes mellitus without complications; Z79.01 Long term (current) use of anticoagulants; I73.9 Peripheral vascular disease, unspecified; Z79.82 Long term (current) use of aspirin; T82.7XXA Infection and inflammatory reaction due to other cardiac and vascular devices, implants and grafts, initial encounter; Y83.2 Surgical operation with anastomosis, bypass or graft as the cause of abnormal reaction of the patient, or of later complication, without mention of misadventure at the time of the procedure; Z82.49 Family history of ischemic heart disease and other diseases of the circulatory system; Z87.891 Personal history of nicotine dependence; Z79.84 Long term (current) use of oral hypoglycemic drugs; K21.9 Gastro-esophageal reflux disease without esophagitis; I25.10 Atherosclerotic heart disease of native coronary artery without angina pectoris; E66.9 Obesity, unspecified; Z51.81 Encounter for therapeutic drug level monitoring; T81.89XA Other complications of procedures, not elsewhere classified, initial encounter; L02.211 Cutaneous abscess of abdominal wall; Y83.8 Other surgical procedures as the cause of abnormal reaction of the patient, or of later complication, without mention of misadventure at the time of the procedure; I10 Essential (primary) hypertension; K22.70 Barrett's esophagus without dysplasia; E78.5 Hyperlipidemia, unspecified; Z86.73 Personal history of transient ischemic attack (TIA), and cerebral infarction without residual deficits

== ENCOUNTER 2016-11-22 12:31 | Inpatient (IN) | payer OTHER, MEDICARE ==
[~2016-11-22] VITALS: Ht 152.4 cm; Wt 82.5 kg
[~2016-11-22 12:31] MED LIST changes: +METO-478 PO
[2016-11-22] MEDS ORDERED: VANCOMYCIN INJ 1,600 MG in SODIUM CHLORIDE 0.9% 500ML 500 ML IV STA (13:22)
[2016-11-22] MEDS ORDERED: PIPERACILLIN/TAZOBACTAM 4.5 GM/100ML D5W IV STA (13:22)
[2016-11-22] MEDS ORDERED: ACETAMINOPHEN 500 MG TAB PO STA (13:22)
[2016-11-22] MEDS ORDERED: SODIUM CHLORIDE 0.9% 1000ML 2,000 ML IV STA (13:22)
[2016-11-22] MEDS ORDERED: OPTIRAY 320 IV PRN (13:30)
[2016-11-22 13:32] LABS: URINE APPEARANCE CLEAR (CLEAR); URINE BILIRUBIN NEG (NEG); URINE COLOR YELLOW; URINE EPITHELIAL CELL AUTO 20-30 /lpf (0-5); URINE NITRITE NEG (NEG); URINE PH 6.5 (4.5-7.5); URINE SPECIFIC GRAVITY 1.019 (1.000-1.030); UROBILINOGEN NEG (NEG); ZZUR CULT IF INDIC CLEAN CATCH NO
[2016-11-22 13:36] LABS: MANUAL MICROSCOPIC REQUIRED? NO; REVIEW REQ? NO
--- NOTE | 2016-11-22 13:58 | DIAGNOSTIC IMAGING REPORT ---
CHEST ONE VIEW PORTABLE CLINICAL HISTORY: fever COMPARISON STUDY: No previous studies for comparison. FINDINGS: The cardiac and mediastinal contours are normal. There is no evidence of focal pulmonary consolidation. There is no evidence of failure. No pleural effusions are visualized.[ Slight indistinctness of the left cardiac border remains stable. This is likely secondary to a fat pad. Surgical clips projected over the right anterior second rib. IMPRESSION: No active disease in the chest. Electronically signed by: Duarte Fontana M.D. 11/22/2016 1:57 PM Dictated Date/Time: 11/22/2016 1:56 PM
[2016-11-22 14:01] LABS: BASO % 0.2 %; BASO ABS # 0.03 K/uL (0-0.2); COMPLETE YES; EOS % 0.2 %; HEMATOCRIT 34.5 % (37-47); IG% 0.2 %; LYMPH % 6.7 %; LYMPH ABS # 0.87 K/uL (1.2-3.4); MEAN CELL VOLUME 80.4 fL (80-100); MEAN CORPUSCULAR HEMOGLOBIN 25.4 pg (25-34); MEAN CORPUSCULAR HGB CONC 31.6 g/dl (32-36); MEAN PLATELET VOLUME 9.2 fL (7.4-10.4); MONO % 5.7 %; PLATELET COUNT 287 K/uL (130-400); RED BLOOD COUNT 4.29 M/uL (4.2-5.4); WHITE BLOOD COUNT 13.04 K/uL (4.8-10.8)
[2016-11-22 14:09] LABS: ISTAT CREATININE 0.6 mg/dl (0.6-1.3); ISTAT HEMOGLOBIN 11.6 g/dl (12.0-16.0); ISTAT IONIZED CALCIUM 1.1 mmol/l (1.12-1.32)
[2016-11-22 14:11] LABS: INR 2.2 (0.9-1.1); PROTHROMBIN TIME (PATIENT) 24.8 SECONDS (9.0-12.0)
[2016-11-22] MEDS ORDERED: SODIUM CHLORIDE 0.9% 1000ML 1,000 ML IV STA (14:28)
[2016-11-22 14:33] LABS: BUN/CREATININE RATIO 17.4 (10-20); CKMB/CK RATIO 2.4 (0-3.0); CREATININE 0.65 mg/dl (0.60-1.20); POTASSIUM 3.5 mmol/L (3.5-5.1)
[2016-11-22] MEDS ORDERED: MAGNESIUM SULFATE 1GM / D5W 1 GM BAG IV STA ×2 (14:48→15:42)
--- NOTE | 2016-11-22 14:51 | DIAGNOSTIC IMAGING REPORT ---
ABD/PELVIS IV CONTRAST ONLY CLINICAL HISTORY: 66 years-old Female presenting with rlq abscess going into groin/prox femur . TECHNIQUE: Multidetector CT of the abdomen and pelvis was performed after the administration of intravenous contrast. IV contrast: 93 mL of Optiray 320. A dose lowering technique was used consistent with the principles of ALARA (as low as reasonably achievable). COMPARISON: 10/20/2016.. CT DOSE (mGy.cm): The estimated cumulative dose is 1365.24 mGy.cm. FINDINGS: Hogshead Roller topogram: Unremarkable. Lung bases: Minimal dependent changes likely atelectasis. Few small lung cyst noted in the right lung base and right middle lobe. Mosaic attenuation at the lung bases could suggest small airways disease. Opacities in the lingula and right middle lobe likely atelectasis or scarring. Top normal heart size. Coronary artery calcification. No pericardial or pleural effusion. Liver: Normal morphology. No liver lesion. Patent hepatic vasculature. Biliary: No intrahepatic or extrahepatic biliary ductal dilatation. Gallbladder contains gallstones. Pancreas: Normal. Spleen: Normal. Adrenal glands: Normal. Kidneys and ureters: Subtle wedgelike defect with overlying cortical scarring noted in the lateral aspect of the interpolar region of the left kidney, likely indicating prior infarct, infection, trauma. No hydronephrosis. Ureters normal. Bladder: Normal. Pelvic organs: Uterus and ovaries normal. Bowel: Few sigmoid diverticula noted. Mild stool burden. Normal appendix. No bowel obstruction. Small hiatal hernia. Peritoneal cavity: No free fluid or intraperitoneal gas. Vasculature: A bypass graft courses in the subcutaneous tissue of the right lateral abdominal wall and is opacified with contrast. This connects to a second pass graft in the lower abdominal wall that courses across the abdomen connecting to the left superficial femoral artery. The second graft segment is also patent. As noted on the prior exam, infiltration surrounding the junction of these 2 grafts is apparent and similar in degree to prior exam. Rim enhancement around this may suggest fluid. Overlying skin infiltration and a surgical defect noted in the right lower quadrant abdominal wall. Additional surgical changes noted in the bilateral inguinal regions overlying the femoral vessels. The surgical incision site in the right lower quadrant may be contiguous with the right inguinal canal incision site. The bilateral femoral arteries are diminutive and poorly opacified with contrast. IVC patent. Lymph nodes: No enlarged lymph nodes in the abdomen or pelvis. Abdominal wall: Normal. Musculoskeletal: Degenerative changes of the spine. Degenerative changes of the sacroiliac joints. IMPRESSION: 1. Patent bypass graft along the right lateral abdominal wall and crossing the midline in the lower abdomen. As noted previously, infiltration and fluid surrounding the site of attachment of the two graft components; infection cannot be excluded. This is associated with the surgical incision site in the right lower quadrant and may be contiguous with the surgical incision site in the right inguinal canal. No intra-abdominal extension. 2. Due to the timing of the contrast bolus and diminutive nature of the femoral vessels, the bilateral superficial and deep femoral arteries are poorly opacified. Patency is difficult to establish. If there is clinical concern, lower extremity arterial Doppler could be obtained. Electronically signed by: Joselito Rosenthal M.D. 11/22/2016 2:49 PM Dictated Date/Time: 11/22/2016 2:39 PM
--- NOTE | 2016-11-22 14:52 | DIAGNOSTIC IMAGING REPORT ---
CT ENHANCED CT SCAN OF THE RIGHT HIP AND THIGH. CT DOSE: CLINICAL HISTORY: Right lower quadrant abscess. Extension into the groin and proximal thigh. TECHNIQUE: Patient was scanned in a dynamic helical fashion during intravenous administration of 93 cc Optiray 320. A dose lowering technique was utilized adhering to the principles of ALARA. COMPARISON STUDY: None. FINDINGS: There is a subcutaneous right-sided vascular graft which distally crosses the midline to the left femoral region. The graft appears patent. There is soft tissue infiltration surrounding the distal margin of the graft. There is an overlying cutaneous ulceration with soft tissue thickening on a small tract extending to the graft. There appears to have been removal of the distal aspect of the graft which likely extends into the right femoral level. There are no fluid collections to indicate a drainable abscess. There are no fluid collections present within the thigh. There are no bony destructive lesions to indicate osteomyelitis. No fractures are visualized. There is a right common iliac artery graft which appears at least partially occluded. The left common iliac artery also appears at least partially occluded. IMPRESSION: 1. Right-sided subcutaneous femoral artery bypass graft with apparent removal of the distal right femoral limb. There is soft tissue stranding surrounding the distal portion of the graft. Graft infection cannot be excluded. There are no fluid collections to indicate a drainable abscess. Electronically signed by: Duarte Fontana M.D. 11/22/2016 2:53 PM Dictated Date/Time: 11/22/2016 2:43 PM
[2016-11-22] MEDS ORDERED: TPRSR/25 PO (15:07)
[2016-11-22] MEDS ORDERED: OMEP40CA41 PO (15:10)
[2016-11-22] MEDS ORDERED: ACT/45 PO (15:10)
[2016-11-22] MEDS ORDERED: CHOL1TAB42 PO (15:11)
[2016-11-22] MEDS ORDERED: ACETAMINOPHEN 325 MG TAB PO PRN (16:45)
[2016-11-22] MEDS ORDERED: ONDANSETRON INJ 2 MG/ML 2 ML VIAL IV PRN (16:45)
[2016-11-22] MEDS ORDERED: NITROGLYCERIN 0.4 MG SL PER TAB CHARGE SL PRN (16:45)
[2016-11-22 17:28] VITALS: BP 113/70; PULSE 88; TEMP 37; O2SAT 99; BMI 35.0
[2016-11-22] MEDS: LACTOBACILLUS ACIDOPHILUS (FLORANEX) TAB PO SCH (17:38)
[2016-11-22] MEDS ORDERED: VANCOMYCIN CONSULT ACTIVE PRN (18:00)
[2016-11-22] MEDS ORDERED: PIPERACILL/TAZOBAC CONSULT ACTIVE PRN (18:00)
[2016-11-22] MEDS: SODIUM CHLORIDE 0.9% 1000ML 1,000 ML IV SCH (19:14)
[2016-11-22] MEDS: PIPERACILL/TAZOBAC IV 4.5 GM in DEXTROSE 5% 100ML 100 ML IV SCH (19:48)
[2016-11-22 19:58] VITALS: BP 119/75; PULSE 96; TEMP 37; O2SAT 98
[2016-11-22 20:00] VITALS: O2SAT 98
--- NOTE | 2016-11-22 20:10 | Pharmacy Progress Note ---
Pharmacy Antibiotic Consult Date of Service: Nov 22, 2016. Pharmacy Dosing Scope Pharmacy is consulted to initiate vancomycin and zosyn IV dosing therapy, order appropriate labs and adjust drug dose/frequency. Subjective The patient is a 66 year old female admitted on Nov 22, 2016 at 16:30. Objective Height (Feet): 5 Height (Inches): 0.00 Weight (Kilograms): 81.200 Lab Results (24hrs): Test 11/22/16 13:09 11/22/16 13:38 11/22/16 13:41 11/22/16 13:56 Urine Color YELLOW Urine Appearance CLEAR (CLEAR) Urine pH 6.5 (4.5-7.5) Urine Specific [place] 1.019 (1.000-1.030) Urine Protein NEG (NEG) Urine Glucose (UA) 1+ (NEG) Urine Ketones TRACE (NEG) Urine Occult Blood NEG (NEG) Urine Nitrite NEG (NEG) Urine Bilirubin NEG (NEG) Urine Urobilinogen NEG (NEG) Urine Leukocyte Esterase NEG (NEG) Urine WBC (Auto) 1-5 /hpf (0-5) Urine RBC (Auto) 0-4 /hpf (0-4) Urine Hyaline Casts (Auto) 1-5 /lpf (0-5) Urine Epithelial Cells (Auto) 20-30 /lpf (0-5) Urine Bacteria (Auto) NEG (NEG) White Blood Count 13.04 K/uL (4.8-10.8) Red Blood Count 4.29 M/uL (4.2-5.4) Hemoglobin 10.9 g/dL (12.0-16.0) Hematocrit 34.5 % (37-47) Mean Corpuscular Volume 80.4 fL (80-100) Mean Corpuscular Hemoglobin 25.4 pg (25-34) Mean Corpuscular Hemoglobin Concent 31.6 g/dl (32-36) Platelet Count 287 K/uL (130-400) Mean Platelet Volume 9.2 fL (7.4-10.4) Neutrophils (%) (Auto) 87.0 % Lymphocytes (%) (Auto) 6.7 % Monocytes (%) (Auto) 5.7 % Eosinophils (%) (Auto) 0.2 % Basophils (%) (Auto) 0.2 % Neutrophils # (Auto) 11.35 K/uL (1.4-6.5) Lymphocytes # (Auto) 0.87 K/uL (1.2-3.4) Monocytes # (Auto) 0.74 K/uL (0.11-0.59) Eosinophils # (Auto) 0.03 K/uL (0-0.5) Basophils # (Auto) 0.03 K/uL (0-0.2) RDW Standard Deviation 45.0 fL (36.4-46.3) RDW Coefficient of Variation 15.2 % (11.5-14.5) Immature Granulocyte % (Auto) 0.2 % Immature Granulocyte # (Auto) 0.02 K/uL (0.00-0.02) Prothrombin Time 24.8 SECONDS (9.0-12.0) Prothromb Time International Ratio 2.2 (0.9-1.1) Sodium Level 136 mmol/L (136-145) Potassium Level 3.5 mmol/L (3.5-5.1) Chloride Level 103 mmol/L (98-107) Carbon Dioxide Level 24 mmol/L (21-32) Anion Gap 9.0 mmol/L (3-11) 21.0 mmol/L (16-25) Blood Urea Nitrogen 11 mg/dl (7-18) Creatinine 0.65 mg/dl (0.60-1.20) Est Creatinine Clear Calc Drug Dose 80.3 ml/min Estimated GFR () 107.2 Estimated GFR (Non- 92.5 BUN/Creatinine Ratio 17.4 (10-20) Random Glucose 183 mg/dl (70-99) Calcium Level 9.0 mg/dl (8.5-10.1) Magnesium Level 1.0 mg/dl (1.8-2.4) Total Bilirubin 0.3 mg/dl (0.2-1) Direct Bilirubin 0.1 mg/dl (0-0.2) Aspartate Amino Transf (AST/SGOT) 26 U/L (15-37) Alanine Aminotransferase (ALT/SGPT) 21 U/L (12-78) Alkaline Phosphatase 90 U/L (45-117) Total Creatine Kinase 50 U/L (26-192) Creatine Kinase MB 1.2 ng/ml (0.5-3.6) Creatine Kinase MB Ratio 2.4 (0-3.0) Troponin I 0.022 ng/ml (0-0.045) Total Protein 7.4 gm/dl (6.4-8.2) Albumin 3.3 gm/dl (3.4-5.0) Bedside Lactic Acid Venous 2.00 mmol/L (0.90-1.70) Bedside Hemoglobin 11.6 g/dl (12.0-16.0) Bedside Hematocrit 34 % (37-47) Bedside Sodium 139 mEq/L (135-144) Bedside Potassium 3.7 mEq/L (3.3-5.0) Bedside Chloride 99 mEq/L (101-112) Bedside Total CO2 24 mEq/l (24-31) Bedside Blood Urea Nitrogen 11 mg/dl (7-18) Bedside Creatinine 0.6 mg/dl (0.6-1.3) Bedside Glucose (other) 194 mg/dl (70-99) Bedside Ionized Calcium ([place]is) 1.10 mmol/l (1.12-1.32) Assessment & Plan Patient started on vancomycin and zosyn for skin/soft tissue infection. Per nursing notes, patient admitted for fever/drainage from recent groin surgical site. Vancomycin: * Patient received LD of vancomycin 1600 mg (~20 mg/kg) x 1 in the ED * Will start maintenance dose of vancomycin 1250 mg (~15 mg/kg) q 12 hrs to achieve an estimated trough ~15-20 mcg/ml (goal for cellulitis/abscess) * plan to start MD early due to partial loading dose given * Estimated kinetics: t1/2~10 hr, ke~0.07 hr-1, CrCl ~80 ml/min (previous kinetic data show dosing produces therapeutic trough) * Will plan to recheck trough prior tot he 1000 dose on 11/24 to ensure therapeutic Zosyn: * 4.5 gm iv q 8 hrs (appropriate for CrCl >20 ml/min; BMI>/=30 kg/m2) Pharmacy will continue to follow and will adjust dose/frequency as necessary. Thank you
[2016-11-22] MEDS ORDERED: DEXTROSE 50% 50 ML SYR IV PRN (20:15)
[2016-11-22] MEDS ORDERED: GLUCOSE 10 TABS/TUBE PO PRN (20:15)
[2016-11-22] MEDS ORDERED: GLUCOSE 40% GEL 15 GM TUBE PO PRN (20:15)
[2016-11-22] MEDS ORDERED: GLUCAGON FOR INJ 1 MG VIAL SQ PRN (20:15)
--- NOTE | 2016-11-22 20:26 | EMERGENCY ROOM VISIT NOTE ---
History Report prepared by Kindra: Danii Ramirez Under the Supervision of: Dr. Raheel Toledo D.O. First contact with patient: 13:07 Chief Complaint: FEVER Stated Complaint: FEVER,DRAINAGE FROM SURGICAL SITE History of Present Illness The patient is a 66 year old female who presents to the Emergency Room with complaints of worsening fever starting 1100 this morning. She was sent to the ED by Dr. Morgan's nurse. She has an infection in her groin area where she had surgery for her vascular graft. The drainage started 8 weeks ago and grew out enterococcus which was resistant to gent and susceptible to vanc. She was on cipro for 2 weeks which she recently finished. The fever started this morning and has worsened since then. She is having some pain in her right side. She denies any cough, rhinorrhea, or sore throat. Her last bowel movement was normal. She has a history of peripheral artery disease and had right femoral artery bypass in August 2015. She has a history of diabetes, CAD, and hypertension. The patient was seen in the ED April 13 for bleeding in her right groin. She had an exploratory and anastomosis for presumed vascular graft infection. She still has her gallbladder and appendix. Source of History: patient Onset: 1100 this morning Position: other (global) Quality: other (fever) Timing: worsening Associated Symptoms: + abdominal pain (right), No sorethroat, No cough Note: Pt denies rhinorrhea. Review of Systems See HPI for pertinent positives & negatives. A total of 10 systems reviewed and were otherwise negative. Past Medical & Surgical Medical Problems: (1) Infected prosthetic vascular graft (2) PAD (peripheral artery disease) (3) Sepsis (4) surgical site bleeding (5) Vascular graft infection Family History Hypertension FATHER Social History Smoking Status: Former Smoker Drug Use: none Marital Status: Housing Status: lives with family Occupation Status: retired Current/Historical Medications Scheduled Amoxicillin & Pot Clavulanate (Augmentin 500MG), 250 MG PO BID Aspirin (Aspirin Ec), 81 MG PO QAM Atorvastatin (Lipitor), 40 MG PO HS Cholecalciferol (Vitamin D), 5,000 UNITS PO DAILY Docusate Sodium (Docusate Sodium), 100 MG PO BID Lisinopril (Zestril), 10 MG PO QAM Metformin Hcl (Glucophage), 1,000 MG PO BID Metoprolol Succinate (Metoprolol Succinate ER), 12.5 MG PO DAILY Multivitamin (Multivitamin), 1 TAB PO QAM [place]-3 Fatty Acids (Fish Oil), 1 CAP PO QAM Omeprazole (Prilosec), 40 MG PO BID Pioglitazone Hcl (Actos), 45 MG PO QAM Warfarin Sod (Jantoven), 4 MG PO [id number] Warfarin Sod (Jantoven), 2 MG PO WK Scheduled PRN Valacyclovir (Valtrex), 1,000 MG PO PRN PRN for COLD SORES Allergies Coded Allergies: Sulfamethoxazole w/Trimethoprim (Verified Allergy, Intermediate, HIVES,GI SYMPTOMS, 11/22/16) Nickel (Verified Allergy, Mild, RASH, 11/22/16) Levofloxacin (Verified Adverse Reaction, Mild, VOMITING, 11/22/16) Physical Exam Vital Signs Date Time Temp Pulse Resp B/P (MAP) Pulse Ox O2 Delivery O2 Flow Rate FiO2 11/22/16 16:24 98 22 91 11/22/16 16:15 138/66 11/22/16 16:09 97 24 95 11/22/16 16:06 104/51 11/22/16 16:02 86/54 11/22/16 15:54 89 13 90 11/22/16 15:49 89 18 96/56 95 Room Air 11/22/16 15:36 92 15 92 Room Air 11/22/16 15:31 88/68 11/22/16 15:21 98 20 92 Room Air 11/22/16 15:15 100/61 11/22/16 15:06 94 20 91 Room Air 11/22/16 15:01 102 15 96 Room Air 11/22/16 15:00 99/69 11/22/16 14:58 95/70 11/22/16 14:51 37.2 103 18 88/67 95 Room Air 11/22/16 14:50 88/67 11/22/16 14:16 101 15 93 11/22/16 14:15 97 18 99/64 98 Room Air 11/22/16 14:15 99/64 11/22/16 14:02 101/70 11/22/16 14:02 103 18 101/70 97 Room Air 11/22/16 14:01 116 23 11/22/16 13:56 112 18 140/119 96 Room Air 11/22/16 13:46 117 23 140/119 11/22/16 13:45 128/97 11/22/16 13:39 110 18 125/79 97 Room Air 11/22/16 13:37 125/79 11/22/16 13:31 124 19 11/22/16 13:29 134 11/22/16 13:23 120/88 11/22/16 12:42 39.2 135 20 157/87 95 Room Air Physical Exam GENERAL: sitting up in bed, disheveled, ill appearing. EYE EXAM: normal conjunctiva OROPHARYNX: no exudate, no erythema, lips, buccal mucosa, and tongue normal and mucous membranes are moist NECK: supple, no nuchal rigidity, no adenopathy, non-tender LUNGS: Clear to auscultation. Normal chest wall mechanics HEART: tachycardic, no murmurs, S1 normal and S2 normal ABDOMEN: Fullness and tenderness in the right lower groin with a draining wound , drainage is light yellow/green, old incision within the right groin is healed without drainage. BACK: Back is symmetrical on inspection and there is no deformity, no midline tenderness, no CVA tenderness. SKIN: no rashes and no bruising UPPER EXTREMITIES: upper extremities are grossly normal. LOWER EXTREMITIES: Mild pitting edema. NEURO EXAM: Normal sensorium, cranial nerves II-XII grossly intact, normal speech, no gross weakness of arms, no gross weakness of legs. Medical Decision & Procedures ER Provider Diagnostic Interpretation: Radiology results as stated below per my review and the radiologist's interpretation: CHEST ONE VIEW PORTABLE CLINICAL HISTORY: fever COMPARISON STUDY: No previous studies for comparison. FINDINGS: The cardiac and mediastinal contours are normal. There is no evidence of focal pulmonary consolidation. There is no evidence of failure. No pleural effusions are visualized.[ Slight indistinctness of the left cardiac border remains stable. This is likely secondary to a fat pad. Surgical clips projected over the right anterior second rib. IMPRESSION: No active disease in the chest. Electronically signed by: Duarte Fontana M.D. 11/22/2016 1:57 PM Dictated Date/Time: 11/22/2016 1:[address] CT SCAN OF THE RIGHT HIP AND THIGH. CT DOSE: CLINICAL HISTORY: Right lower quadrant abscess. Extension into the groin and proximal thigh. TECHNIQUE: Patient was scanned in a dynamic helical fashion during intravenous administration of 93 cc Optiray 320. A dose lowering technique was utilized adhering to the principles of ALARA. COMPARISON STUDY: None. FINDINGS: There is a subcutaneous right-sided vascular graft which distally crosses the midline to the left femoral region. The graft appears patent. There is soft tissue infiltration surrounding the distal margin of the graft. There is an overlying cutaneous ulceration with soft tissue thickening on a small tract extending to the graft. There appears to have been removal of the distal aspect of the graft which likely extends into the right femoral level. There are no fluid collections to indicate a drainable abscess. There are no fluid collections present within the thigh. There are no bony destructive lesions to indicate osteomyelitis. No fractures are visualized. There is a right common iliac artery graft which appears at least partially occluded. The left common iliac artery also appears at least partially occluded. IMPRESSION: 1. Right-sided subcutaneous femoral artery bypass graft with apparent removal of the distal right femoral limb. There is soft tissue stranding surrounding the distal portion of the graft. Graft infection cannot be excluded. There are no fluid collections to indicate a drainable abscess. Electronically signed by: Duarte Fontana M.D. 11/22/2016 2:53 PM Dictated Date/Time: 11/22/2016 2:43 PM ABD/PELVIS IV CONTRAST ONLY CLINICAL HISTORY: 66 years-old Female presenting with rlq abscess going into groin/prox femur . TECHNIQUE: Multidetector CT of the abdomen and pelvis was performed after the administration of intravenous contrast. IV contrast: 93 mL of Optiray 320. A dose lowering technique was used consistent with the principles of ALARA (as low as reasonably achievable). COMPARISON: 10/20/2016.. CT DOSE (mGy.cm): The estimated cumulative dose is 1365.24 mGy.cm. FINDINGS: Corn Grinder topogram: Unremarkable. Lung bases: Minimal dependent changes likely atelectasis. Few small lung cyst noted in the right lung base and right middle lobe. Mosaic attenuation at the lung bases could suggest small airways disease. Opacities in the lingula and right middle lobe likely atelectasis or scarring. Top normal heart size. Coronary artery calcification. No pericardial or pleural effusion. Liver: Normal morphology. No liver lesion. Patent hepatic vasculature. Biliary: No intrahepatic or extrahepatic biliary ductal dilatation. Gallbladder contains gallstones. Pancreas: Normal. Spleen: Normal. Adrenal glands: Normal. Kidneys and ureters: Subtle wedgelike defect with overlying cortical scarring noted in the lateral aspect of the interpolar region of the left kidney, likely indicating prior infarct, infection, trauma. No hydronephrosis. Ureters normal. Bladder: Normal. Pelvic organs: Uterus and ovaries normal. Bowel: Few sigmoid diverticula noted. Mild stool burden. Normal appendix. No bowel obstruction. Small hiatal hernia. Peritoneal cavity: No free fluid or intraperitoneal gas. Vasculature: A bypass graft courses in the subcutaneous tissue of the right lateral abdominal wall and is opacified with contrast. This connects to a second pass graft in the lower abdominal wall that courses across the abdomen connecting to the left superficial femoral artery. The second graft segment is also patent. As noted on the prior exam, infiltration surrounding the junction of these 2 grafts is apparent and similar in degree to prior exam. Rim enhancement around this may suggest fluid. Overlying skin infiltration and a surgical defect noted in the right lower quadrant abdominal wall. Additional surgical changes noted in the bilateral inguinal regions overlying the femoral vessels. The surgical incision site in the right lower quadrant may be contiguous with the right inguinal canal incision site. The bilateral femoral arteries are diminutive and poorly opacified with contrast. IVC patent. Lymph nodes: No enlarged lymph nodes in the abdomen or pelvis. Abdominal wall: Normal. Musculoskeletal: Degenerative changes of the spine. Degenerative changes of the sacroiliac joints. IMPRESSION: 1. Patent bypass graft along the right lateral abdominal wall and crossing the midline in the lower abdomen. As noted previously, infiltration and fluid surrounding the site of attachment of the two graft components; infection cannot be excluded. This is associated with the surgical incision site in the right lower quadrant and may be contiguous with the surgical incision site in the right inguinal canal. No intra-abdominal extension. 2. Due to the timing of the contrast bolus and diminutive nature of the femoral vessels, the bilateral superficial and deep femoral arteries are poorly opacified. Patency is difficult to establish. If there is clinical concern, lower extremity arterial Doppler could be obtained. Electronically signed by: Joselito Rosenthal M.D. 11/22/2016 2:49 PM Dictated Date/Time: 11/22/2016 2:39 PM Laboratory Results 11/22/16 13:38 Red Blood Count 4.29, Mean Corpuscular Volume 80.4, Mean Corpuscular Hemoglobin 25.4, Mean Corpuscular Hemoglobin Concent 31.6, Mean Platelet Volume 9.2, Neutrophils (%) (Auto) 87.0, Lymphocytes (%) (Auto) 6.7, Monocytes (%) (Auto) 5.7, Eosinophils (%) (Auto) 0.2, Basophils (%) (Auto) 0.2, Neutrophils # (Auto) 11.35, Lymphocytes # (Auto) 0.87, Monocytes # (Auto) 0.74, Eosinophils # (Auto) 0.03, Basophils # (Auto) 0.03 11/22/16 13:38 Test 11/22/16 13:09 11/22/16 13:38 11/22/16 13:41 11/22/16 13:56 Urine Color YELLOW Urine Appearance CLEAR (CLEAR) Urine pH 6.5 (4.5-7.5) Urine Specific [place] 1.019 (1.000-1.030) Urine Protein NEG (NEG) Urine Glucose (UA) 1+ (NEG) Urine Ketones TRACE (NEG) Urine Occult Blood NEG (NEG) Urine Nitrite NEG (NEG) Urine Bilirubin NEG (NEG) Urine Urobilinogen NEG (NEG) Urine Leukocyte Esterase NEG (NEG) Urine WBC (Auto) 1-5 /hpf (0-5) Urine RBC (Auto) 0-4 /hpf (0-4) Urine Hyaline Casts (Auto) 1-5 /lpf (0-5) Urine Epithelial Cells (Auto) 20-30 /lpf (0-5) Urine Bacteria (Auto) NEG (NEG) White Blood Count 13.04 K/uL (4.8-10.8) Red Blood Count 4.29 M/uL (4.2-5.4) Hemoglobin 10.9 g/dL (12.0-16.0) Hematocrit 34.5 % (37-47) Mean Corpuscular Volume 80.4 fL (80-100) Mean Corpuscular Hemoglobin 25.4 pg (25-34) Mean Corpuscular Hemoglobin Concent 31.6 g/dl (32-36) Platelet Count 287 K/uL (130-400) Mean Platelet Volume 9.2 fL (7.4-10.4) Neutrophils (%) (Auto) 87.0 % Lymphocytes (%) (Auto) 6.7 % Monocytes (%) (Auto) 5.7 % Eosinophils (%) (Auto) 0.2 % Basophils (%) (Auto) 0.2 % Neutrophils # (Auto) 11.35 K/uL (1.4-6.5) Lymphocytes # (Auto) 0.87 K/uL (1.2-3.4) Monocytes # (Auto) 0.74 K/uL (0.11-0.59) Eosinophils # (Auto) 0.03 K/uL (0-0.5) Basophils # (Auto) 0.03 K/uL (0-0.2) RDW Standard Deviation 45.0 fL (36.4-46.3) RDW Coefficient of Variation 15.2 % (11.5-14.5) Immature Granulocyte % (Auto) 0.2 % Immature Granulocyte # (Auto) 0.02 K/uL (0.00-0.02) Prothrombin Time 24.8 SECONDS (9.0-12.0) Prothromb Time International Ratio 2.2 (0.9-1.1) Est Creatinine Clear Calc Drug Dose 80.3 ml/min Estimated GFR () 107.2 Estimated GFR (Non- 92.5 BUN/Creatinine Ratio 17.4 (10-20) Calcium Level 9.0 mg/dl (8.5-10.1) Magnesium Level 1.0 mg/dl (1.8-2.4) Total Bilirubin 0.3 mg/dl (0.2-1) Direct Bilirubin 0.1 mg/dl (0-0.2) Aspartate Amino Transf (AST/SGOT) 26 U/L (15-37) Alanine Aminotransferase (ALT/SGPT) 21 U/L (12-78) Alkaline Phosphatase 90 U/L (45-117) Total Creatine Kinase 50 U/L (26-192) Creatine Kinase MB 1.2 ng/ml (0.5-3.6) Creatine Kinase MB Ratio 2.4 (0-3.0) Troponin I 0.022 ng/ml (0-0.045) Total Protein 7.4 gm/dl (6.4-8.2) Albumin 3.3 gm/dl (3.4-5.0) Bedside Lactic Acid Venous 2.00 mmol/L (0.90-1.70) Bedside Hemoglobin 11.6 g/dl (12.0-16.0) Bedside Hematocrit 34 % (37-47) Bedside Sodium 139 mEq/L (135-144) Bedside Potassium 3.7 mEq/L (3.3-5.0) Bedside Chloride 99 mEq/L (101-112) Bedside Total CO2 24 mEq/l (24-31) Anion Gap 21.0 mmol/L (16-25) Bedside Blood Urea Nitrogen 11 mg/dl (7-18) Bedside Creatinine 0.6 mg/dl (0.6-1.3) Bedside Glucose (other) 194 mg/dl (70-99) Bedside Ionized Calcium (Yanelis) 1.10 mmol/l (1.12-1.32) Laboratory results per my review. Medications Administered Medications (Trade) Dose Ordered Sig/Shira Route Start Time Stop Time Status Last Admin Dose Admin Sodium Chloride 2,000 ml @ 999 mls/hr Q2H1M STAT IV 11/22/16 13:22 11/22/16 15:22 DC 11/22/16 13:32 999 MLS/HR Vancomycin HCl 1600 mg/Sodium Chloride 532 ml @ 200 mls/hr ONE STAT IV 11/22/16 13:22 11/22/16 16:01 DC 11/22/16 13:36 200 MLS/HR Piperacillin Sod/ Tazobactam Sod (Zosyn Iv) 4.5 gm NOW STAT IV 11/22/16 13:22 11/22/16 13:24 DC 11/22/16 13:34 4.5 GM Acetaminophen (Tylenol Tab) 1,000 mg NOW STAT PO 11/22/16 13:22 11/22/16 13:24 DC 11/22/16 13:33 1,000 MG Sodium Chloride 1,000 ml @ 999 mls/hr Q1H1M STAT IV 11/22/16 14:28 11/22/16 15:28 DC 11/22/16 14:53 999 MLS/HR Magnesium Sulfate (Magnesium Sulfate) 1 gm NOW STAT IV 11/22/16 14:48 11/22/16 14:49 DC 11/22/16 15:02 1 GM Magnesium Sulfate (Magnesium Sulfate) 2 gm NOW STAT IV 11/22/16 15:42 11/22/16 16:01 DC 11/22/16 17:22 2 GM ECG Indication: tachycardia Rate (beats per minute): 130 Rhythm: sinus tachycardia Findings: nonspecific-ST abn (Lateral), other (normal axis) ED Course ED COURSE: Vital signs were reviewed and showed fever, tachycardia, hypotension. The patients medical record was reviewed The above diagnostic studies were performed and reviewed. ED treatments and interventions as stated above. 1310: The patient was evaluated in room A5. A complete history and physical examination was performed. 1322: Acetaminophen 1000 mg PO, Zosyn Iv 4.5 gm IV, Vancomycin HCl 1600 mg/ Sodium Chloride 532 ml @ 200 mls/hr IV., NSS 2000 ml @ 999 mls/hr IV. 1428: NSS 1000 ml @ 999 mls/hr IV. 1448: Magnesium Sulfate 1 gm IV. 1503: I discussed the patient's case with Dr. Morgan, Vascular surgery, [facility]. He will come and evaluate the patient. He agrees with antibiotics. 1513: I reviewed the patient's case with Dr. Alcala, [facility] hospitalist. He will evaluate the patient for further management. 1515: I reviewed the patient's case with Dr. Allen, [facility] valve mechanic. He will evaluate the patient for further management. 1517: Upon reevaluation, the patient is stable. I discussed my findings with the patient and she understands and agrees with the treatment plan. Based on the patients age, coexisting illnesses, exam and lab findings the decision to treat as an inpatient was made. The patient remained stable while under my care. The patient will be evaluated for further management. Medical Decision Differential diagnosis includes etiologies such as sepsis, UTI, pneumonia, metabolic, electrolyte abnormalities, cardiac sources, intracerebral event, toxicologic, neurologic, as well as others were entertained. Patient is a 66-year-old female who presents to ER for fever 39 and a heart rate in the 130s. On exam patient is ill-appearing in moderate distress. Patient was taken to room A5. Sepsis alert was called. IVs were established. She was given 3 L bolus IV fluids along with IV antibiotics broad-spectrum. CT of abdomen and pelvis was performed as recent surgeries/stents were removed in her right fem as they were found to be infected previously. Updated Dr. Morgan who will evaluate the patient. She does have a draining wound in the right lower abdomen which grew out enterococcus. I do believe this is the likely cause of infection. Medication Reconcilliation Current Medication List: was personally reviewed by me Blood Pressure Screening Patient's blood pressure: Low blood pressure Consults Time Called: [phone] Consulting Physician: Dr. Morgan, Vascular surgery, [facility] Returned Call: [phone] I discussed the patient's case with him. He will come and evaluate the patient. He agrees with antibiotics. Additional Consults: Time Called: 1508 Consulted Physician: Dr. Alcala, [facility] hospitalist Returned Call: [phone] Additional Comments: I reviewed the patient's case with him. He will evaluate the patient for further management. Time Called: 1510 Consulted Physician: Dr. Allen, [facility] valve mechanic Returned Call: [phone] Additional Comments: I reviewed the patient's case with him. He will evaluate the patient for further management. Impression Primary Impression: Sepsis Additional Impressions: Hypotension Postoperative wound infection Critical Care I have personally spent 35 minutes of critical care time in the direct management of this patient. This includes bedside care, interpretation of diagnostic studies, and testing, discussion with consultants, patient, and family members, and other required patient management activities. This 35 minutes is in excess of all separately billable procedures. Scribe Attestation The scribe's documentation has been prepared under my direction and personally reviewed by me in its entirety. I confirm that the note above accurately reflects all work, treatment, procedures, and medical decision making performed by me. Departure Information Dispostion Being Evaluated By Hospitalist Referrals Tam Rosario M.D. (PCP) Patient Instructions My [facility] Problem Qualifiers Primary Impression: Sepsis Sepsis type: sepsis due to unspecified organism Qualified Codes: A41.9 - Sepsis, unspecified organism Additional Impressions: Hypotension Hypotension type: unspecified hypotension type Qualified Codes: I95.9 - Hypotension, unspecified Postoperative wound infection Encounter type: initial encounter Qualified Codes: T81.4XXA - Infection following a procedure, initial encounter
[2016-11-22] MEDS: INSULIN ASPART 100 UNITS/ML 3 ML PEN SC SCH (20:30)
[2016-11-22] MEDS: ATORVASTATIN 40 MG TAB PO SCH (20:42)
[2016-11-22] MEDS: PANTOprazole SOD 40 MG TAB PO SCH (20:42)
[2016-11-22] MEDS: DOCUSATE SODIUM 100 MG CAP PO SCH (20:42)
[2016-11-22] MEDS: MAGNESIUM OXIDE 400 MG TAB PO SCH (20:42)
--- NOTE | 2016-11-22 20:47 | History and Physical ---
History & Physical Date & Time of Service: Nov 22, 2016 at 15:59 Chief Complaint: Fever,Drainage From Surgical Site Primary Care Physician: Tam Rosario M.D. History of Present Illness 66yo female with history of PAD, s/p axillary-bifemoral bypass surgery [place] [address] Morgan., who presents today with fever and persistent drainage from the right groin. Temps today were 100-100.5. This was associated with cold chills. Yesterday she felt normal and was in her usual health. The drainage from the right groin has been present for about 8 weeks. The drainage is typically yellow in color with occasional red/pink. No foul odor. She has pain in the right groin particularly to the touch. She had a portion of the right side of the graft removed due to infection. This surgery took place in April 2016. She has been on suppressive antibiotics ever since (augmentin). She was recently also on cipro for infection in the right groin. A culture drawn at Dr. Morgan's office revealed the need for the cipro. This was in October per her recollection . Upon ER presentation today she was borderline hypotensive and thus she received 3 L of NS in the form of boluses along with IV vancomycin & zosyn. During my assessment she reports she is feeling better. Past Medical/Surgical History PMH: 1. PAD 2. hypomagnesemia 3. T2DM 4. HTN 5. hyperlipidemia 6. chronic coumadin usage for PAD 7. Beauchamp's esophagus no h/o DC, CAD, stroke, CKD PSH: 1. axillary-bifemoral bypass graft surgery - 2015 - Dr. Chip Morgan 2. toe removal - 5th toe, right foot - 2004 3. BTL 4. Right Groin Exploration and Debridement with Repair of arterial anastomosis - 03/2016 - Dr. Chip Morgan 5. Removal of Right Limb of Axillary-Bifemoral Bypass 2nd to graft infection ( enterococcus) - 04/2016 - Dr. Chip Morgan Family History mother - alive, age 87 - very healthy; active smoker however father - alive, age 87 - arthritis, HTN Social History Smoking Status: Former Smoker (smoked age 13 and quit 2015; 1 ppd) Alcohol Use: none Drug Use: none Marital Status: (lives in [place]; 3 kids) Housing status: lives with family Occupational Status: retired (worked at [employer] ) Immunizations History of Influenza Vaccine: Unknown History of Tetanus Vaccine?: Unknown History of Pneumococcal: Unknown History of Hepatitis B Vaccine: Unknown Multi-Drug Resistant Organisms History of MDRO: No Allergies Coded Allergies: Sulfamethoxazole w/Trimethoprim (Verified Allergy, Intermediate, HIVES,GI SYMPTOMS, 11/22/16) Nickel (Verified Allergy, Mild, RASH, 11/22/16) Levofloxacin (Verified Adverse Reaction, Mild, VOMITING, 11/22/16) Home Medications Scheduled Amoxicillin & Pot Clavulanate (Augmentin 500MG), 250 MG PO BID Aspirin (Aspirin Ec), 81 MG PO QAM Atorvastatin (Lipitor), 40 MG PO HS Cholecalciferol (Vitamin D), 5,000 UNITS PO DAILY Docusate Sodium (Docusate Sodium), 100 MG PO BID Lisinopril (Zestril), 10 MG PO QAM Metformin Hcl (Glucophage), 1,000 MG PO BID Metoprolol Succinate (Metoprolol Succinate ER), 12.5 MG PO DAILY Multivitamin (Multivitamin), 1 TAB PO QAM [place]-3 Fatty Acids (Fish Oil), 1 CAP PO QAM Omeprazole (Prilosec), 40 MG PO BID Pioglitazone Hcl (Actos), 45 MG PO QAM Warfarin Sod (Jantoven), 4 MG PO [id number] Warfarin Sod (Jantoven), 2 MG PO WK Scheduled PRN Valacyclovir (Valtrex), 1,000 MG PO PRN PRN for COLD SORES Review of Systems Constitutional: + fever, + chills, + problem reported (weight gain), No weight loss, No fatigue Eyes: No worsening of vision ENT: + nasal symptoms, No sore throat, No trouble swallowing Respiratory: + dyspnea on exertion (chronic), No cough Cardiovascular: + edema (chronic ), No chest pain (recent stress test negative) Abdomen: No pain, No nausea, No vomiting, No diarrhea, No GI bleeding Genitourinary - Female: No dysuria Neurologic: No numbness/tingling Psychiatric: No depression symptoms, No anxiety Endocrine: No fatigue Hematologic / Lymphatic: No abnormal bleeding/bruising Integumentary: No rash Physical Exam Vital Signs Date Time Temp Pulse Resp B/P (MAP) Pulse Ox O2 Delivery O2 Flow Rate FiO2 11/22/16 15:49 89 18 96/56 95 Room Air 9/12/17 15:36 92 15 92 Room Air 11/22/16 15:31 88/68 11/22/16 15:21 98 20 92 Room Air 11/22/16 15:15 100/61 11/22/16 15:06 94 20 91 Room Air 11/22/16 15:01 102 15 96 Room Air 11/22/16 15:00 99/69 11/22/16 14:58 95/70 11/22/16 14:51 37.2 103 18 88/67 95 Room Air 11/22/16 14:50 88/67 11/22/16 14:16 101 15 93 11/22/16 14:15 97 18 99/64 98 Room Air 11/22/16 14:15 99/64 11/22/16 14:02 101/70 11/22/16 14:02 103 18 101/70 97 Room Air 11/22/16 14:01 116 23 11/22/16 13:56 112 18 140/119 96 Room Air 11/22/16 13:46 117 23 140/119 11/22/16 13:45 128/97 11/22/16 13:39 110 18 125/79 97 Room Air 11/22/16 13:37 125/79 11/22/16 13:31 124 19 11/22/16 13:29 134 11/22/16 13:23 120/88 11/22/16 12:42 39.2 135 20 157/87 95 Room Air General Appearance: WD/WN, no apparent distress, + obese, + pertinent finding ( nontoxic appearing) Head: normocephalic, atraumatic Eyes: PERRL ENT: normal ENT inspection, hearing grossly normal, TMs normal, pharynx normal Neck: supple, no adenopathy, thyroid normal, no JVD, + pertinent finding (b/l carotid bruits) Respiratory/Chest: lungs clear, no respiratory distress, no accessory muscle use Cardiovascular: no gallop, + tachycardia, + systolic murmur (1/6 LISA RUSB), + abnormal peripheral pulses (b/l radial arteries <1+) Abdomen/GI: normal bowel sounds, non tender, soft, no organomegaly Back: normal inspection Extremities/Musculoskelatal: + pedal edema (1+, left), + pertinent finding ( pulses b/l feet about 1+) Neurologic/Psych: no motor/sensory deficits, alert, normal mood/affect, normal reflexes, oriented x 3 Skin: + pertinent finding (right groin - horizontal incision present with minimal amount of erythema medially; at the medial edge of this incision as it meets a skin fold there is a pinpoint hole in the incision with mild amount of yellow drainage present; no odor; minimal tenderness in this region ) Lymphatic: no adenopathy (no cervical LAD) Diagnostics Laboratory Results Results Past 24 Hours Test 11/22/16 13:09 11/22/16 13:38 11/22/16 13:41 11/22/16 13:56 Range/Units Urine Color YELLOW Urine Appearance CLEAR CLEAR Urine pH 6.5 4.5-7.5 Urine Specific [place] 1.019 1.000-1.030 Urine Protein NEG NEG Urine Glucose (UA) 1+ NEG Urine Ketones TRACE NEG Urine Occult Blood NEG NEG Urine Nitrite NEG NEG Urine Bilirubin NEG NEG Urine Urobilinogen NEG NEG Urine Leukocyte Esterase NEG NEG Urine WBC (Auto) 1-5 0-5 /hpf Urine RBC (Auto) 0-4 0-4 /hpf Urine Hyaline Casts (Auto) 1-5 0-5 /lpf Urine Epithelial Cells (Auto) 20-30 0-5 /lpf Urine Bacteria (Auto) NEG NEG White Blood Count 13.04 4.8-10.8 K/uL Red Blood Count 4.29 4.2-5.4 M/uL Hemoglobin 10.9 12.0-16.0 g/dL Hematocrit 34.5 37-47 % Mean Corpuscular Volume 80.4 80-100 fL Mean Corpuscular Hemoglobin 25.4 25-34 pg Mean Corpuscular Hemoglobin Concent 31.6 32-36 g/dl Platelet Count 287 130-400 K/uL Mean Platelet Volume 9.2 7.4-10.4 fL Neutrophils (%) (Auto) 87.0 % Lymphocytes (%) (Auto) 6.7 % Monocytes (%) (Auto) 5.7 % Eosinophils (%) (Auto) 0.2 % Basophils (%) (Auto) 0.2 % Neutrophils # (Auto) 11.35 1.4-6.5 K/uL Lymphocytes # (Auto) 0.87 1.2-3.4 K/uL Monocytes # (Auto) 0.74 0.11-0.59 K/uL Eosinophils # (Auto) 0.03 0-0.5 K/uL Basophils # (Auto) 0.03 0-0.2 K/uL RDW Standard Deviation 45.0 36.4-46.3 fL RDW Coefficient of Variation 15.2 11.5-14.5 % Immature Granulocyte % (Auto) 0.2 % Immature Granulocyte # (Auto) 0.02 0.00-0.02 K/uL Prothrombin Time 24.8 9.0-12.0 SECONDS Prothromb Time International Ratio 2.2 0.9-1.1 Sodium Level 136 136-145 mmol/L Potassium Level 3.5 3.5-5.1 mmol/L Chloride Level 103 98-107 mmol/L Carbon Dioxide Level 24 21-32 mmol/L Anion Gap 9.0 21.0 16-25 mmol/L Blood Urea Nitrogen 11 7-18 mg/dl Creatinine 0.65 0.60-1.20 mg/dl Est Creatinine Clear Calc Drug Dose 80.3 ml/min Estimated GFR () 107.2 Estimated GFR (Non- 92.5 BUN/Creatinine Ratio 17.4 10-20 Random Glucose 183 70-99 mg/dl Calcium Level 9.0 8.5-10.1 mg/dl Magnesium Level 1.0 1.8-2.4 mg/dl Total Bilirubin 0.3 0.2-1 mg/dl Direct Bilirubin 0.1 0-0.2 mg/dl Aspartate Amino Transf (AST/SGOT) 26 15-37 U/L Alanine Aminotransferase (ALT/SGPT) 21 12-78 U/L Alkaline Phosphatase 90 45-117 U/L Total Creatine Kinase 50 26-192 U/L Creatine Kinase MB 1.2 0.5-3.6 ng/ml Creatine Kinase MB Ratio 2.4 0-3.0 Troponin I 0.022 0-0.045 ng/ml Total Protein 7.4 6.4-8.2 gm/dl Albumin 3.3 3.4-5.0 gm/dl Bedside Lactic Acid Venous 2.00 0.90-1.70 mmol/L Bedside Hemoglobin 11.6 12.0-16.0 g/dl Bedside Hematocrit 34 37-47 % Bedside Sodium 139 135-144 mEq/L Bedside Potassium 3.7 3.3-5.0 mEq/L Bedside Chloride 99 101-112 mEq/L Bedside Total CO2 24 24-31 mEq/l Bedside Blood Urea Nitrogen 11 7-18 mg/dl Bedside Creatinine 0.6 0.6-1.3 mg/dl Bedside Glucose (other) 194 70-99 mg/dl Bedside Ionized Calcium (Yanelis) 1.10 1.12-1.32 mmol/l Microbiology Results 11/22/16 Blood Culture, Received Pending 11/22/16 Blood Culture, Received Pending Diagnostic Radiology CT abd/pelvis: IMPRESSION: 1. Patent bypass graft along the right lateral abdominal wall and crossing the midline in the lower abdomen. As noted previously, infiltration and fluid surrounding the site of attachment of the two graft components; infection cannot be excluded. This is associated with the surgical incision site in the right lower quadrant and may be contiguous with the surgical incision site in the right inguinal canal. No intra-abdominal extension. 2. Due to the timing of the contrast bolus and diminutive nature of the femoral vessels, the bilateral superficial and deep femoral arteries are poorly opacified. Patency is difficult to establish. If there is clinical concern, lower extremity arterial Doppler could be obtained. CT right leg: IMPRESSION: 1. Right-sided subcutaneous femoral artery bypass graft with apparent removal of the distal right femoral limb. There is soft tissue stranding surrounding the distal portion of the graft. Graft infection cannot be excluded. There are no fluid collections to indicate a drainable abscess. CXR: no infiltrates. EKG EKG - my reading: sinus tach slight ST depression anterolateral leads Impression Assessment and Plan 66yo female with h/o severe PAD s/p axillary-bifemoral bypass grafting in 2015 complicated by graft infection in 04/2016 - on chronic suppressive antibiotics since - along with T2DM, HTN, and prior tobacco dependence. Today presenting with sepsis presumed to be from her graft infection as she reports ongoing purulent drainage from the right groin as well as radiographic findings concerning for infection. 1. sepsis, suspected to be 2nd to graft infection in her right groin - she appropriately received volume resuscitation in the ER with improved BP and now stable vitals. Will continue zosyn and vancomycin for broad-spectrum coverage. Follow cultures. Continue basal fluids. Consult Dr. Morgan and will keep NPO in the event she needs exploratory surgery of the right groin in the AM. Hold coumadin. CXR and u/a not suggestive of infection. No other obvious source of infection at this time. 2. PAD - likely has PAD of the arms as well given the discrepant blood pressures. Her left arm readings tend to be higher than the right arm. I have asked nursing to just use the left arm for BP checks. Continue aspirin, statin, etc. Hold coumadin in the event she needs repeat surgery. INR in am. 3. hypomagnesemia - a review of the record shows she is chronically low. Denies diarrhea. Denies diuretic use. No etoh use. Cause? PPI leading to poor absorption of magnesium in the diet? Renal wasting? Check urine magnesium level. Give 2 additional grams of mag sulfate (total 3 grams today). Repeat mag level in am. 4. hypotension - improved s/p fluids in ER. Hold BP meds from home. Follow carefully on telemetry unit. 5. T2DM - hold oral agents. Novolog - correction 35 with carb ratio 1:12. BSG's ac/hs. 6. hyperlipidemia - statin agent. 7. DVT proph - coumadin for now (INR 2.2 today). 8. FEN - diet today, NPO after MN just in case she needs a procedure. NS at 125cc/hr. Lytes in am including magnesium level. 9. h/o Beauchamp's esophagus - PPI as previous. 10. mild anemia - cbc in am. updated await vascular surgery evaluation Advanced Directives Existing Advance Directive: No Existing Living Will: No Existing Power of [place]: No Resuscitation Status FULL RESUSCITATION VTE Prophylaxis VTE Risk Assessment Done? Y/N: Yes Risk Level: Moderate Given or contraindicated: Warfarin (Coumadin) Note total time about 75 minutes Additional Copies To Tam Rosario M.D.; Chip Morgan M.D.
[2016-11-22 23:54] VITALS: BP 118/56; PULSE 89; TEMP 37.2; O2SAT 97
[2016-11-23] VITALS (8 sets, daily range): BP systolic 104–155; BP diastolic 65–82; PULSE 80–101; TEMP 36.9–37.3; O2SAT 91–98
[2016-11-23] MEDS: VANCOMYCIN INJ 1,250 MG in SODIUM CHLORIDE 0.9% 250ML 250 ML IV SCH ×3 (00:15→22:45)
[2016-11-23] MEDS: SODIUM CHLORIDE 0.9% 1000ML 1,000 ML IV SCH ×3 (02:00→20:01)
[2016-11-23] MEDS: PIPERACILL/TAZOBAC IV 4.5 GM in DEXTROSE 5% 100ML 100 ML IV SCH ×3 (04:13→21:00)
[2016-11-23 06:08] LABS: BASO % 0.5 %; BASO ABS # 0.04 K/uL (0-0.2); COMPLETE YES; EOS % 1.2 %; IG% 0.2 %; LYMPH % 12.9 %; LYMPH ABS # 1.09 K/uL (1.2-3.4); MEAN CELL VOLUME 80.5 fL (80-100); MEAN CORPUSCULAR HEMOGLOBIN 25.2 pg (25-34); MEAN CORPUSCULAR HGB CONC 31.3 g/dl (32-36); MEAN PLATELET VOLUME 9.4 fL (7.4-10.4); MONO % 5.8 %; NEUT % 79.4 %; PLATELET COUNT 261 K/uL (130-400); RED BLOOD COUNT 3.85 M/uL (4.2-5.4); WHITE BLOOD COUNT 8.44 K/uL (4.8-10.8)
[2016-11-23 06:38] LABS: INR 1.8 (0.9-1.1); PROTHROMBIN TIME (PATIENT) 19.5 SECONDS (9.0-12.0)
[2016-11-23 06:43] LABS: BUN/CREATININE RATIO 15.7 (10-20); CALCIUM 7.7 mg/dl (8.5-10.1); CREATININE 0.58 mg/dl (0.60-1.20); MAGNESIUM 1.9 mg/dl (1.8-2.4); POTASSIUM 3.5 mmol/L (3.5-5.1)
[2016-11-23] MEDS: INSULIN ASPART 100 UNITS/ML 3 ML PEN SC SCH ×4 (07:30→20:59)
[2016-11-23] MEDS: LACTOBACILLUS ACIDOPHILUS (FLORANEX) TAB PO SCH ×3 (09:06→15:59)
[2016-11-23] MEDS: MAGNESIUM OXIDE 400 MG TAB PO SCH ×2 (09:06→21:01)
[2016-11-23] MEDS: DOCUSATE SODIUM 100 MG CAP PO SCH ×2 (09:06→21:01)
[2016-11-23] MEDS: PANTOprazole SOD 40 MG TAB PO SCH ×2 (09:07→21:01)
[2016-11-23] MEDS: MULTIVITAMIN TAB PO SCH (09:07)
--- NOTE | 2016-11-23 10:34 | DIAGNOSTIC IMAGING REPORT ---
CT ANGIO ABD/PELVIS WITH CONTRAST CT DOSE: 960.28 mGy.cm CLINICAL HISTORY: Infected axillary bifemoral arterial bypass graft TECHNIQUE: Arterial phase images were obtained in a dynamic helical fashion during intravenous administration of 120 cc of Optiray 320. A dose lowering technique was utilized adhering to the principles of ALARA. MIP imaging was performed. COMPARISON STUDY: 11/22/2016 FINDINGS: The visualized portions the lung bases are unremarkable. No hepatic masses are visualized in the central phase study. There is cholelithiasis. No splenic masses are visualized. No pancreatic masses are visualized. No adrenal masses are visualized. No renal masses are visualized this arterial phase study. There are no transition zones to indicate bowel obstruction. No acute inflammatory changes are visualized. No abnormal pelvic masses are visualized. There is no evidence of abdominal aortic aneurysm. There is no evidence of celiac or superior mesenteric artery stenosis. There is no hemodynamically significant renal artery stenosis. There are diffuse atheromatous changes present within the abdominal aorta. The lytton left common iliac artery is occluded. There is a right common iliac artery graft. There are moderately diffuse atheromatous changes within the right common and external iliac artery. There is a moderate stenosis. There is a right axillary femoral bypass graft. There is a 40% stenosis of the bypass graft, just proximal to the femoral bifurcation.. There is a severe stenosis of the graft, just proximal to the left femoral anastomosis, and the left superficial femoral artery is miniscule. There appears to have been removal of the liver the graft which extends to the right femoral artery. There is soft tissue infiltration surrounding the distal aspect of the axillofemoral bypass graft just proximal to the femoral bifurcation. There is induration of the soft tissues along the expected course of removed graft. There is overlying skin indentation. There are no fluid collections to indicate a drainable abscess. The lyt[place] right common femoral and superficial femoral arteries appear occluded. IMPRESSION: 1. No evidence of hemodynamic significant renal artery, superior mesenteric artery or celiac artery stenosis 2. Occlusion of the lyt[place] common left iliac artery 3. Stenosis of a right common iliac artery graft 4. Right axillary femoral artery bypass graft. There is a severe stenosis of the left limb of the graft, just proximal to the left femoral anastomosis. 5. The right femoral limb of the graft has been removed. There is induration of the soft tissues along the expected course of the removed graft 6. Mild infiltration of the soft tissues surrounding axillary femoral bypass graft, just proximal to the bifurcation. Infection cannot be excluded. 7. 40% stenosis of the right axillary femoral pass graft, just proximal to the femoral bifurcation 8. Occlusion of the lyt[place] right common femoral and superficial femoral arteries. 9. No evidence of a focal abscess. Electronically signed by: Duarte Fontana M.D. 11/23/2016 10:33 AM Dictated Date/Time: 11/23/2016 10:18 AM
--- NOTE | 2016-11-23 13:18 | Procedure Note ---
Pre-Mod Sedation Assessment General Date of Moderate Sedation: Nov 23, 2016. Vital Signs: Vital Signs Past 12 Hours Date Time Temp Pulse Resp B/P (MAP) Pulse Ox O2 Delivery O2 Flow Rate FiO2 11/23/16 12:00 Room Air 11/23/16 11:30 37.0 83 18 148/79 (102) 98 Room Air 11/23/16 07:38 36.9 84 18 104/65 (78) 94 Room Air 11/23/16 07:15 Room Air 11/23/16 04:03 98 Room Air 11/23/16 03:55 37.1 101 18 129/77 (94) 96 Room Air Pre-Sedation Airway Assessment Smoking Status: Former Smoker (smoked age 13 and quit 2016; 1 ppd) Mallampati Classification: Class I ASA Classification: Class III Notes The planned sedation has been discussed with the patient and consent obtained. I have identified the patient, determined the appropriateness of sedation and have assessed the patient immediately prior to the procedure. All medicine(s) and interventions are by my order.
--- NOTE | 2016-11-23 15:11 | Anesthesiology Progress Note ---
Pre-OP Anesthesia Assessment Date of Note Nov 23, 2016. Review patient information reviewed, chart reviewed, labs reviewed, acceptable for surgery Notes The patient's comorbidities include PAD, DM type 2, HTN, Hyperlipidemia, Beauchamp 's esophagus, hypomagnesemia. She had a negative myocardial perfusion stress test two weeks ago. She has no significant coronary artery disease, her EF is 55 -60% and she has no significant valvular disease. She is acceptable for surgery tomorrow.
--- NOTE | 2016-11-23 15:37 | ECHOCARDIOGRAM REPORT ---
*NOTICE TO RECEIVING [employer] This information is strictly Confidential and protected under [place] law. [place] law prohibits you from making any further disclosure of this information unless further disclosure is expressly permitted by the written consent of the person to whom it pertains or is authorized by law. A general authorization for the release of medical or other information is not sufficient for this purpose. Hospital accepts no responsibility if the information is made available to any other person, INCLUDING THE PATIENT. Interpretation Summary * Name: NIKI WASHINGTON Study Date: 11/23/2016 01:38 PM BP: 148/79 mmHg * Patient Location: C.2T\S\S229\S\1 HR: 87 * : 1950 (M/d/yyyy) Gender: Female Height: 60 in * Age: 66 yrs Ethnicity: CA Weight: 180 lb * Ordering Physician: Chip Morgan * Referring Physician: Self, Referred * Performed By: Aida Lazo [facility] * * Reason For Study: PRE-OP / INFECTED FEM BYPASS * BSA: 1.8 m2 * Normal biventricular systolic function. * Mild concentric left ventricular hypertrophy. * Normal chamber dimensions. * Trace pulmonic and tricuspid regurgitation. Procedure Details * A complete two-dimensional transthoracic echocardiogram was performed (2D, M-mode, Doppler and color flow Doppler). Left Ventricle * The left ventricle is normal in size. * There is mild concentric left ventricular hypertrophy. * Left ventricular systolic function is normal. * Ejection Fraction = 55-60%. Right Ventricle * The right ventricle is normal in size and function. Atria * The left atrial size is normal. * Right atrial size is normal. * No ASD detected; PFO is not assessed. Mitral Valve * The mitral valve is normal. * There is no mitral valve stenosis. * There is no mitral regurgitation noted. Tricuspid Valve * The tricuspid valve is normal. * There is no tricuspid stenosis. * There is trace tricuspid regurgitation. * Right ventricular systolic pressure is normal. Aortic Valve * The aortic valve opens well. * The aortic valve is trileaflet. * Aortic stenosis is absent. * No aortic regurgitation is present. Pulmonic Valve * The pulmonary valve is inadequately visualized, but the Doppler data is adequate for interpretation. * There is no pulmonic valvular stenosis. * Trace pulmonic valvular regurgitation. Great Vessels * The aortic root is normal size. Pericardium/Pleural * There is no pericardial effusion. Great Vessels * Normal inferior vena cava diameter and respiratory variation suggests normal central venous pressure. MMode 2D Measurements and Calculations IVSd 1.4 cm IVSs 1.7 cm LVIDd 4.6 cm LVIDs 3.2 cm LVPWd 1.3 cm LVPWs 1.4 cm IVS/LVPW 1.1 FS 28.8 % EDV(Teich) 95.7 ml ESV(Teich) 42.5 ml EF(Teich) 55.6 % EDV(cubed) 95.2 ml ESV(cubed) 34.3 ml EF(cubed) 64.0 % % IVS thick 19.2 % % LVPW thick 14.5 % LV mass(C)d 233.5 grams LV mass(C)dI 130.8 grams/m\S\2 LV mass(C)s 184.4 grams LV mass(C)sI 103.3 grams/m\S\2 SV(Teich) 53.2 ml SI(Teich) 29.8 ml/m\S\2 SV(cubed) 60.9 ml SI(cubed) 34.1 ml/m\S\2 Ao root diam 2.4 cm Ao root area 4.4 cm\S\2 ACS 1.8 cm LA dimension 3.2 cm LA/Ao 1.4 Doppler Measurements and Calculations Ao V2 max 160.1 cm/sec Ao max PG 10.3 mmHg Ao max PG (full) 7.6 mmHg LV V1 max PG 2.6 mmHg LV V1 max 80.9 cm/sec PA V2 max 88.9 cm/sec PA max PG 3.2 mmHg TR max piper 251.6 cm/sec
[2016-11-23] MEDS: ASPIRIN 81 MG ECTAB PO SCH (16:00)
--- NOTE | 2016-11-23 16:20 | Medical Consult ---
Consultation Note Date of Service Nov 23, 2016. Consultation Note Chief Complaint Draining purulent drainage from lower abdominal incision History of Present Illness The patient is a 64 year old female had undergone a right ax bifem bypass for limb salvage in the past. She presented with a draining hematoma of the right groin. This was explored and later the right limb of the ax bifem was removed. CT of the graft did not show any evidence of infection. The culture of the proximal portion of the graft removed was neg. The distal grew out enterococcus. She now presented with draining purulence from the right lower quadrant groin incion. She now has a CT which shows infection of the ax fem graft. Allergies Coded Allergies: No Known Allergies (Verified , 08/26/15) Home Medications Scheduled Acetaminophen (Tylenol), 1,000 MG PO PRN Amitriptyline Hcl (Elavil *), 20 MG PO HS Aspirin (Aspirin Ec), 81 MG PO DAILY Atorvastatin (Lipitor), 40 MG PO HS Cholecalciferol (Vitamin D), 5,000 INTER.UNIT PO DAILY Clopidogrel (Plavix), 75 MG PO DAILY Glipizide (Glucotrol *), 20 MG PO BID Lisinopril (Zestril), 10 MG PO DAILY Metformin Hcl (Glucophage), 1,000 MG PO BID Multivitamin (Multivitamin), 1 TAB PO DAILY [place]-3 Fatty Acids (Fish Oil), 1,000 MG PO DAILY Omeprazole (Prilosec), 40 MG PO BID Pioglitazone (Actos *), 45 MG PO DAILY Scheduled PRN Ibuprofen Tab (Advil), 400 MG PO PRN PRN for PRN Valacyclovir (Valtrex Unkown Dose), 1 GM PO PRN PRN for COLD SORES Surgical / Medical History Hx Cardiac Surgery: No Hx Abdominal Surgery: Yes (tubal) Hx Cancer Surgery: No Hx Thoracic Surgery: No Hx Orthopedic: No Hx Urinary Tract Surgery: No HX Other Surgery: Yes (iliac artery stent) Social History Smoking Status: Current Every Day Smoker Hx Tobacco Use In Past Year?: Yes Hx Alcohol Use - Type & Amnt: No Hx Substance Use -Type & Amnt: No Review of Systems Additional Comments: unobtainable Physical Exam Constitutional: General Apperance: overweight Level of Distress: moderate distress Psychiatric: Mental Status: active & alert, normal mood, normal affect Orientation: oriented except where noted, to time, to place, to person Memory: recent memory normal, remote memory normal Lungs: Auscultation: breath sounds normal Cardiovascular: Heart Auscultation: RRR Peripheral Pulses: Radial Pulse: normal on the left, normal on the right Femoral Pulse: normal on the right, normal on the left Posterior Tibialis Pulse: decreased on the left , not palpable on the right Dorsalis Pedis Pulse: decreased on the right, absent on the left Abdomen: Inspection & Palpation: soft with purulent drainage at the incision site of the ax fem graft Extremities: Upper Right and left: no cyanosis, no edema, no varicosities, no palpable cord, no clubbing, no ulcers, no mottling Upper Left: no cyanosis, no edema, no palpable cord, no clubbing, no ulcers , no mottling Lower Left: no cyanosis, no edema, no palpable cord, no clubbing, no ulcers , no mottling Assessment and Plan Imp: Infected ax femoral bypass Plan: It was recommended that we remove the infected graft. We will attempt to ENGINE REPAIR SUPERVISOR the left common iliac to try to restore [place] flow to the left leg. If this cant be done then we will evaluate the lower extremities once the graft is removed. If they are viable we will plan on revascularization at a later date, the earliest being monday. This would give a chance for the antibiotics to clean the blood without any prosthetic material present. If the lower extremities are not viable then a left axillo to distal sfa or pop may be needed. She understands that she has a high chance of amputation once the graft comes out. I have discussed the risks options and benefits of the procedure with the patient. The patient understands the risks options and benefits and agrees to the procedure.
[2016-11-23] MEDS ORDERED: ZOLPIDEM TARTRATE 5 MG TAB PO ONE (21:00)
[2016-11-23] MEDS: ATORVASTATIN 40 MG TAB PO SCH (21:01)
--- NOTE | 2016-11-23 21:29 | Progress Note ---
Subjective Date of Service: Nov 23, 2016. Subjective Pt evaluation today including: conversation w/ patient, physical exam, chart review, lab review, review of studies (CTA), review of inpatient medication list Pain: none reported PO Intake: npo Voiding: no voiding problems tele stable overnight her drainage from the right groin continues she overall feels better today no fever or chills no emesis Problem List Medical Problems: (1) Allergic reaction Status: Acute (2) Hypomagnesemia Status: Acute (3) Hypotension Status: Acute (4) Post op infection Status: Acute (5) Post-op bleeding Status: Acute (6) Postoperative wound infection Status: Acute (7) Precordial chest pain Status: Acute (8) Tachycardia Status: Acute Review of Systems Constitutional: No fever Respiratory: No shortness of breath, No dyspnea on exertion Cardiac: No chest pain Abdomen: No pain Objective Vital Signs Date Time Temp Pulse Resp B/P (MAP) Pulse Ox O2 Delivery O2 Flow Rate FiO2 11/23/16 20:00 Room Air 11/23/16 19:08 37.3 88 20 155/82 (106) 97 Room Air 11/23/16 16:00 Room Air 11/23/16 15:04 37.2 80 20 137/78 (97) 91 Room Air 11/23/16 12:00 Room Air 11/23/16 11:30 37.0 83 18 148/79 (102) 98 Room Air 11/23/16 07:38 36.9 84 18 104/65 (78) 94 Room Air 11/23/16 07:15 Room Air 11/23/16 04:03 98 Room Air 11/23/16 03:55 37.1 101 18 129/77 (94) 96 Room Air 11/23/16 00:01 98 Room Air 11/22/16 23:54 37.2 89 18 118/56 (76) 97 Room Air Physical Exam General Appearance: WD/WN, no apparent distress ENT: pharynx normal Neck: no JVD Respiratory/Chest: lungs clear, no respiratory distress, no accessory muscle use Cardiovascular: regular rate, rhythm, no gallop, no murmur Abdomen: normal bowel sounds, non tender, soft, no organomegaly Extremities: + pedal edema (1+ b/l, a little worse on left) Neurologic/Psychiatric: alert, oriented x 3 Skin: + pertinent finding (right groin - mild intertrigo noted medially; previous bifem bypass horizontal scar with pinpoint hole and drainage - no change from prior exam) Laboratory Results Last 24 Hours Test 11/22/16 22:31 11/23/16 05:10 11/23/16 07:10 11/23/16 11:11 Urine Random Magnesium 3.2 mg/dl White Blood Count 8.44 K/uL Red Blood Count 3.85 M/uL Hemoglobin 9.7 g/dL Hematocrit 31.0 % Mean Corpuscular Volume 80.5 fL Mean Corpuscular Hemoglobin 25.2 pg Mean Corpuscular Hemoglobin Concent 31.3 g/dl Platelet Count 261 K/uL Mean Platelet Volume 9.4 fL Neutrophils (%) (Auto) 79.4 % Lymphocytes (%) (Auto) 12.9 % Monocytes (%) (Auto) 5.8 % Eosinophils (%) (Auto) 1.2 % Basophils (%) (Auto) 0.5 % Neutrophils # (Auto) 6.70 K/uL Lymphocytes # (Auto) 1.09 K/uL Monocytes # (Auto) 0.49 K/uL Eosinophils # (Auto) 0.10 K/uL Basophils # (Auto) 0.04 K/uL RDW Standard Deviation 45.0 fL RDW Coefficient of Variation 15.2 % Immature Granulocyte % (Auto) 0.2 % Immature Granulocyte # (Auto) 0.02 K/uL Prothrombin Time 19.5 SECONDS Prothromb Time International Ratio 1.8 Sodium Level 143 mmol/L Potassium Level 3.5 mmol/L Chloride Level 112 mmol/L Carbon Dioxide Level 24 mmol/L Anion Gap 7.0 mmol/L Blood Urea Nitrogen 9 mg/dl Creatinine 0.58 mg/dl Est Creatinine Clear Calc Drug Dose 90.5 ml/min Estimated GFR () 111.3 Estimated GFR (Non- 96.1 BUN/Creatinine Ratio 15.7 Random Glucose 114 mg/dl Calcium Level 7.7 mg/dl Magnesium Level 1.9 mg/dl Bedside Glucose 131 mg/dl 122 mg/dl Test 11/23/16 16:26 11/23/16 20:23 Bedside Glucose 125 mg/dl 112 mg/dl Assessment and Plan 66yo female with h/o severe PAD s/p axillary-bifemoral bypass grafting in 2015 complicated by graft infection in 04/2016 - on chronic suppressive antibiotics since - who presented with sepsis 2nd to graft infection. 1. sepsis, presumed 2nd to graft infection in her right groin - sepsis overall improved with no fever and normalization of WBC count. She has evidence of septicemia with +blood cultures (GNR). No change in IV abx at this time. Obtain repeat blood cultures x 2 in am. To the OR in am by Dr. Morgan to explore prior surgical site/graft. 2. PAD - CTA of the abd/pelvis today shows apparent occlusion of the left side of the bifem graft. She will likely need intervention on this in the OR by Dr. Morgan. Continue aspirin, statin, etc. Hold coumadin pending her surgery. 3. hypomagnesemia - resolved. Urine magnesium level is low making urine wasting unlikely. No chronic diarrhea, diuretic use, or etoh use. PPI use leading to malabsorption of magnesium? repeat mag level in am for stability. 4. hypotension - resolved, has not recurred. 5. T2DM - controlled. Hold oral agents. Novolog - correction 35 with carb ratio 1:12. BSG's ac/hs. 6. hyperlipidemia - statin agent. 7. DVT proph - INR 1.8 today; continue holding coumadin for impending surgery. 8. FEN - diet today, NPO after MN tonight, lower fluid rate to 75cc/hr. Lytes in am including magnesium level. 9. h/o Beauchamp's esophagus - PPI as previous. 10. mild anemia - cbc is acceptable. appreciate Dr Morgan's assistance leave on tele 1 more day Continued [facility] stay due to: multiple IV medications needed, other (need for vascular surgery) Discharge planning: uncertain
[2016-11-24] VITALS (27 sets, daily range): BP systolic 54–166; BP diastolic 25–80; PULSE 73–146; TEMP 35.6–37.6; O2SAT 92–100
[2016-11-24] MEDS: PIPERACILL/TAZOBAC IV 4.5 GM in DEXTROSE 5% 100ML 100 ML IV SCH ×2 (04:26→18:42)
[2016-11-24] MEDS ORDERED: VANCOMYCIN INJ 0 MG in SODIUM CHLORIDE 0.9% 250ML 250 ML IV ONE (06:00)
[2016-11-24 06:31] LABS: HEMATOCRIT 28.7 % (37-47); MEAN CELL VOLUME 79.7 fL (80-100); MEAN CORPUSCULAR HEMOGLOBIN 25.3 pg (25-34); MEAN CORPUSCULAR HGB CONC 31.7 g/dl (32-36); MEAN PLATELET VOLUME 9.4 fL (7.4-10.4); PLATELET COUNT 260 K/uL (130-400); WHITE BLOOD COUNT 7.39 K/uL (4.8-10.8)
[2016-11-24] MEDS: LACTOBACILLUS ACIDOPHILUS (FLORANEX) TAB PO SCH ×2 (06:56→11:30)
[2016-11-24] MEDS: INSULIN ASPART 100 UNITS/ML 3 ML PEN SC SCH ×3 (06:56→18:41)
[2016-11-24 06:57] LABS: INR 1.3 (0.9-1.1); PROTHROMBIN TIME (PATIENT) 14.6 SECONDS (9.0-12.0)
[2016-11-24 07:05] LABS: BUN/CREATININE RATIO 11.5 (10-20); CALCIUM 8.1 mg/dl (8.5-10.1); CREATININE 0.52 mg/dl (0.60-1.20); MAGNESIUM 1.8 mg/dl (1.8-2.4); POTASSIUM 3.3 mmol/L (3.5-5.1)
[2016-11-24] MEDS: DOCUSATE SODIUM 100 MG CAP PO SCH (07:30)
[2016-11-24] MEDS: MULTIVITAMIN TAB PO SCH (07:31)
[2016-11-24] MEDS: ASPIRIN 81 MG ECTAB PO SCH (07:31)
[2016-11-24] MEDS: MAGNESIUM OXIDE 400 MG TAB PO SCH (07:32)
[2016-11-24] MEDS: PANTOprazole SOD 40 MG TAB PO SCH (07:32)
[2016-11-24] MEDS ORDERED: METOPROLOL TARTRATE 25 MG TAB PO STA (07:48)
[2016-11-24] MEDS ORDERED: POTASSIUM CHLR 10 MEQ / WTR 10 MEQ in PREMIXED WATER 100 ML IV SCH (08:00)
[2016-11-24] MEDS ORDERED: POTASSIUM CHLORIDE 10 MEQ TABCR PO STA (08:56)
--- NOTE | 2016-11-24 09:11 | Progress Note ---
Progress Note Date of Service Nov 24, 2016. Progress Note Patient for removal of infected ax fem bypass and possible revascularization of the lower extremities. I have discussed the risks options and benefits of the procedure with the patient. The patient understands the risks options and benefits and agrees to the procedure. I have examined the patient, reviewed the History & Physical and in the interval since the performance of the History & Physical I have noted the following changes of clinical significance: No changes noted
[2016-11-24] MEDS ORDERED: VANCOMYCIN TROUGH ONE (09:30)
[2016-11-24] MEDS ORDERED: LIDOCAINE HCL 2% 2 ML VIAL (20MG/ML) ONE ×2 (09:38→10:16)
[2016-11-24] MEDS ORDERED: DEXAMETHASONE SOD INJ 4 MG/ML VIAL ONE (09:38)
[2016-11-24] MEDS ORDERED: PROPOFOL IV EMULSION 10 MG/ML 20 ML VIAL IV ONE (09:38)
[2016-11-24] MEDS ORDERED: ONDANSETRON INJ 2 MG/ML 2 ML VIAL ONE ×2 (09:38→14:32)
[2016-11-24] MEDS ORDERED: MIDAZOLAM HCL 1 MG/ML 2ML VIAL ONE ×4 (09:39→19:39)
[2016-11-24] MEDS ORDERED: FENTANYL CITRATE INJ 50 MCG/1 ML 2 ML VIAL ONE ×2 (09:39→11:41)
[2016-11-24] MEDS ORDERED: GELATIN SPONGE SZ 100 ONE (09:47)
[2016-11-24] MEDS ORDERED: LIDOCAINE HCL 1% 20 ML VIAL ONE (09:48)
[2016-11-24] MEDS ORDERED: IODIXANOL (VISIPAQUE) 270 MG/ML 50ML ONE (09:48)
[2016-11-24] MEDS ORDERED: BUPIVACAINE/EPINEPHRINE 0.5% MPF 1:200,000 30 ML VIAL ONE (09:48)
[2016-11-24] MEDS ORDERED: THROMBIN 5000 UNITS KIT ONE (09:49)
[2016-11-24] MEDS ORDERED: CEFAZOLIN SOD 1 GM VIAL ONE (09:49)
[2016-11-24] MEDS ORDERED: HEPARIN SOD (PORCINE) 1000 UNIT/ML 10 ML VIAL ONE ×2 (09:49→13:09)
[2016-11-24] MEDS ORDERED: PAPAVERINE HCL INJ 30 MG/ML 2 ML VIAL ONE (09:49)
[2016-11-24] MEDS: VANCOMYCIN INJ 1,250 MG in SODIUM CHLORIDE 0.9% 250ML 250 ML IV SCH (09:54)
[2016-11-24] MEDS ORDERED: HYDROmorphone INJ 2 MG/ML SYR/VIAL IV PRN (11:30)
[2016-11-24] MEDS ORDERED: EpHEDrine SULFATE INJ 50 MG/ML AMP IV PRN (11:30)
[2016-11-24] MEDS ORDERED: PHENYLEPHRINE 100MCG/ML 5ML SYR IV PRN (11:30)
[2016-11-24] MEDS ORDERED: ONDANSETRON INJ 2 MG/ML 2 ML VIAL IV PRN (11:30)
[2016-11-24] MEDS ORDERED: ATROPINE SULFATE 0.1 MG/ML 5ML SYR IV PRN (11:30)
[2016-11-24] MEDS ORDERED: PHENYLEPHRINE HCL INJ 10 MG/ML VIAL ONE (12:17)
[2016-11-24] MEDS ORDERED: EpHEDrine SULFATE 50MG/5ML SYR ONE (12:17)
[2016-11-24] MEDS ORDERED: LABETALOL HCL IV 5 MG/ML 20ML IV ONE (13:02)
[2016-11-24] MEDS ORDERED: BACITRACIN 50000 UNIT VIAL ONE (14:09)
[2016-11-24] MEDS ORDERED: NEOSTIGMINE METHYLSULFATE 5 MG/5 ML SYR ONE (14:27)
[2016-11-24] MEDS ORDERED: GLYCOPYRROLATE INJ 0.2 MG/ML VIAL ONE ×2 (14:27→14:56)
[2016-11-24] MEDS ORDERED: ROCURONIUM BROMIDE 10 MG/ML 5 ML VIAL IV ONE (14:33)
--- NOTE | 2016-11-24 15:25 | DIAGNOSTIC IMAGING REPORT ---
CHEST ONE VIEW PORTABLE CLINICAL HISTORY: 66 years-old Female presenting with Patient states she can not breathe. TECHNIQUE: Portable upright AP view of the chest was obtained. COMPARISON: 11/22/2016. FINDINGS: Mildly low lung volumes with hypoventilatory changes. Bandlike opacity in the perihilar region of the right lung is new from prior. Greater obscuration of the left hemidiaphragm with hazy left basilar opacity. No pneumothorax. Surgical clips noted in the right axilla. Osseous structures normal. Upper abdomen normal. IMPRESSION: 1. Mildly low lung volumes with left basilar opacity, possibly atelectasis or layering left pleural effusion. 2. Bandlike opacity in the right perihilar region. This may be vascular in etiology versus atelectasis. Electronically signed by: Joselito Rosenthal M.D. 11/24/2016 3:24 PM Dictated Date/Time: 11/24/2016 3:22 PM
[2016-11-24] MEDS ORDERED: HYDROmorphone INJ 0.5 MG/0.5 ML SYR ONE (15:33)
[2016-11-24 15:44] LABS: HEMATOCRIT 20.2 % (37-47); MEAN CELL VOLUME 82.8 fL (80-100); MEAN CORPUSCULAR HEMOGLOBIN 25.4 pg (25-34); MEAN CORPUSCULAR HGB CONC 30.7 g/dl (32-36); PLATELET COUNT 239 K/uL (130-400); RED BLOOD COUNT 2.44 M/uL (4.2-5.4); WHITE BLOOD COUNT 9.78 K/uL (4.8-10.8)
[2016-11-24 15:52] LABS: ARTERIAL BLOOD GAS BASE EXCESS -16.8 mEq/L (-9-1.8); ARTERIAL BLOOD GAS HCO3 10 mmol/L (19-24); ARTERIAL BLOOD GAS pH 7.22 (7.35-7.45)
[2016-11-24] MEDS ORDERED: ALBUMIN HUMAN 5% 12.5 GM/250 ML VIAL IV ONE (15:52)
[2016-11-24 15:54] LABS: ALLEN TEST POS (POS); ARTERIAL BLD GAS O2 SATURATION < 60.0 % (90-95); O2 ADMINISTRATION 15L
[2016-11-24 15:55] LABS: ARTERIAL BLOOD GAS PO2 150 mm/Hg (80-95)
--- NOTE | 2016-11-24 15:59 | Pharmacy Progress Note ---
Pharmacy Abx Dose Progress Nt Date of Service Nov 24, 2016. Pharmacy Dosing Scope The patient WAS receiving the following antimicrobial agents per Pharmacy consult: Vancomycin 1250 mg IV every 12 hours. Now changing due to low trough. Objective Height (Feet): 5 Height (Inches): 0.00 Weight (Kilograms): 82.500 Vital Signs (Past 12Hrs) Vital Signs Past 12 Hours Date Time Temp Pulse Resp B/P (MAP) Pulse Ox O2 Delivery O2 Flow Rate FiO2 11/24/16 15:00 35.2 38 15 96 Oxymask 10 72/41 11/24/16 09:45 36.8 80 20 144/81 (102) 94 Room Air 11/24/16 07:36 36.9 80 18 166/80 (108) 97 Room Air 11/24/16 07:15 Room Air 11/24/16 04:10 36.9 84 16 129/80 (96) 95 Room Air 11/24/16 04:00 Room Air Lab Results (24Hrs) Item Value Date Time Vancomycin Level Trough 17.8 mcg/ml 11/24/16 0540 Laboratory Tests (24 Hours) Test 11/24/16 15:25 White Blood Count 9.78 K/uL (4.8-10.8) Red Blood Count 2.44 M/uL (4.2-5.4) L Hemoglobin 6.2 g/dL (12.0-16.0) *L Hematocrit 20.2 % (37-47) *L Mean Corpuscular Volume 82.8 fL (80-100) Mean Corpuscular Hemoglobin 25.4 pg (25-34) Mean Corpuscular Hemoglobin Concent 30.7 g/dl (32-36) L Platelet Count 239 K/uL (130-400) Mean Platelet Volume 9.0 fL (7.4-10.4) Micro Results Date/Time Source Procedure Growth Status 11/24/16 06:09 Blood Blood Culture Pending Received 11/24/16 06:09 Blood Blood Culture Pending Received 11/22/16 13:30 Blood Blood Culture - Preliminary Gram Negative Bacilli Resulted 11/22/16 13:20 Blood Blood Culture - Preliminary NO GROWTH TO DATE. Resulted 11/24/16 13:15 Foreign Body Abdomen Gram Stain Pending Received 11/24/16 13:15 Foreign Body Abdomen Bacterial Culture Pending Received 11/24/16 13:15 Foreign Body Chest Gram Stain Pending Received 11/24/16 13:15 Foreign Body Chest Bacterial Culture Pending Received 11/24/16 13:15 Foreign Body Groin Gram Stain Pending Received 11/24/16 13:15 Foreign Body Groin Bacterial Culture Pending Received Assessment & Plan Assessment 66 year old female receiving Vancomycin for treatment of Cellulitis Day # 3 of antimicrobial therapy Plan Vancomycin IV * Trough level of 17.8 mcg/mL was drawn 4 hrs too early today. Extrapolated trough was ~10 mcg/ml. * Therefore Vanco dose was changed to 1500 mg IV every 12 hours * Ke= 0.099/hr, t1/2 = 7 hrs. * Goal trough level: 15 to 20 mcg/mL * Trough level ordered for: 11/26/16 before dose at 0600. Pharmacy will continue to follow and will adjust dose/frequency as necessary. Thank you.
[2016-11-24 16:01] LABS: BASO % 0.4 %; BASO ABS # 0.04 K/uL (0-0.2); COMPLETE YES; ECHINOCYTES 1+; EOS % 0.5 %; HYPOCHROMIA PRESENT; IG% 0.8 %; LYMPH % 20.4 %; MONO % 3.8 %; NEUT % 74.1 %
[2016-11-24] MEDS ORDERED: CALCIUM CHLORIDE 10% 10 ML SYR ONE (16:09)
[2016-11-24] MEDS ORDERED: VASOPRESSIN 20 UNIT/ML VIAL ONE (16:09)
--- NOTE | 2016-11-24 16:14 | [facility] Post Operative Brief Note ---
Immediate Operative Summary Operative Date Nov 24, 2016. Pre-Operative Diagnosis Infected Arterial Femoral Bypass Post-Operative Diagnosis Same as preoperative Procedure(s) Performed Removal of Infected Axillary femoral Bypass,CORPORATE DEVELOPMENT OFFICER/Stenting of infrarenal aorta and left common and external iliac arteries, aortagram and cannulation of abdominal aorta Surgeon Dr. Chip Morgan Laborer Plumbing Surgeon(s) Esther Motta PA-C Estimated Blood Loss 150ml Findings doppler dp present at end of case Specimens CULTURES: 1.) Left Groin 2.) Chest 3.) Abdomen Anesthesia gen Complication(s) None Disposition Recovery Room / PACU
--- NOTE | 2016-11-24 16:16 | Anesthesiology Progress Note ---
Anesthesia Progress Note Date of Service Nov 24, 2016. Progress Notes Please see Dr. Doyle's anesthesia note for full details. In brief, I was called to help assist with a patient in the PACU who appeared hemodynamically unstable. Patient was tachycardic and hypotensive although given that she had significant vascular disease, obtaining a blood pressure reading was difficult. Patient was conversant but in distress. CXR failed to show significant pulmonary cause for her acute decline. She was given several doses of IV vasoactive medications at bedside without significant improvement of her blood pressures. Labs and ABG were drawn and EKG was done that showed sinus tachycardia. IVF were continued but added IV albumin as differential included acute hypovolemia. I also had STREET LIGHT INSPECTOR's at bedside obtain and administer IV calcium carbonate and vasopressin (several units bolused). H/H came back 6.05/02 and therefore 2 units pRBC's were called for and quickly administered. 2 additional units of pRBC's were readied along with 2 units of FFP. Given patient 's tenuous status, she was emergently intubated and ventilated. ICU team members were present along with staff anesthesiologist for the case and attending surgeon. Patient to be taken to ICU once stable. HR mildly improved and BP greatly improved upon resuscitation.
--- NOTE | 2016-11-24 16:50 | Anesthesiology Progress Note ---
Anesthesia Post Op Note Date & Time Nov 24, 2016 at 16:15 Vital Signs Pain Intensity: 6 Vital Signs Past 12 Hours Date Time Temp Pulse Resp B/P (MAP) Pulse Ox O2 Delivery O2 Flow Rate FiO2 11/24/16 16:11 100 11/24/16 15:59 117 12 100/53 11/24/16 15:56 112 12 11/24/16 15:56 12 11/24/16 15:46 125 29 11/24/16 15:46 29 11/24/16 15:41 21 11/24/16 15:41 128 21 11/24/16 15:37 156/ 11/24/16 15:36 17 11/24/16 15:36 128 17 11/24/16 15:31 126 22 11/24/16 15:31 60 22 11/24/16 15:26 19 11/24/16 15:26 129 19 11/24/16 15:21 130 30 95 11/24/16 15:21 133 30 11/24/16 15:16 136 24 97 11/24/16 15:16 128 24 11/24/16 15:11 134 22 99 11/24/16 15:11 137 22 11/24/16 15:06 24 11/24/16 15:06 137 24 11/24/16 15:01 133 20 11/24/16 15:01 132 20 89 11/24/16 15:00 35.2 38 15 96 Oxymask 10 72/41 11/24/16 14:56 38 13 11/24/16 14:56 46 13 100 11/24/16 09:45 36.8 80 20 144/81 (102) 94 Room Air 11/24/16 07:36 36.9 80 18 166/80 (108) 97 Room Air 11/24/16 07:15 Room Air Notes Mental Status: see Notes Nausea / Vomiting: adequately controlled Pain: adequately controlled Airway Patency, RR, SpO2: see Notes BP & HR: see Notes Hydration State: see Notes The patient was brought to the PACU after an uneventful anesthetic. The estimated intraoperative blood loss was 150, urine output was 350 of clear urine. She received 2300 ml of LR. She was brought to the PACU at 1453. A few minutes later I was called to the PACU and the patient was complaining of shortness of breath. Her heart rate was 43 and she was given 0.2 mg of robinul. Her heart rate jumped up to 130 and remained there. The A line was showing an unreliable waveform and reading in the 70s and 60s over 40s. The automatic blood pressure cuff would not measure. Intermittent boluses of phenylephrine were given with no change. The chest xray ruled out CHF or pneumonia. The EKG shwoed sinus tachycardia with nonspecific ST changes. Her CBC show an H&H of 6.2 and 20.2. The ABG showed a p02 of 150 and a base excess of -16.8, consistent with sepsis.The IV was opened up, 2 units or packed red cells were ordered stat, albumin 12.5 gram was started and she was given 3 units of vasopressin and a gram of calcium chloride. Her ventilatory effort was weakening and she was re- intubated with a number 8.0 ET tube. After two units of PRC her blood pressure was 137/70 the pulse was 108 and her sp02 was 99. Dr. Briceño had come over from the ICU to help to obtain an abdominal ultrasound.
[2016-11-24 17:14] LABS: ISTAT ARTERIAL BLOOD GAS HCO3 12 meq/L (19-24); ISTAT ARTERIAL BLOOD GAS PCO2 44 mmHg (35-46); ISTAT ARTERIAL BLOOD GAS PO2 354 mmHg (80-95); ISTAT ARTERIAL BLOOD GAS pH 7.02 (7.35-7.45); ISTAT CARBON DIOXIDE 13 mEq/l (24-31); ISTAT HEMATOCRIT 16 % (37-47); ISTAT HEMOGLOBIN 5.4 g/dl (12.0-16.0); ISTAT SODIUM 143 mEq/L (135-144)
[2016-11-24 17:14] LABS: ISTAT ARTERIAL BLOOD GAS HCO3 12 meq/L (19-24); ISTAT ARTERIAL BLOOD GAS PCO2 44 mmHg (35-46); ISTAT ARTERIAL BLOOD GAS PO2 > 420 mmHg (80-95); ISTAT ARTERIAL BLOOD GAS pH 7.06 (7.35-7.45); ISTAT CARBON DIOXIDE 14 mEq/l (24-31); ISTAT HEMATOCRIT 16 % (37-47); ISTAT HEMOGLOBIN 5.4 g/dl (12.0-16.0); ISTAT SODIUM 142 mEq/L (135-144)
[2016-11-24 17:19] LABS: HEMATOCRIT 21.1 % (37-47); MEAN CELL VOLUME 88.3 fL (80-100); MEAN CORPUSCULAR HEMOGLOBIN 28.5 pg (25-34); MEAN CORPUSCULAR HGB CONC 32.2 g/dl (32-36); MEAN PLATELET VOLUME 8.9 fL (7.4-10.4); PLATELET COUNT 148 K/uL (130-400); RED BLOOD COUNT 2.39 M/uL (4.2-5.4); WHITE BLOOD COUNT 8.97 K/uL (4.8-10.8)
[2016-11-24] MEDS ORDERED: NOREPINEPHRINE BIT INJ 8 MG in DEXTROSE 5% 500ML 500 ML IV PRN (17:19)
[2016-11-24 17:31] LABS: BASO ABS # 0.23 K/uL (0-0.2); BASOPHIL % 2.6 %; COMPLETE YES; ECHINOCYTES 2+; EOSINOPHIL % 0.9 %; LYMPH ABS # 1.95 K/uL (1.2-3.4); LYMPHOCYTE % 21.7 %; MYELOCYTE % 1.7 %; NEUTROPHILS % 72.2 %
[2016-11-24] MEDS ORDERED: VANCOMYCIN INJ 1,500 MG in SODIUM CHLORIDE 0.9% 500ML 500 ML IV SCH (18:00)
[2016-11-24] MEDS ORDERED: PHENYLEPHRINE HCL INJ 20 MG in DEXTROSE 5% 500ML 500 ML IV PRN (19:38)
[2016-11-24] MEDS ORDERED: MIDAZOLAM HCL 5 MG/ML 1 ML VIAL IV SCH (20:00)
[2016-11-24] MEDS ORDERED: VANCOMYCIN INJ 1,250 MG in SODIUM CHLORIDE 0.9% 250ML 250 ML IV SCH (20:00)
[2016-11-24] MEDS ORDERED: FENTANYL CITRATE INJ 50 MCG/1 ML 2 ML VIAL IV SCH (20:00)
[2016-11-24 20:02] LABS: HEMATOCRIT 27.6 % (37-47); MEAN CELL VOLUME 89.6 fL (80-100); MEAN CORPUSCULAR HEMOGLOBIN 28.9 pg (25-34); MEAN PLATELET VOLUME 9.1 fL (7.4-10.4); PLATELET COUNT 121 K/uL (130-400); RED BLOOD COUNT 3.08 M/uL (4.2-5.4); WHITE BLOOD COUNT 16.14 K/uL (4.8-10.8)
[2016-11-24 20:07] LABS: ARTERIAL BLD GAS O2 SATURATION 99.8 % (90-95); ARTERIAL BLOOD GAS BASE EXCESS -19.2 mEq/L (-9-1.8); ARTERIAL BLOOD GAS HCO3 9 mmol/L (19-24); ARTERIAL BLOOD GAS PO2 430 mm/Hg (80-95)
[2016-11-24 20:08] LABS: MEAN CORPUSCULAR HGB CONC 32.2 g/dl (32-36)
[2016-11-24 20:13] LABS: ARTERIAL BLOOD GAS pH 7.12 (7.35-7.45)
[2016-11-24 20:14] LABS: ALLEN TEST POS (POS)
[2016-11-24] MEDS ORDERED: VANCOMYCIN CONSULT ACTIVE PRN (20:15)
[2016-11-24 20:21] LABS: O2 ADMINISTRATION 100%
[2016-11-24 20:32] LABS: BUN/CREATININE RATIO 9.5 (10-20); CALCIUM 7.4 mg/dl (8.5-10.1); CREATININE 0.94 mg/dl (0.60-1.20); PHOSPHORUS 8.5 mg/dl (2.5-4.9)
--- NOTE | 2016-11-24 20:40 | Progress Note ---
Subjective Date of Service: Nov 24, 2016. 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 While in the PACU she was reintubated due to dyspnea, shock, and severe metabolic acidosis. She also had acute blood loss anemia and was given 2 units PRBCs. Multiple does of vasopressin were given for BP support as well. I saw her late this evening in the ICU. She was intubated and only briefly opening her eyes. Arterial line showed MAP >65 on levophed. Due to intubated status I could not obtain any ROS. Problem List Medical Problems: (1) Allergic reaction Status: Acute (2) Hypomagnesemia Status: Acute (3) Hypotension Status: Acute (4) Post op infection Status: Acute (5) Post-op bleeding Status: Acute (6) Postoperative wound infection Status: Acute (7) Precordial chest pain Status: Acute (8) Tachycardia Status: Acute Objective Vital Signs Date Time Temp Pulse Resp B/P (MAP) Pulse Ox O2 Delivery O2 Flow Rate FiO2 11/24/16 19:00 35.7 109 28 103/56 100 11/24/16 18:45 35.6 106 29 90/50 100 11/24/16 18:30 35.6 101 29 85/54 100 11/24/16 18:18 35.6 73 12 62/27 100 11/24/16 17:40 82/47 11/24/16 17:40 80 26 11/24/16 17:40 80 26 100 11/24/16 17:35 83 27 11/24/16 17:35 83 27 100 11/24/16 17:30 86 25 11/24/16 17:30 77/40 11/24/16 17:30 86 25 100 11/24/16 17:29 87 27 100 11/24/16 17:29 88 27 11/24/16 17:24 92 27 11/24/16 17:24 92 27 100 11/24/16 17:20 75/40 11/24/16 17:19 100 27 100 11/24/16 17:19 100 27 9/14/17 17:14 107 22 9/14/17 17:14 107 22 100 9/14/17 17:10 85/45 9/14/17 17:09 120 25 /14/17 17:09 120 25 100 9/14/17 17:04 119 22 9/14/17 17:04 118 22 100 9/14/17 17:00 35.3 95/58 9/14/17 16:59 117 20 100 9/14/17 16:59 117 20 /14/17 16:55 100/64 914/17 16:54 119 20 100 9/14/17 16:54 120 20 /14/17 16:53 119 20 100 /14/17 16:53 119 20 14/17 16:48 116 20 /14/17 16:48 115 20 99 /14/17 16:45 107/59 14/17 16:43 112 20 98 /14/17 16:43 112 20 14/17 16:38 110 20 14/17 16:38 110 20 99 /14/17 16:35 115/60 14/17 16:33 109 20 /14/17 16:33 109 20 100 /14/17 16:28 110 20 /14/17 16:28 110 20 100 /14/17 16:27 110 20 100 /14/17 16:27 110 20 /14/17 16:25 35.5 130/60 /14/17 16:22 114 20 /14/17 16:22 114 20 100 /14/17 16:17 124 20 99 14/17 16:17 125 20 14/17 16:15 131/71 14/17 16:12 127 20 96 /14/17 16:12 127 20 /14/17 16:11 100 /14/17 16:10 35.8 126 20 121/67 99 100.0 14/17 16:07 126 20 /14/17 16:07 126 20 95 /14/17 16:05 122/64 14/17 16:02 119 19 /14/17 16:02 122 19 81 9/14/17 15:59 117 12 100/53 14/17 15:57 113 10 9/14/17 15:57 10 11/24/16 15:56 112 12 11/24/16 15:56 12 11/24/16 15:55 72/38 11/24/16 15:46 125 29 11/24/16 15:46 29 11/24/16 15:45 61/34 11/24/16 15:41 21 11/24/16 15:41 128 21 11/24/16 15:37 156/ 11/24/16 15:36 17 11/24/16 15:36 128 17 11/24/16 15:35 59/34 11/24/16 15:31 126 22 11/24/16 15:31 60 22 11/24/16 15:26 19 11/24/16 15:26 129 19 11/24/16 15:25 35.3 57/30 11/24/16 15:21 130 30 95 11/24/16 15:21 133 30 11/24/16 15:16 136 24 97 11/24/16 15:16 128 24 11/24/16 15:15 71/52 11/24/16 15:11 134 22 99 11/24/16 15:11 137 22 11/24/16 15:06 24 11/24/16 15:06 137 24 11/24/16 15:04 66/36 11/24/16 15:01 133 20 11/24/16 15:01 132 20 89 11/24/16 15:00 35.2 38 15 96 Oxymask 10 72/41 11/24/16 14:56 38 13 11/24/16 14:56 46 13 100 11/24/16 09:45 36.8 80 20 144/81 (102) 94 Room Air 11/24/16 07:36 36.9 80 18 166/80 (108) 97 Room Air 11/24/16 07:15 Room Air 11/24/16 04:10 36.9 84 16 129/80 (96) 95 Room Air 11/24/16 04:00 Room Air 11/24/16 00:00 Room Air 11/23/16 23:28 37.2 88 21 144/82 (102) 96 Room Air Physical Exam General Appearance: + pertinent finding (intubated, sedated) ENT: + pertinent finding (ETT in place) Neck: no JVD Respiratory/Chest: lungs clear, no respiratory distress, no accessory muscle use Cardiovascular: no gallop, no murmur, + tachycardia Abdomen: no organomegaly, + abnormal bowel sounds (decreased), + distended Extremities: no pedal edema, + slow capillary refill (several toes b/l, but pulses palpable b/l, about 1+) Skin: + pertinent finding (numerous dressings in place on abdominal wall and right groin) Laboratory Results Last 24 Hours Test 11/24/16 05:40 11/24/16 06:37 11/24/16 15:18 11/24/16 15:25 White Blood Count 7.39 K/uL 9.78 K/uL Red Blood Count 3.60 M/uL 2.44 M/uL Hemoglobin 9.1 g/dL 6.2 g/dL Hematocrit 28.7 % 20.2 % Mean Corpuscular Volume 79.7 fL 82.8 fL Mean Corpuscular Hemoglobin 25.3 pg 25.4 pg Mean Corpuscular Hemoglobin Concent 31.7 g/dl 30.7 g/dl RDW Standard Deviation 44.3 fL 46.7 fL RDW Coefficient of Variation 15.0 % 15.4 % Platelet Count 260 K/uL 239 K/uL Mean Platelet Volume 9.4 fL 9.0 fL Prothrombin Time 14.6 SECONDS Prothromb Time International Ratio 1.3 Sodium Level 144 mmol/L Potassium Level 3.3 mmol/L Chloride Level 114 mmol/L Carbon Dioxide Level 24 mmol/L Anion Gap 6.0 mmol/L Blood Urea Nitrogen 6 mg/dl Creatinine 0.52 mg/dl Est Creatinine Clear Calc Drug Dose 101.3 ml/min Estimated GFR () 115.4 Estimated GFR (Non- 99.6 BUN/Creatinine Ratio 11.5 Random Glucose 126 mg/dl Calcium Level 8.1 mg/dl Magnesium Level 1.8 mg/dl Vancomycin Level Trough 17.8 mcg/ml Bedside Glucose 132 mg/dl 263 mg/dl Neutrophils (%) (Auto) 74.1 % Lymphocytes (%) (Auto) 20.4 % Monocytes (%) (Auto) 3.8 % Eosinophils (%) (Auto) 0.5 % Basophils (%) (Auto) 0.4 % Neutrophils # (Auto) 7.24 K/uL Lymphocytes # (Auto) 2.00 K/uL Monocytes # (Auto) 0.37 K/uL Eosinophils # (Auto) 0.05 K/uL Basophils # (Auto) 0.04 K/uL Immature Granulocyte % (Auto) 0.8 % Immature Granulocyte # (Auto) 0.08 K/uL Nucleated RBC Absolute Count (auto) 0.03 K/uL Nucleated Red Blood Cells % 0.3 % Hypochromasia PRESENT Echinocytes 1+ Arterial Blood pH 7.22 Arterial Blood Partial Pressure CO2 32 mmHg Arterial Blood Partial Pressure O2 150 mm/Hg Arterial Blood HCO3 10 mmol/L Arterial Blood Oxygen Saturation < 60.0 % Arterial Blood Base Excess -16.8 mEq/L Arterial Blood Gas Delivery 15L Walter Test POS Pro-B-Type Natriuretic Peptide 2309 pg/ml Test 11/24/16 16:50 11/24/16 16:51 11/24/16 17:02 11/24/16 19:48 White Blood Count 8.97 K/uL 16.14 K/uL Red Blood Count 2.39 M/uL 3.08 M/uL Hemoglobin 6.8 g/dL 8.9 g/dL Hematocrit 21.1 % 27.6 % Mean Corpuscular Volume 88.3 fL 89.6 fL Mean Corpuscular Hemoglobin 28.5 pg 28.9 pg Mean Corpuscular Hemoglobin Concent 32.2 g/dl 32.2 g/dl Platelet Count 148 K/uL 121 K/uL Mean Platelet Volume 8.9 fL 9.1 fL RDW Standard Deviation 52.1 fL 53.1 fL RDW Coefficient of Variation 15.9 % 16.2 % Nucleated RBC Absolute Count (auto) 0.04 K/uL 0.12 K/uL Neutrophils % (Manual) 72.2 % Lymphocytes % (Manual) 21.7 % Monocytes % (Manual) 0.9 % Eosinophils % (Manual) 0.9 % Basophils % (Manual) 2.6 % Myelocytes % 1.7 % Nucleated Red Blood Cells % 0.4 % 0.8 % Neutrophils # (Manual) 6.48 K/uL Total Absolute Neutrophils 6.48 K/uL Lymphocytes # (Manual) 1.95 K/uL Total Absolute Lymphocytes 1.95 K/uL Monocytes # (Manual) 0.08 K/uL Eosinophils # (Manual) 0.08 K/uL Basophils # (Manual) 0.23 K/uL Myelocytes # 0.15 K/uL Echinocytes 2+ Bedside Hemoglobin 5.4 g/dl 5.4 g/dl Bedside Hematocrit 16 % 16 % Bedside Blood Gas pH (LAB) 7.02 7.06 Bedside Blood Gas pCO2 (LAB) 44 mmHg 44 mmHg Bedside Blood Gas pO2 (LAB) 354 mmHg > 420 mmHg Bedside Blood Gas HCO3 (LAB) 12 meq/L 12 meq/L Bedside Blood Gas Total CO2 13 mEq/l 14 mEq/l Bedside Blood Gas Base Excess (LAB) -19.0 meq/L -18.0 meq/L Bedside Blood Gas O2 Saturation 100.0 % 100.0 % Bedside Sodium 143 mEq/L 142 mEq/L Bedside Potassium 4.0 mEq/L 4.6 mEq/L Arterial Blood pH 7.12 Arterial Blood Partial Pressure CO2 27 mmHg Arterial Blood Partial Pressure O2 430 mm/Hg Arterial Blood HCO3 9 mmol/L Arterial Blood Oxygen Saturation 99.8 % Arterial Blood Base Excess -19.2 mEq/L Arterial Blood Gas Delivery 100% Walter Test POS Test 11/24/16 19:50 11/24/16 20:00 Assessment and Plan 66yo female with h/o severe PAD s/p axillary-bifemoral bypass grafting in 2015 complicated by graft infection in 04/2016 - on chronic suppressive antibiotics since - who presented with sepsis 2nd to graft infection. 1. sepsis and gram negative carol septicemia 2nd to graft infection in her right groin/right femoral artery - continue zosyn/vanco while awaiting intra-op cultures. Repeat blood cx's were drawn this am to ensure sterility. s/p extensive vascular surgery today with removal of graft. 2. hemorrhagic +/- septic shock, favor former - continue IVF, broad-spectrum IV antibiotic therapy, and PRBCs as necessary. Check cbc now to ensure stable and improving H/H. Significant acute blood loss anemia from her surgery today. Defer to ICU/ vascular surgery services about repeat abd/pelvis imaging. Cont pressors - defer management to critical care. 3. acute hypoxic respiratory failure - s/p re-intubation in the PACU today. This is 2nd to severe metabolic acidosis and shock. Defer management to critical care. 4. severe metabolic acidosis - recheck ABG, lactic acid now. Defer use of sodium bicarbonate to critical care team. 5. T2DM - BSG's q6h. May need insulin infusion if hyperglycemic. 6. hyperlipidemia - resume statin agent when able. 7. DVT proph - defer to critical care. 8. FEN - NPO, continue IVF, BMP/mag/phos now. 9. h/o Beauchamp's esophagus - PPI IV for now; convert to enteral when NG tube is in place. 10. needs central line due to pressors, etc - appreciate critical care assistance. Continued [facility] stay due to: multiple IV medications needed, other (need for vascular surgery) Discharge planning: uncertain
[2016-11-24] MEDS ORDERED: METOPROLOL TARTRATE 1 MG/ML VIAL ONE ×2 (21:01→23:42)
--- NOTE | 2016-11-24 21:06 | DIAGNOSTIC IMAGING REPORT ---
CHEST ONE VIEW PORTABLE CLINICAL HISTORY: Central venous line placement COMPARISON STUDY: 11/24/2016 FINDINGS: The cardiac and mediastinal contours are normal. There are right perihilar and bibasal airspace opacities. There is an endotracheal tube 22 mm above the luis. There is a right internal jugular central venous catheter. The tip is slightly more medial than is typical, but this may be secondary to patient rotation. While likely within the superior vena cava, it is not possible with certainty to determine the exact location of the catheter tip on conventional radiographic imaging. There is no pneumothorax.[ IMPRESSION: 1. Right perihilar and bibasal airspace opacities 2. Endotracheal tube 22 mm above the luis 3. No evidence of pneumothorax 4. Right internal jugular central venous catheter. Although the distal catheter deviates slightly medially, this may be secondary to film rotation. Electronically signed by: Duarte Fontana M.D. 11/24/2016 9:05 PM Dictated Date/Time: 11/24/2016 8:59 PM
[2016-11-24] MEDS: PANTOprazole INJ 40 MG in SYRINGE 0 ML IV SCH (21:07)
[2016-11-24] MEDS ORDERED: METOPROLOL TARTRATE 1 MG/ML VIAL IV STA ×2 (21:09→21:34)
[2016-11-24] MEDS: SODIUM BICARBONATE 8.4% INJ 150 MEQ in SODIUM CHLORIDE 0.45% 1000ML 1,000 ML IV SCH (21:24)
--- NOTE | 2016-11-24 21:36 | Procedure Note ---
Procedure Note Procedure Date Nov 24, 2016. Central Line Procedure time out: side/site verified, patient ID confirmed, sterile procedure used Consent obtained: verbal (Obtained by Dr. Gray Allen on phone from Luis Plummer. Verified by myself. 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 Indications: poor venous access, central drug admin., long-term access, CVP monitoring Prep: chlorhexadine prep, sterile drape, sterile procedures used Anesthesia: local injection, lidocaine 1% without epi Volume anesthetic (ml's): 5 Central line lumen: triple Central line location: internal jugular (R) Additional details: percutaneous placement, ultrasound guidance, Selinger technique used, line sutured, good blood return CXR: appropriate position, no pneumothorax Complications: none Patient tolerated procedure: well Post-procedure vital signs: reviewed and stable Comments: Consent was obtained prior to procedure. Indication, risks, and benefits were explained at length. Procedure: Procedure was performed under strict sterile field in O.R. fashion. The right neck and chest were cleaned with chloroprep scrub and the pt was draped in sterile fashion. The internal jugular vein was identified using ultrasound. After anesthetizing the area with 5cc of lidocaine, venous blood was withdrawn after accessing the vein under ultrasound guidance. The syringe was removed and a guide wire was advanced into the introducer needle. The dilator was advanced after being exchanged for the introducer needle. After appropriate dilation was obtained, the dilator was removed and the central catheter was placed over the guide wire using Seldinger technique. The wire was removed intact and the catheter was sutured at 17cm. A surgical dressing was placed over the catheter with a biofilm shield in place. At the time of the procedure each port was aspirated and then flushed properly. Pt tolerated the procedure well with no complications. Post procedure x-ray was completed, placement was appropriate and no pneumothorax was noted. _ Critical Care Medicine Point of Care Bedside Ultrasound Procedure: Procedural Ultrasound Procedure Date: 11/24/2016 Indication: Septic Shock, Central Medications required, CVP Monitoring Attending: Chilo Allen DO Resident/Physician Dispensing And Measuring Optician: Shira Serrano PA-C If for central venous access Artery AND Vein visualized: Y Compressible Vein: Y Guidewire or Short Catheter seen in vein prior to dilation: Y Line confirmed in Vein with ultrasound: Y Lung Sliding on side of attempt (if applicable): Y If no lung sliding or not obtained has CXR been ordered: Y Impression: Line in place Plan: Administer Phenylephrine & Levophed centrally Goal Map > 65; Transduce CVP Goal 12 Images obtained are saved for permanent record
--- NOTE | 2016-11-24 22:51 | Critical Care Consultation ---
Critical Care Consultation Date of Consultation: Nov 24, 2016. Attending Physician: Kal Yang MD Reason for Consultation: Post operative bleeding, shock and metabolic acidosis History of Present Illness Gifty Plummer is a 66-year-old female who presented to the [facility] emergency department on November 22 for a worsening fever starting that morning. Per emergency room documentation as patient stated she had been sent to the emergency department by Dr. Morgan's nurse as she is known to have an infection of her right groin from a vascular graft. Patient was slightly hypotensive on admission to the emergency department and received 3 L normal saline as well as IV vancomycin and Zosyn prior to admission to the hospital. Recent microbiology by vascular surgeon in October demonstrated enterococcus infection that was resistant to gentamicin but susceptible to vancomycin. Patient had recently finished a course of ciprofloxacin. At this time drainage from the right groin has been present for approximately 8 weeks per prior H&P drainage is typically yellow without foul odor. On admission this area was painful to palpation. It appears that patient has been dealing with this issue since April 13 after bleeding from this area underwent anastomosis based of presumed vascular graft infection at that time. Since this time with partial graft removal patient had been on suppressive antibiotics including Augmentin. Dr. Morgan was again consulted and due to CT demonstrating infection of ax fem graft and draining purulence of the groin incision decided it was in the pts best interest to remove the infected graft. Today Dr. Morgan took the pt to the OR and performed removal of the infected axillary femoral bypass, PTCA/ stenting of infrarenal aorta and left common and external iliac arteries, aortogram and cannulation of abdominal aorta. Per operative record; patient had estimated blood loss 150 mL cultures of left groin, chest and abdomen were taken. It is my understanding that the surgery itself went well without major complication. However, patient required reintubation during recovery in the PACU due to dyspnea, shock, and severe metabolic acidosis. Patient was transfused 3 units of packed red blood cells today and received multiple doses of vasopressin for blood pressure support. Patient was admitted to the ICU with arterial line in place. She was receiving Levophed infusion per peripheral line until central access could be obtained. Patient remained intubated with settings of AC 500/20/6/100%. Patient was sedated on fentanyl and Versed intermittently. Review of systems could not be obtained secondary to patient condition, intubation and sedation. 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 Tubal ligation Balloon surgery of right leg Family History Hypertension FATHER Social History Smoking Status: Former Smoker (smoked age 13 and quit 2016; 1 ppd) Alcohol Use: none Drug Use: none Marital Status: (lives in [place]; 3 kids) Housing Status: lives with family Occupation Status: retired (worked at [employer] ) Allergies Coded Allergies: Sulfamethoxazole w/Trimethoprim (Verified Allergy, Intermediate, HIVES,GI SYMPTOMS, 11/22/16) Nickel (Verified Allergy, Mild, RASH, 11/22/16) Levofloxacin (Verified Adverse Reaction, Mild, VOMITING, 11/22/16) Home Medications Scheduled Amoxicillin & Pot Clavulanate (Augmentin 500MG), 250 MG PO BID Aspirin (Aspirin Ec), 81 MG PO QAM Atorvastatin (Lipitor), 40 MG PO HS Cholecalciferol (Vitamin D), 5,000 UNITS PO DAILY Docusate Sodium (Docusate Sodium), 100 MG PO BID Lisinopril (Zestril), 10 MG PO QAM Metformin Hcl (Glucophage), 1,000 MG PO BID Metoprolol Succinate (Metoprolol Succinate ER), 12.5 MG PO DAILY Multivitamin (Multivitamin), 1 TAB PO QAM [place]-3 Fatty Acids (Fish Oil), 1 CAP PO QAM Omeprazole (Prilosec), 40 MG PO BID Pioglitazone Hcl (Actos), 45 MG PO QAM Warfarin Sod (Jantoven), 4 MG PO [id number] Warfarin Sod (Jantoven), 2 MG PO WK Scheduled PRN Valacyclovir (Valtrex), 1,000 MG PO PRN PRN for COLD SORES Current Inpatient Medications Current Inpatient Medications Medications (Trade) Dose Ordered Sig/Shira Route Start Time Stop Time Status Last Admin Dose Admin Ioversol (Optiray 320) 100 ml UD PRN IV 11/22/16 13:30 11/26/16 13:29 Ondansetron HCl (Zofran Inj) 4 mg Q6H PRN IV 11/22/16 16:45 12/22/16 16:44 Nitroglycerin (Nitrostat Tab) 0.4 mg UD PRN SL 11/22/16 16:45 12/22/16 16:44 Piperacillin Sod/ Tazobactam Sod 4.5 gm/Dextrose 120 ml @ 28.75 mls/ hr Q8H IV 11/22/16 20:00 12/02/16 19:59 11/24/16 18:42 28.75 MLS/HR Piperacillin Sod/ Tazobactam Sod (Consult) 1 ea UD PRN N/A 11/22/16 18:00 12/22/16 17:59 Glucose (Glucose 40% Gel) 15-30 GRAMS 15 GRAMS... UD PRN PO 11/22/16 20:15 12/22/16 20:14 Glucose (Glucose Chew Tab) 4-8 Tablets 4 Tabl... UD PRN PO 11/22/16 20:15 12/22/16 20:14 Dextrose (Dextrose 50% 50ML Syringe) 25-50ML OF 50% DW IV FOR... UD PRN IV 11/22/16 20:15 12/22/16 20:14 Glucagon (Glucagon Inj) 1 mg UD PRN SQ 11/22/16 20:15 12/22/16 20:14 Insulin Aspart (novoLOG ASPART) SLIDING SCALE G... Q6 SC 11/24/16 18:00 12/24/16 17:59 Vancomycin HCl 1250 mg/Sodium Chloride 275 ml @ 125 mls/hr Q12H IV 11/24/16 20:00 11/26/16 19:59 11/24/16 21:07 125 MLS/HR Phenylephrine HCl 20 mg/Dextrose 502 ml @ 0 mls/hr Q0M PRN IV 11/24/16 19:38 12/24/16 19:37 Vancomycin HCl (Consult) 1 ea UD PRN N/A 11/24/16 20:15 12/24/16 20:14 Pantoprazole Sodium 40 mg/ Syringe 10 ml @ 5 mls/min DAILY@09,21 IV 11/24/16 21:00 12/24/16 20:59 11/24/16 21:07 5 MLS/MIN Sodium Bicarbonate 150 meq/Sodium Chloride 1,150 ml @ 100 mls/hr [id number] IV 11/24/16 21:15 12/24/16 21:14 11/24/16 21:24 100 MLS/HR Norepinephrine Bitartrate 16 mg/ Dextrose 516 ml @ 0 mls/hr Q0M PRN IV 11/24/16 21:30 12/24/16 21:29 Fentanyl Citrate (Fentanyl Inj) 50 mcg Q2H PRN IV 11/24/16 22:00 12/08/16 19:59 Midazolam HCl (Versed Inj) 2 mg Q2H PRN IV 11/24/16 22:00 12/24/16 19:59 Review of Systems ROS cannot be obtained secondary to patient condition, sedation and intubation. Physical Exam Date Time Temp Pulse Resp B/P (MAP) Pulse Ox O2 Delivery O2 Flow Rate FiO2 11/24/16 22:20 50 11/24/16 22:00 36.8 119 35 98/51 (71) 100 11/24/16 21:45 36.7 109 34 100/56 (75) 100 11/24/16 21:43 135 105/68 11/24/16 21:30 36.6 125 28 106/57 (78) 100 11/24/16 21:15 36.5 117 29 124/78 (93) 99 11/24/16 21:06 142 110/70 11/24/16 21:00 36.4 138 23 99/50 (72) 100 11/24/16 21:00 50 11/24/16 20:45 36.3 131 32 54/25 (37) 100 11/24/16 20:30 36.2 125 27 79/42 (56) 100 11/24/16 20:15 36.1 121 32 90/44 (62) 100 11/24/16 20:00 36.0 108 33 84/43 (58) 100 11/24/16 19:45 35.9 117 32 87/46 (61) 100 11/24/16 19:30 35.8 106 28 99/48 (67) 100 11/24/16 19:15 35.7 109 27 113/63 (80) 100 11/24/16 19:00 35.7 109 28 103/56 100 11/24/16 19:00 35.6 109 28 145/70 (90) 100 11/24/16 18:45 35.6 106 29 90/50 100 9/14/17 18:30 35.6 101 29 85/54 100 9/14/17 18:18 35.6 73 12 62/27 100 9/14/17 17:40 82/47 9/14/17 17:40 80 26 9/14/17 17:40 80 26 100 9/14/17 17:35 83 27 9/14/17 17:35 83 27 100 9/14/17 17:30 86 25 9/14/17 17:30 77/40 9/14/17 17:30 86 25 100 9/14/17 17:29 87 27 100 9/14/17 17:29 88 27 9/14/17 17:24 92 27 9/14/17 17:24 92 27 100 9/14/17 17:20 75/40 9/14/17 17:19 100 27 100 9/14/17 17:19 100 27 9/14/17 17:14 107 22 9/14/17 17:14 107 22 100 9/14/17 17:10 85/45 9/14/17 17:09 120 25 9/14/17 17:09 120 25 100 9/14/17 17:04 119 22 9/14/17 17:04 118 22 100 9/14/17 17:00 35.3 95/58 9/14/17 16:59 117 20 100 9/14/17 16:59 117 20 9/14/17 16:55 100/64 9/14/17 16:54 119 20 100 9/14/17 16:54 120 20 9/14/17 16:53 119 20 100 9/14/17 16:53 119 20 9/14/17 16:48 116 20 9/14/17 16:48 115 20 99 9/14/17 16:45 107/59 9/14/17 16:43 112 20 98 9/14/17 16:43 112 20 9/14/17 16:38 110 20 9/14/17 16:38 110 20 99 9/14/17 16:35 115/60 9/14/17 16:33 109 20 9/14/17 16:33 109 20 100 9/14/17 16:28 110 20 9/14/17 16:28 110 20 100 9/14/17 16:27 110 20 100 9/14/17 16:27 110 20 9/14/17 16:25 35.5 130/60 9/14/17 16:22 114 20 9/14/17 16:22 114 20 100 9/14/17 16:17 124 20 99 9/14/17 16:17 125 20 9/14/17 16:15 131/71 9/14/17 16:12 127 20 96 9/14/17 16:12 127 20 9/14/17 16:11 100 9/14/17 16:10 35.8 126 20 121/67 99 100.0 9/14/17 16:07 126 20 9/14/17 16:07 126 20 95 9/14/17 16:05 122/64 9/14/17 16:02 119 19 9/14/17 16:02 122 19 81 9/14/17 15:59 117 12 100/53 9/14/17 15:57 113 10 9/14/17 15:57 10 9/14/17 15:56 112 12 /14/17 15:56 12 /14/17 15:55 72/38 9/14/17 15:46 125 29 9/14/17 15:46 29 9/14/17 15:45 61/34 9/14/17 15:41 21 9/14/17 15:41 128 21 9/14/17 15:37 156/ 9/14/17 15:36 17 9/14/17 15:36 128 17 9/14/17 15:35 59/34 9/14/17 15:31 126 22 9/14/17 15:31 60 22 9/14/17 15:26 19 9/14/17 15:26 129 19 9/14/17 15:25 35.3 57/30 9/14/17 15:21 130 30 95 9/14/17 15:21 133 30 9/14/17 15:16 136 24 97 9/14/17 15:16 128 24 9/14/17 15:15 71/52 9/14/17 15:11 134 22 99 9/14/17 15:11 137 22 9/14/17 15:06 24 9/14/17 15:06 137 24 9/14/17 15:04 66/36 9/14/17 15:01 133 20 9/14/17 15:01 132 20 89 9/14/17 15:00 35.2 38 15 96 Oxymask 10 72/41 11/24/16 14:56 38 13 11/24/16 14:56 46 13 100 11/24/16 09:45 36.8 80 20 144/81 (102) 94 Room Air 11/24/16 07:36 36.9 80 18 166/80 (108) 97 Room Air 11/24/16 07:15 Room Air 11/24/16 04:10 36.9 84 16 129/80 (96) 95 Room Air 11/24/16 04:00 Room Air 11/24/16 00:00 Room Air 11/23/16 23:28 37.2 88 21 144/82 (102) 96 Room Air Vital Signs - as noted Laboratory Data - as noted Physical Exam: General - Pt intubated and sedated. Eyes - Pupils equal and sluggish, Scleral Edema noted in bilateral eyes ENT -Endotracheal tube in place Neck - Supple, trachea midline, no masses or lymphadenopathy, right internal jugular triple lumen venous catheter in place Lungs - No paradoxical chest wall movement, clear to auscultation bilaterally, no wheezes, rales, or rhonchi Heart -sinus tachycardia, No murmur, rubs, clicks, or gallops appreciated Abdomen -No BS present, no bruits noted, tympanic to percussion, soft, nontender , moderately distended obese, bilateral groin, left lower and right upper surgical dressing dry and intact. Extremities - No edema, No palpable pulses, Left Posterior Tibial by doppler. Left foot and entire right leg mottled Neuro - Rass --3 Strength: Not assessed CN:Pupils equal and sluggish, no facial asymmetry, no noted unilateral neurologic changes Laboratory Results Last 24 Hours Test 11/24/16 05:40 11/24/16 06:37 11/24/16 15:18 11/24/16 15:25 White Blood Count 7.39 K/uL 9.78 K/uL Red Blood Count 3.60 M/uL 2.44 M/uL Hemoglobin 9.1 g/dL 6.2 g/dL Hematocrit 28.7 % 20.2 % Mean Corpuscular Volume 79.7 fL 82.8 fL Mean Corpuscular Hemoglobin 25.3 pg 25.4 pg Mean Corpuscular Hemoglobin Concent 31.7 g/dl 30.7 g/dl RDW Standard Deviation 44.3 fL 46.7 fL RDW Coefficient of Variation 15.0 % 15.4 % Platelet Count 260 K/uL 239 K/uL Mean Platelet Volume 9.4 fL 9.0 fL Prothrombin Time 14.6 SECONDS Prothromb Time International Ratio 1.3 Sodium Level 144 mmol/L Potassium Level 3.3 mmol/L Chloride Level 114 mmol/L Carbon Dioxide Level 24 mmol/L Anion Gap 6.0 mmol/L Blood Urea Nitrogen 6 mg/dl Creatinine 0.52 mg/dl Est Creatinine Clear Calc Drug Dose 101.3 ml/min Estimated GFR () 115.4 Estimated GFR (Non- 99.6 BUN/Creatinine Ratio 11.5 Random Glucose 126 mg/dl Calcium Level 8.1 mg/dl Magnesium Level 1.8 mg/dl Vancomycin Level Trough 17.8 mcg/ml Bedside Glucose 132 mg/dl 263 mg/dl Neutrophils (%) (Auto) 74.1 % Lymphocytes (%) (Auto) 20.4 % Monocytes (%) (Auto) 3.8 % Eosinophils (%) (Auto) 0.5 % Basophils (%) (Auto) 0.4 % Neutrophils # (Auto) 7.24 K/uL Lymphocytes # (Auto) 2.00 K/uL Monocytes # (Auto) 0.37 K/uL Eosinophils # (Auto) 0.05 K/uL Basophils # (Auto) 0.04 K/uL Immature Granulocyte % (Auto) 0.8 % Immature Granulocyte # (Auto) 0.08 K/uL Nucleated RBC Absolute Count (auto) 0.03 K/uL Nucleated Red Blood Cells % 0.3 % Hypochromasia PRESENT Echinocytes 1+ Arterial Blood pH 7.22 Arterial Blood Partial Pressure CO2 32 mmHg Arterial Blood Partial Pressure O2 150 mm/Hg Arterial Blood HCO3 10 mmol/L Arterial Blood Oxygen Saturation < 60.0 % Arterial Blood Base Excess -16.8 mEq/L Arterial Blood Gas Delivery 15L Walter Test POS Pro-B-Type Natriuretic Peptide 2309 pg/ml Test 11/24/16 16:50 11/24/16 16:51 11/24/16 17:02 11/24/16 19:48 White Blood Count 8.97 K/uL 16.14 K/uL Red Blood Count 2.39 M/uL 3.08 M/uL Hemoglobin 6.8 g/dL 8.9 g/dL Hematocrit 21.1 % 27.6 % Mean Corpuscular Volume 88.3 fL 89.6 fL Mean Corpuscular Hemoglobin 28.5 pg 28.9 pg Mean Corpuscular Hemoglobin Concent 32.2 g/dl 32.2 g/dl Platelet Count 148 K/uL 121 K/uL Mean Platelet Volume 8.9 fL 9.1 fL RDW Standard Deviation 52.1 fL 53.1 fL RDW Coefficient of Variation 15.9 % 16.2 % Nucleated RBC Absolute Count (auto) 0.04 K/uL 0.12 K/uL Neutrophils % (Manual) 72.2 % Lymphocytes % (Manual) 21.7 % Monocytes % (Manual) 0.9 % Eosinophils % (Manual) 0.9 % Basophils % (Manual) 2.6 % Myelocytes % 1.7 % Nucleated Red Blood Cells % 0.4 % 0.8 % Neutrophils # (Manual) 6.48 K/uL Total Absolute Neutrophils 6.48 K/uL Lymphocytes # (Manual) 1.95 K/uL Total Absolute Lymphocytes 1.95 K/uL Monocytes # (Manual) 0.08 K/uL Eosinophils # (Manual) 0.08 K/uL Basophils # (Manual) 0.23 K/uL Myelocytes # 0.15 K/uL Echinocytes 2+ Bedside Hemoglobin 5.4 g/dl 5.4 g/dl Bedside Hematocrit 16 % 16 % Bedside Blood Gas pH (LAB) 7.02 7.06 Bedside Blood Gas pCO2 (LAB) 44 mmHg 44 mmHg Bedside Blood Gas pO2 (LAB) 354 mmHg > 420 mmHg Bedside Blood Gas HCO3 (LAB) 12 meq/L 12 meq/L Bedside Blood Gas Total CO2 13 mEq/l 14 mEq/l Bedside Blood Gas Base Excess (LAB) -19.0 meq/L -18.0 meq/L Bedside Blood Gas O2 Saturation 100.0 % 100.0 % Bedside Sodium 143 mEq/L 142 mEq/L Bedside Potassium 4.0 mEq/L 4.6 mEq/L Arterial Blood pH 7.12 Arterial Blood Partial Pressure CO2 27 mmHg Arterial Blood Partial Pressure O2 430 mm/Hg Arterial Blood HCO3 9 mmol/L Arterial Blood Oxygen Saturation 99.8 % Arterial Blood Base Excess -19.2 mEq/L Arterial Blood Gas Delivery 100% Walter Test POS Sodium Level 143 mmol/L Potassium Level 6.0 mmol/L Chloride Level 116 mmol/L Carbon Dioxide Level 9 mmol/L Anion Gap 18.0 mmol/L Blood Urea Nitrogen 9 mg/dl Creatinine 0.94 mg/dl Est Creatinine Clear Calc Drug Dose 56.0 ml/min Estimated GFR () 73.3 Estimated GFR (Non- 63.2 BUN/Creatinine Ratio 9.5 Random Glucose 203 mg/dl Lactic Acid Level 11.8 mmol/L Calcium Level 7.4 mg/dl Phosphorus Level 8.5 mg/dl Magnesium Level 2.0 mg/dl Test 11/24/16 19:50 Ionized Calcium 1.09 mmol/l Diagnostic Results CHEST ONE VIEW PORTABLE CLINICAL HISTORY: Central venous line placement COMPARISON STUDY: 11/24/2016 FINDINGS: The cardiac and mediastinal contours are normal. There are right perihilar and bibasal airspace opacities. There is an endotracheal tube 22 mm above the luis. There is a right internal jugular central venous catheter. The tip is slightly more medial than is typical, but this may be secondary to patient rotation. While likely within the superior vena cava, it is not possible with certainty to determine the exact location of the catheter tip on conventional radiographic imaging. There is no pneumothorax.[ IMPRESSION: 1. Right perihilar and bibasal airspace opacities 2. Endotracheal tube 22 mm above the luis 3. No evidence of pneumothorax 4. Right internal jugular central venous catheter. Although the distal catheter deviates slightly medially, this may be secondary to film rotation. Electronically signed by: Duarte Fontana M.D. 11/24/2016 9:05 PM Dictated Date/Time: 11/24/2016 8:59 PM CHEST ONE VIEW PORTABLE CLINICAL HISTORY: 66 years-old Female presenting with Patient states she can not breathe. TECHNIQUE: Portable upright AP view of the chest was obtained. COMPARISON: 11/22/2016. FINDINGS: Mildly low lung volumes with hypoventilatory changes. Bandlike opacity in the perihilar region of the right lung is new from prior. Greater obscuration of the left hemidiaphragm with hazy left basilar opacity. No pneumothorax. Surgical clips noted in the right axilla. Osseous structures normal. Upper abdomen normal. IMPRESSION: 1. Mildly low lung volumes with left basilar opacity, possibly atelectasis or layering left pleural effusion. 2. Bandlike opacity in the right perihilar region. This may be vascular in etiology versus atelectasis. Electronically signed by: Joselito Rosenthal M.D. 11/24/2016 3:24 PM Dictated Date/Time: 11/24/2016 3:[address] ANGIO ABD/PELVIS WITH CONTRAST CT DOSE: 960.28 mGy.cm CLINICAL HISTORY: Infected axillary bifemoral arterial bypass graft TECHNIQUE: Arterial phase images were obtained in a dynamic helical fashion during intravenous administration of 120 cc of Optiray 320. A dose lowering technique was utilized adhering to the principles of ALARA. MIP imaging was performed. COMPARISON STUDY: 11/22/2016 FINDINGS: The visualized portions the lung bases are unremarkable. No hepatic masses are visualized in the central phase study. There is cholelithiasis. No splenic masses are visualized. No pancreatic masses are visualized. No adrenal masses are visualized. No renal masses are visualized this arterial phase study. There are no transition zones to indicate bowel obstruction. No acute inflammatory changes are visualized. No abnormal pelvic masses are visualized. There is no evidence of abdominal aortic aneurysm. There is no evidence of celiac or superior mesenteric artery stenosis. There is no hemodynamically significant renal artery stenosis. There are diffuse atheromatous changes present within the abdominal aorta. The diomede left common iliac artery is occluded. There is a right common iliac artery graft. There are moderately diffuse atheromatous changes within the right common and external iliac artery. There is a moderate stenosis. There is a right axillary femoral bypass graft. There is a 40% stenosis of the bypass graft, just proximal to the femoral bifurcation.. There is a severe stenosis of the graft, just proximal to the left femoral anastomosis, and the left superficial femoral artery is miniscule. There appears to have been removal of the liver the graft which extends to the right femoral artery. There is soft tissue infiltration surrounding the distal aspect of the axillofemoral bypass graft just proximal to the femoral bifurcation. There is induration of the soft tissues along the expected course of removed graft. There is overlying skin indentation. There are no fluid collections to indicate a drainable abscess. The [place] right common femoral and superficial femoral arteries appear occluded. IMPRESSION: 1. No evidence of hemodynamic significant renal artery, superior mesenteric artery or celiac artery stenosis 2. Occlusion of the [place] common left iliac artery 3. Stenosis of a right common iliac artery graft 4. Right axillary femoral artery bypass graft. There is a severe stenosis of the left limb of the graft, just proximal to the left femoral anastomosis. 5. The right femoral limb of the graft has been removed. There is induration of the soft tissues along the expected course of the removed graft 6. Mild infiltration of the soft tissues surrounding axillary femoral bypass graft, just proximal to the bifurcation. Infection cannot be excluded. 7. 40% stenosis of the right axillary femoral pass graft, just proximal to the femoral bifurcation 8. Occlusion of the diomede right common femoral and superficial femoral arteries. 9. No evidence of a focal abscess. Electronically signed by: Duarte Fontana M.D. 11/23/2016 10:33 AM Dictated Date/Time: 11/23/2016 10:18 AM ABD/PELVIS IV CONTRAST ONLY CLINICAL HISTORY: 66 years-old Female presenting with rlq abscess going into groin/prox femur . TECHNIQUE: Multidetector CT of the abdomen and pelvis was performed after the administration of intravenous contrast. IV contrast: 93 mL of Optiray 320. A dose lowering technique was used consistent with the principles of ALARA (as low as reasonably achievable). COMPARISON: 10/20/2016.. CT DOSE (mGy.cm): The estimated cumulative dose is 1365.24 mGy.cm. FINDINGS: Vaccine Manager topogram: Unremarkable. Lung bases: Minimal dependent changes likely atelectasis. Few small lung cyst noted in the right lung base and right middle lobe. Mosaic attenuation at the lung bases could suggest small airways disease. Opacities in the lingula and right middle lobe likely atelectasis or scarring. Top normal heart size. Coronary artery calcification. No pericardial or pleural effusion. Liver: Normal morphology. No liver lesion. Patent hepatic vasculature. Biliary: No intrahepatic or extrahepatic biliary ductal dilatation. Gallbladder contains gallstones. Pancreas: Normal. Spleen: Normal. Adrenal glands: Normal. Kidneys and ureters: Subtle wedgelike defect with overlying cortical scarring noted in the lateral aspect of the interpolar region of the left kidney, likely indicating prior infarct, infection, trauma. No hydronephrosis. Ureters normal. Bladder: Normal. Pelvic organs: Uterus and ovaries normal. Bowel: Few sigmoid diverticula noted. Mild stool burden. Normal appendix. No bowel obstruction. Small hiatal hernia. Peritoneal cavity: No free fluid or intraperitoneal gas. Vasculature: A bypass graft courses in the subcutaneous tissue of the right lateral abdominal wall and is opacified with contrast. This connects to a second pass graft in the lower abdominal wall that courses across the abdomen connecting to the left superficial femoral artery. The second graft segment is also patent. As noted on the prior exam, infiltration surrounding the junction of these 2 grafts is apparent and similar in degree to prior exam. Rim enhancement around this may suggest fluid. Overlying skin infiltration and a surgical defect noted in the right lower quadrant abdominal wall. Additional surgical changes noted in the bilateral inguinal regions overlying the femoral vessels. The surgical incision site in the right lower quadrant may be contiguous with the right inguinal canal incision site. The bilateral femoral arteries are diminutive and poorly opacified with contrast. IVC patent. Lymph nodes: No enlarged lymph nodes in the abdomen or pelvis. Abdominal wall: Normal. Musculoskeletal: Degenerative changes of the spine. Degenerative changes of the sacroiliac joints. IMPRESSION: 1. Patent bypass graft along the right lateral abdominal wall and crossing the midline in the lower abdomen. As noted previously, infiltration and fluid surrounding the site of attachment of the two graft components; infection cannot be excluded. This is associated with the surgical incision site in the right lower quadrant and may be contiguous with the surgical incision site in the right inguinal canal. No intra-abdominal extension. 2. Due to the timing of the contrast bolus and diminutive nature of the femoral vessels, the bilateral superficial and deep femoral arteries are poorly opacified. Patency is difficult to establish. If there is clinical concern, lower extremity arterial Doppler could be obtained. Electronically signed by: Joselito Rosenthal M.D. 11/22/2016 2:49 PM Dictated Date/Time: 11/22/2016 2:[address] SCAN OF THE RIGHT HIP AND THIGH. CT DOSE: CLINICAL HISTORY: Right lower quadrant abscess. Extension into the groin and proximal thigh. TECHNIQUE: Patient was scanned in a dynamic helical fashion during intravenous administration of 93 cc Optiray 320. A dose lowering technique was utilized adhering to the principles of ALARA. COMPARISON STUDY: None. FINDINGS: There is a subcutaneous right-sided vascular graft which distally crosses the midline to the left femoral region. The graft appears patent. There is soft tissue infiltration surrounding the distal margin of the graft. There is an overlying cutaneous ulceration with soft tissue thickening on a small tract extending to the graft. There appears to have been removal of the distal aspect of the graft which likely extends into the right femoral level. There are no fluid collections to indicate a drainable abscess. There are no fluid collections present within the thigh. There are no bony destructive lesions to indicate osteomyelitis. No fractures are visualized. There is a right common iliac artery graft which appears at least partially occluded. The left common iliac artery also appears at least partially occluded. IMPRESSION: 1. Right-sided subcutaneous femoral artery bypass graft with apparent removal of the distal right femoral limb. There is soft tissue stranding surrounding the distal portion of the graft. Graft infection cannot be excluded. There are no fluid collections to indicate a drainable abscess. Electronically signed by: Duarte Fontana M.D. 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 PLAN: Fluids/Renal: * Severe metabolic acidosis with a bicarbonate of 9 * Begin bicarbonate drip at 100 mL per hour * Monitor ABG/VBG closely. Scheduled every 4 hours or as needed if sooner * Fluids: 1L 1/2NSS with 150meq HCO3 @ 100mLs/hr * Cr: Trend * Expected to increase secondary to shock and post op anesthesia * Beckman in place to gravity; Strict I&O's * Hyperkalemia * Insulin infusion started for hyperglycemia * Repeat labs after insulin bolus and infusion started * Monitor electrolytes Neuro: * RASS -3: Goal -2 to 0 * PRN Versed/Fentanyl Resp: * Intubated: ABG demonstrated elevated PaO2 and decreased CO2 and HCO3 * Settings changed to AC 500/16/6/50% per conversation with Dr. Allen * If pt is off vasoactives by AM, will attempt weaning SBT and Sedation Vacation * Will hold on respiratory regimen overnight with plan to wean in AM * If pt fails to be off pressors and requires continued intubation in AM; will add respiratory regimen * ABG as needed overnight to monitor metabolic component CV: * Septic Shock * Pt requiring vasoactives: * Continue to titrate Levophed and phenylephrine to a MAP > 65 * Tachycardia * 2.5 metoprolol IV * Expect increase in troponin: trend ID: * Lactic Acid 11.8 Trend with VBG/ABGs q4hs * Leukocytosis * Known infection: Cultures of Blood and intra-operative sources pending * Continue Zosyn and Vancomycin GI/Nutrition: * NPO while intubated on pressors * GI Prophylaxis: Continue Protonix Heme: * Pt post-operative Anemia * 3units of PRBs transfused * Trend H&H q4hrs * Monitor for hemodynamic changes * Plts: 121; Monitor Closely * DVT Prophylaxis: Held in the post op anemic setting Endocrine: * Hyperglycemia * Accu check per protocol * Insulin infusion ordered Bolus 3.1 and Rate of 3.1 to start * Known Diabetic; Oral Meds held Access: Right IJ Central Venous Catheter, 2 PIVS and Right Upper Extremity Arterial Line CCT: 65 Minutes; This time is exclusive of all separately billable procedures. Thank you for involving us in the care of this patient. Please refer to Dr. Gray Allen's addendum for further recommendations. I have personally evaluated and examined this patient. I agree with assessment and plan of Maddy Serrano PA-C. I initially evaluated the patient in the postanesthesia care unit. I performed a limited bedside ultrasonography to further evaluate for possible intra- abdominal hemorrhage and etiology of patient's hypotension. Patient isn't septic shock secondary to an infected graft material which has been removed. They're continuing with volume resuscitation. Patient is at significant risk of postoperative complication as well as graft failure. If she starts to have significant limits ischemia as well as mesenteric ischemia or any compromise of her renal function 9 concerned that this will lead to a poor prognosis. I have discussed the case with Dr. Morgan as well as anesthesia. Patient will require advanced access upon arrival in the ICU for vasoactive medication administration.
[2016-11-24] MEDS ORDERED: CALCIUM GLUCONATE 10% 1,000 MG in SODIUM CHLORIDE 0.9% 50ML 50 ML IV STA (23:49)
[2016-11-24] MEDS: MIDAZOLAM HCL 5 MG/ML 1 ML VIAL IV PRN (23:58)
[2016-11-25] VITALS (22 sets, daily range): BP systolic 45–151; BP diastolic 27–96; PULSE 110–156; TEMP 37.3–37.8; O2SAT 66–100; Ht 152.4 cm; Wt 82.5 kg
[2016-11-25 00:30] LABS: HEMATOCRIT 26.6 % (37-47)
[2016-11-25] MEDS: INSULIN ASPART 100 UNITS/ML 3 ML PEN SC SCH ×3 (00:44→11:21)
[2016-11-25] MEDS ORDERED: SODIUM BICARB 8.4% INJ 50 MEQ/50 ML SYR IV STA (00:48)
[2016-11-25 00:52] LABS: BUN/CREATININE RATIO 8.1 (10-20); CALCIUM 6.7 mg/dl (8.5-10.1); CREATININE 1.5 mg/dl (0.60-1.20); POTASSIUM 6.8 mmol/L (3.5-5.1)
[2016-11-25] MEDS ORDERED: METOPROLOL TARTRATE 1 MG/ML VIAL IV STA ×5 (00:56→06:35)
[2016-11-25] MEDS ORDERED: SODIUM BICARB 8.4% INJ 50 MEQ/50 ML SYR IV ONE (00:58)
[2016-11-25] MEDS: FENTANYL CITRATE INJ 50 MCG/1 ML 2 ML VIAL IV PRN ×2 (01:12→06:43)
[2016-11-25] MEDS: NOREPINEPHRINE BIT INJ 16 MG in DEXTROSE 5% 500ML 500 ML IV PRN ×3 (01:13→04:24)
[2016-11-25] MEDS ORDERED: INSULIN IV INFUSION PROTOCOL STA (01:15)
[2016-11-25] MEDS ORDERED: INSULIN PROTOCOL GOAL RANGE ONE (01:15)
[2016-11-25] MEDS ORDERED: INSULIN REGULAR 250 UNITS in SODIUM CHLORIDE 0.9% 250ML 250 ML IV SCH (01:45)
[2016-11-25] MEDS ORDERED: INSULIN HUMAN REGULAR BOLUS IV SCH (01:45)
[2016-11-25] MEDS: PIPERACILL/TAZOBAC IV 4.5 GM in DEXTROSE 5% 100ML 100 ML IV SCH (01:50)
[2016-11-25 01:51] LABS: ISTAT ARTERIAL BLOOD GAS HCO3 5 meq/L (19-24); ISTAT ARTERIAL BLOOD GAS PCO2 24 mmHg (35-46); ISTAT ARTERIAL BLOOD GAS PO2 109 mmHg (80-95); ISTAT ARTERIAL BLOOD GAS pH 6.96 (7.35-7.45); ISTAT CARBON DIOXIDE 6 mEq/l (24-31); ISTAT DELIVERY SYSTEM Ventilator; ISTAT FIO2 50 %; ISTAT PEEP 6; ISTAT RATE 15; ISTAT SITE Art Line; Vt 500
[2016-11-25 02:43] LABS: ISTAT ARTERIAL BLOOD GAS HCO3 10 meq/L (19-24); ISTAT ARTERIAL BLOOD GAS PCO2 34 mmHg (35-46); ISTAT ARTERIAL BLOOD GAS PO2 69 mmHg (80-95); ISTAT ARTERIAL BLOOD GAS pH 7.08 (7.35-7.45); ISTAT CARBON DIOXIDE 11 mEq/l (24-31); ISTAT HEMATOCRIT 20 % (37-47); ISTAT HEMOGLOBIN 6.8 g/dl (12.0-16.0); ISTAT SODIUM 136 mEq/L (135-144)
--- NOTE | 2016-11-25 03:07 | Critical Care Progress Note ---
Critical Care Progress Note Date of Service Nov 25, 2016. Critical Care Progress Note Requested respiratory to obtain ABG from pt. Depsite pt being on a BiCarb drip , pts bicarb fell from 9 to 5.4. Potassium had started to climb. Persistent tachycardia was noted. Failure to produce urine during the shift noted and Cr increasing. Pt continued to require increasing doses of multiple vasopressors. I contacted both Dr. Allen as well as Dr. Morgan with current changes as well as increasing Lactic Acidosis. Pt was given 3amps of HCO3 with plan to repeat ABG in 1hr. Dr. Morgan contacted pts Luis Plummer and requested he come to the hospital as pts prognosis if grave and could pass through the night. Family arrived and did discuss code status. Family wishes to continue current treatment but in the event of Cardiac arrest, does elect to allow their loved one to pass comfortably. Code status was changed to level 5. Insulin drip was started for hyperglycemia and hyperkalemia. Will continue to monitor pt closely.
[2016-11-25 04:04] LABS: VEN BLOOD GAS BASE EXCESS -17.9 mEq/L
[2016-11-25 04:13] LABS: BETA-HYDROXYBUTYRATE 3.91 mg/dL (0.2-2.81); BUN/CREATININE RATIO 8.4 (10-20); CALCIUM 6.5 mg/dl (8.5-10.1); CREATININE 1.8 mg/dl (0.60-1.20); POTASSIUM 5.9 mmol/L (3.5-5.1)
[2016-11-25 04:16] LABS: HEMATOCRIT 22.8 % (37-47); MEAN CELL VOLUME 88.4 fL (80-100); MEAN CORPUSCULAR HEMOGLOBIN 28.3 pg (25-34); MEAN PLATELET VOLUME 10.5 fL (7.4-10.4); PLATELET COUNT 91 K/uL (130-400); PLT ESTIMATE DECREASED; RED BLOOD COUNT 2.58 M/uL (4.2-5.4); WHITE BLOOD COUNT 24.93 K/uL (4.8-10.8)
[2016-11-25] MEDS ORDERED: PHENYLEPHRINE HCL INJ 20 MG in SODIUM CHLORIDE 0.9% 500ML 500 ML IV PRN (04:30)
[2016-11-25] MEDS: MIDAZOLAM HCL 5 MG/ML 1 ML VIAL IV PRN (04:33)
[2016-11-25] MEDS ORDERED: NOREPINEPHRINE BIT IV PRN (06:00)
[2016-11-25] MEDS ORDERED: DEXTROSE 5% IV PRN (06:00)
[2016-11-25] MEDS ORDERED: FENTANYL CITRATE 1250MCG/250ML NSS ONE (07:52)
[2016-11-25 08:22] LABS: HEMATOCRIT 31.4 % (37-47)
[2016-11-25 08:29] LABS: VEN BLD GAS O2 SATURATION 94.4 %; VEN BLOOD GAS BASE EXCESS -15.3 mEq/L
[2016-11-25] MEDS: PANTOprazole INJ 40 MG in SYRINGE 0 ML IV SCH (09:30)
[2016-11-25] MEDS: SODIUM BICARBONATE 8.4% INJ 150 MEQ in SODIUM CHLORIDE 0.45% 1000ML 1,000 ML IV SCH (09:30)
--- NOTE | 2016-11-25 09:40 | Critical Care Progress Note ---
Critical Care Progress Note Date of Service Nov 25, 2016. Attending Dr. Aquino Subjective She is critically ill. Ischemia of the lower ext. bilaterally. No urine output. No bowel sounds. She is distended and appeared uncomfortable AM today. Diffuse edema noted. Vent and pressor support noted. Her lab investigation suggesting profound metabolic acidosis. Her situation is not survivable. I spoke with her about comfort measures. He will confer with his family. I spoke with surgery who is aware of the terminal condition. Objective Diffuse edema HEENT--intubated Pulmonary--exchange is fair at best. Cardio--tachy and with substantial ischemia of the LE GI--no bowel sounds--distended--uncomfortable Musculo--as noted above Neuro--sedated Derm--neg Current SOFA Score SOFA Score Response (Comments) Value PaO2/FiO2 (mmHg) < 400 1 SaO2 / FIO2 221 - 301 1 Platelets (x10) < 150 1 Bilirubin (mg/dL) 2.0 - 5.9 2 Garcia Coma Score < 6 4 Level of Hypotension Dopamine > 15 mcq or Epi > 0.1 mcq 4 Creatinine (mg/dL) 2.0 - 3.4 2 Total 15 Assessment & Plan (1) MODS (multiple organ dysfunction syndrome) (2) Metabolic acidosis Profound acidosis consistent with ischemia. (3) JAYLEN (acute kidney injury) Acute renal failure--not survivable given the profound limb ischemia and probably bowel ischemia. Profound vascular compromise with multiorgan system failure. Her situation is fatal. I will be meeting with family and assisting with the decisions on best way to provide comfort. is expected today. Consults & Procedures Consultants: Reviewed in the EMR Procedures: none Data Medications: Current Inpatient Medications Medications (Trade) Dose Ordered Sig/Shira Route Start Time Stop Time Status Last Admin Dose Admin Ioversol (Optiray 320) 100 ml UD PRN IV 11/22/16 13:30 11/26/16 13:29 Ondansetron HCl (Zofran Inj) 4 mg Q6H PRN IV 11/22/16 16:45 12/22/16 16:44 Nitroglycerin (Nitrostat Tab) 0.4 mg UD PRN SL 11/22/16 16:45 12/22/16 16:44 Piperacillin Sod/ Tazobactam Sod (Consult) 1 ea UD PRN N/A 11/22/16 18:00 12/22/16 17:59 Glucose (Glucose 40% Gel) 15-30 GRAMS 15 GRAMS... UD PRN PO 11/22/16 20:15 12/22/16 20:14 Glucose (Glucose Chew Tab) 4-8 Tablets 4 Tabl... UD PRN PO 11/22/16 20:15 12/22/16 20:14 Dextrose (Dextrose 50% 50ML Syringe) 25-50ML OF 50% DW IV FOR... UD PRN IV 11/22/16 20:15 12/22/16 20:14 Glucagon (Glucagon Inj) 1 mg UD PRN SQ 11/22/16 20:15 12/22/16 20:14 Vancomycin HCl (Consult) 1 ea UD PRN N/A 11/24/16 20:15 12/24/16 20:14 Pantoprazole Sodium 40 mg/ Syringe 10 ml @ 5 mls/min DAILY@09,21 IV 11/24/16 21:00 12/24/16 20:59 11/24/16 21:07 5 MLS/MIN Sodium Bicarbonate 150 meq/Sodium Chloride 1,150 ml @ 100 mls/hr [id number] IV 11/24/16 21:15 12/24/16 21:14 11/24/16 21:24 100 MLS/HR Fentanyl Citrate (Fentanyl Inj) 50 mcg Q2H PRN IV 11/24/16 22:00 12/08/16 19:59 11/25/16 06:43 50 MCG Midazolam HCl (Versed Inj) 2 mg Q2H PRN IV 11/24/16 22:00 12/24/16 19:59 11/25/16 04:33 2 MG Insulin Aspart (novoLOG ASPART) [facility] 11/25/16 08:00 12/25/16 07:59 Insulin Human Regular 250 units/ Sodium Chloride 252.5 ml @ 0 mls/hr DAILY@1130 IV 11/25/16 01:45 12/25/16 01:44 11/25/16 01:41 3.1 MLS/HR Phenylephrine HCl 20 mg/Sodium Chloride 502 ml @ 0 mls/hr Q0M PRN IV 11/25/16 04:30 12/25/16 04:29 11/25/16 04:58 49.2 MLS/HR Norepinephrine Bitartrate 32 mg/ Dextrose 532 ml @ 0 mls/hr Q0M PRN IV 11/25/16 06:00 12/25/16 05:59 11/25/16 06:32 246 MLS/HR Piperacillin Sod/ Tazobactam Sod 4.5 gm/Dextrose 120 ml @ 28.75 mls/ hr Q12@0200,1400 IV 11/25/16 14:00 12/05/16 13:59 Vital Signs: Date Time Temp Pulse Resp B/P (MAP) Pulse Ox O2 Delivery O2 Flow Rate FiO2 11/25/16 08:15 50 11/25/16 06:43 124 147/75 11/25/16 06:30 37.8 125 37 119/65 94 11/25/16 06:16 37.7 124 36 55/45 (50) 93 11/25/16 05:32 130 112/67 11/25/16 05:30 37.7 129 34 109/65 95 11/25/16 05:18 50 11/25/16 05:15 37.6 131 33 103/53 (75) 90 11/25/16 05:00 37.6 128 32 103/53 98 11/25/16 04:55 37.5 126 31 103/48 98 11/25/16 04:45 37.6 120 28 97/50 (71) 98 11/25/16 04:15 37.5 127 33 99/59 (76) 93 11/25/16 04:00 50 11/25/16 04:00 98 Mechanical Ventilator 50 11/25/16 03:38 128 90/38 11/25/16 03:31 37.4 110 33 45/27 (28) 66 142/96 (116) 11/25/16 03:15 37.3 136 34 127/60 (82) 96 11/25/16 02:54 50 11/25/16 02:45 37.3 134 33 124/64 (84) 97 11/25/16 02:24 116 95/51 11/25/16 02:15 37.3 138 34 100 11/25/16 01:47 37.4 144 35 108/28 (38) 96 142/64 (87) 11/25/16 01:32 37.5 135 29 127/76 (91) 96 145/61 (84) 11/25/16 01:16 37.5 116 28 84/64 (71) 11/25/16 01:16 37.5 116 28 84/64 (71) 98 95/51 (66) 11/25/16 01:15 37.6 118 29 97 11/25/16 01:08 147 112/48 11/25/16 01:01 37.6 156 32 144/67 (93) 98 11/25/16 00:46 37.6 146 34 151/75 (98) 98 11/25/16 00:32 37.6 140 34 64/32 (34) 99 122/69 (91) 11/25/16 00:01 98 Oxymask 50 Mechanical Ventilator 11/25/16 00:01 50 11/25/16 00:01 37.6 123 33 126/68 (97) 98 11/24/16 23:49 142 162/80 11/24/16 23:42 37.6 146 33 62/32 (49) 97 128/74 (91) 11/24/16 23:31 37.5 120 32 87/39 (59) 99 11/24/16 23:16 37.4 113 33 74/34 (50) 98 11/24/16 23:01 37.3 136 33 81/42 (57) 95 11/24/16 22:46 37.2 125 35 86/40 (59) 92 11/24/16 22:31 37.0 115 34 83/39 (57) 94 11/24/16 22:20 50 11/24/16 22:16 36.9 118 34 82/42 (62) 100 11/24/16 22:00 36.8 119 35 98/51 (71) 100 11/24/16 21:45 36.7 109 34 100/56 (75) 100 11/24/16 21:43 135 105/68 11/24/16 21:30 36.6 125 28 106/57 (78) 100 11/24/16 21:15 36.5 117 29 124/78 (93) 99 11/24/16 21:06 142 110/70 11/24/16 21:00 36.4 138 23 99/50 (72) 100 11/24/16 21:00 50 11/24/16 20:45 36.3 131 32 54/25 (37) 100 11/24/16 20:30 36.2 125 27 79/42 (56) 100 11/24/16 20:15 36.1 121 32 90/44 (62) 100 11/24/16 20:00 100 Oxymask 100 Mechanical Ventilator 11/24/16 20:00 36.0 108 33 84/43 (58) 100 11/24/16 20:00 50 11/24/16 19:45 35.9 117 32 87/46 (61) 100 11/24/16 19:30 35.8 106 28 99/48 (67) 100 11/24/16 19:15 35.7 109 27 113/63 (80) 100 11/24/16 19:00 35.7 109 28 103/56 100 11/24/16 19:00 35.6 109 28 145/70 (90) 100 11/24/16 18:45 35.6 106 29 90/50 100 11/24/16 18:30 35.6 101 29 85/54 100 11/24/16 18:18 35.6 73 12 62/27 100 11/24/16 17:40 82/47 11/24/16 17:40 80 26 11/24/16 17:40 80 26 100 11/24/16 17:35 83 27 11/24/16 17:35 83 27 100 11/24/16 17:30 86 25 17 17:30 77/40 11/24/16 17:30 86 25 100 11/24/16 17:29 87 27 100 11/24/16 17:29 88 27 11/24/16 17:24 92 27 11/24/16 17:24 92 27 100 17 17:20 75/40 11/24/16 17:19 100 27 100 11/24/16 17:19 100 27 11/24/16 17:14 107 22 11/24/16 17:14 107 22 100 17 17:10 85/45 17 17:09 120 25 1417 17:09 120 25 100 11/24/16 17:04 119 22 14/17 17:04 118 22 100 17 17:00 35.3 95/58 14/17 16:59 117 20 100 14/17 16:59 117 20 /14/17 16:55 100/64 9/14/17 16:54 119 20 100 9/14/17 16:54 120 20 9/14/17 16:53 119 20 100 9/14/17 16:53 119 20 9/14/17 16:48 116 20 9/14/17 16:48 115 20 99 9/14/17 16:45 107/59 9/14/17 16:43 112 20 98 9/14/17 16:43 112 20 /14/17 16:38 110 20 9/14/17 16:38 110 20 99 /14/17 16:35 115/60 /14/17 16:33 109 20 /14/17 16:33 109 20 100 /14/17 16:28 110 20 /14/17 16:28 110 20 100 /14/17 16:27 110 20 100 /14/17 16:27 110 20 /14/17 16:25 35.5 130/60 /14/17 16:22 114 20 /14/17 16:22 114 20 100 /14/17 16:17 124 20 99 /14/17 16:17 125 20 /14/17 16:15 131/71 /14/17 16:12 127 20 96 /14/17 16:12 127 20 /14/17 16:11 100 /14/17 16:10 35.8 126 20 121/67 99 100.0 14/17 16:07 126 20 14/17 16:07 126 20 95 14/17 16:05 122/64 14/17 16:02 119 19 /14/17 16:02 122 19 81 /14/17 15:59 117 12 100/53 /14/17 15:57 113 10 /14/17 15:57 10 /14/17 15:56 112 12 /14/17 15:56 12 /14/17 15:55 72/38 /14/17 15:46 125 29 /14/17 15:46 29 /14/17 15:45 61/34 /14/17 15:41 21 /14/17 15:41 128 21 /14/17 15:37 156/ 9/14/17 15:36 17 9/14/17 15:36 128 17 11/24/16 15:35 59/34 11/24/16 15:31 126 22 11/24/16 15:31 60 22 11/24/16 15:26 19 11/24/16 15:26 129 19 11/24/16 15:25 35.3 57/30 11/24/16 15:21 130 30 95 11/24/16 15:21 133 30 11/24/16 15:16 136 24 97 11/24/16 15:16 128 24 11/24/16 15:15 71/52 11/24/16 15:11 134 22 99 11/24/16 15:11 137 22 11/24/16 15:06 24 11/24/16 15:06 137 24 11/24/16 15:04 66/36 11/24/16 15:01 133 20 11/24/16 15:01 132 20 89 11/24/16 15:00 35.2 38 15 96 Oxymask 10 72/41 11/24/16 14:56 38 13 11/24/16 14:56 46 13 100 11/24/16 09:45 36.8 80 20 144/81 (102) 94 Room Air Laboratory Results: Last 24 Hours Test 11/24/16 15:18 11/24/16 15:25 11/24/16 16:50 11/24/16 16:51 Bedside Glucose 263 mg/dl White Blood Count 9.78 K/uL 8.97 K/uL Red Blood Count 2.44 M/uL 2.39 M/uL Hemoglobin 6.2 g/dL 6.8 g/dL Hematocrit 20.2 % 21.1 % Mean Corpuscular Volume 82.8 fL 88.3 fL Mean Corpuscular Hemoglobin 25.4 pg 28.5 pg Mean Corpuscular Hemoglobin Concent 30.7 g/dl 32.2 g/dl Platelet Count 239 K/uL 148 K/uL Mean Platelet Volume 9.0 fL 8.9 fL Neutrophils (%) (Auto) 74.1 % Lymphocytes (%) (Auto) 20.4 % Monocytes (%) (Auto) 3.8 % Eosinophils (%) (Auto) 0.5 % Basophils (%) (Auto) 0.4 % Neutrophils # (Auto) 7.24 K/uL Lymphocytes # (Auto) 2.00 K/uL Monocytes # (Auto) 0.37 K/uL Eosinophils # (Auto) 0.05 K/uL Basophils # (Auto) 0.04 K/uL RDW Standard Deviation 46.7 fL 52.1 fL RDW Coefficient of Variation 15.4 % 15.9 % Immature Granulocyte % (Auto) 0.8 % Immature Granulocyte # (Auto) 0.08 K/uL Nucleated RBC Absolute Count (auto) 0.03 K/uL 0.04 K/uL Nucleated Red Blood Cells % 0.3 % 0.4 % Hypochromasia PRESENT Echinocytes 1+ 2+ Arterial Blood pH 7.22 Arterial Blood Partial Pressure CO2 32 mmHg Arterial Blood Partial Pressure O2 150 mm/Hg Arterial Blood HCO3 10 mmol/L Arterial Blood Oxygen Saturation < 60.0 % Arterial Blood Base Excess -16.8 mEq/L Arterial Blood Gas Delivery 15L Walter Test POS Pro-B-Type Natriuretic Peptide 2309 pg/ml Neutrophils % (Manual) 72.2 % Lymphocytes % (Manual) 21.7 % Monocytes % (Manual) 0.9 % Eosinophils % (Manual) 0.9 % Basophils % (Manual) 2.6 % Myelocytes % 1.7 % Neutrophils # (Manual) 6.48 K/uL Total Absolute Neutrophils 6.48 K/uL Lymphocytes # (Manual) 1.95 K/uL Total Absolute Lymphocytes 1.95 K/uL Monocytes # (Manual) 0.08 K/uL Eosinophils # (Manual) 0.08 K/uL Basophils # (Manual) 0.23 K/uL Myelocytes # 0.15 K/uL Bedside Hemoglobin 5.4 g/dl Bedside Hematocrit 16 % Bedside Blood Gas pH (LAB) 7.02 Bedside Blood Gas pCO2 (LAB) 44 mmHg Bedside Blood Gas pO2 (LAB) 354 mmHg Bedside Blood Gas HCO3 (LAB) 12 meq/L Bedside Blood Gas Total CO2 13 mEq/l Bedside Blood Gas Base Excess (LAB) -19.0 meq/L Bedside Blood Gas O2 Saturation 100.0 % Bedside Sodium 143 mEq/L Bedside Potassium 4.0 mEq/L Test 11/24/16 17:02 11/24/16 19:48 11/24/16 19:50 11/25/16 00:06 Bedside Hemoglobin 5.4 g/dl Bedside Hematocrit 16 % Bedside Blood Gas pH (LAB) 7.06 Bedside Blood Gas pCO2 (LAB) 44 mmHg Bedside Blood Gas pO2 (LAB) > 420 mmHg Bedside Blood Gas HCO3 (LAB) 12 meq/L Bedside Blood Gas Total CO2 14 mEq/l Bedside Blood Gas Base Excess (LAB) -18.0 meq/L Bedside Blood Gas O2 Saturation 100.0 % Bedside Sodium 142 mEq/L Bedside Potassium 4.6 mEq/L White Blood Count 16.14 K/uL Red Blood Count 3.08 M/uL Hemoglobin 8.9 g/dL Hematocrit 27.6 % Mean Corpuscular Volume 89.6 fL Mean Corpuscular Hemoglobin 28.9 pg Mean Corpuscular Hemoglobin Concent 32.2 g/dl RDW Standard Deviation 53.1 fL RDW Coefficient of Variation 16.2 % Platelet Count 121 K/uL Mean Platelet Volume 9.1 fL Nucleated RBC Absolute Count (auto) 0.12 K/uL Nucleated Red Blood Cells % 0.8 % Arterial Blood pH 7.12 Arterial Blood Partial Pressure CO2 27 mmHg Arterial Blood Partial Pressure O2 430 mm/Hg Arterial Blood HCO3 9 mmol/L Arterial Blood Oxygen Saturation 99.8 % Arterial Blood Base Excess -19.2 mEq/L Arterial Blood Gas Delivery 100% Walter Test POS Sodium Level 143 mmol/L Potassium Level 6.0 mmol/L Chloride Level 116 mmol/L Carbon Dioxide Level 9 mmol/L Anion Gap 18.0 mmol/L Blood Urea Nitrogen 9 mg/dl Creatinine 0.94 mg/dl Est Creatinine Clear Calc Drug Dose 56.0 ml/min Estimated GFR () 73.3 Estimated GFR (Non- 63.2 BUN/Creatinine Ratio 9.5 Random Glucose 203 mg/dl Lactic Acid Level 11.8 mmol/L Calcium Level 7.4 mg/dl Phosphorus Level 8.5 mg/dl Magnesium Level 2.0 mg/dl Ionized Calcium 1.09 mmol/l Bedside Glucose (other) 274 mg/dl Test 11/25/16 00:14 11/25/16 00:35 11/25/16 02:31 11/25/16 03:21 Hemoglobin 8.5 g/dL Hematocrit 26.6 % Sodium Level 137 mmol/L Potassium Level 6.8 mmol/L Chloride Level 110 mmol/L Carbon Dioxide Level 6 mmol/L Anion Gap 21.0 mmol/L Blood Urea Nitrogen 12 mg/dl Creatinine 1.50 mg/dl Est Creatinine Clear Calc Drug Dose 35.1 ml/min Estimated GFR () 41.6 Estimated GFR (Non- 35.9 BUN/Creatinine Ratio 8.1 Random Glucose 291 mg/dl Lactic Acid Level 14.5 mmol/L Calcium Level 6.7 mg/dl Blood Gas Sample Site Art Line Bedside Blood Gas pH (LAB) 6.96 7.08 Bedside Blood Gas pCO2 (LAB) 24 mmHg 34 mmHg Bedside Blood Gas pO2 (LAB) 109 mmHg 69 mmHg Bedside Blood Gas HCO3 (LAB) 5 meq/L 10 meq/L Bedside Blood Gas Total CO2 6 mEq/l 11 mEq/l Bedside Blood Gas Base Excess (LAB) -26.0 meq/L -20.0 meq/L Bedside Blood Gas O2 Saturation 94.0 % 86.0 % Walter Test NA Oxygen Delivery Device Ventilator Bedside Oxygen Rate (breaths/min) 15 Blood Gas Minute Ventilation 17.0 Bedside FiO2 50 % Blood Gas Tidal Volume 500 Blood Gas PEEP 6 Bedside Hemoglobin 6.8 g/dl Bedside Hematocrit 20 % Bedside Sodium 136 mEq/L Bedside Potassium 5.5 mEq/L Bedside Glucose (other) 355 mg/dl Test 11/25/16 03:36 11/25/16 04:44 11/25/16 06:22 11/25/16 08:14 White Blood Count 24.93 K/uL Red Blood Count 2.58 M/uL Hemoglobin 7.3 g/dL 9.8 g/dL Hematocrit 22.8 % 31.4 % Mean Corpuscular Volume 88.4 fL Mean Corpuscular Hemoglobin 28.3 pg Mean Corpuscular Hemoglobin Concent 32.0 g/dl RDW Standard Deviation 51.6 fL RDW Coefficient of Variation 15.8 % Platelet Count 91 K/uL Mean Platelet Volume 10.5 fL Nucleated RBC Absolute Count (auto) 0.21 K/uL Nucleated Red Blood Cells % 0.9 % Platelet Estimate DECREASED Venous Blood pH 7.11 7.18 Venous Blood Partial Pressure CO2 33 mmHg 32 mmHg Venous Blood Partial Pressure O2 85 mmHg 87 mmHg Venous Blood HCO3 10 mmol/L 12 mmol/L Venous Blood Oxygen Saturation 92.0 % 94.4 % Venous Blood Base Excess -17.9 mEq/L -15.3 mEq/L Sodium Level 137 mmol/L Potassium Level 5.9 mmol/L Chloride Level 105 mmol/L Carbon Dioxide Level 12 mmol/L Anion Gap 20.0 mmol/L Blood Urea Nitrogen 15 mg/dl Creatinine 1.80 mg/dl Est Creatinine Clear Calc Drug Dose 29.3 ml/min Estimated GFR () 33.4 Estimated GFR (Non- 28.8 BUN/Creatinine Ratio 8.4 Random Glucose 360 mg/dl Lactic Acid Level 14.9 mmol/L 10.7 mmol/L Calcium Level 6.5 mg/dl Troponin I 1.030 ng/ml Beta-Hydroxybutyric Acid 3.91 mg/dL Random Cortisol 59.99 mcg/dl Random Vancomycin Level 32.8 mcg/ml Bedside Glucose (other) 369 mg/dl 387 mg/dl Test 11/25/16 08:23 Bedside Glucose (other) 344 mg/dl
--- NOTE | 2016-11-25 10:02 | Pharmacy Progress Note ---
Pharmacy Antibiotic Prog Note Date of Service Nov 25, 2016. Objective Height (Feet): 5 Height (Inches): 0.00 Weight (Kilograms): 82.500 Lab Results (24hrs): Test 11/24/16 15:18 11/24/16 15:25 11/24/16 16:50 11/24/16 17:02 Bedside Glucose 263 mg/dl (70-90) Immature Granulocyte % (Auto) 0.8 % White Blood Count 9.78 K/uL (4.8-10.8) Red Blood Count 2.44 M/uL (4.2-5.4) Hemoglobin 6.2 g/dL (12.0-16.0) Hematocrit 20.2 % (37-47) Mean Corpuscular Volume 82.8 fL (80-100) Mean Corpuscular Hemoglobin 25.4 pg (25-34) Mean Corpuscular Hemoglobin Concent 30.7 g/dl (32-36) Platelet Count 239 K/uL (130-400) Mean Platelet Volume 9.0 fL (7.4-10.4) Neutrophils (%) (Auto) 74.1 % Lymphocytes (%) (Auto) 20.4 % Monocytes (%) (Auto) 3.8 % Eosinophils (%) (Auto) 0.5 % Basophils (%) (Auto) 0.4 % Neutrophils # (Auto) 7.24 K/uL (1.4-6.5) Lymphocytes # (Auto) 2.00 K/uL (1.2-3.4) Monocytes # (Auto) 0.37 K/uL (0.11-0.59) Eosinophils # (Auto) 0.05 K/uL (0-0.5) Basophils # (Auto) 0.04 K/uL (0-0.2) Immature Granulocyte # (Auto) 0.08 K/uL (0.00-0.02) Hypochromasia PRESENT Echinocytes 1+ 2+ Arterial Blood pH 7.22 (7.35-7.45) Arterial Blood Partial Pressure CO2 32 mmHg (35-46) Arterial Blood Partial Pressure O2 150 mm/Hg (80-95) Arterial Blood HCO3 10 mmol/L (19-24) Arterial Blood Oxygen Saturation < 60.0 % (90-95) Arterial Blood Base Excess -16.8 mEq/L (-9-1.8) Arterial Blood Gas Delivery 15L Walter Test POS (POS) Pro-B-Type Natriuretic Peptide 2309 pg/ml (0-900) Neutrophils % (Manual) 72.2 % Lymphocytes % (Manual) 21.7 % Monocytes % (Manual) 0.9 % Eosinophils % (Manual) 0.9 % Basophils % (Manual) 2.6 % Myelocytes % 1.7 % Neutrophils # (Manual) 6.48 K/uL (1.4-6.5) Total Absolute Neutrophils 6.48 K/uL (1.4-6.5) Lymphocytes # (Manual) 1.95 K/uL (1.2-3.4) Total Absolute Lymphocytes 1.95 K/uL (1.2-3.4) Monocytes # (Manual) 0.08 K/uL (0.11-0.59) Eosinophils # (Manual) 0.08 K/uL (0-0.5) Basophils # (Manual) 0.23 K/uL (0-0.2) Myelocytes # 0.15 K/uL (0-0) Bedside Hemoglobin 5.4 g/dl (12.0-16.0) Bedside Hematocrit 16 % (37-47) Bedside Sodium 142 mEq/L (135-144) Bedside Potassium 4.6 mEq/L (3.3-5.0) Test 11/24/16 19:48 11/24/16 19:50 11/25/16 00:14 11/25/16 00:35 White Blood Count 16.14 K/uL (4.8-10.8) Red Blood Count 3.08 M/uL (4.2-5.4) Mean Corpuscular Volume 89.6 fL (80-100) Mean Corpuscular Hemoglobin 28.9 pg (25-34) Mean Corpuscular Hemoglobin Concent 32.2 g/dl (32-36) RDW Standard Deviation 53.1 fL (36.4-46.3) RDW Coefficient of Variation 16.2 % (11.5-14.5) Platelet Count 121 K/uL (130-400) Mean Platelet Volume 9.1 fL (7.4-10.4) Nucleated RBC Absolute Count (auto) 0.12 K/uL (0-0) Nucleated Red Blood Cells % 0.8 % Arterial Blood pH 7.12 (7.35-7.45) Arterial Blood Partial Pressure CO2 27 mmHg (35-46) Arterial Blood Partial Pressure O2 430 mm/Hg (80-95) Arterial Blood HCO3 9 mmol/L (19-24) Arterial Blood Oxygen Saturation 99.8 % (90-95) Arterial Blood Base Excess -19.2 mEq/L (-9-1.8) Arterial Blood Gas Delivery 100% Walter Test POS (POS) NA Phosphorus Level 8.5 mg/dl (2.5-4.9) Magnesium Level 2.0 mg/dl (1.8-2.4) Ionized Calcium 1.09 mmol/l (1.12-1.32) Sodium Level 137 mmol/L (136-145) Potassium Level 6.8 mmol/L (3.5-5.1) Chloride Level 110 mmol/L (98-107) Carbon Dioxide Level 6 mmol/L (21-32) Anion Gap 21.0 mmol/L (3-11) Blood Urea Nitrogen 12 mg/dl (7-18) Creatinine 1.50 mg/dl (0.60-1.20) Est Creatinine Clear Calc Drug Dose 35.1 ml/min Estimated GFR () 41.6 Estimated GFR (Non- 35.9 BUN/Creatinine Ratio 8.1 (10-20) Random Glucose 291 mg/dl (70-99) Calcium Level 6.7 mg/dl (8.5-10.1) Blood Gas Sample Site Art Line Bedside Blood Gas pH (LAB) 6.96 (7.35-7.45) Bedside Blood Gas pCO2 (LAB) 24 mmHg (35-46) Bedside Blood Gas pO2 (LAB) 109 mmHg (80-95) Bedside Blood Gas HCO3 (LAB) 5 meq/L (19-24) Bedside Blood Gas Total CO2 6 mEq/l (24-31) Bedside Blood Gas Base Excess (LAB) -26.0 meq/L (-9-1.8) Bedside Blood Gas O2 Saturation 94.0 % (90-95) Oxygen Delivery Device Ventilator Bedside Oxygen Rate (breaths/min) 15 Blood Gas Minute Ventilation 17.0 Bedside FiO2 50 % Blood Gas Tidal Volume 500 Blood Gas PEEP 6 Test 11/25/16 02:31 11/25/16 03:36 11/25/16 06:22 11/25/16 08:14 Bedside Hemoglobin 6.8 g/dl (12.0-16.0) Bedside Hematocrit 20 % (37-47) Bedside Blood Gas pH (LAB) 7.08 (7.35-7.45) Bedside Blood Gas pCO2 (LAB) 34 mmHg (35-46) Bedside Blood Gas pO2 (LAB) 69 mmHg (80-95) Bedside Blood Gas HCO3 (LAB) 10 meq/L (19-24) Bedside Blood Gas Total CO2 11 mEq/l (24-31) Bedside Blood Gas Base Excess (LAB) -20.0 meq/L (-9-1.8) Bedside Blood Gas O2 Saturation 86.0 % (90-95) Bedside Sodium 136 mEq/L (135-144) Bedside Potassium 5.5 mEq/L (3.3-5.0) White Blood Count 24.93 K/uL (4.8-10.8) Red Blood Count 2.58 M/uL (4.2-5.4) Hemoglobin 7.3 g/dL (12.0-16.0) 9.8 g/dL (12.0-16.0) Hematocrit 22.8 % (37-47) 31.4 % (37-47) Mean Corpuscular Volume 88.4 fL (80-100) Mean Corpuscular Hemoglobin 28.3 pg (25-34) Mean Corpuscular Hemoglobin Concent 32.0 g/dl (32-36) RDW Standard Deviation 51.6 fL (36.4-46.3) RDW Coefficient of Variation 15.8 % (11.5-14.5) Platelet Count 91 K/uL (130-400) Mean Platelet Volume 10.5 fL (7.4-10.4) Nucleated RBC Absolute Count (auto) 0.21 K/uL (0-0) Nucleated Red Blood Cells % 0.9 % Platelet Estimate DECREASED Venous Blood pH 7.11 (7.36-7.41) 7.18 (7.36-7.41) Venous Blood Partial Pressure CO2 33 mmHg (38.0-50.0) 32 mmHg (38.0-50.0) Venous Blood Partial Pressure O2 85 mmHg 87 mmHg Venous Blood HCO3 10 mmol/L 12 mmol/L Venous Blood Oxygen Saturation 92.0 % 94.4 % Venous Blood Base Excess -17.9 mEq/L -15.3 mEq/L Sodium Level 137 mmol/L (136-145) Potassium Level 5.9 mmol/L (3.5-5.1) Chloride Level 105 mmol/L (98-107) Carbon Dioxide Level 12 mmol/L (21-32) Anion Gap 20.0 mmol/L (3-11) Blood Urea Nitrogen 15 mg/dl (7-18) Creatinine 1.80 mg/dl (0.60-1.20) Est Creatinine Clear Calc Drug Dose 29.3 ml/min Estimated GFR () 33.4 Estimated GFR (Non- 28.8 BUN/Creatinine Ratio 8.4 (10-20) Random Glucose 360 mg/dl (70-99) Lactic Acid Level 14.9 mmol/L (0.4-2.0) 10.7 mmol/L (0.4-2.0) Calcium Level 6.5 mg/dl (8.5-10.1) Troponin I 1.030 ng/ml (0-0.045) Beta-Hydroxybutyric Acid 3.91 mg/dL (0.2-2.81) Random Cortisol 59.99 mcg/dl Random Vancomycin Level 32.8 mcg/ml Bedside Glucose (other) 387 mg/dl (70-99) Test 11/25/16 08:23 Bedside Glucose (other) 344 mg/dl (70-99) Assessment & Plan Assessment * 66 yo F with multisystem organ dysfunction admitted to ICU post-op. Remains in ICU, now mechanically ventilated with profound metabolic acidosis and renal failure. ICU attending discussed comfort measures with family, who plan to decide later today. * Zosyn, vancomycin for Pseudomonas bacteremia and graft infection s/p removal * Vancomycin level increased significantly 17.8 mcg/mL to 32.8 mcg/mL after administration of vancomycin 15 mg/kg IV x1. Level this AM was drawn ~8 hr after vanco administration. This is due to sudden, severe decline in renal function (SCr 0.52 to 1.8 mg/dL over 24 hours with minimal recent UOP). * Will hold vancomycin for now * If family does not decide to pursue comfort measures, will obtain random vancomycin this evening and give a small dose if level is no longer supratherapeutic. * Will repeat level in AM Plan * Hold vancomycin for now * Random vancomycin level today @ 1999 * Vancomycin 500 mg IV x1 prn level less than 20 mcg/mL * Repeat random vancomycin tomorrow AM Pharmacy will continue to follow and will adjust dose/frequency as necessary. Thank you
[2016-11-25] MEDS ORDERED: NURSING VERBAL MED ORDER ONE ×2 (12:00)
[2016-11-25] MEDS ORDERED: FENTANYL 1250MCG/250ML NSS IV PRN (12:00)
--- NOTE | 2016-11-25 13:10 | Death Pronouncement Note ---
Pronouncement Note Date & Time of Nov 25, 2016. 1237 Pronouncement At time of pronouncement the patients pupils were fixed and dilated, there was no spontaneous respiratory effort, no palpable pulse, no audible heart tones, and no response to pain or voice. Condolences offered. Certificate completed. Kal Yang MD
--- NOTE | 2016-11-25 13:29 | Anesthesiology Progress Note ---
Anesthesia Post Op Note Date & Time Nov 25, 2016 at 13:21 Vital Signs Pain Intensity: 2 Vital Signs Past 12 Hours Date Time Temp Pulse Resp B/P (MAP) Pulse Ox O2 Delivery O2 Flow Rate FiO2 11/25/16 11:25 50 11/25/16 08:15 50 11/25/16 08:00 50 11/25/16 08:00 Mechanical Ventilator 50 11/25/16 08:00 Mechanical Ventilator 50 11/25/16 06:43 124 147/75 11/25/16 06:30 37.8 125 37 119/65 94 11/25/16 06:16 37.7 124 36 55/45 (50) 93 11/25/16 05:32 130 112/67 11/25/16 05:30 37.7 129 34 109/65 95 11/25/16 05:18 50 11/25/16 05:15 37.6 131 33 103/53 (75) 90 11/25/16 05:00 37.6 128 32 103/53 98 11/25/16 04:55 37.5 126 31 103/48 98 11/25/16 04:45 37.6 120 28 97/50 (71) 98 11/25/16 04:15 37.5 127 33 99/59 (76) 93 11/25/16 04:00 50 11/25/16 04:00 98 Mechanical Ventilator 50 11/25/16 03:38 128 90/38 11/25/16 03:31 37.4 110 33 45/27 (28) 66 142/96 (116) 11/25/16 03:15 37.3 136 34 127/60 (82) 96 11/25/16 02:54 50 11/25/16 02:45 37.3 134 33 124/64 (84) 97 11/25/16 02:24 116 95/51 11/25/16 02:15 37.3 138 34 100 11/25/16 01:47 37.4 144 35 108/28 (38) 96 142/64 (87) 11/25/16 01:32 37.5 135 29 127/76 (91) 96 145/61 (84) Notes Mental Status: see Notes Nausea / Vomiting: see Notes Pain: see Notes Airway Patency, RR, SpO2: see Notes BP & HR: see Notes Hydration State: see Notes Patient currently in ICU on ventilator at 50% fio2. On levophed drip at 0.3 mcg/ kg/min. Phenylephrine drip weaned off per RN. Had received 4 units prbc throughout night. Patient currently hemodynamically stable on Levophed. Pt breathing above ventilator on fentanyl drip. Dr. Morgan in to see patient. Family at bedside.
--- NOTE | 2016-11-25 13:55 | Progress Note ---
Progress Note Date of Service Nov 25, 2016. 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
[2016-11-25] MEDS ORDERED: PIPERACILL/TAZOBAC IV 4.5 GM in DEXTROSE 5% 100ML 100 ML IV SCH (14:00)
[2016-11-25] MEDS ORDERED: VANCOMYCIN INJ 500 MG in SODIUM CHLORIDE 0.9% 100ML 100 ML IV PRN (20:00)
[2016-11-26] MEDS ORDERED: VANCOMYCIN TROUGH SCH (05:30)
--- NOTE | 2016-11-26 12:56 | Procedure Note ---
Procedure Note Date of Service Nov 24, 2016. Procedure Note Critical Care Medicine Point of Care Bedside Ultrasound Procedure: Limited Transthoracic Echocardiogram Indication: Hypotension Date: 11/24/2016 Attending: Chilo Allen DO Fellow/Resident/Physician Product Development: Pattie Smalls Organs Examined: Heart, Vascular system Pericardial fluid: Absent Right ventricle size: Normal LV Contractility: Hyperdynamic RV Contractility: Hyperdynamic IVC size: SIZE in CM unable to visualize (<1.2 cm predicts right atrial pressure < 10 mmHg) Mechanically ventilated breaths: Yes Hemodynamic Status: Blood pressure 70 systolic heart rate 140s Impression: Hyperdynamic left ventricle Plan: Volume resuscitation Images obtained are saved for permanent record Critical Care Medicine Point of Care Bedside Ultrasound Procedure: Limited bedside abdominal Ultrasound Indication: Recent endovascular repair, procedure to inferior aorta and pelvic vasculature, concern for intra-abdominal hemorrhage Date: 11/24/2016 Attending: Chilo Allen DO Physician Product Development: Meagan Smalls Organs Examined: Heart, Lung, Liver, Kidney, Spleen, Genitourinary system Pericardial Fluid: Absent Hepatorenal fluid: Absent Splenorenal fluid: Absent Rectovesical fluid: Absent Additional Findings: Not applicable Impression: No evidence of free fluid in the abdomen Plan: Continued trend of H&H, no evidence of active hemorrhage into abdomen Images obtained are saved for permanent record
--- NOTE | 2016-11-28 09:24 | Death Summary ---
Summary of Admission Date Nov 22, 2016 at 16:30 Date & Time of Nov 25, 2016. 1237 Cause of septic shock 2nd to pseudomonas Secondary Diagnoses 1. pseudomonas septicemia/bacteremia 2nd to infected bifemoral bypass graft 2. acute blood loss anemia 3. severe PAD s/p prior bifemoral bypass graft 4. hypomagnesemia 5. T2DM 6. HTN 7. hyperlipidemia 8. Beauchamp's esophagus 9. severe metabolic acidosis 2nd to lactic acidosis/septic shock 10. acute hypoxic respiratory failure requiring intubation 11. acute renal failure 12. hyperkalemia Hospital Course HISTORY OF PRESENT ILLNESS: 66yo female with history of PAD, s/p axillary-bifemoral bypass [place] [address] Morgan., who presents today with fever and persistent drainage from the right groin. Temps today were 100-100.5. This was associated with cold chills. Yesterday she felt normal and was in her usual health. The drainage from the right groin has been present for about 8 weeks. The drainage is typically yellow in color with occasional red/pink. No foul odor. She has pain in the right groin particularly to the touch. She had a portion of the right side of the graft removed due to infection. This surgery took place in April 2016. She has been on suppressive antibiotics ever since (augmentin). She was recently also on cipro for infection in the right groin. A culture drawn at Dr. Morgan's office revealed the need for the cipro. This was in October per her recollection . Upon ER presentation today she was borderline hypotensive and thus she received 3 L of NS in the form of boluses along with IV vancomycin & zosyn. HOSPITAL COURSE: Mrs. Plummer was initially admitted to the telemetry unit where her fever and leukocytosis resolved with broad-spectrum IV antibiotics and supportive care. Blood cultures ultimately turned positive for pseudomonas. She was seen in consult by Dr. Chip Morgan who recommended surgery for her presumed infected bypass graft of the femoral arteries. On 11/24/16 she was taken to the OR by Dr. Morgan where she underwent removal of her infected axillary femoral Bypass. She also underwent TRANSPORTATION WORKER/stenting of the infrarenal aorta and left common and external iliac arteries. While in the post-anesthesia care unit she developed respiratory distress, tachycardia, and hypotension. She was reintubated and given copious volume resuscitation including PRBCs. She was admitted to the ICU where she was found to have severe lactic acidosis. Broad-spectrum IV antibiotics and additional PRBCs were administered. She was felt to have septic shock from the pseudomonas in the setting of her major surgery. As the morning of 11/25/16 went on the patient's status deteriorated with worsening renal function, development of hyperkalemia, persistent fevers, and need for additional pressor agents to maintain adequate blood pressure. Her severe lactic acidosis persisted despite optimal medical efforts. Discussions were held with the family on the AM of 11/25/16. In light of her extremely poor prognosis her family decided to withdraw care and extubate her from the vent. She peacefully a short time later. Copy To Tam Rosario M.D.; Chip Morgan M.D.
--- NOTE | 2016-12-27 23:35 | OPERATIVE REPORT ---
DATE OF OPERATION: 11/24/2016 PREOPERATIVE DIAGNOSIS: Infected axillobifemoral bypass. POSTOPERATIVE DIAGNOSIS: Same. PROCEDURE: 1. Stenting of distal aorta and left common and external iliac arteries. 2. Aortogram, cannulation of abdominal aorta. 3. Removal of infected axillofemoral bypass and patch angioplasty of left common femoral artery. SURGEON: Dr. Chip Morgan. TICKETER: Esther Higgins PA-C. ANESTHETIC: General. PROCEDURE INDICATIONS: The patient is a 66-year-old female who has an infected axillobifemoral bypass. She has had bleeding from the stump of the right limb graft x2. It is now recommended that we remove the graft, being that there is fluid around the graft itself. She understood the risks, options and benefits, and agreed to have this procedure. We would try to open up her [place] iliac system first so that we could try to avoid having to do another bypass. DESCRIPTION OF PROCEDURE: The patient was taken to the operating room and placed in supine position. After general anesthesia was accomplished, abdomen, chest wall and bilateral groins were prepped and draped in a sterile manner. A longitudinal incision was made in the left groin, this was carried down to where the graft was identified. The graft and common femoral arteries were isolated proximal and distal to the anastomosis. The graft was then clamped and the patient was heparinized. The graft was taken down from the common femoral artery. An 8-[place] sheath was inserted. Using the wires and Quick-Cross catheter, the aorta was cannulated from the left groin. An angled [place] catheter was inserted and a hand injection was performed showing the renal arteries to be widely patent. The catheter was true lumen with good flow down through the distal aorta. The inferior mesenteric artery also lit up nicely. At that point, we decided to stent the distal aorta and left iliac. A 16 x 40 [place] [employer] stent was inserted. This stented the distal aorta from the inferior mesenteric artery down into the left common iliac. This was then extended with a 9 x 39 Omnilink. We had to put an 8 x 40 Absolute distally into the external iliac artery to treat an area that had 2 small dissections. After this was completed, there was excellent flow from the aorta into the left iliac system. The internal iliac on the left side also was patent, filling the pelvis. At that point, the sheath was pulled. Due to the size of the hole in the common femoral artery, this was then closed with a bovine patch. This was sewn in place with 6-0 Prolene suture. After this was completed, clamps were removed, there was excellent flow seen through the femoral artery into the profunda. At that point, the graft was freed up and tucked up into the subcutaneous tissue. An incision was made in the chest wall. The graft was exposed at that level. It was well incorporated. The graft at that point was clamped and divided and the proximal end ligated with [place] suture. Adequate hemostasis was seen at the anastomotic site. The counterincision in the lower abdomen, which was the site of the infection, was then opened. There was pus present around the graft at that level. The graft was freed up both ____ femoral portion and then the abdominal wall portion proximally. It was then pulled out in its entirety. Adequate hemostasis was obtained of these wounds. The wounds were then closed with a running 3-0 Vicryl suture for the subcutaneous layer and aisha for the skin. The left groin incision was irrigated out and was closed with a running 2-0 Vicryl and 3-0 Vicryl, followed by aisha. This had been done prior to doing the incisions over the infected graft that was removed. At the end of this procedure, the patient did have Doppler signals in both feet. There was capillary refill present, however, slightly decreased. Dressings were applied and the patient left the operating room in satisfactory and stable condition. Esther Higgins Pac assisted due to lack of resident availability and was necessary for prepping, draping, retraction, wound closure defects, subQ and skin closure and was necessary for the case. I attest to the content of the Intraoperative Record and any orders documented therein. Any exceptions are noted below. ZHEN
== END 2016-11-25 13:36 | disposition expired | DRG 252 ==
LOC: C.EDB 12:32 → C.2T 16:30 → ENRESERV 16:47 → C.2T 17:35 → ENRESERV 11-24 15:19 → C.MSICU 11-24 17:50
PROVIDERS: ADMIT Internal Medicine; ATTEND Internal Medicine
PROC: 047H3FZ Dilation of Right External Iliac Artery with Three Intraluminal Devices, Percutaneous Approach (ICD-10-PCS; principal; 2016-11-24 10:00)
PROC: 04P Lower Arteries, Removal (ICD-10-PCS; principal; 2016-11-24 10:00)
PROC: 04UD3JZ Supplement Left Common Iliac Artery with Synthetic Substitute, Percutaneous Approach (ICD-10-PCS; principal; 2016-11-24 10:00)
DX: T82.7XXA Infection and inflammatory reaction due to other cardiac and vascular devices, implants and grafts, initial encounter (principal); A41.9 Sepsis, unspecified organism; I73.9 Peripheral vascular disease, unspecified; I95.9 Hypotension, unspecified; E11.9 Type 2 diabetes mellitus without complications; I10 Essential (primary) hypertension; E83.42 Hypomagnesemia; Z79.82 Long term (current) use of aspirin; Z79.01 Long term (current) use of anticoagulants; Z87.891 Personal history of nicotine dependence; Z82.49 Family history of ischemic heart disease and other diseases of the circulatory system